=== PATIENT | female | born 1930 | race Caucasian/White ===

== ENCOUNTER 2017-01-16 13:05 | Inpatient (IN) | payer MEDICARE, BC ==
[2017-01-16] MEDS ORDERED: Ondansetron INJ* 2 MG/ML VIAL ONE (13:10)
[2017-01-16] MEDS ORDERED: Ondansetron INJ* 2 MG/ML VIAL IV ONE (13:17)
[2017-01-16] MEDS ORDERED: LORazepam INJ* 2 MG/ML 1 ML VIAL IV ONE (13:17)
[2017-01-16] MEDS ORDERED: NS 0.9% 1000 ML* 1,000 ML IV SCH ×2 (13:30→15:30)
[2017-01-16 13:33] LABS: Hematocrit 37 % (35-47); Hemoglobin 12.3 g/dl (12.0-16.0); Mean Corpuscular HGB Conc 34 g/dl (31-36); Mean Corpuscular Hemoglobin 37 pg (27-31); Mean Platelet Volume 9 um3 (7.4-10.4); Red Blood Count 3.36 10^6/ul (4.0-5.4); Red Cell Distribution Width 14 % (10.5-15); White Blood Count 5.4 10^3/ul (3.5-10.8)
[2017-01-16 13:34] LABS: Comments Flag Yes
[2017-01-16 13:37] LABS: Mean Corpuscular Volume 110 fL (80-97)
--- NOTE | 2017-01-16 13:39 | RAD ---
HISTORY: Right-sided weakness, history of seizure COMPARISONS: October 14, 2016 TECHNIQUE: Multiple contiguous axial CT scans were obtained of the head without intravenous contrast. FINDINGS: HEMORRHAGE/INFARCT: There is no hemorrhage or acute infarct. MASSES/SHIFT: There is no mass or shift. EXTRA-AXIAL SPACES: There are no extra-axial fluid collections. SULCI AND VENTRICLES: There is mild diffuse and proportional enlargement of the sulci and ventricles. CEREBRUM: There are no focal parenchymal abnormalities. BRAINSTEM: There are no focal parenchymal abnormalities. CEREBELLUM: There are no focal parenchymal abnormalities. VESSELS: The vessels are grossly normal. PARANASAL SINUSES: The paranasal sinuses are clear. ORBITS: The orbits are unremarkable. BONES AND SOFT TISSUE: No bone or soft tissue abnormalities are noted. OTHER: None IMPRESSION: NO ACUTE INTRACRANIAL PATHOLOGY. PRELIMINARY FINDINGS WERE DISCUSSED WITH DR. ARREDONDO IN THE EMERGENCY DEPARTMENT AT APPROXIMATELY 1:36 PM ON JANUARY 16, 2017.
--- NOTE | 2017-01-16 13:40 | RAD ---
INDICATION: Altered mental status COMPARISON: October 14, 2016 TECHNIQUE: An AP seated portable view obtained at 1325 hours is submitted. FINDINGS: Bones/Soft Tissues: There are no acute bony findings. There is a right-sided [id number] catheter Cardiomediastinal: The cardiomediastinal silhouette is normal. There are calcified mediastinal lymph nodes. Lungs: There is hyperinflation with chronic interstitial changes. These changes are less conspicuous than noted previously, however. There is evidence of old chronic lung disease with a left upper lobe granuloma. Pleura: There are no pleural effusions. Other: None IMPRESSION: HYPERINFLATION WITH MILD CHRONIC INTERSTITIAL CHANGES DEMONSTRATE MILD INTERVAL IMPROVEMENT
[2017-01-16 13:45] LABS: Albumin 3.7 g/dL (3.2-5.2); BUN/Creatinine Ratio 26.6 (8-20); Calcium 9.4 mg/dL (8.6-10.3); EGFR African American 52.5 (>60); EGFR Non-African American 40.8 (>60); Globulin 4.2 g/dL (2-4); HDL Cholesterol 49.2 mg/dL; Potassium 5.9 mmol/L (3.5-5.0); Total Bilirubin 0.6 mg/dL (0.2-1.0); Total Protein 7.9 g/dL (6.4-8.9)
[2017-01-16 13:59] LABS: PCO2 Arterial 51 mmHg (35-45)
[2017-01-16] MEDS ORDERED: Ondansetron INJ* 2 MG/ML VIAL IV PRN (15:02)
[2017-01-16] MEDS ORDERED: LORazepam INJ* 2 MG/ML 1 ML VIAL IV PUSH PRN (15:02)
[2017-01-16] MEDS ORDERED: Acetaminophen TAB* 325 MG PO PRN (15:02)
--- NOTE | 2017-01-16 15:09 | ED ---
Luis, DoctorMelissa, scribed for Raúl Arredondo MD on 01/16/17 at 1335 . Neurological HPI - HPI Summary HPI Summary: 86 year old female arrived to [facility] with AMS following multiple episodes of emesis and coughing. She was unresponsive upon arrival, but has recovered slightly since. She was reported to be "wobbly", but no different than baseline at 12:00 pm; however, she began coughing at 12:15 and was unable to communicate or respond to questions. Upon arrival, she was unable to move her right side but was marginally able to move her left side. She experienced a seizure in [facility]. Her daughter reports a similar episode 1 year ago and she has a PMHx of seizures. Her care is currently managed by Dr. Still (Oncologist) and Dr. Swan (Neurologist); she receives treatment for her cancer once every three weeks. HPI provided by daughter who was present at bedside; full HPI limited due to Level 5 Caveat. Patient is DNR. Tom Hillman called for patient at 13:14. - History of Current Complaint Stated Complaint: UNRESPONSIVE Hx Obtained From: Family/Cut Out Marker - Daughter Hx From Patient Unobtainable Due To: Altered Mental Status Hx Last Menstrual Period: n/a Onset/Duration: Started hours ago - onset 1 hour COMMERCIAL INSULATOR Timing: Constant Onset Severity: Moderate Current Severity: Moderate Number of Seizures: 1 - in [facility] Character: Responsiveness - unresponsive upon arrival, slightly recovered Associated Signs and Symptoms: Positive: Seizure, Nausea/Vomiting Related Hx: Seizure - Additional Pertinent History Primary Care Physician: [id number] - Allergy/Home Medications Allergies/Adverse Reactions: Allergies Allergy/AdvReac Type Severity Reaction Status Date / Time Azathioprine Allergy Unknown Verified 09/01/16 12:28 Reaction Details Codeine Allergy Unknown Verified 09/01/16 12:28 Reaction Details Corticosteroids Allergy Swelling Verified 09/01/16 12:28 Diltiazem Allergy Unknown Verified 09/01/16 12:28 Reaction Details Levetiracetam Allergy See Comment Verified 09/01/16 12:28 Macrolides and Ketolides Allergy Unknown Verified 09/01/16 12:28 Reaction Details Penicillins Allergy Hives Verified 09/01/16 12:28 Phenytoin [From Dilantin] Allergy Hives Verified 09/01/16 12:28 Sulfa Drugs Allergy Hives Verified 09/01/16 12:28 Tetracyclines & Related Allergy Difficulty Verified 09/01/16 12:28 Breathing/Wheezing Doxycycline AdvReac GI Upset Verified 06/09/16 06:51 Lidocaine AdvReac GI Upset Verified 06/09/16 06:51 Moxifloxacin [From Avelox] AdvReac Diarrhea Verified 06/09/16 06:51 Home Medications: Home Medications Cholecalciferol [Vitamin D3] 50,000 mg PO WEEKLY 01/16/17 [History Confirmed 04/29] Divalproex ER TAB(*) [Depakote ER TAB(*)] 1,000 mg PO BID 01/16/17 [History Confirmed 01/16/17] Lactulose* 10 mg PO BID PRN 01/16/17 [History Confirmed 01/16/17] Ondansetron TAB* [Zofran Tab*] 4 mg PO TID PRN 01/16/17 [History Confirmed 01/16] Pantoprazole TAB (NF) [Protonix TAB (NF)] 40 mg PO DAILY 01/16/17 [History Confirmed 01/16/17] Prochlorperazine TAB* [Compazine Tab*] 10 mg PO QID PRN 01/16/17 [History Confirmed 01/16/17] PMH/Surg Hx/FS Hx/Imm Hx Endocrine/Hematology History: Reports: Hx Anticoagulant Therapy, Hx Thyroid Disease - hypo, Hx Anemia, Other Endocrine/Hematological Disorders - hypothyroidism Denies: Hx Diabetes, Hx Unexplained Bleeding Cardiovascular History: Reports: Hx Angina, Hx Angioplasty, Hx Coronary Artery Disease, Hx Syncope, Other Cardiovascular Problems/Disorders - CAD Denies: Hx Aneurysm, Hx Auto Implanted Cardiovert Defib, Hx Cardiac Arrest, Hx Cardiomegaly, Hx Congenital Heart Disease, Hx Congestive Heart Failure, Hx Deep Vein Thrombosis, Hx Embolism, Hx Hypercholesterolemia, Hx Hypotension, Hx Hypertension, Hx Pacemaker/ICD, Hx Peripheral Vascular Disease, Hx Rheumatic Fever, Hx Valvular Heart Disease Respiratory History: Reports: Hx Sleep Apnea Denies: Hx Asthma, Hx Chronic Obstructive Pulmonary Disease (COPD), Hx Lung Cancer GI History: Reports: Hx Gastroesophageal Reflux Disease Denies: Hx Jaundice, Hx Ulcer History: Denies: Hx Dialysis, Hx Renal Disease Musculoskeletal History: Reports: Hx Arthritis, Other Musculoskeletal History - polymyalgia rheumatica Denies: Hx Fibromyalgia Sensory History: Reports: Hx Contacts or Glasses, Other Sensory Impairments - polymyalgia rheumatica Denies: Hx Hearing Aid Opthamlomology History: Reports: Hx Contacts or Glasses, Other Sensory Impairments - polymyalgia rheumatica Neurological History: Reports: Hx Seizures, Hx Transient Ischemic Attacks (TIA) Denies: Hx Dementia, Hx Developmental Delay, Hx Headaches, Hx Migraine, Hx Nerve Disease, Hx Spinal Cord Injury, Other Neuro Impairments/Disorders Psychiatric History: Denies: Hx Anxiety, Hx Depression, Hx Panic Disorder, Hx Schizophrenia, Hx Bipolar Disorder - Cancer History Cancer Type, Location and Year: 2015 Hx Chemotherapy: Yes - Surgical History Surgery Procedure, Year, and Place: 2005 CARDIAC STENT [place] FOR 3T PER BIBIANA ( CYPHER-SIROLIMUS),. HEEL SURGERY X2 ,. APPENDIX 1953,. BREAST BX X2 1958 ,. LEFT ARM SURGERY WRIST FX,. R ARM SURGERY ELBOW FX,. SKULL FRACTURE [facility] NO. SURGERY PER PT. CATARACT LENSE REPAIR;. HEART CATHS - ONLY ONE STENT;. appendectomy Hx Anesthesia Reactions: No - Immunization History Date of Tetanus Vaccine: MAGGIE Date of Influenza Vaccine: MAGGIE Infectious Disease History: Denies: Hx Hepatitis, Hx Human Immunodeficiency Virus (HIV) - Family History Known Family History: Positive: Unknown Family History: LEVEL 5 CAVEAT - UNRESPONSIVE - Social History Alcohol Use: None Hx Substance Use: No Substance Use Type: Reports: None Hx Tobacco Use: No Smoking Status (MU): Never Smoked Tobacco Review of Systems - ROS Summary Review of Systems Summary: Full ROS limited due to Level 5 Caveat Positive: Cough - constant cough, unable to communicate All Other Systems Reviewed And Are Negative: No Physical Exam - Summary Physical Exam Summary: Physical Exam limited due to Level 5 Caveat Triage Information Reviewed: Yes Vital Signs On Initial Exam: Initial Vitals Resp 28 01/16/17 13:08 Vital Signs Reviewed: Yes Completion Of Physical Exam Limited Due To: Level 5 Skin: Positive: Warm, Skin Color Reflects Adequate Perfusion, Dry Respiratory/Lung Sounds: Positive: Clear to Auscultation, Breath Sounds Present Cardiovascular: Positive: Tachycardia Abdomen Description: Positive: Nontender, Soft Bowel Sounds: Positive: Present Musculoskeletal: Positive: Strength/ROM Intact - able to move all four extremities while seizing Neurological: Positive: Sensory/Motor Intact - able to move all four extremities while seizing, Other - Patient unresponsive.. Negative: Alert, Oriented to Person Place, Time Psychiatric: Positive: Other - patient unresponsive Diagnostics - Vital Signs Vital Signs Temp Pulse Resp BP Pulse Ox 01/16/17 14:00 107 27 150/70 98 01/16/17 13:55 111 27 98 01/16/17 13:54 139/86 01/16/17 13:50 148/84 01/16/17 13:40 134/85 01/16/17 13:30 149/74 01/16/17 13:29 98.7 F 109 28 149/74 99 01/16/17 13:27 100 01/16/17 13:20 146/75 01/16/17 13:08 28 - Laboratory Lab Results: Lactic Acid - 2.8 Result Diagrams: 01/16/17 13:05 01/16/17 13:05 Lab Statement: Any lab studies that have been ordered have been reviewed, and results considered in the medical decision making process. - Radiology CXR Radiology Interpretation Completed By: Radiologist - IMPRESSION: HYPERINFLATION WITH MILD CHRONIC INTERSTITIAL CHANGES DEMONSTRATE MILD INTERVAL IMPROVEMENT - CT Brain CT CT Interpretation Completed By: Radiologist - IMPRESSION: NO ACUTE INTRACRANIAL PATHOLOGY. PRELIMINARY FINDINGS WERE DISCUSSED WITH DR. ARREDONDO IN THE EMERGENCY DEPARTMENT AT APPROXIMATELY 1:36 PM ON JANUARY 16, 2017. - EKG 13:46 Cardiac Rate: Tachycardia - 110 BPM EKG Rhythm: Sinus Tachycardia - 110 BPM Ectopy: None EKG Interpretation: Normal ST Re-Evaluation - Re-Evaluation First Eval Re-Evaluation Time: 13:33 Comment: MD updated daughter with consultation results. Daughter confirms that their PCPs involve Dr. Still (oncologist) and Dr. Swan (neurologist). MD disucssed plan of care involving CTA and Keppra treatment, daughter agreed. Daughter indicated that pt previously was on Keppra but recently changed to a different seizure medication; speculated that the change may be the reason for her seizures today. Course/Dx - Course Assessment/Plan: DISUSSED WITH DR LOUIS, NEUROLOGY, AND DR WOODS. ADMIT HOSPITALIST GUARDED. - Diagnoses Provider Diagnoses: Altered mental state During the Visit The Following Alert/Code Occurred: Code Hillman - 13:14 - Physician Notifications Discussed Care of Patient With: 13:32 - discussed care of patient with Dr. Dennis (neurologist middle school professional). 13:57 - discussed care of patient with Dr. Swan (neurologist). He agrees to come down and see patient. 13:59 - discussed care of patient with Dr. Bullock (hospitalist). Discharge - Discharge Plan Condition: Guarded Disposition: ADMITTED TO [facility] documentation as recorded by the Doctor land Tahera accurately reflects the service I personally performed and the decisions made by me, Raúl Arredondo MD.
[2017-01-16] MEDS ORDERED: Sodium Polystyrene RECTAL* 30 GM/120 ML RECTAL.SUS PR ONE (15:23)
--- NOTE | 2017-01-16 16:48 | CONSULT ---
Consult Consult: 01/16/17 neurology consult note 86 yo F, pt of dr Swan/faby neurological, known chronic seizure disorder ( likely left hemisphere localization related), ovarian cancer (ascites; thrombocytopenia), thyroid disease, PMR, presenting with likely recurrent seizure. She has a known history of post ictal aphasia and encephalopathy and has been seen by multiple neurologists on inpatient before, most recently dr Swan in 10/28 and 08/28. She has had multiple sets of negative PHARMACY CONSULTANT imaging and negative vascular imaging 08/28 as well. She is currently obtunded. She is per records on LEV 1000mg XR bid (normal levels -10/28), and apparently more recently had VPA added (? 500 qpm to titrate to 500 bid; had level of 77 in 11/29 ; repeat pending). She got a keppra load and benzos in the ED. Her outpatient chart is not available, but prior trials presumably included at least PHE ( hives listed as allergy), vimpat (had levels in chart). Allergies/Meds per jan PMH - as above FH - NC/ not available SH - NC/not available ROS unobtainable due to encephalopathy Vitals per emr general Examination: obtunded; no edema; abd soft Neurologic Examination Funduscopy deferred; PERRL; corneals sluggish; eyes open no gaze preference; doll intact; face symmetric; tone normal to dec; no convulsions; moves left side semi purposefully; withdrew both legs to noxious stim, no mvmt spont or to stim of RUE; 1+ arms; knees and ankles absent. Plantar responses are equivocal to rapid withdrawal Serologies: - Plts 79 (stable), Cr up to 1.24, K 5.9 - Priors; B12, CA 125, tsh, cortiso, aic all ok in past; bnp 300s Imaging: - Head CT reviewed and negative (08/28, 12/28 and 11/25 brain mris all neg as well) - 08/28 CTA and 11/25 head MRA both neg - 09/28 CT abd and pelvis essentially neg; 7?16 venous u/s LLE neg DVT Phys: mult EEGs from 04/25-08/28 have all demonstrated either bland diffuse encephalopathy or encephalopathy with superimposed left sided slowing; she has not had discharges or status/seizures Impression: 86 year old localization related likely left hemisphere (by exam and prior EEGs ; imaging negative) chronic seizure disorder, ovarian cancer, presenting with recurrent seizure. She is currently clinically post ictal; there is no clinical evidence of seizure activity, ie any decision re repeat EEG can wait until tomorrow, when Dr Swan comes on service. Her VPA level is pending and outpatient dosing needs clarification; she can be maintained on LEV 1000 bid IV pending further med adjustments.
--- NOTE | 2017-01-16 17:40 | HP ---
HISTORY AND PHYSICAL: DATE OF ADMISSION: 01/16/17 PRIMARY CARE PROVIDER: Dr. Berrios. ATTENDING PHYSICIAN WHILE IN THE HOSPITAL: Dr. Emile Bullock *(report dictated by Reagan Sow NP). CHIEF COMPLAINT: Altered mental status. HISTORY OF PRESENT ILLNESS: I would like to preface this report by saying that the patient at this point is nonverbal at this point, really unable to give much history. Most of the H and P is obtained from the patient's daughter who lives in [place] and comes up occasionally to see her mother and again, because of this, the history is limited. According to the daughter, she has been here the last couple of days visiting the patient and apparently today, they were going out to go shopping at the mall and on their way here, the daughter noted that the patient started coughing. She noted that she was not acting herself. She was acting confused. The daughter was driving, so she really was not focusing completely on the patient as she wanted to make sure that they were safe, but there was no report of shaking or incontinence. There was report of confusion and her not acting herself and acting off. The patient' s daughter was very concerned when she asked her mother if she wanted to go to the hospital, she did not say anything and it appeared that she was staring off , so she brought her in to the hospital immediately. She has been sick recently in the last couple of weeks. She has been dealing with a sore throat, cough, having some rhinorrhea as well and has not been feeling well. According to the daughter last week, she had some diarrhea, which is now resolved. The daughter drove her immediately into the hospital to be evaluated, particularly when she did not respond to the daughter's questioning. The patient's daughter says that to her knowledge, she may or may not be taking her medications appropriately. She does at times and is forgetful. She may be forgetting her night doses of her seizure medications and the daughter is unaware of what medications she is actually taking. She is in the process of getting the pill bottles. She was evaluated in the ER. Tom Antonio was called. There was concern for seizure. She was given 2 of Ativan and loaded with 1000 mg of Keppra. Neurology was called as was the hospitalist service. PAST MEDICAL HISTORY: 1. She has had ovarian cancer. 2. AFib. 3. Seizure. 4. CAD. 5. Hypothyroidism. 6. GERD. 7. PMR. 8. TRISTAN, not treated. 9. CKD. PAST SURGICAL HISTORY: 1. She has had an appendectomy. 2. Cardiac catheterization. HOME MEDICATIONS: According to the pharmacy list that we are able to obtain include: 1. Protonix 40 mg daily. 2. Zofran 4 mg p.o. t.i.d. as needed. 3. Lactulose 10 mg p.o. b.i.d. as needed. 4. Compazine 10 mg p.o. 4 times a day as needed. 5. Depakote 1000 mg p.o. b.i.d. 6. Keppra 1000 mg p.o. b.i.d. 7. Thyroid tab 60 mg p.o. b.i.d. 8. Omeprazole 20 mg daily. ALLERGIES TO MEDICATIONS: Include AZATHIOPRINE, CODEINE, CORTICOSTEROIDS, DILTIAZEM, KEPPRA, MACROLIDES, KETOLIDES, PENICILLIN, PHENYTOIN, SULFA, TETRACYCLINE, DOXYCYCLINE, LIDOCAINE, and AVELOX. FAMILY HISTORY: Parents' history was reviewed. The patient's daughter is unaware of any medical problems that the family may have had with the exception that the patient's sister did have cancer from smoking, lung cancer. SOCIAL HISTORY: She lives alone. Surrogate decision maker is her daughter. She is a nonsmoker, nondrinker. REVIEW OF SYSTEMS: Again, unable to be obtained because of the patient's mental status. PHYSICAL EXAMINATION GENERAL: At this time, Ms. Bonilla is an 86-year-old female patient. She is sitting in the ER bed and does not appear to be in any acute distress. She will withdraw to pain only. She is nonverbal. VITAL SIGNS: Blood pressure 134/69, pulse 106, respirations 26, O2 sat 97%, and temperature 98.7. HEENT: Pupils are equal and reactive to light. Sclerae anicteric. Throat: Oral mucosa appears to be dry. No oropharyngeal erythema. NECK: Supple. LUNGS: Clear to auscultation. HEART: Sounds S1, S2. She is tachycardic at 100. ABDOMEN: Soft, flat, nontender. Bowel sounds present. EXTREMITIES: She will withdraw her extremities to pain only. Pulses were 2+ throughout. No peripheral edema. NEUROLOGIC: Her eyes are open. She does not respond to visual threat at this point. She is nonverbal. She does grimace to pain and withdraw to pain to all 4 extremities. No facial drooping. No gross focal deficits. SKIN: Intact. LABORATORY DATA AND DIAGNOSTIC STUDIES: Today revealed WBC of 5.4, RBC of 3.36 , hemoglobin 12.3, hematocrit 37, platelet count 79. The INR was 0.88. PTT 28.2. ABG showed a pH of 7.27, PCO2 of 51, bicarb of 21. Her sodium was 134, potassium 5.9, chloride of 101, bicarb 29, BUN 33, creatinine 1.29, glucose 108 , lactic 2.8, calcium 9.4. Total bilirubin 0.6, AST 22, ALT 13, alk phos 84. Troponin 0.0. Albumin 3.7. Toxicology: Valproic acid level is pending. She had a brain CT obtained today, which revealed no acute intracranial pathology. She had a chest x-ray obtained today, which revealed hyperinflation with mild chronic interstitial changes and demonstrated mild interval improvement. EKG showed a sinus tachycardia with a rate of 110. No ST elevations or T-wave inversions were noted. Old medical records were reviewed. She did have an MRI in August this year, which was a negative exam with the exception of chronic vessel ischemic change. Old medical records were reviewed. ASSESSMENT AND PLAN: Ms. Bonilla is an 86-year-old female patient coming into the ER today with complaints of a possible seizure and altered mental status. Hospitalist service was asked to evaluate for admission. She will be admitted under inpatient status for: 1. Seizure: At this point, Dr. Tobin will be evaluating the patient. She did get a dose of Keppra. She does appear possibly postictal. At this point, she will be evaluated by Neurology. She again is only responsive to pain. The plan is to go ahead and continue her medications. Question if it possibly seems related to medication noncompliance. At this point, again we will possibly get an EEG. We are going to wait for Neurology input, place her on seizure precautions and we will continue to monitor. 2. Ovarian cancer: Follow up with Dr. Still. 3. Atrial fibrillation: Appears to be in sinus rhythm. We will monitor. 4. Coronary artery disease: Continue with secondary prevention. 5. Hypothyroidism: Continue her medications as prescribed. 6. Gastroesophageal reflux disease: Continue PPI therapy. 7. Polymyalgia rheumatica: She can follow with her primary. It does not appear to be an active issue. 8. Obstructive sleep apnea: She does not wear CPAP at night. 9. Chronic kidney disease with acute kidney injury, today we will hydrate her. Continue to follow. 10. Hyperkalemia: I am going to give her a Kayexalate suppository. 11. Code status: She is DNR. 12. Fluids, electrolytes, and nutrition: She is n.p.o. If she awakens, we will order a heart healthy diet. TIME SPENT: Time spent on the admission was approximately 60 minutes; greater than half the time was spent [id number] with the patient obtaining my history and physical, other half of the time spent going over the plan of care with the patient and implementing plan of care. I did discuss the plan of care with my attending, Dr. Bullock; he is in agreement. REAGAN SOW NP CC: Dr. Berrios; Dr. Gallardo * [id number]/CPS #: [id number] BARBI
[2017-01-16 18:07] LABS: BUN/Creatinine Ratio 30.1 (8-20); EGFR African American 96.8 (>60); EGFR Non-African American 75.2 (>60); Potassium 3.6 mmol/L (3.5-5.0)
[2017-01-16] MEDS ORDERED: hydrALAZINE IV* 20 MG/ML VIAL IV SLOW PU PRN (18:36)
[2017-01-16] MEDS: LORazepam INJ* 2 MG/ML 1 ML VIAL IV PUSH PRN (18:55)
[2017-01-16] MEDS ORDERED: Acetaminophen SUPP* 650 MG SUPP PR PRN (19:06)
--- NOTE | 2017-01-16 19:10 | PN ---
Hospitalist Progress Note called to bedside at 1900, noted to be shaking, and more confused per nursing, pt withdrawing to pain and to sternal rub, temp noted 101.4, plan for vanco ceftriaxone, checking urine if neg, may need to consider spinal tap will cover empircally for now with vanco and ceftriaxone for now, daughter did state patient had recent uri symptoms,
[2017-01-16] MEDS ORDERED: Vancomycin per Pharmacy* NOTE FOLLOW UP PRN (19:11)
--- NOTE | 2017-01-16 19:33 | PN ---
Hospitalist Progress Note Will add acyclovir renally dosed and meropenum, consider spinal tap in am if U/ A clean,
[2017-01-16 19:53] LABS: C Reactive Protein 2.41 mg/L (< 5.00)
[2017-01-16 19:59] LABS: Urine Bilirubin Negative (Negative); Urine Glucose Negative (Negative); Urine Nitrite Negative (Negative)
[2017-01-16] MEDS ORDERED: Vancomycin(*) 1,000 MG in NS 0.9% 250 ML* 250 ML IVPB ONE (21:00)
[2017-01-16] MEDS ORDERED: Valproic Acid IV(*) 100 MG/ML 5 ML VIAL (500 MG) IVPB SCH ×2 (21:00)
[2017-01-16] MEDS ORDERED: Divalproex ER TAB(*) 500 MG PO SCH (21:00)
[2017-01-16] MEDS: Heparin VIAL(*) 5000 UNITS/ML VIAL (FIVE THOUSAND) SUBCUT SCH (21:20)
[2017-01-16 22:28] LABS: BUN/Creatinine Ratio 25.2 (8-20); Calcium 9.2 mg/dL (8.6-10.3); EGFR African American 62.2 (>60); EGFR Non-African American 48.4 (>60)
[2017-01-16 22:31] LABS: Potassium 4.9 mmol/L (3.5-5.0)
[2017-01-17] MEDS ORDERED: NS 0.9% 1000 ML* 1,000 ML IV SCH (01:45)
[2017-01-17] MEDS: Heparin VIAL(*) 5000 UNITS/ML VIAL (FIVE THOUSAND) SUBCUT SCH ×3 (06:40→21:26)
[2017-01-17 06:43] LABS: Hematocrit 31 % (35-47); Hemoglobin 10.5 g/dl (12.0-16.0); Mean Corpuscular HGB Conc 34 g/dl (31-36); Mean Corpuscular Hemoglobin 38 pg (27-31); Mean Platelet Volume 9 um3 (7.4-10.4); Red Blood Count 2.82 10^6/ul (4.0-5.4); Red Cell Distribution Width 14 % (10.5-15); White Blood Count 6.7 10^3/ul (3.5-10.8)
[2017-01-17 06:44] LABS: Comments Flag Yes
[2017-01-17 06:45] LABS: Mean Corpuscular Volume 111 fL (80-97)
[2017-01-17 06:56] LABS: BUN/Creatinine Ratio 22.5 (8-20); Blood Urea Nitrogen 23 mg/dL (6-24); CO2 Carbon Dioxide 25 mmol/L (22-32); Calcium 8.5 mg/dL (8.6-10.3); Chloride 101 mmol/L (101-111); EGFR African American 65.8 (>60); EGFR Non-African American 51.1 (>60); Glucose 127 mg/dL (70-100); Sodium 131 mmol/L (133-145)
--- NOTE | 2017-01-17 08:34 | PN ---
Subjective - Subjective Reason for Note: Progress Note History: I have reviewed the presentation in the admitting history and physical provided by Ezio Sow NP. She has a longstanding seizure disorder and has had breakthrough seizures taking therapeutic levels of keppra and was recently changed to divalproex ( depakote). She has not tolerated phenytoin in the past (caused her major balance/walking problems). She is unconscious this morning and not responsive. Conversation with daughter May by phone. She had diarrhea 1 week before her daughter arrived. She had a "lump in her throat" - sore throat - she was over this 1 week prior to admission. May was fine on Monday - very tired. She took her mother to the movies - she would usually be more alert afterwards. She had a list of things to do - no energy. She was fine on the morning of presentation. They were planning to go to [employer]. On the drive there had a conversation - weather. When they passed [place] - weird "coughing thing". She asked for water. Didn't take a water bottle. She stopped verbally responding. Therefore took her to the [facility]. Not initially a major convulsion. She was unable to get out of the car with a wheel chair. She was vomiting all over herself and the car. A weight - took 4 people to get her out of the car. She thinks she became fully unconscious when she arrived at the Emergency Room and went to fetch a wheel-chair. 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 Sleep apnea (Chronic) G47.30 Thrombocytopenia (Chronic) D69.6 Current Medications: Current Medications Acetaminophen (Tylenol Tab*) 650 mg PO Q4H PRN PRN Reason: FEVER/PAIN Acetaminophen (Tylenol Supp*) 650 mg AK Q4H PRN PRN Reason: FEVER/PAIN Last Admin: 01/16/17 20:12 Dose: 650 mg Heparin Sodium (Porcine) (Heparin Vial(*)) 5,000 units SUBCUT Q8HR [facility] Last Admin: 01/17/17 06:40 Dose: 5,000 units Hydralazine HCl (Apresoline Iv*) 5 mg IV SLOW PU Q6H PRN PRN Reason: BLOOD PRESSURE Last Admin: 01/16/17 18:45 Dose: 5 mg Levetiracetam 500 mg/ Sodium (Chloride) 105 mls @ 400.848 mls/hr IVPB Q12H [facility] Last Admin: 01/16/17 20:19 Dose: 400.848 mls/hr Valproic Acid 1,000 mg/ Sodium (Chloride) 110 mls @ 220 mls/hr IVPB Q12H [facility] Last Admin: 01/16/17 22:13 Dose: 220 mls/hr Ceftriaxone Sodium 2 gm/ (Sodium Chloride) 120 mls @ 240 mls/hr IVPB Q12H [facility] Last Admin: 01/17/17 07:57 Dose: 240 mls/hr Acyclovir Sodium 500 mg/ (Sodium Chloride) 110 mls @ 110 mls/hr IVPB Q12H [facility] Last Admin: 01/16/17 23:26 Dose: 110 mls/hr Meropenem 2 gm/ Sodium (Chloride) 140 mls @ 280 mls/hr IVPB Q12H [facility] Last Admin: 01/17/17 07:58 Dose: 280 mls/hr Vancomycin HCl 750 mg/ Sodium (Chloride) 250 mls @ 166.667 mls/hr IVPB Q12H [facility] Last Admin: 01/17/17 08:19 Dose: 166.667 mls/hr Sodium Chloride (Ns 0.9% 1000 Ml*) 1,000 mls @ 100 mls/hr IV PER RATE [facility] Last Admin: 01/17/17 03:55 Dose: 100 mls/hr Lorazepam (Ativan Inj*) 1 mg IV PUSH Q6H PRN PRN Reason: SEIZURES Last Admin: 01/16/17 18:55 Dose: 1 mg Ondansetron HCl (Zofran Inj*) 4 mg IV Q6H PRN PRN Reason: NAUSEA Pharmacy Consult (Vancomycin Per Pharmacy*) 1 note FOLLOW UP . PRN PRN Reason: PER PROTOCOL Pharmacy Profile Note (Vancomycin Trough Check) 1 note FOLLOW UP 829 ONE Stop: 01/18/17 08:31 Home Medications: Home Medications Medication Instructions Recorded Confirmed Type Levetiracetam XR TAB(NF) [Keppra 1,000 mg PO BID 09/02/16 01/16/17 History XR TAB(NF)] Thyroid TAB* [Thyroid TAB 60 MG*] 60 mg PO BID 09/02/16 01/16/17 History Omeprazole CAP* [Prilosec CAP* 20 20 mg PO DAILY 10/15/16 01/16/17 History MG] Cholecalciferol [Vitamin D3] 50,000 mg PO WEEKLY 01/16/17 01/16/17 History Divalproex ER TAB(*) [Depakote ER 1,000 mg PO BID 01/16/17 01/16/17 History TAB(*)] Lactulose* 10 mg PO BID PRN 01/16/17 01/16/17 History Ondansetron TAB* [Zofran Tab*] 4 mg PO TID PRN 01/16/17 01/16/17 History Pantoprazole TAB (NF) [Protonix 40 mg PO DAILY 01/16/17 01/16/17 History TAB (NF)] Prochlorperazine TAB* [Compazine 10 mg PO QID PRN 01/16/17 01/16/17 History Tab*] Allergies: Allergies Allergy/AdvReac Type Severity Reaction Status Date / Time Azathioprine Allergy Unknown Verified 09/01/16 12:28 Reaction Details Codeine Allergy Unknown Verified 09/01/16 12:28 Reaction Details Corticosteroids Allergy Swelling Verified 09/01/16 12:28 Diltiazem Allergy Unknown Verified 09/01/16 12:28 Reaction Details Levetiracetam Allergy See Comment Verified 09/01/16 12:28 Macrolides and Ketolides Allergy Unknown Verified 09/01/16 12:28 Reaction Details Penicillins Allergy Hives Verified 09/01/16 12:28 Phenytoin [From Dilantin] Allergy Hives Verified 09/01/16 12:28 Sulfa Drugs Allergy Hives Verified 09/01/16 12:28 Tetracyclines & Related Allergy Difficulty Verified 09/01/16 12:28 Breathing/Wheezing Doxycycline AdvReac GI Upset Verified 06/09/16 06:51 Lidocaine AdvReac GI Upset Verified 06/09/16 06:51 Moxifloxacin [From Avelox] AdvReac Diarrhea Verified 06/09/16 06:51 Objective - Vital Signs Vital Signs: Vital Signs 01/16/17 01/16/17 01/16/17 14:30 15:00 15:30 Temperature Pulse Rate 106 105 104 Respiratory 27 31 28 Rate Blood Pressure 134/69 142/69 152/89 (mmHg) O2 Sat by Pulse 97 97 97 Oximetry 01/16/17 01/16/17 01/16/17 15:42 16:04 16:08 Temperature 98.7 F 97.5 F Pulse Rate 104 101 Respiratory 30 25 24 Rate Blood Pressure 152/89 176/79 (mmHg) O2 Sat by Pulse 99 Oximetry 01/16/17 01/16/17 01/16/17 16:15 16:30 16:45 Temperature Pulse Rate 100 100 103 Respiratory 23 30 22 Rate Blood Pressure 171/76 171/80 177/91 (mmHg) O2 Sat by Pulse 100 99 100 Oximetry 01/16/17 01/16/17 01/16/17 17:00 17:15 17:30 Temperature Pulse Rate 105 109 Respiratory 25 26 Rate Blood Pressure 103/84 172/89 180/94 (mmHg) O2 Sat by Pulse 100 100 Oximetry 01/16/17 01/16/17 01/16/17 17:45 17:46 17:52 Temperature Pulse Rate 103 105 104 Respiratory 20 19 17 Rate Blood Pressure 166/113 156/126 (mmHg) O2 Sat by Pulse 99 96 97 Oximetry 01/16/17 01/16/17 01/16/17 18:00 18:15 18:30 Temperature Pulse Rate 104 103 107 Respiratory 19 19 21 Rate Blood Pressure 145/93 148/94 185/69 (mmHg) O2 Sat by Pulse 96 100 100 Oximetry 01/16/17 01/16/17 01/16/17 18:45 18:55 19:00 Temperature Pulse Rate 114 115 Respiratory 23 26 23 Rate Blood Pressure 240/173 (mmHg) O2 Sat by Pulse 100 100 Oximetry 01/16/17 01/16/17 01/16/17 19:03 19:12 19:26 Temperature 101.3 F Pulse Rate 116 119 Respiratory 26 23 Rate Blood Pressure 243/194 260/220 160/90 (mmHg) O2 Sat by Pulse 98 99 Oximetry 01/16/17 01/16/17 01/16/17 19:53 20:00 20:15 Temperature 101.2 F 102.6 F 103.3 F Pulse Rate 118 115 Respiratory 24 32 24 Rate Blood Pressure 152/83 175/74 125/72 (mmHg) O2 Sat by Pulse 98 100 Oximetry 01/16/17 01/16/17 01/16/17 20:30 20:45 21:00 Temperature 102.9 F 103.2 F 102.9 F Pulse Rate 113 112 116 Respiratory 26 28 28 Rate Blood Pressure 146/81 179/67 177/70 (mmHg) O2 Sat by Pulse 99 100 100 Oximetry 01/16/17 01/16/17 01/16/17 21:15 21:19 21:30 Temperature 102.6 F 102.5 F 102.2 F Pulse Rate 116 117 112 Respiratory 32 31 28 Rate Blood Pressure 181/67 156/76 154/75 (mmHg) O2 Sat by Pulse 100 100 100 Oximetry 01/16/17 01/16/17 01/16/17 21:45 22:00 22:15 Temperature 102.0 F 101.6 F 101.3 F Pulse Rate 116 116 115 Respiratory 30 29 28 Rate Blood Pressure 166/80 163/81 163/82 (mmHg) O2 Sat by Pulse 100 100 99 Oximetry 01/16/17 01/16/17 01/16/17 22:30 22:45 23:00 Temperature 101.2 F 101.0 F 100.9 F Pulse Rate 111 113 110 Respiratory 27 28 27 Rate Blood Pressure 170/84 166/81 160/76 (mmHg) O2 Sat by Pulse 100 99 100 Oximetry 01/16/17 01/16/17 01/16/17 23:15 23:30 23:45 Temperature 100.8 F 100.6 F 100.7 F Pulse Rate 110 104 102 Respiratory 29 26 26 Rate Blood Pressure 163/80 148/64 142/71 (mmHg) O2 Sat by Pulse 100 99 99 Oximetry 01/17/17 01/17/17 01/17/17 00:00 00:01 00:15 Temperature 100.6 F 100.6 F 100.4 F Pulse Rate 106 106 109 Respiratory 23 26 26 Rate Blood Pressure 133/58 134/65 (mmHg) O2 Sat by Pulse 100 100 100 Oximetry 01/17/17 01/17/17 01/17/17 00:21 00:30 00:45 Temperature 100.3 F 100.3 F 100.1 F Pulse Rate 109 115 116 Respiratory 26 29 28 Rate Blood Pressure 143/59 143/63 (mmHg) O2 Sat by Pulse 100 99 99 Oximetry 01/17/17 01/17/17 01/17/17 01:00 01:15 01:30 Temperature 100.0 F 99.9 F 99.8 F Pulse Rate 112 105 102 Respiratory 25 26 21 Rate Blood Pressure 144/67 130/57 138/65 (mmHg) O2 Sat by Pulse 99 100 100 Oximetry 01/17/17 01/17/17 01/17/17 01:45 02:00 02:15 Temperature 99.8 F 99.7 F Pulse Rate 97 99 Respiratory 22 23 Rate Blood Pressure 134/62 141/65 133/64 (mmHg) O2 Sat by Pulse 100 100 Oximetry 01/17/17 01/17/17 01/17/17 02:30 02:45 03:00 Temperature 99.6 F 99.6 F 99.5 F Pulse Rate 95 93 93 Respiratory 19 22 28 Rate Blood Pressure 129/68 140/62 146/65 (mmHg) O2 Sat by Pulse 100 100 100 Oximetry 01/17/17 01/17/17 01/17/17 03:15 03:30 03:45 Temperature 99.5 F 99.4 F 99.4 F Pulse Rate 91 95 90 Respiratory 21 24 21 Rate Blood Pressure 137/66 144/70 128/60 (mmHg) O2 Sat by Pulse 100 100 100 Oximetry 01/17/17 01/17/17 01/17/17 04:00 05:00 06:00 Temperature 99.4 F 98.9 F 98.6 F Pulse Rate 90 87 87 Respiratory 22 22 20 Rate Blood Pressure 132/60 131/61 135/60 (mmHg) O2 Sat by Pulse 100 100 100 Oximetry - Intake and Output Intake and Output: Intake & Output 01/14/17 01/15/17 01/16/17 01/17/17 11:59 11:59 11:59 11:59 Intake Total 2311 Output Total 1600 Balance 711 Weight 130 lb 1.164 oz Intake: IV Fluids 1476 Normal Saline 1212 acyclovir 110 valproate 67 vancomycin 87 IVPB 835 calcium gluconate 120 ceftriaxone 120 keppra 100 meropenum 140 valproate 113 vancomycin 242 Output: Gax[place] 1600 Other: # Bowel Movements 2 Estimated Stool Amount Small ADLs: Meal Record Start: 01/16/17 16: 08 Freq: 09,13,18 Status: Active Created 01/16/17 16:08 [id number] (Rec: 01/16/17 16:08 [id number] [id number]) Document 01/16/17 18:00 [id number] (Rec: 01/16/17 18:06 [id number] ICU-C16) Intake and Output Start: 01/16/17 16: 08 Freq: 06,14,22 Status: Active Created 01/16/17 16:08 [id number] (Rec: 01/16/17 16:08 [id number] ICU-M02) Document 01/16/17 22:00 [id number] (Rec: 01/16/17 22:01 [id number] ICU-C20) Document 01/17/17 06:00 [id number] (Rec: 01/17/17 06:29 [id number] ICU-M02) - Physical Exam General Physical Exam Comment: She is unconscious in an ICU bed. She is breathing spontaneously. She moves spontaneously, but infrequently. No nuchal rigidity General: No Cyanosis, No Anemia, No Jaundice, No Lymphadenopathy, No Clubbing Skin: Normal: Rash Lungs and Chest: Yes: Chest Expansion Full, Chest Expansion Symetrica, Percussion Note Resonant, Vessicular Breath Sounds. No: Crackles Heart Rate and Rhythm: Regular JVP: Not Elevated Additional Cardiovascular: Yes: Normal Heart Sounds. No: Heart Murmur, Pedal Edema Abdominal Exam: Yes: Soft. No: Distention, Abdominal Mass, Hepatomegaly, Abdominal Tenderness, Guarding, Rebound Tenderness, Bowel Sounds Present Results - Results Lab Results: Laboratory Results - last 24 hr 01/16/17 01/16/17 01/16/17 16:07 17:35 17:35 WBC RBC Hgb Hct MCV MCH MCHC RDW Plt Count MPV Neut % (Auto) Lymph % (Auto) [place] % (Auto) Eos % (Auto) Baso % (Auto) Absolute Neuts (auto) Absolute Lymphs (auto) Absolute Monos (auto) Absolute Eos (auto) Absolute Basos (auto) Absolute Nucleated RBC Nucleated RBC % INR (Anticoag Therapy) Sodium 139 Potassium 3.6 D Chloride 116 H Carbon Dioxide 20 L Anion Gap 3 BUN 22 Creatinine 0.73 Est GFR ( Amer) 96.8 Est GFR (Non-Af Amer) 75.2 BUN/Creatinine Ratio 30.1 H Glucose 94 Lactic Acid 1.3 Calcium 6.0 L* Ionized Calcium C-Reactive Protein 2.41 Urine Color Urine Appearance Urine pH Ur Specific [place] Urine Protein Urine Ketones Urine Blood Urine Nitrate Urine Bilirubin Urine Urobilinogen Ur Leukocyte Esterase Urine Glucose Urine Ascorbic Acid Influenza A (Rapid) Negative Influenza B (Rapid) Negative 01/16/17 01/16/17 01/16/17 19:43 20:05 22:07 WBC RBC Hgb Hct MCV MCH MCHC RDW Plt Count MPV Neut % (Auto) Lymph % (Auto) [place] % (Auto) Eos % (Auto) Baso % (Auto) Absolute Neuts (auto) Absolute Lymphs (auto) Absolute Monos (auto) Absolute Eos (auto) Absolute Basos (auto) Absolute Nucleated RBC Nucleated RBC % INR (Anticoag Therapy) Sodium 134 Potassium 4.9 Chloride 101 Carbon Dioxide 24 Anion Gap 9 BUN 27 H Creatinine 1.07 H Est GFR ( Amer) 62.2 Est GFR (Non-Af Amer) 48.4 BUN/Creatinine Ratio 25.2 H Glucose 130 H Lactic Acid Calcium 9.2 Ionized Calcium 4.34 L C-Reactive Protein Urine Color Yellow Urine Appearance Clear Urine pH 6.0 Ur Specific [place] 1.014 Urine Protein Negative Urine Ketones Trace H Urine Blood Negative Urine Nitrate Negative Urine Bilirubin Negative Urine Urobilinogen Negative Ur Leukocyte Esterase Negative Urine Glucose Negative Urine Ascorbic Acid * H Influenza A (Rapid) Influenza B (Rapid) 01/17/17 01/17/17 01/17/17 06:30 06:30 06:30 WBC 6.7 RBC 2.82 L Hgb 10.5 L Hct 31 L MCV 111 H MCH 38 H MCHC 34 RDW 14 Plt Count 54 L MPV 9 Neut % (Auto) 85.0 H Lymph % (Auto) 10.2 L [place] % (Auto) 3.7 Eos % (Auto) 0 Baso % (Auto) 1.1 Absolute Neuts (auto) 5.7 Absolute Lymphs (auto) 0.7 L Absolute Monos (auto) 0.2 Absolute Eos (auto) 0 Absolute Basos (auto) 0.1 Absolute Nucleated RBC 0 Nucleated RBC % 0 INR (Anticoag Therapy) 0.97 Sodium 131 L Potassium TNP Chloride 101 Carbon Dioxide 25 Anion Gap TNP BUN 23 Creatinine 1.02 H Est GFR ( Amer) 65.8 Est GFR (Non-Af Amer) 51.1 BUN/Creatinine Ratio 22.5 H Glucose 127 H Lactic Acid Calcium 8.5 L Ionized Calcium C-Reactive Protein Urine Color Urine Appearance Urine pH Ur Specific [place] Urine Protein Urine Ketones Urine Blood Urine Nitrate Urine Bilirubin Urine Urobilinogen Ur Leukocyte Esterase Urine Glucose Urine Ascorbic Acid Influenza A (Rapid) Influenza B (Rapid) Radiology Results: Patient Name: ELYSSA TIERNEY Medical Record#: [id number] Ordering Physician: Raúl Arredondo MD Acct.#: [id number] : 1930 Age: 86 Sex: F Location: EMERGENCY DEPARTMENT Exam Date: 01/16/17 1316 ADM Status: REG ER Order Information: CT BRAIN WO Accession Number: [id number] CPT: 82656 HISTORY: Right-sided weakness, history of seizure COMPARISONS: October 14, 2016 TECHNIQUE: Multiple contiguous axial CT scans were obtained of the head without intravenous contrast. FINDINGS: HEMORRHAGE/INFARCT: There is no hemorrhage or acute infarct. MASSES/SHIFT: There is no mass or shift. EXTRA-AXIAL SPACES: There are no extra-axial fluid collections. SULCI AND VENTRICLES: There is mild diffuse and proportional enlargement of the sulci and ventricles. CEREBRUM: There are no focal parenchymal abnormalities. BRAINSTEM: There are no focal parenchymal abnormalities. CEREBELLUM: There are no focal parenchymal abnormalities. VESSELS: The vessels are grossly normal. PARANASAL SINUSES: The paranasal sinuses are clear. ORBITS: The orbits are unremarkable. BONES AND SOFT TISSUE: No bone or soft tissue abnormalities are noted. OTHER: None IMPRESSION: NO ACUTE INTRACRANIAL PATHOLOGY. PRELIMINARY FINDINGS WERE DISCUSSED WITH DR. ARREDONDO IN THE EMERGENCY DEPARTMENT AT APPROXIMATELY 1:36 PM ON JANUARY 16, 2017. <Electronically signed by Brandan Mcnamara MD in [place]> 01/16/17 1336 Dictated By: Brandan Mcnamara MD Dictated Date/Time: 01/16/17 1336 Transcribed Date/Time: 01/16/17 1334 Copy to: CC:Freddy Berrios MD; Raúl Arredondo MD [facility] [address] [address] ph [phone]) ph ([phone]) ph ([phone]) 1 of 1 Patient Name: ELYSSA TIERNEY Medical Record#: [id number] Ordering Physician: Raúl Arredondo MD Acct.#: [id number] : 1930 Age: 86 Sex: F Location: EMERGENCY DEPARTMENT Exam Date: 01/16/17 1316 ADM Status: REG ER Order Information: CHEST AP PORTABLE Accession Number: [id number] CPT: 30244 INDICATION: Altered mental status COMPARISON: October 14, 2016 TECHNIQUE: An AP seated portable view obtained at 1325 hours is submitted. FINDINGS: Bones/Soft Tissues: There are no acute bony findings. There is a right-sided [id number]-Ifvn catheter Cardiomediastinal: The cardiomediastinal silhouette is normal. There are calcified mediastinal lymph nodes. Lungs: There is hyperinflation with chronic interstitial changes. These changes are less conspicuous than noted previously, however. There is evidence of old chronic lung disease with a left upper lobe granuloma. Pleura: There are no pleural effusions. Other: None IMPRESSION: HYPERINFLATION WITH MILD CHRONIC INTERSTITIAL CHANGES DEMONSTRATE MILD INTERVAL IMPROVEMENT <Electronically signed by Raúl Person MD in [place]> 01/16/17 133 Dictated By: Raúl Person MD Dictated Date/Time: 01/16/17 1336 Transcribed Date/Time: 01/16/17 133 Copy to: CC:Freddy Berrios MD; Raúl Arredondo MD [facility] [address] [address] [place], [place] [id number] [place] [address] ph [phone]) ph ([phone]) ph ([phone]) 1 of EKG Report: EKG sinus rhythm: rate 110, AK 160 QRSD 76 QTc 432 QRS 13. Early transition R wave. Assessment - Problem List Assessment: Patient Problems Altered mental state (Acute) Fever (Acute) Seizure (Acute) Seizure disorder (Acute) CAD (coronary artery disease) (Chronic) GERD (gastroesophageal reflux disease) (Chronic) Hypothyroidism (Chronic) Polymyalgia rheumatica (Chronic) Serous adenocarcinoma (Chronic) Sleep apnea (Chronic) Thrombocytopenia (Chronic) Anemia (Acute) Ascites (Acute) History of atrial fibrillation (Chronic) Pleural effusion (Chronic) Plan: Altered mental state (Acute)/Seizure (Acute)/Seizure disorder (Acute) She has had another seizure that started as a complex partial seizure and then generalized. She is post-ictal and unconscious. Her divalproex level is in mid therapeutic range. She had a previous seizure in the mid-therapeutic level of levatiracetam. I spoke with Dr. Swan - suggests we increase the dose. We will obtain a trough level on depakote 1000 mg qhs. He wants to increase the dose. He is concerned about the thrombocytopenia. CAD (coronary artery disease) (Chronic) stable. We will c heck an EEG to determine if she is having complex partial status epilepticus Fever: Dr. Swan thinks this may be due to infection as seizures rarely cause fever. However, he doesn't think this is meningitis. Most likely a UTI. I am more skeptical about this as she has a low CRP. I will stop meningitis precautions. I will simplify her antibacterials and stop antivirals. Not for LP (daughter states her mother wouldn't want this anyway - Health Care Proxy) GERD (gastroesophageal reflux disease) (Chronic) secondary diagnosis Hypothyroidism (Chronic) secondary diagnosis Polymyalgia rheumatica (Chronic) secondary diagnosis Serous adenocarcinoma (Chronic) secondary diagnosis - due to see Dr. Still as an outpatient today Sleep apnea (Chronic) secondary diagnosis Anemia (Acute) This is about baseline Thrombocytopenia: She has had low platelets for almost 1 year - some of it may be due to her prior chemotherapy. It has worsened since October starting divalproex. Ascites (Acute) No signs to day History of atrial fibrillation (Chronic) secondary diagnosis - sinus rhythm Pleural effusion (Chronic) resolved I had a 10 min phone conversation with Lola [place] (daughter) who is coming in. I also discussed the case with Dr. Swan./
[2017-01-17] MEDS ORDERED: Vancomycin(*) 750 MG in NS 0.9% 250 ML* 250 ML IVPB SCH (09:00)
[2017-01-17] MEDS ORDERED: D5W 1/2 NS 1000 ML BAG* 1,000 ML IV SCH (10:00)
[2017-01-17] MEDS: D5W 1/2 NS KCl 20 Meq 1000 ML* 1,000 ML IV SCH (15:32)
[2017-01-17 17:24] LABS: Levetiracetam 28.1 mcg/mL
--- NOTE | 2017-01-17 20:36 | CONS ---
NEUROLOGY FOLLOWUP NOTE: DATE OF FOLLOWUP: 01/17/17 REFERRING PROVIDER: Reagan Sow NP PRIMARY CARE PROVIDER: Dr. Berrios. CHIEF COMPLAINT: Seizures. INTERVAL HISTORY: Since yesterday, Brittney has remained responsive only to pain. I reviewed the records and also examined her. I spoke with Dr. Berrios early this morning. According to the records, she was driving with her daughter who is visiting from [place] and became unresponsive. It started out conversation in that not speaking and acting confused. In the emergency room, she was not responsive and there is no description of actual convulsion. She had 2 mg of Ativan and was given 1000 mg of levetiracetam in the emergency room. She is supposed to be on Depakote 500 mg in the morning and 1000 at night based on my last office note from 11/09/16. She had been intolerant of numerous anticonvulsants because of fatigue and cognitive changes and so, we switched her to Depakote at that point in time. I do not think she has had a seizure since last October when she came in and was on Keppra. She had tolerated the Keppra poorly and we had decreased her dose at her request a number of times. She was febrile last night with a T-max of 103.2. She was started on triple antibiotic therapy as well as acyclovir. MEDICATIONS: Reviewed and she is currently on: 1. Levetiracetam 500 mg IV q.12 hours. 2. Depakote 1000 mg IV q.12 hours. 3. Ceftriaxone 2 g IV q.12 hours. PHYSICAL EXAM: Eyes are closed and she does not respond to voice. Most recent temperature is 98.3 by G[place], blood pressure 108/40, heart rate in the 80s and regular. Neck is generally supple with some rigidity near the extremes of flexion. There is no Kernig or Brudzinski sign. Eye position is generally straight ahead. She has bilateral blepharospasm with attempted eye opening. She has some mild bifacial grimacing and spontaneous movements, which look symmetrical. She has increased tone in both arms and legs which is also symmetric. Plantars are withdrawal bilaterally. She responds with withdrawal to plantar stimulation and some restlessness. LABORATORY DATA: Reviewed. She had a valproic acid level of 75 when she came in at 1305 yesterday, a trough level this morning was 27.0. She had a normal white blood cell count and mild anemia this morning at 10.5 hemoglobin, platelets are low 54,000. Chemistries upon presentation notable for BUN of 27, creatinine of 1.07. Otherwise unremarkable. IMPRESSION: Breakthrough seizure probably with a low Depakote level. When she came in, it was somewhat high, but after getting 1000 mg last night which was her usual dose, her trough level this morning was only 27. She probably took her Depakote right before she started having seizures and presented to the emergency room. In the past, she has had prolonged postictal episodes. I reviewed her CT scan and it shows atrophy, but no evidence of an acute infarction or hemorrhages. She had an EEG which revealed diffuse slowing, but no epileptiform discharges. Recommend boosting her Depakote with a bolus of 750 mg and increasing her maintenance dose to 1500 mg twice per day. I discontinued the levetiracetam and plan to repeat her trough Depakote level tomorrow morning and also an EEG. If she is not improving or if she does show epileptiform discharges on her followup EEG, I may need to augment her anticonvulsant regimen. [id number]/[facility] #: [id number] BARBI
[2017-01-18] MEDS: Heparin VIAL(*) 5000 UNITS/ML VIAL (FIVE THOUSAND) SUBCUT SCH ×3 (05:04→21:59)
[2017-01-18] MEDS: D5W 1/2 NS KCl 20 Meq 1000 ML* 1,000 ML IV SCH ×2 (05:04→20:52)
[2017-01-18 05:36] LABS: Hematocrit 30 % (35-47); Hemoglobin 10.1 g/dl (12.0-16.0); Mean Corpuscular HGB Conc 34 g/dl (31-36); Mean Corpuscular Hemoglobin 36 pg (27-31); Mean Platelet Volume 8 um3 (7.4-10.4); Red Blood Count 2.77 10^6/ul (4.0-5.4); Red Cell Distribution Width 13 % (10.5-15); White Blood Count 4.3 10^3/ul (3.5-10.8)
[2017-01-18 05:37] LABS: Comments Flag Yes
[2017-01-18 05:38] LABS: Mean Corpuscular Volume 109 fL (80-97)
[2017-01-18 05:51] LABS: BUN/Creatinine Ratio 19.5 (8-20); C Reactive Protein 60.18 mg/L (< 5.00); Calcium 8.3 mg/dL (8.6-10.3); EGFR Non-African American 70.7 (>60); Potassium 4.2 mmol/L (3.5-5.0)
--- NOTE | 2017-01-18 06:29 | EEG ---
ELECTROENCEPHALOGRAPHY: DATE OF STUDY: 01/17/17 LOCATION: She is an inpatient in ICU bed 2. REFERRING PROVIDER: Reagan Sow NP CLINICAL PROBLEM: History of epilepsy, prolonged postictal confusion. MEDICATIONS: Include: 1. Valproic acid. 2. Lorazepam. 3. Acyclovir. 3. Vancomycin. 4. Keppra. 5. Rocephin. REPORT: This 16-channel EEG is remarkable for background activity consisting of diffuse slow rhythms in the theta and delta frequencies fairly symmetrically. There are intermingled alpha rhythms, but without a clear occipital predominance. The patient is apparently not verbally responsive. Photic stimulation is carried out with an occipital driving response which is poorly formed, but no new abnormalities are elicited. Sleep stages are not clearly recognized. There are no focal or epileptiform abnormalities. CLINICAL IMPRESSION: Abnormal EEG due to generalized slowing of background rhythms consistent with diffuse cerebral dysfunction such as a postictal state. There are no epileptiform features to this recording. [id number]/[facility] #: [id number] [facility]Day
--- NOTE | 2017-01-18 08:00 | PN ---
Subjective - Subjective Reason for Note: Progress Note History: She was asleep/unconscious when I entered. I was able to make her more alert. I told her she was in the [facility] and she said "Jake" and that was the only word she stated. She moved all limbs without any apparent purpose. She opened her eyes, but looked straight ahead. She didn't show any other recognizable signs of comprehension and didn't follow one step commands. 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 Sleep apnea (Chronic) G47.30 Thrombocytopenia (Chronic) D69.6 Current Medications: Current Medications Acetaminophen (Tylenol Tab*) 650 mg PO Q4H PRN PRN Reason: FEVER/PAIN Acetaminophen (Tylenol Supp*) 650 mg SD Q4H PRN PRN Reason: FEVER/PAIN Last Admin: 01/16/17 20:12 Dose: 650 mg Heparin Sodium (Porcine) (Heparin Vial(*)) 5,000 units SUBCUT Q8HR [facility] Last Admin: 01/18/17 05:04 Dose: 5,000 units Heparin Sodium (Porcine) (Heparin Flush Port (Ivad)) 5 ml FLUSH DAILY TONYA PRN Reason: Protocol Hydralazine HCl (Apresoline Iv*) 5 mg IV SLOW PU Q6H PRN PRN Reason: BLOOD PRESSURE Last Admin: 01/16/17 18:45 Dose: 5 mg Ceftriaxone Sodium 2 gm/ (Sodium Chloride) 100 mls @ 200 mls/hr IVPB Q12HR TONYA Last Admin: 01/17/17 21:26 Dose: 200 mls/hr Potassium Chloride/Dextrose (D5w 1/2 Ns Kcl 20 Meq 1000 Ml*) 1,000 mls @ 75 mls /hr IV PER RATE TONYA Last Admin: 01/18/17 05:04 Dose: 75 mls/hr Valproic Acid 1,500 mg/ Sodium (Chloride) 115 mls @ 76.667 mls/hr IVPB Q12H TONYA Last Admin: 01/17/17 21:26 Dose: 76.667 mls/hr Lorazepam (Ativan Inj*) 1 mg IV PUSH Q6H PRN PRN Reason: SEIZURES Last Admin: 01/16/17 18:55 Dose: 1 mg Ondansetron HCl (Zofran Inj*) 4 mg IV Q6H PRN PRN Reason: NAUSEA Home Medications: Home Medications Medication Instructions Recorded Confirmed Type Levetiracetam XR TAB(NF) [Keppra 1,000 mg PO BID 09/02/16 01/16/17 History XR TAB(NF)] Thyroid TAB* [Thyroid TAB 60 MG*] 60 mg PO BID 09/02/16 01/16/17 History Omeprazole CAP* [Prilosec CAP* 20 20 mg PO DAILY 10/15/16 01/16/17 History MG] Cholecalciferol [Vitamin D3] 50,000 mg PO WEEKLY 01/16/17 01/16/17 History Divalproex ER TAB(*) [Depakote ER 1,000 mg PO BID 01/16/17 01/16/17 History TAB(*)] Lactulose* 10 mg PO BID PRN 01/16/17 01/16/17 History Ondansetron TAB* [Zofran 4 MG Tab*] 4 mg PO TID PRN 01/16/17 01/16/17 History Pantoprazole TAB (NF) [Protonix 40 mg PO DAILY 01/16/17 01/16/17 History TAB (NF)] Prochlorperazine TAB* [Compazine 10 mg PO QID PRN 01/16/17 01/16/17 History Tab*] Allergies: Allergies Allergy/AdvReac Type Severity Reaction Status Date / Time Azathioprine Allergy Unknown Verified 09/01/16 12:28 Reaction Details Codeine Allergy Unknown Verified 09/01/16 12:28 Reaction Details Corticosteroids Allergy Swelling Verified 09/01/16 12:28 Diltiazem Allergy Unknown Verified 09/01/16 12:28 Reaction Details Levetiracetam Allergy See Comment Verified 09/01/16 12:28 Macrolides and Ketolides Allergy Unknown Verified 09/01/16 12:28 Reaction Details Penicillins Allergy Hives Verified 09/01/16 12:28 Phenytoin [From Dilantin] Allergy Hives Verified 09/01/16 12:28 Sulfa Drugs Allergy Hives Verified 09/01/16 12:28 Tetracyclines & Related Allergy Difficulty Verified 09/01/16 12:28 Breathing/Wheezing Doxycycline AdvReac GI Upset Verified 06/09/16 06:51 Lidocaine AdvReac GI Upset Verified 06/09/16 06:51 Moxifloxacin [From Avelox] AdvReac Diarrhea Verified 06/09/16 06:51 Objective - Vital Signs Vital Signs: Vital Signs 01/17/17 01/17/17 01/17/17 08:00 09:00 10:00 Temperature 98.4 F 98.5 F 98.5 F Pulse Rate 77 76 76 Respiratory 19 21 20 Rate Blood Pressure 110/58 125/62 97/39 (mmHg) O2 Sat by Pulse 100 100 100 Oximetry 01/17/17 01/17/17 01/17/17 11:00 12:00 13:00 Temperature 98.0 F 98.1 F 98.3 F Pulse Rate 78 80 79 Respiratory 16 23 22 Rate Blood Pressure 106/40 108/41 91/40 (mmHg) O2 Sat by Pulse 100 100 100 Oximetry 01/17/17 01/17/17 01/17/17 14:00 15:00 15:29 Temperature 98.0 F 98.1 F 98.3 F Pulse Rate 80 75 Respiratory 22 21 Rate Blood Pressure 115/47 95/39 (mmHg) O2 Sat by Pulse 100 100 Oximetry 01/17/17 01/17/17 01/17/17 16:00 17:00 18:00 Temperature 98.0 F 98.0 F 98.1 F Pulse Rate 74 72 80 Respiratory 22 20 22 Rate Blood Pressure 96/44 108/49 115/50 (mmHg) O2 Sat by Pulse 100 100 100 Oximetry 01/17/17 01/17/17 01/17/17 18:42 19:00 20:00 Temperature 98.4 F 98.6 F Pulse Rate 75 77 Respiratory 21 23 Rate Blood Pressure 119/66 123/60 (mmHg) O2 Sat by Pulse 99 100 100 Oximetry 01/17/17 01/17/17 01/17/17 21:00 22:00 23:00 Temperature 98.5 F 98.3 F 97.3 F Pulse Rate 87 94 96 Respiratory 24 23 15 Rate Blood Pressure 139/59 129/77 144/67 (mmHg) O2 Sat by Pulse 100 100 99 Oximetry 01/17/17 01/18/17 01/18/17 23:06 00:00 00:01 Temperature 96.8 F 96.8 F Pulse Rate 83 79 Respiratory 19 37 Rate Blood Pressure 154/89 (mmHg) O2 Sat by Pulse 98 99 98 Oximetry 01/18/17 01/18/17 01/18/17 01:00 02:00 03:00 Temperature 96.7 F 96.6 F 96.6 F Pulse Rate 77 73 80 Respiratory 24 18 25 Rate Blood Pressure 151/72 152/60 158/118 (mmHg) O2 Sat by Pulse 100 100 100 Oximetry 01/18/17 01/18/17 01/18/17 03:16 03:19 03:23 Temperature 96.5 F 96.5 F Pulse Rate 86 89 89 Respiratory 19 20 25 Rate Blood Pressure 190/145 175/55 167/64 (mmHg) O2 Sat by Pulse 100 100 98 Oximetry 01/18/17 01/18/17 01/18/17 03:51 04:00 04:04 Temperature 97.5 F 97.2 F 97.2 F Pulse Rate 77 82 Respiratory 21 24 Rate Blood Pressure 173/100 154/67 (mmHg) O2 Sat by Pulse 100 100 Oximetry 01/18/17 01/18/17 01/18/17 05:00 05:04 06:00 Temperature 97.6 F 97.6 F 98.1 F Pulse Rate 81 79 86 Respiratory 18 20 31 Rate Blood Pressure 126/102 145/73 163/70 (mmHg) O2 Sat by Pulse 100 100 100 Oximetry - Intake and Output Intake and Output: Intake & Output 01/15/17 01/16/17 01/17/17 01/18/17 11:59 11:59 11:59 11:59 Intake Total 2611 3191 Output Total 1924 1974 Balance 686 1216 Weight 130 lb 1.164 oz 144 lb 8 oz Intake: IV Fluids 1776 3090 D5 1/2 20kcl 1878 Normal Saline 1212 902 acyclovir 110 ceftriaxone 100 valproate 67 210 vancomycin 87 IVPB 835 101 calcium gluconate 120 ceftriaxone 120 101 keppra 100 meropenum 140 valproate 113 vancomycin 242 Oral 0 Output: [place] 1924 1974 Other: # Bowel Movements 2 Estimated Stool Amount Small ADLs: Meal Record Start: 01/16/17 16: 08 Freq: 09,13,18 Status: Active Created 01/16/17 16:08 [id number] (Rec: 01/16/17 16:08 [id number] ICU-M02) Document 01/16/17 18:00 [id number] (Rec: 01/16/17 18:06 [id number] ICU-C16) Document 01/17/17 09:00 [id number] (Rec: 01/17/17 09:49 [id number] ICU-C10) Document 01/17/17 13:00 [id number] (Rec: 01/17/17 13:02 [id number] ICU-C16) Document 01/17/17 18:00 [id number] (Rec: 01/17/17 18:55 [id number] ICU-C16) Document 01/18/17 07:27 [id number] (Rec: 01/18/17 07:27 [id number] ICU-C20) Intake and Output Start: 01/16/17 16: 08 Freq: 06,14,22 Status: Active Created 01/16/17 16:08 [id number] (Rec: 01/16/17 16:08 [id number] ICU-M02) Document 01/16/17 22:00 [id number] (Rec: 01/16/17 22:01 [id number] ICU-C20) Document 01/17/17 06:00 [id number] (Rec: 01/17/17 06:29 [id number] ICU-M02) Document 01/17/17 11:50 [id number] (Rec: 01/17/17 11:51 [id number] ICU-C10) Document 01/17/17 14:00 [id number] (Rec: 01/17/17 15:55 [id number] ICU-C16) Document 01/17/17 21:30 [id number] (Rec: 01/17/17 21:30 [id number] ICU-M17) Document 01/18/17 05:31 [id number] (Rec: 01/18/17 05:31 [id number] ICU-C14) - Physical Exam General Physical Exam Comment: She is lying on her back in bed looking straight up at the ceiling. She moves all limbs spontaneously. She doesn't follow commands. General: No Cyanosis, No Anemia, No Jaundice, No Clubbing Skin: Normal: Rash, Lesions Lungs and Chest: Yes: Chest Expansion Full, Chest Expansion Symetrica, Percussion Note Resonant, Vessicular Breath Sounds, Other - anterior chest only. No: Crackles, Wheezes Heart Rate and Rhythm: Regular Additional Cardiovascular: Yes: Normal Heart Sounds. No: Heart Murmur, Pedal Edema Abdominal Exam: Yes: Soft, Bowel Sounds Present. No: Distention, Abdominal Mass , Abdominal Tenderness, Guarding, Rebound Tenderness Results - Results Lab Results: Laboratory Results - last 24 hr 01/16/17 01/17/17 01/17/17 15:45 07:54 09:25 WBC RBC Hgb Hct MCV MCH MCHC RDW Plt Count MPV Neut % (Auto) Lymph % (Auto) [place] % (Auto) Eos % (Auto) Baso % (Auto) Absolute Neuts (auto) Absolute Lymphs (auto) Absolute Monos (auto) Absolute Eos (auto) Absolute Basos (auto) Absolute Nucleated RBC Nucleated RBC % Sodium Potassium TNP 4.6 Chloride Carbon Dioxide Anion Gap BUN Creatinine Est GFR ( Amer) Est GFR (Non-Af Amer) BUN/Creatinine Ratio Glucose Calcium C-Reactive Protein Valproic Acid Levetiracetam 28.1 01/17/17 01/18/17 01/18/17 09:25 05:11 05:11 WBC 4.3 RBC 2.77 L Hgb 10.1 L Hct 30 L MCV 109 H MCH 36 H MCHC 34 RDW 13 Plt Count 41 L MPV 8 Neut % (Auto) 86.0 H Lymph % (Auto) 6.2 L [place] % (Auto) 3.5 Eos % (Auto) 4.0 Baso % (Auto) 0.3 Absolute Neuts (auto) 3.7 Absolute Lymphs (auto) 0.3 L Absolute Monos (auto) 0.1 Absolute Eos (auto) 0.2 Absolute Basos (auto) 0 Absolute Nucleated RBC 0 Nucleated RBC % 0.1 Sodium 133 Potassium 4.2 Chloride 103 Carbon Dioxide 28 Anion Gap 2 BUN 15 Creatinine 0.77 Est GFR ( Amer) 91.0 Est GFR (Non-Af Amer) 70.7 BUN/Creatinine Ratio 19.5 Glucose 106 H Calcium 8.3 L C-Reactive Protein 60.18 H Valproic Acid 27.0 L Levetiracetam 01/18/17 05:11 WBC RBC Hgb Hct MCV MCH MCHC RDW Plt Count MPV Neut % (Auto) Lymph % (Auto) [place] % (Auto) Eos % (Auto) Baso % (Auto) Absolute Neuts (auto) Absolute Lymphs (auto) Absolute Monos (auto) Absolute Eos (auto) Absolute Basos (auto) Absolute Nucleated RBC Nucleated RBC % Sodium Potassium Chloride Carbon Dioxide Anion Gap BUN Creatinine Est GFR ( Amer) Est GFR (Non-Af Amer) BUN/Creatinine Ratio Glucose Calcium C-Reactive Protein Valproic Acid 51.0 Levetiracetam Radiology Results: Electroencephalogram Report Patient: ELYSSA TIERNEY /Age: 05 1930 86 Medical Record#: [id number] Admission Date: 01/16/17 Provider: Oskar Swan MD ELECTROENCEPHALOGRAPHY: DATE OF STUDY: 01/17/17 LOCATION: She is an inpatient in ICU bed 2. REFERRING PROVIDER: Reagan Sow NP CLINICAL PROBLEM: History of epilepsy, prolonged postictal confusion. MEDICATIONS: Include: 1. Valproic acid. 2. Lorazepam. 3. Acyclovir. 3. Vancomycin. 4. Keppra. 5. Rocephin. REPORT: This 16-channel EEG is remarkable for background activity consisting of diffuse slow rhythms in the theta and delta frequencies fairly symmetrically. There are intermingled alpha rhythms , but without a clear occipital predominance. The patient is apparently not verbally responsive. Photic stimulation is carried out with an occipital driving response which is poorly formed, but no new abnormalities are elicited. Sleep stages are not clearly recognized. There are no focal or epileptiform abnormalities. CLINICAL IMPRESSION: Abnormal EEG due to generalized slowing of background rhythms consistent with diffuse cerebral dysfunction such as a postictal state. There are no epileptiform features to this recording. [id number]/[facility] #: [id number] Oskar Swan MD Dictated Date/Time: 01/17/17 1312 Transcribed Date/Time 01/17/17 1849 Copy to: 1 of 2 Assessment - Problem List Assessment: Patient Problems Altered mental state (Acute) Fever (Acute) Seizure (Acute) Seizure disorder (Acute) CAD (coronary artery disease) (Chronic) GERD (gastroesophageal reflux disease) (Chronic) Hypothyroidism (Chronic) Polymyalgia rheumatica (Chronic) Serous adenocarcinoma (Chronic) Sleep apnea (Chronic) Thrombocytopenia (Chronic) Anemia (Acute) Ascites (Acute) History of atrial fibrillation (Chronic) Pleural effusion (Chronic) Plan: Altered mental state (Acute) Seizure (Acute)Seizure disorder (Acute) She remains post-ictal, but is beginning to respond. She has shown prolonged post- ictal periods on several occasions. She has no signs of status epilepticus on her EEG. I reviewed Dr. Swan's consultation note. He is going to increase her depakote dose as he notes the trough is too low on 1,000 mg twice daily. Fever (Acute) No signs of fever, CRP slightly higher - but likely accounted for by the seizure itself, not infection. There are no signs of acute infection , I will discontinue her ceftriaxone CAD (coronary artery disease) (Chronic) secondary diagnosis GERD (gastroesophageal reflux disease) (Chronic) secondary diagnosis Hypothyroidism (Chronic) secondary diagnosis Polymyalgia rheumatica (Chronic) secondary diagnosis Serous adenocarcinoma (Chronic) secondary diagnosis Sleep apnea (Chronic) secondary diagnosis Thrombocytopenia (Chronic) I am concerned at the ongoing decline of her platelets - this may be due to the depakote. We should consider other anti- seizure agents if this continues. I will discuss this with Dr. Still who is her oncologist Anemia (Acute) This also is exacerbated. Ascites (Acute) not palpable History of atrial fibrillation (Chronic) secondary diagnosis I think she is medically stable at present and I think she can be managed on a general medical bed.
[2017-01-18] MEDS ORDERED: Vancomycin Trough Check NOTE FOLLOW UP ONE (08:30)
[2017-01-18 11:29] LABS: Lacosamide <0.5 mcg/mL (1.0 - 10.0)
--- NOTE | 2017-01-18 22:15 | CONS ---
NEUROLOGY FOLLOWUP NOTE: DATE OF CONSULT: 01/18/17 PRIMARY CARE PHYSICIAN: Dr. Freddy Berrios. LOCATION: She is an inpatient in ICU bed 2. CHIEF COMPLAINT: Seizures. INTERVAL HISTORY: Since yesterday, Brittney has been described as unresponsive. She has had prolonged EEG monitoring today which I reviewed and which reveals triphasic appearing waves bihemispherically. I do not see any clear-cut epileptiform discharges. She has diffuse slowing of background rhythm as well. This led me to order an ammonia level which was done earlier today and which was unremarkable at 49. MEDICATIONS: Reviewed and she is now on: 1. Depakote 1500 mg IV q.12 hours. 2. Heparin subcutaneous 5000 units q.8 hours. 3. Potassium supplementation. PHYSICAL EXAM: She has been afebrile today with most recent temperature 99.2 by [place], blood pressure is generally stable running from 140 systolic up to 163 systolic and diastolics running between 50 to 80. Heart rates running in the 80s and respiratory rate in the low 20s. Oxygen saturation 97% on room air. Neurologically, she stupors. She does not respond to conversational speech nor gentle shaking other than mild random restless movements. To loud voice, she attempts to mouth some words, but does not initially respond. When eyes are open, pupils react from about 3 down to about 2 mm. She does not visually make contact. She exhibits a bilateral and symmetrical blepharospastic response to forced eyelid opening. Nasal tickle response is brisk and symmetrical. Facial movements to grimace and avoidance are symmetric. Muscle tone is normal in the limbs. She makes random restless movements of the limbs, which are semi purposeful. When testing plantar responses, she becomes more aroused and more physically active. She exhibits withdrawal responses of both feet with what appear to be bilateral Babinski signs. At that point, she is able to attempt responses to simple questions spoken at loud voice with generally yes answers, brief attempts at sentences. She denies being hungry or having any headache or abdominal pain. Other than that, she does not answer more complex questions. DIAGNOSTIC STUDIES/LAB DATA: Includes ammonia as described above, normal chemistry profile and CBC normal other than hemoglobin down to 10.1 and platelet count to 41,000. Depakote level today was 51.0 at 5 in the morning. IMPRESSION: Probable prolonged postictal state as she has exhibited in the past. I do not see any evidence of a metabolic encephalopathy and I doubt she has a central nervous system infection with her long history of epilepsy. For now, we will continue Depakote at the current dose and see if she looks more alert tomorrow. If not, we will do another EEG. [id number]/[facility] #: [id number] [facility]
[2017-01-19 05:37] LABS: Hematocrit 31 % (35-47); Hemoglobin 10.3 g/dl (12.0-16.0); Mean Corpuscular HGB Conc 34 g/dl (31-36); Mean Corpuscular Hemoglobin 36 pg (27-31); Mean Platelet Volume 8 um3 (7.4-10.4); Red Blood Count 2.85 10^6/ul (4.0-5.4); Red Cell Distribution Width 14 % (10.5-15); White Blood Count 3.7 10^3/ul (3.5-10.8)
[2017-01-19 05:42] LABS: Comments Flag Yes
[2017-01-19 05:43] LABS: Mean Corpuscular Volume 107 fL (80-97)
[2017-01-19 05:47] LABS: Calcium 8.2 mg/dL (8.6-10.3); EGFR African American 87.1 (>60); EGFR Non-African American 67.7 (>60); Potassium 4.2 mmol/L (3.5-5.0)
[2017-01-19] MEDS: Heparin VIAL(*) 5000 UNITS/ML VIAL (FIVE THOUSAND) SUBCUT SCH ×3 (05:53→23:18)
--- NOTE | 2017-01-19 08:23 | PN ---
Subjective - Subjective Reason for Note: Progress Note History: She is waking up. She is sleepy, but communicative. She remained on IVF overnight as she didn't take much by mouth yesterday. She remains on the ICU per Dr. Swan. 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 Sleep apnea (Chronic) G47.30 Thrombocytopenia (Chronic) D69.6 Current Medications: Current Medications Acetaminophen (Tylenol Tab*) 650 mg PO Q4H PRN PRN Reason: FEVER/PAIN Acetaminophen (Tylenol Supp*) 650 mg WA Q4H PRN PRN Reason: FEVER/PAIN Last Admin: 01/16/17 20:12 Dose: 650 mg Heparin Sodium (Porcine) (Heparin Vial(*)) 5,000 units SUBCUT Q8HR [facility] Last Admin: 01/19/17 05:53 Dose: 5,000 units Heparin Sodium (Porcine) (Heparin Flush Port (Ivad)) 5 ml FLUSH DAILY [facility] PRN Reason: Protocol Last Admin: 01/18/17 07:53 Dose: Not Given Potassium Chloride/Dextrose (D5w 1/2 Ns Kcl 20 Meq 1000 Ml*) 1,000 mls @ 75 mls /hr IV PER RATE [facility] Last Admin: 01/18/17 20:52 Dose: 75 mls/hr Valproic Acid 1,500 mg/ Sodium (Chloride) 115 mls @ 76.667 mls/hr IVPB Q12H [facility] Last Admin: 01/18/17 20:55 Dose: 76.667 mls/hr Lorazepam (Ativan Inj*) 1 mg IV PUSH Q6H PRN PRN Reason: SEIZURES Last Admin: 01/16/17 18:55 Dose: 1 mg Ondansetron HCl (Zofran Inj*) 4 mg IV Q6H PRN PRN Reason: NAUSEA Home Medications: Home Medications Medication Instructions Recorded Confirmed Type Levetiracetam XR TAB(NF) [Keppra 1,000 mg PO BID 09/02/16 01/16/17 History XR TAB(NF)] Thyroid TAB* [Thyroid TAB 60 MG*] 60 mg PO BID 09/02/16 01/16/17 History Omeprazole CAP* [Prilosec CAP* 20 20 mg PO DAILY 10/15/16 01/16/17 History MG] Cholecalciferol [Vitamin D3] 50,000 mg PO WEEKLY 01/16/17 01/16/17 History Divalproex ER TAB(*) [Depakote ER 1,000 mg PO BID 01/16/17 01/16/17 History TAB(*)] Lactulose* 10 mg PO BID PRN 01/16/17 01/16/17 History Ondansetron TAB* [Zofran 4 MG Tab*] 4 mg PO TID PRN 01/16/17 01/16/17 History Pantoprazole TAB (NF) [Protonix 40 mg PO DAILY 01/16/17 01/16/17 History TAB (NF)] Prochlorperazine TAB* [Compazine 10 mg PO QID PRN 01/16/17 01/16/17 History Tab*] Allergies: Allergies Allergy/AdvReac Type Severity Reaction Status Date / Time Azathioprine Allergy Unknown Verified 09/01/16 12:28 Reaction Details Codeine Allergy Unknown Verified 09/01/16 12:28 Reaction Details Corticosteroids Allergy Swelling Verified 09/01/16 12:28 Diltiazem Allergy Unknown Verified 09/01/16 12:28 Reaction Details Levetiracetam Allergy See Comment Verified 09/01/16 12:28 Macrolides and Ketolides Allergy Unknown Verified 09/01/16 12:28 Reaction Details Penicillins Allergy Hives Verified 09/01/16 12:28 Phenytoin [From Dilantin] Allergy Hives Verified 09/01/16 12:28 Sulfa Drugs Allergy Hives Verified 09/01/16 12:28 Tetracyclines & Related Allergy Difficulty Verified 09/01/16 12:28 Breathing/Wheezing Doxycycline AdvReac GI Upset Verified 06/09/16 06:51 Lidocaine AdvReac GI Upset Verified 06/09/16 06:51 Moxifloxacin [From Avelox] AdvReac Diarrhea Verified 06/09/16 06:51 Objective - Vital Signs Vital Signs: Vital Signs 03/06/2901/18/17 01/18/17 09:00 10:00 11:00 Temperature 98.9 F 99.1 F 99.1 F Pulse Rate 93 86 83 Respiratory 20 26 22 Rate Blood Pressure 151/67 145/64 152/61 (mmHg) O2 Sat by Pulse 98 97 97 Oximetry 01/18/17 01/18/17 01/18/17 11:19 11:46 12:00 Temperature 99.1 F 99.0 F Pulse Rate 82 Respiratory 24 26 Rate Blood Pressure 143/54 (mmHg) O2 Sat by Pulse 96 Oximetry 01/18/17 01/18/17 01/18/17 13:00 14:00 15:00 Temperature 99.0 F 99.1 F 99.2 F Pulse Rate 89 84 84 Respiratory 22 22 21 Rate Blood Pressure 163/68 140/83 150/66 (mmHg) O2 Sat by Pulse 97 97 97 Oximetry 01/18/17 01/18/17 01/18/17 16:00 17:00 18:00 Temperature 99.0 F 99.0 F 99.5 F Pulse Rate 78 78 85 Respiratory 33 40 19 Rate Blood Pressure 136/55 155/63 153/67 (mmHg) O2 Sat by Pulse 98 99 99 Oximetry 01/18/17 01/18/17 01/18/17 19:00 20:00 21:00 Temperature 99.6 F 99.7 F 99.5 F Pulse Rate 85 87 86 Respiratory 48 29 24 Rate Blood Pressure 146/61 135/66 138/74 (mmHg) O2 Sat by Pulse 97 97 98 Oximetry 01/18/17 01/18/17 01/19/17 22:00 23:00 00:00 Temperature 99.4 F 99.2 F 98.6 F Pulse Rate 84 82 77 Respiratory 23 23 24 Rate Blood Pressure 116/72 107/47 (mmHg) O2 Sat by Pulse 96 96 96 Oximetry 01/19/17 01/19/17 01/19/17 00:01 00:03 01:00 Temperature 98.6 F 98.6 F 98.5 F Pulse Rate 75 74 80 Respiratory 34 40 24 Rate Blood Pressure 126/59 105/63 (mmHg) O2 Sat by Pulse 96 96 96 Oximetry 01/19/17 01/19/17 01/19/17 02:00 03:00 04:00 Temperature 98.2 F 98.4 F 98.2 F Pulse Rate 83 75 74 Respiratory 18 22 21 Rate Blood Pressure 137/58 145/67 161/70 (mmHg) O2 Sat by Pulse 97 96 97 Oximetry 01/19/17 01/19/17 01/19/17 04:15 05:00 06:00 Temperature 98.2 F 98.2 F Pulse Rate 70 73 Respiratory 20 29 19 Rate Blood Pressure 138/73 (mmHg) O2 Sat by Pulse 98 98 Oximetry - Intake and Output Intake and Output: Intake & Output 01/16/17 01/17/17 01/18/17 01/19/17 11:59 11:59 11:59 11:59 Intake Total 2611 3191 1926 Output Total 1924 1974 2624 Balance 686 1216 -699 Weight 130 lb 1.164 oz 144 lb 8 oz 139 lb 1.787 oz Intake: IV Fluids 1776 3090 1598 D5 1/2 20kcl 1878 1598 Normal Saline 1212 902 acyclovir 110 ceftriaxone 100 valproate 67 210 vancomycin 87 IVPB 835 101 238 calcium gluconate 120 ceftriaxone 120 101 keppra 100 meropenum 140 valproate 113 238 vancomycin 242 Oral 0 90 Output: [place] 1924 1974 2625 Other: # Bowel Movements 2 0 Estimated Stool Amount Small ADLs: Meal Record Start: 01/16/17 16: 08 Freq: 09,13,18 Status: Complete Created 01/16/17 16:08 [id number] (Rec: 01/16/17 16:08 [id number] ICU-M02) Document 01/16/17 18:00 [id number] (Rec: 01/16/17 18:06 [id number] ICU-C16) Document 01/17/17 09:00 [id number] (Rec: 01/17/17 09:49 [id number] ICU-C10) Document 01/17/17 13:00 [id number] (Rec: 01/17/17 13:02 [id number] ICU-C16) Document 01/17/17 18:00 [id number] (Rec: 01/17/17 18:55 [id number] ICU-C16) Document 01/18/17 07:27 [id number] (Rec: 01/18/17 07:27 [id number] ICU-C20) ADLs: Meal Record Start: 01/18/17 08: 22 Freq: DAILY@0900,1400,1800 Status: Active Created 01/18/17 08:22 [id number] (Rec: 01/18/17 08:22 [id number] ICU-C10) Document 01/18/17 08:23 [id number] (Rec: 01/18/17 08:23 [id number] ICU-C10) Document 01/18/17 14:00 [id number] (Rec: 01/18/17 14:00 [id number] ICU-C16) Document 01/18/17 19:00 [id number] (Rec: 01/18/17 20:34 [id number] ICU-C16) Intake and Output Start: 01/16/17 16: 08 Freq: 06,14,22 Status: Complete Created 01/16/17 16:08 [id number] (Rec: 01/16/17 16:08 [id number] ICU-M02) Document 01/16/17 22:00 [id number] (Rec: 01/16/17 22:01 [id number] ICU-C20) Document 01/17/17 06:00 [id number] (Rec: 01/17/17 06:29 [id number] ICU-M02) Document 01/17/17 11:50 [id number] (Rec: 01/17/17 11:51 [id number] ICU-C10) Document 01/17/17 14:00 [id number] (Rec: 01/17/17 15:55 [id number] ICU-C16) Document 01/17/17 21:30 [id number] (Rec: 01/17/17 21:30 [id number] ICU-M17) Document 01/18/17 05:31 [id number] (Rec: 01/18/17 05:31 [id number] ICU-C14) Intake and Output Start: 01/18/17 08: 22 Freq: DAILY@0600,1400,2200 Status: Active Created 01/18/17 08:22 [id number] (Rec: 01/18/17 08:22 [id number] ICU-C10) Document 01/18/17 13:57 [id number] (Rec: 01/18/17 13:57 [id number] ICU-C16) Document 01/18/17 21:56 [id number] (Rec: 01/18/17 21:57 [id number] ICU-C14) Document 01/18/17 22:00 [id number] (Rec: 01/18/17 22:15 [id number] ICU-C16) Document 01/19/17 06:00 [id number] (Rec: 01/19/17 06:04 [id number] ICU-C16) - Physical Exam General Physical Exam Comment: She is drowsy, but alert and conversational General: No Cyanosis, No Jaundice, No Clubbing Lungs and Chest: Yes: Chest Expansion Full, Chest Expansion Symetrica, Percussion Note Resonant, Vessicular Breath Sounds, Other - anterior chest. No : Crackles, Wheezes Heart Rate and Rhythm: Regular Additional Cardiovascular: Yes: Normal Heart Sounds. No: Heart Murmur, Pedal Edema Abdominal Exam: Yes: Soft, Bowel Sounds Present. No: Distention, Abdominal Mass , Hepatomegaly, Abdominal Tenderness - Extremities Cranial Nerves II-XII Intact: Yes Limbs: Normal Power - Neuro Speech: Normal Results - Results Lab Results: Laboratory Results - last 24 hr 01/16/17 01/18/17 01/19/17 15:45 08:55 05:25 WBC RBC Hgb Hct MCV MCH MCHC RDW Plt Count MPV Neut % (Auto) Lymph % (Auto) [place] % (Auto) Eos % (Auto) Baso % (Auto) Absolute Neuts (auto) Absolute Lymphs (auto) Absolute Monos (auto) Absolute Eos (auto) Absolute Basos (auto) Absolute Nucleated RBC Nucleated RBC % Sodium 135 Potassium 4.2 Chloride 105 Carbon Dioxide 28 Anion Gap 2 BUN 12 Creatinine 0.80 Est GFR ( Amer) 87.1 Est GFR (Non-Af Amer) 67.7 BUN/Creatinine Ratio 15.0 Glucose 93 Calcium 8.2 L Ammonia 49 Lacosamide Level <0.5 L 01/19/17 05:25 WBC 3.7 RBC 2.85 L Hgb 10.3 L Hct 31 L MCV 107 H MCH 36 H MCHC 34 RDW 14 Plt Count 45 L MPV 8 Neut % (Auto) 50.2 Lymph % (Auto) 31.0 [place] % (Auto) 5.5 Eos % (Auto) 12.4 H Baso % (Auto) 0.9 Absolute Neuts (auto) 1.8 Absolute Lymphs (auto) 1.1 Absolute Monos (auto) 0.2 Absolute Eos (auto) 0.5 Absolute Basos (auto) 0 Absolute Nucleated RBC 0 Nucleated RBC % 0 Sodium Potassium Chloride Carbon Dioxide Anion Gap BUN Creatinine Est GFR ( Amer) Est GFR (Non-Af Amer) BUN/Creatinine Ratio Glucose Calcium Ammonia Lacosamide Level Assessment - Problem List Assessment: Patient Problems Altered mental state (Acute) Fever (Acute) Seizure (Acute) Seizure disorder (Acute) CAD (coronary artery disease) (Chronic) GERD (gastroesophageal reflux disease) (Chronic) Hypothyroidism (Chronic) Polymyalgia rheumatica (Chronic) Serous adenocarcinoma (Chronic) Sleep apnea (Chronic) Thrombocytopenia (Chronic) Anemia (Acute) Ascites (Acute) History of atrial fibrillation (Chronic) Pleural effusion (Chronic) Plan: Altered mental state (Acute) Seizure (Acute) Seizure disorder (Acute) She remains post-ictal, but has regained consciousness. She is not fully alert and her memory likely remains impaired. This was the pattern with her prior admissions. She is going to to need further hospitalization to regain baseline cognitive and motor functions. In addition, we are titrating her divalproex to a new dose based upon trough levels. Fever (Acute) gone - no evidence of infection - this was secondary to her seizure CAD (coronary artery disease) (Chronic) secondary diagnosis GERD (gastroesophageal reflux disease) (Chronic) secondary diagnosis Hypothyroidism (Chronic) Restart thyroid hormone Polymyalgia rheumatica (Chronic) secondary diagnosis Serous adenocarcinoma (Chronic) I have put in a call to Dr. Still to discuss her platelet levels Sleep apnea (Chronic) secondary diagnosis Thrombocytopenia (Chronic) see above Anemia (Acute) secondary diagnosis Ascites (Acute) no clinical evidence History of atrial fibrillation (Chronic) secondary diagnosis I explained to the patient her current situation, she is not fully awake and likely doesn't yet fully grasp her circumstances. I called her daughter May and left a message on her machine.
[2017-01-19] MEDS: Thyroid TAB* 60 MG PO SCH ×2 (08:57→20:05)
[2017-01-19] MEDS: Divalproex ER TAB(*) 500 MG PO SCH ×2 (08:57→20:04)
[2017-01-19] MEDS: Omeprazole CAP* 20 MG PO SCH (20:05)
--- NOTE | 2017-01-19 21:32 | CONS ---
NEUROLOGY FOLLOWUP: DATE OF FOLLOWUP: 01/19/17 LOCATION: She is in room 415. CHIEF COMPLAINT: Seizures. INTERVAL HISTORY: Since yesterday, Brittney is woke up. She was barely arousable yesterday, but by yesterday evening, she was talking with a nurse. She is now on the regular medical floor. She recognized me as soon as I entered the room. She is a little sleepy still, but she is able to give a history. She is also not aphasic although loses her train of thought at times. She says that she has been taking her Depakote regularly. It took a while to remember when she takes it, but she says she takes it in the morning. She then says it makes her itchy. She has not had a rash. It is not clear when the itching started. MEDICATIONS: Reviewed and she is on: 1. Depakote 1500 mg b.i.d. 2. Heparin subcu 5000 units q.8 hours. 3. Omeprazole 20 mg p.o. q.h.s. 4. Thyroid hormone 60 mg p.o. b.i.d. PHYSICAL EXAMINATION: On exam, she is afebrile. Temperature 97.7, blood pressure 136/65, heart rate 81. She is sleepy, but carries on a conversation. Her speech is minimally dysarthric. Language is generally fluent. She loses her train of thought easily. ASSESSMENT AND PLAN: Brittney is pulled out of her postictal stupor as she has in the past. With a low Depakote level the following morning after presentation , she was probably missing doses. Dr. Berrios has ordered another level for tomorrow on the current dose of 1500 mg twice per day, which I think is a good idea. Ultimately, it has been a challenge to get her to take her medications reliably. CC: Dr. Berrios* [id number]/[facility] #: [id number] [facility]
[2017-01-20] MEDS: Heparin VIAL(*) 5000 UNITS/ML VIAL (FIVE THOUSAND) SUBCUT SCH ×3 (04:06→21:21)
[2017-01-20 07:12] LABS: Hematocrit 29 % (35-47); Hemoglobin 10.1 g/dl (12.0-16.0); Mean Corpuscular HGB Conc 35 g/dl (31-36); Mean Corpuscular Hemoglobin 37 pg (27-31); Mean Platelet Volume 9 um3 (7.4-10.4); Red Blood Count 2.72 10^6/ul (4.0-5.4); Red Cell Distribution Width 14 % (10.5-15); White Blood Count 3.5 10^3/ul (3.5-10.8)
[2017-01-20 07:24] LABS: Comments Flag Yes
[2017-01-20 07:25] LABS: Mean Corpuscular Volume 108 fL (80-97)
--- NOTE | 2017-01-20 07:57 | PN ---
Subjective - Subjective Reason for Note: Progress Note History: She is more alert and conversational today. However, she is not at baseline and has some difficulties expressing herself. She complains of some itching, I asked if this was the case before this seizure - she says she has been itching forever. Otherwise, she is in no pain. I reviewed PT note - she was perseverating and refusing to use the RW. She was recommended to be a 2 assist. 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 Thrombocytopenia (Chronic) D69.6 Current Medications: Current Medications Acetaminophen (Tylenol Tab*) 650 mg PO Q4H PRN PRN Reason: FEVER/PAIN Acetaminophen (Tylenol Supp*) 650 mg IN Q4H PRN PRN Reason: FEVER/PAIN Last Admin: 01/16/17 20:12 Dose: 650 mg Divalproex Sodium (Depakote Er Tab(*)) 1,500 mg PO BID [facility] Last Admin: 01/19/17 20:04 Dose: 1,500 mg Heparin Sodium (Porcine) (Heparin Vial(*)) 5,000 units SUBCUT Q8HR [facility] Last Admin: 01/20/17 04:06 Dose: Not Given Heparin Sodium (Porcine) (Heparin Flush Port (Ivad)) 5 ml FLUSH DAILY [facility] PRN Reason: Protocol Last Admin: 01/19/17 08:57 Dose: 5 ml Lorazepam (Ativan Inj*) 1 mg IV PUSH Q6H PRN PRN Reason: SEIZURES Last Admin: 01/16/17 18:55 Dose: 1 mg Omeprazole (Prilosec Cap*) 20 mg PO BEDTIME [facility] Last Admin: 01/19/17 20:05 Dose: 20 mg Thyroid (Thyroid Tab*) 60 mg PO BID [facility] Last Admin: 01/19/17 20:05 Dose: 60 mg Home Medications: Home Medications Medication Instructions Recorded Confirmed Type Levetiracetam XR TAB(NF) [Keppra 1,000 mg PO BID 09/02/16 01/16/17 History XR TAB(NF)] Thyroid TAB* [Thyroid TAB 60 MG*] 60 mg PO BID 09/02/16 01/16/17 History Omeprazole CAP* [Prilosec CAP* 20 20 mg PO DAILY 10/15/16 01/16/17 History MG] Cholecalciferol [Vitamin D3] 50,000 mg PO WEEKLY 01/16/17 01/16/17 History Divalproex ER TAB(*) [Depakote ER 1,000 mg PO BID 01/16/17 01/16/17 History TAB(*)] Lactulose* 10 mg PO BID PRN 01/16/17 01/16/17 History Ondansetron TAB* [Zofran 4 MG Tab*] 4 mg PO TID PRN 01/16/17 01/16/17 History Pantoprazole TAB (NF) [Protonix 40 mg PO DAILY 01/16/17 01/16/17 History TAB (NF)] Prochlorperazine TAB* [Compazine 10 mg PO QID PRN 01/16/17 01/16/17 History Tab*] Allergies: Allergies Allergy/AdvReac Type Severity Reaction Status Date / Time Azathioprine Allergy Unknown Verified 09/01/16 12:28 Reaction Details Codeine Allergy Unknown Verified 09/01/16 12:28 Reaction Details Corticosteroids Allergy Swelling Verified 09/01/16 12:28 Diltiazem Allergy Unknown Verified 09/01/16 12:28 Reaction Details Levetiracetam Allergy See Comment Verified 09/01/16 12:28 Macrolides and Ketolides Allergy Unknown Verified 09/01/16 12:28 Reaction Details Penicillins Allergy Hives Verified 09/01/16 12:28 Phenytoin [From Dilantin] Allergy Hives Verified 09/01/16 12:28 Sulfa Drugs Allergy Hives Verified 09/01/16 12:28 Tetracyclines & Related Allergy Difficulty Verified 09/01/16 12:28 Breathing/Wheezing Doxycycline AdvReac GI Upset Verified 06/09/16 06:51 Lidocaine AdvReac GI Upset Verified 06/09/16 06:51 Moxifloxacin [From Avelox] AdvReac Diarrhea Verified 06/09/16 06:51 Objective - Vital Signs Vital Signs: Vital Signs 01/19/17 01/19/17 01/19/17 08:00 09:00 10:12 Temperature 98.3 F 98.5 F 97.7 F Pulse Rate 67 78 81 Respiratory 23 29 14 Rate Blood Pressure 161/73 167/99 136/65 (mmHg) O2 Sat by Pulse 99 97 97 Oximetry 01/19/17 01/19/17 01/19/17 10:55 15:00 15:13 Temperature 97.7 F 98.0 F Pulse Rate 81 82 Respiratory 14 28 Rate Blood Pressure 136/65 140/63 (mmHg) O2 Sat by Pulse 97 100 97 Oximetry 01/19/17 01/19/17 01/19/17 15:26 19:33 20:00 Temperature 98.0 F 97.6 F Pulse Rate 82 88 Respiratory 20 16 18 Rate Blood Pressure 140/63 136/54 (mmHg) O2 Sat by Pulse 100 100 100 Oximetry 01/19/17 01/20/17 23:15 07:36 Temperature 98.1 F Pulse Rate 81 75 Respiratory 19 16 Rate Blood Pressure 147/71 132/58 (mmHg) O2 Sat by Pulse 94 95 Oximetry - Intake and Output Intake and Output: Intake & Output 01/17/17 01/18/17 01/19/17 01/20/17 11:59 11:59 11:59 11:59 Intake Total 2611 3191 2245 570 Output Total 1924 1974 3000 Balance 686 1216 -755 570 Weight 130 lb 1.164 oz 144 lb 8 oz 139 lb 1.787 oz Intake: IV Fluids 1776 3090 1767 D5 1/2 20kcl 1878 1767 Normal Saline 1212 902 acyclovir 110 ceftriaxone 100 valproate 67 210 vancomycin 87 IVPB 835 101 238 calcium gluconate 120 ceftriaxone 120 101 keppra 100 meropenum 140 valproate 113 238 vancomycin 242 Oral 0 240 570 Output: [place] 1924 1974 3000 Other: Estimated Void Medium # Bowel Movements 2 0 0 Estimated Stool Amount Small Medium # Voids 1 ADLs: Meal Record Start: 01/16/17 16: 08 Freq: ,13,18 Status: Complete Created 01/16/17 16:08 [id number] (Rec: 01/16/17 16:08 [id number] ICU-M02) Document 01/16/17 18:00 [id number] (Rec: 01/16/17 18:06 [id number] ICU-C16) Document 01/17/17 09:00 [id number] (Rec: 01/17/17 09:49 [id number] ICU-C10) Document 01/17/17 13:00 [id number] (Rec: 01/17/17 13:02 [id number] ICU-C16) Document 01/17/17 18:00 [id number] (Rec: 01/17/17 18:55 [id number] ICU-C16) Document 01/18/17 07:27 [id number] (Rec: 01/18/17 07:27 [id number] ICU-C20) ADLs: Meal Record Start: 01/18/17 08: 22 Freq: DAILY@0900,1400,1800 Status: Active Created 01/18/17 08:22 [id number] (Rec: 01/18/17 08:22 [id number] ICU-C10) Document 01/18/17 08:23 [id number] (Rec: 01/18/17 08:23 [id number] ICU-C10) Document 01/18/17 14:00 [id number] (Rec: 01/18/17 14:00 [id number] ICU-C16) Document 01/18/17 19:00 [id number] (Rec: 01/18/17 20:34 [id number] ICU-C16) Document 01/19/17 09:00 [id number] (Rec: 01/19/17 09:15 IIG1163 ICU-C16) Document 01/19/17 13:27 [id number] (Rec: 01/19/17 13:27 [id number] MED-C09) Document 01/19/17 18:00 [id number] (Rec: 01/19/17 19:02 [id number] MED-C11) Intake and Output Start: 01/16/17 16: 08 Freq: 06,14,22 Status: Complete Created 01/16/17 16:08 [id number] (Rec: 01/16/17 16:08 [id number] ICU-M02) Document 01/16/17 22:00 [id number] (Rec: 01/16/17 22:01 [id number] ICU-C20) Document 01/17/17 06:00 [id number] (Rec: 01/17/17 06:29 [id number] ICU-M02) Document 01/17/17 11:50 [id number] (Rec: 01/17/17 11:51 [id number] ICU-C10) Document 01/17/17 14:00 [id number] (Rec: 01/17/17 15:55 [id number] ICU-C16) Document 01/17/17 21:30 [id number] (Rec: 01/17/17 21:30 [id number] ICU-M17) Document 01/18/17 05:31 [id number] (Rec: 01/18/17 05:31 [id number] ICU-C14) Intake and Output Start: 01/18/17 08: 22 Freq: DAILY@0600,1400,2200 Status: Active Created 01/18/17 08:22 [id number] (Rec: 01/18/17 08:22 [id number] ICU-C10) Document 01/18/17 13:57 [id number] (Rec: 01/18/17 13:57 [id number] ICU-C16) Document 01/18/17 21:56 [id number] (Rec: 01/18/17 21:57 [id number] ICU-C14) Document 01/18/17 22:00 [id number] (Rec: 01/18/17 22:15 [id number] ICU-C16) Document 01/19/17 06:00 [id number] (Rec: 01/19/17 06:04 [id number] ICU-C16) Document 01/19/17 08:00 [id number] (Rec: 01/19/17 09:28 [id number] ICU-C16) Document 01/19/17 22:00 [id number] (Rec: 01/19/17 22:24 [id number] MED-C09) Document 01/20/17 05:19 [id number] (Rec: 01/20/17 05:19 [id number] MED-C42) - Physical Exam General: No Cyanosis, No Anemia, No Jaundice, No Clubbing Lungs and Chest: Yes: Chest Expansion Full, Chest Expansion Symetrica, Percussion Note Resonant, Vessicular Breath Sounds. No: Crackles, Wheezes Heart Rate and Rhythm: Regular Additional Cardiovascular: Yes: Normal Heart Sounds. No: Heart Murmur, Pedal Edema Abdominal Exam: Yes: Soft, Bowel Sounds Present. No: Distention, Abdominal Mass , Abdominal Tenderness - Extremities Cranial Nerves II-XII Intact: Yes Limbs: Normal Power, Abnormal Coordination Results - Results Lab Results: Laboratory Results - last 24 hr 01/20/17 01/20/17 06:45 06:45 WBC 3.5 RBC 2.72 L Hgb 10.1 L Hct 29 L MCV 108 H MCH 37 H MCHC 35 RDW 14 Plt Count 51 L MPV 9 Neut % (Auto) 37.9 L Lymph % (Auto) 40.9 [place] % (Auto) 7.1 Eos % (Auto) 13.0 H Baso % (Auto) 1.1 Absolute Neuts (auto) 1.3 L Absolute Lymphs (auto) 1.4 Absolute Monos (auto) 0.2 Absolute Eos (auto) 0.5 Absolute Basos (auto) 0 Absolute Nucleated RBC 0 Nucleated RBC % 0 Valproic Acid 56.0 Assessment - Problem List Assessment: Patient Problems Altered mental state (Acute) Anemia (Acute) Seizure (Acute) Seizure disorder (Acute) CAD (coronary artery disease) (Chronic) GERD (gastroesophageal reflux disease) (Chronic) Hypothyroidism (Chronic) Polymyalgia rheumatica (Chronic) Serous adenocarcinoma (Chronic) Thrombocytopenia (Chronic) History of atrial fibrillation (Chronic) Plan: Altered mental state (Acute) Seizure (Acute) Seizure disorder (Acute) She improves each day in her mental state, but she is not yet back to baseline. I think this is because she is post-ictal and she has a pattern of having a slow recovery. In addition, we are titrating her depakote levels. I want to ensure she is a t a therapeutic drug level at the trough. PT states she is not safe and requires 2 assists. Today she states she will accept a rolling walker - but that remains to be seen. Thrombocytopenia (Chronic) Serous adenocarcinoma (Chronic)Anemia (Acute) Dr. Still will consult today. He will need to decide if the platelets are acceptable at this level, and if not whether changing to a different anti- epileptic agent is warranted CAD (coronary artery disease) (Chronic) secondary diagnosis GERD (gastroesophageal reflux disease) (Chronic) secondary diagnosis Hypothyroidism (Chronic) secondary diagnosis Polymyalgia rheumatica (Chronic) secondary diagnosis Sleep apnea (Chronic) secondary diagnosis History of atrial fibrillation (Chronic) secondary diagnosis I explained the above to the patient and called her daughter
[2017-01-20] MEDS: Thyroid TAB* 60 MG PO SCH ×2 (08:13→21:18)
[2017-01-20] MEDS: Divalproex ER TAB(*) 500 MG PO SCH ×2 (08:13→21:18)
--- NOTE | 2017-01-20 10:58 | PN ---
Progress Note - Progress Note SOAP: Subjective: []She is oriented to hospital, has has seizure and to cancer and myelf as a provider. Sleepy this am relative to baseline. Acetaminophen (Tylenol Tab*) 650 mg PO Q4H PRN PRN Reason: FEVER/PAIN Acetaminophen (Tylenol Supp*) 650 mg [place] Q4H PRN PRN Reason: FEVER/PAIN Last Admin: 01/16/17 20:12 Dose: 650 mg Divalproex Sodium (Depakote Er Tab(*)) 1,500 mg PO BID TONYA Last Admin: 01/20/17 08:13 Dose: 1,500 mg Heparin Sodium (Porcine) (Heparin Vial(*)) 5,000 units SUBCUT Q8HR TONYA Last Admin: 01/20/17 04:06 Dose: Not Given Heparin Sodium (Porcine) (Heparin Flush Port (Ivad)) 5 ml FLUSH DAILY TONYA PRN Reason: Protocol Last Admin: 01/20/17 08:13 Dose: 5 ml Lorazepam (Ativan Inj*) 1 mg IV PUSH Q6H PRN PRN Reason: SEIZURES Last Admin: 01/16/17 18:55 Dose: 1 mg Omeprazole (Prilosec Cap*) 20 mg PO BEDTIME TONYA Last Admin: 01/19/17 20:05 Dose: 20 mg Thyroid (Thyroid Tab*) 60 mg PO BID TONYA Last Admin: 01/20/17 08:13 Dose: 60 mg Objective: [] Vital Signs Temp Pulse Resp BP Pulse Ox 98.1 F 75 18 132/58 95 01/20/17 07:36 01/20/17 07:36 01/20/17 08:35 01/20/17 07:36 01/20/17 07:36 HEENT - Mucosa moist, no lesions She has bruising on left arm from IV site, no abdominal bruising or LE. CTA RRR S1S2 Abd - no masses, no fluid, good BS Full neuro not done, strength 4/5 LE, 5/5 UE, cognition as above Blood film - mild hyopchromia, small platelets, normal WBC, no evidence of hydrolysis. Assessment: []86 year old with ovarian cancer who has been managed on Avastin alone with symptomatic and serologic response. Stopped following CT scans as will stop therapy and go to hospice for either serologic failure or clinical progression. She is not a candidate for chemotherapy. QOL has been fair, limited by recurrent seizures. She has thrombocytopenia from 08/2016 with modest drop on this admission, a progressive macrocytic anemia. Cancer therapy should not cause thormbocytopenia , may contribute to anemia but I suspect decreased blood counts second to drug reaction from her seizure medication, this admission with consumption after seizure. She has normal B12, there is no signs of marrow infiltration on her peripheral smear and CT scan without bone disease. There is a risk of bleeding from Avastin from inhibition of wound healing and blood vessel growth, not from anti-platelet effects. I am comfortable with a platelet cout of 40- 50k in this setting. Given difficulty in controlling her seizures I am hesitant to limit options for medical management. Plan: []1. Continue Depakote for time being, hold for plts < 30,000 2. No ASA or anti platelet agents 3. Heparin SQ if Plts > 40,000 4. Will hold Avastin until she feels better, permanently for any decline in functional status 5. Anemia, check retic count
[2017-01-20 14:18] LABS: Immature Retic Fraction 0.47
[2017-01-20 14:27] LABS: Corrected Retic Count 0.8 % (0.5-1.5)
--- NOTE | 2017-01-20 16:41 | PN ---
Progress Note - Progress Note SOAP: Neurology progress note Date of service : 01/20/17 Subjective: No acute events. She is awake and responsive. Objective: Vital Signs Temp Pulse Resp BP Pulse Ox 99.3 F 77 20 143/65 100 01/20/17 15:25 01/20/17 15:25 01/20/17 15:25 01/20/17 15:25 01/20/17 15:25 Current Medications Acetaminophen (Tylenol Tab*) 650 mg PO Q4H PRN PRN Reason: FEVER/PAIN Acetaminophen (Tylenol Supp*) 650 mg MO Q4H PRN PRN Reason: FEVER/PAIN Last Admin: 01/16/17 20:12 Dose: 650 mg Divalproex Sodium (Depakote Er Tab(*)) 1,500 mg PO BID [facility] Last Admin: 01/20/17 08:13 Dose: 1,500 mg Heparin Sodium (Porcine) (Heparin Vial(*)) 5,000 units SUBCUT Q8HR TONYA Last Admin: 01/20/17 14:19 Dose: Not Given Heparin Sodium (Porcine) (Heparin Flush Port (Ivad)) 5 ml FLUSH DAILY TONYA PRN Reason: Protocol Last Admin: 01/20/17 08:13 Dose: 5 ml Lorazepam (Ativan Inj*) 1 mg IV PUSH Q6H PRN PRN Reason: SEIZURES Last Admin: 01/16/17 18:55 Dose: 1 mg Omeprazole (Prilosec Cap*) 20 mg PO BEDTIME TONYA Last Admin: 01/19/17 20:05 Dose: 20 mg Thyroid (Thyroid Tab*) 60 mg PO BID [facility] Last Admin: 01/20/17 08:13 Dose: 60 mg Laboratory Last Values WBC 3.5 10^3/ul (3.5-10.8) 01/20/17 06:45 RBC 2.72 10^6/ul (4.0-5.4) L 01/20/17 06:45 RBC (Retic) 2.72 10^6/ul (4.6-6.2) L 01/20/17 06:45 Hgb 10.1 g/dl (12.0-16.0) L 01/20/17 06:45 Hct 29 % (35-47) L 01/20/17 06:45 HCT (Retic) 29 % (35-47) L 01/20/17 06:45 MCV 108 fL (80-97) H 01/20/17 06:45 MCH 37 pg (27-31) H 01/20/17 06:45 MCHC 35 g/dl (31-36) 01/20/17 06:45 RDW 14 % (10.5-15) 01/20/17 06:45 Plt Count 51 10^3/ul (150-450) L 01/20/17 06:45 MPV 9 um3 (7.4-10.4) 01/20/17 06:45 Neut % (Auto) 37.9 % (38-83) L 01/20/17 06:45 Lymph % (Auto) 40.9 % (25-47) 01/20/17 06:45 Richardson % (Auto) 7.1 % (1-9) 01/20/17 06:45 Eos % (Auto) 13.0 % (0-6) H 01/20/17 06:45 Baso % (Auto) 1.1 % (0-2) 01/20/17 06:45 Absolute Neuts (auto) 1.3 10^3/ul (1.5-7.7) L 01/20/17 06:45 Absolute Lymphs (auto) 1.4 10^3/ul (1.0-4.8) 01/20/17 06:45 Absolute Monos (auto) 0.2 10^3/ul (0-0.8) 01/20/17 06:45 Absolute Eos (auto) 0.5 10^3/ul (0-0.6) 01/20/17 06:45 Absolute Basos (auto) 0 10^3/ul (0-0.2) 01/20/17 06:45 Absolute Nucleated RBC 0 10^3/ul 01/20/17 06:45 Nucleated RBC % 0 01/20/17 06:45 Retic Count, Calc 1.3 % (0.5-1.5) 01/20/17 06:45 Corrected Retic Count 0.8 % (0.5-1.5) 01/20/17 06:45 Retic Shift Factor 2.0 01/20/17 06:45 Retic Production Index 0.40 01/20/17 06:45 Immature Retic Fraction 0.47 01/20/17 06:45 Mean Retic Volume 128.3 01/20/17 06:45 INR (Anticoag Therapy) 0.97 (0.89-1.11) 01/17/17 06:30 APTT 28.2 seconds (26.0-36.3) 01/16/17 13:05 ABG pH 7.27 (7.35-7.45) L 01/16/17 13:45 ABG pCO2 51 mmHg (35-45) H 01/16/17 13:45 ABG pO2 129 mmHg (80-100) H 01/16/17 13:45 ABG HCO3 21.9 mmol/L (19-31) 01/16/17 13:45 ABG O2 Saturation 99.3 % (95-98) H 01/16/17 13:45 ABG Base Excess -3.8 (-2.0-2.0) L 01/16/17 13:45 Sodium 135 mmol/L (133-145) 01/19/17 05:25 Potassium 4.2 mmol/L (3.5-5.0) 01/19/17 05:25 Chloride 105 mmol/L (101-111) 01/19/17 05:25 Carbon Dioxide 28 mmol/L (22-32) 01/19/17 05:25 Anion Gap 2 mmol/L (2-11) 01/19/17 05:25 BUN 12 mg/dL (6-24) 01/19/17 05:25 Creatinine 0.80 mg/dL (0.51-0.95) 01/19/17 05:25 Est GFR ( Amer) 87.1 (>60) 01/19/17 05:25 Est GFR (Non-Af Amer) 67.7 (>60) 01/19/17 05:25 BUN/Creatinine Ratio 15.0 (8-20) 01/19/17 05:25 Glucose 93 mg/dL (70-100) 01/19/17 05:25 Lactic Acid 1.3 mmol/L (0.5-2.0) 01/16/17 17:35 Calcium 8.2 mg/dL (8.6-10.3) L 01/19/17 05:25 Ionized Calcium 4.34 mg/dL (4.65-5.28) L 01/16/17 20:05 Total Bilirubin 0.60 mg/dL (0.2-1.0) 01/16/17 13:05 AST 22 U/L (13-39) 01/16/17 13:05 ALT 13 U/L (7-52) 01/16/17 13:05 Alkaline Phosphatase 84 U/L (34-104) 01/16/17 13:05 Ammonia 49 mol/L (16-53) 01/18/17 08:55 Troponin I 0.00 ng/mL (<0.04) 01/16/17 13:05 C-Reactive Protein 60.18 mg/L (< 5.00) H 01/18/17 05:11 Total Protein 7.9 g/dL (6.4-8.9) 01/16/17 13:05 Albumin 3.7 g/dL (3.2-5.2) 01/16/17 13:05 Globulin 4.2 g/dL (2-4) H 01/16/17 13:05 Albumin/Globulin Ratio 0.9 (1-3) L 01/16/17 13:05 Triglycerides 85 mg/dL 01/16/17 13:05 Cholesterol 149 mg/dL 01/16/17 13:05 LDL Cholesterol 83 mg/dL 01/16/17 13:05 HDL Cholesterol 49.2 mg/dL 01/16/17 13:05 Urine Color Yellow 01/16/17 19:43 Urine Appearance Clear 01/16/17 19:43 Urine pH 6.0 (5-9) 01/16/17 19:43 Ur Specific [place] 1.014 (1.010-1.030) 01/16/17 19:43 Urine Protein Negative (Negative) 01/16/17 19:43 Urine Ketones Trace (Negative) H 01/16/17 19:43 Urine Blood Negative (Negative) 01/16/17 19:43 Urine Nitrate Negative (Negative) 01/16/17 19:43 Urine Bilirubin Negative (Negative) 01/16/17 19:43 Urine Urobilinogen Negative (Negative) 01/16/17 19:43 Ur Leukocyte Esterase Negative (Negative) 01/16/17 19:43 Urine Glucose Negative (Negative) 01/16/17 19:43 Urine Ascorbic Acid * (Negative) H 01/16/17 19:43 Valproic Acid 56.0 mcg/mL (50-100) 01/20/17 06:45 Lacosamide Level <0.5 mcg/mL (1.0 - 10.0) L 01/16/17 15:45 Levetiracetam 28.1 mcg/mL 01/16/17 15:45 Influenza A (Rapid) Negative (Negative) 01/16/17 16:07 Influenza B (Rapid) Negative (Negative) 01/16/17 16:07 Blood Type O Positive 01/16/17 13:05 Antibody Screen Negative 01/16/17 13:05 On exam: Awake, oriented to place (hosiptal, cannot tell the name), knows where she lives , and says is 10th of the month, but can't tell the month or year. Pupils symmetric and reactive, face symmetric, moves all extremities antigravity. Assessment and Plan: 86 year old female with history of seizures, presented probably with a breakthrough seizure with low Depakote level (she says she is compliant). The dose was increased to 1500 mg bid. Level of Depakote today is 56. Probably needs to continue on this higher dose to maintain an acceptable serum level. []
[2017-01-20] MEDS: Omeprazole CAP* 20 MG PO SCH (21:18)
[2017-01-21] MEDS: Heparin VIAL(*) 5000 UNITS/ML VIAL (FIVE THOUSAND) SUBCUT SCH ×3 (06:02→21:40)
[2017-01-21 06:31] LABS: Hematocrit 30 % (35-47); Hemoglobin 10.3 g/dl (12.0-16.0); Mean Corpuscular HGB Conc 35 g/dl (31-36); Mean Corpuscular Hemoglobin 37 pg (27-31); Mean Platelet Volume 8 um3 (7.4-10.4); Red Blood Count 2.77 10^6/ul (4.0-5.4); Red Cell Distribution Width 14 % (10.5-15); White Blood Count 3.9 10^3/ul (3.5-10.8)
[2017-01-21 06:33] LABS: Comments Flag Yes
[2017-01-21 06:34] LABS: Mean Corpuscular Volume 108 fL (80-97)
--- NOTE | 2017-01-21 09:46 | PN ---
Subjective - Subjective Reason for Note: Progress Note History: She thinks she is back to baseline, but she is unable to name the year or month. She states she is in [facility]. She has some itching. 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 Thrombocytopenia (Chronic) D69.6 Current Medications: Current Medications Acetaminophen (Tylenol Tab*) 650 mg PO Q4H PRN PRN Reason: FEVER/PAIN Acetaminophen (Tylenol Supp*) 650 mg IN Q4H PRN PRN Reason: FEVER/PAIN Last Admin: 01/16/17 20:12 Dose: 650 mg Divalproex Sodium (Depakote Er Tab(*)) 1,500 mg PO BID [facility] Last Admin: 01/20/17 21:18 Dose: 1,500 mg Heparin Sodium (Porcine) (Heparin Vial(*)) 5,000 units SUBCUT Q8HR [facility] Last Admin: 01/21/17 06:02 Dose: Not Given Heparin Sodium (Porcine) (Heparin Flush Port (Ivad)) 5 ml FLUSH DAILY TONYA PRN Reason: Protocol Last Admin: 01/20/17 08:13 Dose: 5 ml Lorazepam (Ativan Inj*) 1 mg IV PUSH Q6H PRN PRN Reason: SEIZURES Last Admin: 01/16/17 18:55 Dose: 1 mg Omeprazole (Prilosec Cap*) 20 mg PO BEDTIME TONYA Last Admin: 01/20/17 21:18 Dose: 20 mg Thyroid (Thyroid Tab*) 60 mg PO BID [facility] Last Admin: 01/20/17 21:18 Dose: 60 mg Home Medications: Home Medications Medication Instructions Recorded Confirmed Type Levetiracetam XR TAB(NF) [Keppra 1,000 mg PO BID 09/02/16 01/16/17 History XR TAB(NF)] Thyroid TAB* [Thyroid TAB 60 MG*] 60 mg PO BID 09/02/16 01/16/17 History Omeprazole CAP* [Prilosec CAP* 20 20 mg PO DAILY 10/15/16 01/16/17 History MG] Cholecalciferol [Vitamin D3] 50,000 mg PO WEEKLY 01/16/17 01/16/17 History Divalproex ER TAB(*) [Depakote ER 1,000 mg PO BID 01/16/17 01/16/17 History TAB(*)] Lactulose* 10 mg PO BID PRN 01/16/17 01/16/17 History Ondansetron TAB* [Zofran 4 MG Tab*] 4 mg PO TID PRN 01/16/17 01/16/17 History Pantoprazole TAB (NF) [Protonix 40 mg PO DAILY 01/16/17 01/16/17 History TAB (NF)] Prochlorperazine TAB* [Compazine 10 mg PO QID PRN 01/16/17 01/16/17 History Tab*] Allergies: Allergies Allergy/AdvReac Type Severity Reaction Status Date / Time Azathioprine Allergy Unknown Verified 09/01/16 12:28 Reaction Details Codeine Allergy Unknown Verified 09/01/16 12:28 Reaction Details Corticosteroids Allergy Swelling Verified 09/01/16 12:28 Diltiazem Allergy Unknown Verified 09/01/16 12:28 Reaction Details Levetiracetam Allergy See Comment Verified 09/01/16 12:28 Macrolides and Ketolides Allergy Unknown Verified 09/01/16 12:28 Reaction Details Penicillins Allergy Hives Verified 09/01/16 12:28 Phenytoin [From Dilantin] Allergy Hives Verified 09/01/16 12:28 Sulfa Drugs Allergy Hives Verified 09/01/16 12:28 Tetracyclines & Related Allergy Difficulty Verified 09/01/16 12:28 Breathing/Wheezing Doxycycline AdvReac GI Upset Verified 06/09/16 06:51 Lidocaine AdvReac GI Upset Verified 06/09/16 06:51 Moxifloxacin [From Avelox] AdvReac Diarrhea Verified 06/09/16 06:51 Objective - Vital Signs Vital Signs: Vital Signs 01/20/17 01/20/17 01/20/17 15:25 19:16 20:00 Temperature 99.3 F 97.6 F Pulse Rate 77 83 Respiratory 20 16 16 Rate Blood Pressure 143/65 121/55 (mmHg) O2 Sat by Pulse 100 98 98 Oximetry 03/10/17 03/11/17 03/11/17 23:31 05:49 08:57 Temperature 97.7 F 98.2 F 97.4 F Pulse Rate 79 73 91 Respiratory 20 15 22 Rate Blood Pressure 126/58 161/72 153/86 (mmHg) O2 Sat by Pulse 98 98 96 Oximetry - Intake and Output Intake and Output: Intake & Output 01/18/17 01/19/17 01/20/17 01/21/17 11:59 11:59 11:59 11:59 Intake Total 3191 2245 570 660 Output Total 1974 3000 Balance 1216 -130 570 660 Weight 144 lb 8 oz 139 lb 1.787 oz Intake: IV Fluids 3090 1767 D5 1/2 20kcl 1878 1767 Normal Saline 902 ceftriaxone 100 valproate 210 IVPB 101 238 ceftriaxone 101 valproate 238 Oral 0 240 570 660 Output: [place] 1974 3000 Other: Estimated Void Small # Bowel Movements 0 0 0 Estimated Stool Amount Medium Small # Voids 1 2 ADLs: Meal Record Start: 01/16/17 16: 08 Freq: 09,13,18 Status: Complete Created 01/16/17 16:08 [id number] (Rec: 01/16/17 16:08 [id number] ICU-M02) Document 01/16/17 18:00 [id number] (Rec: 01/16/17 18:06 [id number] ICU-C16) Document 01/17/17 09:00 [id number] (Rec: 01/17/17 09:49 [id number] ICU-C10) Document 01/17/17 13:00 [id number] (Rec: 01/17/17 13:02 [id number] ICU-C16) Document 01/17/17 18:00 [id number] (Rec: 01/17/17 18:55 [id number] ICU-C16) Document 01/18/17 07:27 [id number] (Rec: 01/18/17 07:27 [id number] ICU-C20) ADLs: Meal Record Start: 01/18/17 08: 22 Freq: DAILY@0900,1400,1800 Status: Active Created 01/18/17 08:22 [id number] (Rec: 01/18/17 08:22 [id number] ICU-C10) Document 01/18/17 08:23 [id number] (Rec: 01/18/17 08:23 [id number] ICU-C10) Document 01/18/17 14:00 [id number] (Rec: 01/18/17 14:00 [id number] ICU-C16) Document 01/18/17 19:00 [id number] (Rec: 01/18/17 20:34 [id number] ICU-C16) Document 01/19/17 09:00 [id number] (Rec: 01/19/17 09:15 [id number] ICU-C16) Document 01/19/17 13:27 [id number] (Rec: 01/19/17 13:27 [id number] MED-C09) Document 01/19/17 18:00 [id number] (Rec: 01/19/17 19:02 [id number] MED-C11) Document 01/20/17 14:00 [id number] (Rec: 01/20/17 14:06 [id number] MED-C16) Document 01/20/17 18:00 [id number] (Rec: 01/20/17 19:00 [id number] MED-C09) Intake and Output Start: 01/16/17 16: 08 Freq: 06,14,22 Status: Complete Created 01/16/17 16:08 [id number] (Rec: 01/16/17 16:08 [id number] ICU-M02) Document 01/16/17 22:00 [id number] (Rec: 01/16/17 22:01 [id number] ICU-C20) Document 01/17/17 06:00 [id number] (Rec: 01/17/17 06:29 [id number] ICU-M02) Document 01/17/17 11:50 [id number] (Rec: 01/17/17 11:51 [id number] ICU-C10) Document 01/17/17 14:00 [id number] (Rec: 01/17/17 15:55 [id number] ICU-C16) Document 01/17/17 21:30 [id number] (Rec: 01/17/17 21:30 [id number] ICU-M17) Document 01/18/17 05:31 [id number] (Rec: 01/18/17 05:31 [id number] ICU-C14) Intake and Output Start: 01/18/17 08: 22 Freq: DAILY@0600,1400,2200 Status: Active Created 01/18/17 08:22 [id number] (Rec: 01/18/17 08:22 [id number] ICU-C10) Document 01/18/17 13:57 [id number] (Rec: 01/18/17 13:57 [id number] ICU-C16) Document 01/18/17 21:56 [id number] (Rec: 01/18/17 21:57 [id number] ICU-C14) Document 01/18/17 22:00 [id number] (Rec: 01/18/17 22:15 [id number] ICU-C16) Document 01/19/17 06:00 [id number] (Rec: 01/19/17 06:04 [id number] ICU-C16) Document 01/19/17 08:00 [id number] (Rec: 01/19/17 09:28 [id number] ICU-C16) Document 01/19/17 22:00 [id number] (Rec: 01/19/17 22:24 [id number] MED-C09) Document 01/20/17 05:19 [id number] (Rec: 01/20/17 05:19 [id number] MED-C42) Document 01/20/17 14:00 [id number] (Rec: 01/20/17 16:07 [id number] MED-L07) Document 01/20/17 21:42 [id number] (Rec: 01/20/17 21:43 [id number] MEDL-C02) Document 01/21/17 03:32 [id number] (Rec: 01/21/17 03:32 [id number] MED-C42) - Physical Exam General: No Cyanosis, No Anemia, No Jaundice, No Clubbing Skin: Normal: Rash - Extremities Cranial Nerves II-XII Intact: Yes Limbs: Normal Power, Normal Coordination, Abnormal Gait - Walker dependent, some unsteadiness - Neuro Orientation: Place Psychiatric: Normal Speech: Normal Results - Results Lab Results: Laboratory Results - last 24 hr 01/20/17 01/21/17 01/21/17 06:45 06:07 06:07 WBC 3.9 RBC 2.77 L RBC (Retic) 2.72 L Hgb 10.3 L Hct 30 L HCT (Retic) 29 L MCV 108 H MCH 37 H MCHC 35 RDW 14 Plt Count 52 L MPV 8 Retic Count, Calc 1.3 Corrected Retic Count 0.8 Retic Shift Factor 2.0 Retic Production Index 0.40 Immature Retic Fraction 0.47 Mean Retic Volume 128.3 Valproic Acid 83.0 Assessment - Problem List Assessment: Patient Problems Altered mental state (Acute) Anemia (Acute) Seizure (Acute) Seizure disorder (Acute) CAD (coronary artery disease) (Chronic) GERD (gastroesophageal reflux disease) (Chronic) Hypothyroidism (Chronic) Polymyalgia rheumatica (Chronic) Serous adenocarcinoma (Chronic) Thrombocytopenia (Chronic) History of atrial fibrillation (Chronic) Plan: Altered mental state (Acute) Seizure (Acute) Seizure disorder (Acute) She continues to be mildly post ictal - not quite at baseline. Her depakote trough is therapeutic. I want to ensure she doesn't develop cumulative toxic levels tomorrow. Plan discharge tomorrow. Anemia (Acute) Serous adenocarcinoma (Chronic) Thrombocytopenia (Chronic) I reviewed Dr. Still's note. I interpret this to mean he is planning on discontinuing the [facility]. CAD (coronary artery disease) (Chronic) secondary diagnosis GERD (gastroesophageal reflux disease) (Chronic) secondary diagnosis Hypothyroidism (Chronic) secondary diagnosis Polymyalgia rheumatica (Chronic)secondary diagnosis History of atrial fibrillation (Chronic) I spoke to her daughter May who is driving to [place]. She is prepared to take her home tomorrow. I want 1 more day to check her depakote trough levels and for more mobilization. Both Elida and May agree with this plan
[2017-01-21] MEDS: Thyroid TAB* 60 MG PO SCH ×2 (09:57→20:47)
[2017-01-21] MEDS: Divalproex ER TAB(*) 500 MG PO SCH ×2 (09:57→20:46)
[2017-01-21] MEDS: Omeprazole CAP* 20 MG PO SCH (20:47)
[2017-01-22] MEDS: Heparin VIAL(*) 5000 UNITS/ML VIAL (FIVE THOUSAND) SUBCUT SCH ×3 (05:41→21:38)
[2017-01-22 05:58] LABS: Hematocrit 30 % (35-47); Hemoglobin 10.3 g/dl (12.0-16.0); Mean Corpuscular HGB Conc 34 g/dl (31-36); Mean Corpuscular Hemoglobin 37 pg (27-31); Mean Platelet Volume 8 um3 (7.4-10.4); Red Cell Distribution Width 14 % (10.5-15)
[2017-01-22 06:00] LABS: Comments Flag Yes
[2017-01-22 06:01] LABS: Mean Corpuscular Volume 108 fL (80-97); White Blood Count 3.1 10^3/ul (3.5-10.8)
[2017-01-22] MEDS: LORazepam INJ* 2 MG/ML 1 ML VIAL IV PUSH PRN (07:53)
--- NOTE | 2017-01-22 09:20 | PN ---
Subjective - Subjective Reason for Note: Progress Note History: She was found to be unconscious and incontinent. I called her daughter Mya for additional history. When May called her at 9 pm on the phone - she made no sense whatsoever - couldn 't find any word. A nurse had transferred the call into her mother. She was in the hospital earlier in the day and had a conversation with her - not at baseline. At 7:30 her uncle spoke to her - weak, but coherent. She called over and "got passed around" the nurses station rang and rang. May couldn't get hold of nurse and gave up thinking they were taking care of this. She was worried about something happening. She felt maybe she needed a nights sleep. There is a nursing note at 4 am - nothing noted. 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 Thrombocytopenia (Chronic) D69.6 Current Medications: Current Medications Acetaminophen (Tylenol Tab*) 650 mg PO Q4H PRN PRN Reason: FEVER/PAIN Acetaminophen (Tylenol Supp*) 650 mg MO Q4H PRN PRN Reason: FEVER/PAIN Last Admin: 01/16/17 20:12 Dose: 650 mg Divalproex Sodium (Depakote Er Tab(*)) 1,500 mg PO BID [facility] Last Admin: 01/21/17 20:46 Dose: 1,500 mg Heparin Sodium (Porcine) (Heparin Vial(*)) 5,000 units SUBCUT Q8HR [facility] Last Admin: 01/22/17 05:41 Dose: 5,000 units Heparin Sodium (Porcine) (Heparin Flush Port (Ivad)) 5 ml FLUSH DAILY [facility] PRN Reason: Protocol Last Admin: 01/21/17 09:56 Dose: 5 ml Lorazepam (Ativan Inj*) 1 mg IV PUSH Q6H PRN PRN Reason: SEIZURES Last Admin: 01/22/17 07:53 Dose: 1 mg Omeprazole (Prilosec Cap*) 20 mg PO BEDTIME [facility] Last Admin: 01/21/17 20:47 Dose: 20 mg Thyroid (Thyroid Tab*) 60 mg PO BID [facility] Last Admin: 01/21/17 20:47 Dose: 60 mg Home Medications: Home Medications Medication Instructions Recorded Confirmed Type Levetiracetam XR TAB(NF) [Keppra 1,000 mg PO BID 09/02/16 01/16/17 History XR TAB(NF)] Thyroid TAB* [Thyroid TAB 60 MG*] 60 mg PO BID 09/02/16 01/16/17 History Omeprazole CAP* [Prilosec CAP* 20 20 mg PO DAILY 10/15/16 01/16/17 History MG] Cholecalciferol [Vitamin D3] 50,000 mg PO WEEKLY 01/16/17 01/16/17 History Divalproex ER TAB(*) [Depakote ER 1,000 mg PO BID 01/16/17 01/16/17 History TAB(*)] Lactulose* 10 mg PO BID PRN 01/16/17 01/16/17 History Ondansetron TAB* [Zofran 4 MG Tab*] 4 mg PO TID PRN 01/16/17 01/16/17 History Pantoprazole TAB (NF) [Protonix 40 mg PO DAILY 01/16/17 01/16/17 History TAB (NF)] Prochlorperazine TAB* [Compazine 10 mg PO QID PRN 01/16/17 01/16/17 History Tab*] Allergies: Allergies Allergy/AdvReac Type Severity Reaction Status Date / Time Azathioprine Allergy Unknown Verified 09/01/16 12:28 Reaction Details Codeine Allergy Unknown Verified 09/01/16 12:28 Reaction Details Corticosteroids Allergy Swelling Verified 09/01/16 12:28 Diltiazem Allergy Unknown Verified 09/01/16 12:28 Reaction Details Levetiracetam Allergy See Comment Verified 09/01/16 12:28 Macrolides and Ketolides Allergy Unknown Verified 09/01/16 12:28 Reaction Details Penicillins Allergy Hives Verified 09/01/16 12:28 Phenytoin [From Dilantin] Allergy Hives Verified 09/01/16 12:28 Sulfa Drugs Allergy Hives Verified 09/01/16 12:28 Tetracyclines & Related Allergy Difficulty Verified 09/01/16 12:28 Breathing/Wheezing Doxycycline AdvReac GI Upset Verified 06/09/16 06:51 Lidocaine AdvReac GI Upset Verified 06/09/16 06:51 Moxifloxacin [From Avelox] AdvReac Diarrhea Verified 06/09/16 06:51 Objective - Vital Signs Vital Signs: Vital Signs 01/21/17 01/21/17 01/21/17 08:57 15:39 20:00 Temperature 97.4 F 98.0 F Pulse Rate 91 77 Respiratory 22 20 20 Rate Blood Pressure 153/86 122/61 (mmHg) O2 Sat by Pulse 96 100 100 Oximetry 01/21/17 01/22/17 01/22/17 23:53 07:46 07:53 Temperature 97.2 F 98.4 F Pulse Rate 81 88 Respiratory 16 16 16 Rate Blood Pressure 134/51 156/69 (mmHg) O2 Sat by Pulse 96 98 Oximetry - Intake and Output Intake and Output: Intake & Output 01/19/17 01/20/17 01/21/17 01/22/17 11:59 11:59 11:59 12:59 Intake Total 2245 570 900 330 Output Total 3000 200 Balance -755 570 900 130 Weight 139 lb 1.787 oz Intake: IV Fluids 1767 D5 1/2 20kcl 1767 IVPB 238 valproate 238 Oral 240 570 900 330 Output: Urine 200 [place] 3000 Other: Estimated Void Small # Bowel Movements 0 0 0 1 Estimated Stool Amount Medium Small Medium # Voids 1 2 0 ADLs: Meal Record Start: 01/16/17 16: 08 Freq: 09,13,18 Status: Complete Created 01/16/17 16:08 [id number] (Rec: 01/16/17 16:08 [id number] ICU-M02) Document 01/16/17 18:00 [id number] (Rec: 01/16/17 18:06 [id number] ICU-C16) Document 01/17/17 09:00 [id number] (Rec: 01/17/17 09:49 [id number] ICU-C10) Document 01/17/17 13:00 [id number] (Rec: 01/17/17 13:02 [id number] ICU-C16) Document 01/17/17 18:00 [id number] (Rec: 01/17/17 18:55 [id number] ICU-C16) Document 01/18/17 07:27 [id number] (Rec: 01/18/17 07:27 [id number] ICU-C20) ADLs: Meal Record Start: 01/18/17 08: 22 Freq: DAILY@0900,1400,1800 Status: Active Created 01/18/17 08:22 [id number] (Rec: 01/18/17 08:22 [id number] ICU-C10) Document 01/18/17 08:23 [id number] (Rec: 01/18/17 08:23 [id number] ICU-C10) Document 01/18/17 14:00 [id number] (Rec: 01/18/17 14:00 [id number] ICU-C16) Document 01/18/17 19:00 [id number] (Rec: 01/18/17 20:34 [id number] ICU-C16) Document 01/19/17 09:00 [id number] (Rec: 01/19/17 09:15 [id number] ICU-C16) Document 01/19/17 13:27 [id number] (Rec: 01/19/17 13:27 [id number] MED-C09) Document 01/19/17 18:00 [id number] (Rec: 01/19/17 19:02 EMK6196 MED-C11) Document 01/20/17 14:00 [id number] (Rec: 01/20/17 14:06 ZGR3900 MED-C16) Document 01/20/17 18:00 [id number] (Rec: 01/20/17 19:00 MNJ6524 MED-C09) Document 01/21/17 09:00 OZI8282 (Rec: 01/21/17 10:47 CIO5928 MED-C09) Document 01/21/17 14:00 DCS6125 (Rec: 01/21/17 14:10 [id number] MED-C11) Document 01/22/17 03:48 [id number] (Rec: 01/22/17 03:48 SVA8584 MED-C14) Intake and Output Start: 01/16/17 16: 08 Freq: 06,14,22 Status: Complete Created 01/16/17 16:08 [id number] (Rec: 01/16/17 16:08 [id number] ICU-M02) Document 01/16/17 22:00 YUS1901 (Rec: 01/16/17 22:01 [id number] ICU-C20) Document 01/17/17 06:00 [id number] (Rec: 01/17/17 06:29 BMS1455 ICU-M02) Document 01/17/17 11:50 QNT6266 (Rec: 01/17/17 11:51 BFQ1197 ICU-C10) Document 01/17/17 14:00 [id number] (Rec: 01/17/17 15:55 VCA0730 ICU-C16) Document 01/17/17 21:30 RGI0851 (Rec: 01/17/17 21:30 [id number] ICU-M17) Document 01/18/17 05:31 UBU4079 (Rec: 01/18/17 05:31 [id number] ICU-C14) Intake and Output Start: 01/18/17 08: 22 Freq: DAILY@0600,1400,2200 Status: Active Created 01/18/17 08:22 [id number] (Rec: 01/18/17 08:22 KBV1190 ICU-C10) Document 01/18/17 13:57 [id number] (Rec: 01/18/17 13:57 [id number] ICU-C16) Document 01/18/17 21:56 MUI2015 (Rec: 01/18/17 21:57 [id number] ICU-C14) Document 01/18/17 22:00 [id number] (Rec: 01/18/17 22:15 [id number] ICU-C16) Document 01/19/17 06:00 [id number] (Rec: 01/19/17 06:04 HYU1363 ICU-C16) Document 01/19/17 08:00 OBU3080 (Rec: 01/19/17 09:28 [id number] ICU-C16) Document 01/19/17 22:00 [id number] (Rec: 01/19/17 22:24 [id number] MED-C09) Document 01/20/17 05:19 [id number] (Rec: 01/20/17 05:19 [id number] MED-C42) Document 01/20/17 14:00 MRL6532 (Rec: 01/20/17 16:07 QIW1908 MED-L07) Document 01/20/17 21:42 [id number] (Rec: 01/20/17 21:43 LPB1630 MEDL-C02) Document 01/21/17 03:32 [id number] (Rec: 01/21/17 03:32 [id number] MED-C42) Document 01/21/17 14:00 YRD1763 (Rec: 01/21/17 14:10 [id number] MED-C11) Document 01/21/17 22:00 WRO2025 (Rec: 01/21/17 23:18 [id number] MED-C09) Document 01/22/17 06:00 [id number] (Rec: 01/22/17 06:34 [id number] MED-C02) - Physical Exam General Physical Exam Comment: She is unconscious on her back. She does not respond to commands or stimuli. She moved her facial muscles of expression slightly, but only once while I watched her. No spontaneous movements of her arms. She drops them when elevated. Her eye are not conjugate - her left eye is deviated upwards, whilst her right eye is midline. She has sharp optic disks bilaterally. She is breathing slowly and shows no abnormal pattern. Her plantar responses are upgoing. General: No Cyanosis, No Anemia, No Jaundice, No Clubbing Lungs and Chest: Yes: Chest Expansion Full, Chest Expansion Symetrica, Percussion Note Resonant, Vessicular Breath Sounds. No: Crackles, Wheezes Heart Rate and Rhythm: Regular Additional Cardiovascular: Yes: Normal Heart Sounds. No: Heart Murmur, Pedal Edema Abdominal Exam: Yes: Soft, Bowel Sounds Present. No: Distention, Abdominal Mass , Abdominal Tenderness Results - Results Lab Results: Laboratory Results - last 24 hr 01/22/17 05:45 WBC 3.1 L RBC 2.80 L Hgb 10.3 L Hct 30 L MCV 108 H MCH 37 H MCHC 34 RDW 14 Plt Count 52 L MPV 8 Neut % (Auto) 45.4 Lymph % (Auto) 36.8 [place] % (Auto) 6.2 Eos % (Auto) 10.3 H Baso % (Auto) 1.3 Absolute Neuts (auto) 1.4 L Absolute Lymphs (auto) 1.1 Absolute Monos (auto) 0.2 Absolute Eos (auto) 0.3 Absolute Basos (auto) 0 Absolute Nucleated RBC 0 Nucleated RBC % 0 Assessment - Problem List Assessment: Patient Problems Altered mental state (Acute) Anemia (Acute) Seizure (Acute) Seizure disorder (Acute) CAD (coronary artery disease) (Chronic) GERD (gastroesophageal reflux disease) (Chronic) Hypothyroidism (Chronic) Polymyalgia rheumatica (Chronic) Serous adenocarcinoma (Chronic) Thrombocytopenia (Chronic) History of atrial fibrillation (Chronic) Plan: Altered mental state (Acute) Seizure (Acute)Seizure disorder (Acute) She has had another acute episode characterized by loss of consciousness and incontinence. No tongue biting. She has disconjugate eye movements - left rolled upwards. She is unresponsive. Most likely she has had another seizure. This may have started last night as a complex partial seizure - her daughter found her phone conversation at 9 pm to be disoriented and completely different from her earlier conversation. She was sufficiently worried to try to get in touch with RN, but had difficulty and gave up. She may have been sundowning as an alternative explanation - though May thinks this is unlikely. Other possibility is that she is unresponsive because of a stroke or perhaps toxicity from the depakote. I state the latter 2 possibilities for completeness. I spoke to Dr. Lisandro Mejia who is the hydro generation supervisor neurologist and who saw her 2 days ago. He is organizing an EEG. I have given her 1 mg lorazepam IV. I discussed if an acute medical bed is appropriate - she is hemodynamically stable , her airway is not compromized. We will decide upon further management dependent on the findings on the EEG Anemia (Acute) ongoing CAD (coronary artery disease) (Chronic) secondary diagnosis GERD (gastroesophageal reflux disease) (Chronic) secondary diagnosis Hypothyroidism (Chronic) secondary diagnosis Polymyalgia rheumatica (Chronic) secondary diagnosis Serous adenocarcinoma (Chronic) secondary diagnosis Thrombocytopenia (Chronic) stable History of atrial fibrillation (Chronic) secondary diagnosis I spoke extensively with her daughter/health care proxy May. She understands the situation and is supportive of the management plan.
[2017-01-22] MEDS ORDERED: LaCOSAMide VIAL * 200 MG/20 ML VIAL IV SCH (10:24)
[2017-01-22] MEDS ORDERED: NS 0.9% IVPB SCH (10:30)
[2017-01-22] MEDS ORDERED: PHENOBARBITAL IVPB SCH (10:30)
[2017-01-22] MEDS: Thyroid TAB* 60 MG PO SCH (10:34)
[2017-01-22] MEDS: Divalproex ER TAB(*) 500 MG PO SCH (10:34)
[2017-01-22] MEDS ORDERED: LaCOSAMide VIAL * 100 MG in NS 0.9% 50 ML* 50 ML IVPB ONE (11:00)
[2017-01-22] MEDS: Pantoprazole IV* 40 MG IV SCH (11:13)
--- NOTE | 2017-01-22 12:33 | PN ---
Progress Note - Progress Note SOAP: Neurology progress note Date of service: 01/22/17 Subjective: The patient was found to be more lethargic and at time unresponsive earlier this morning when the morning nursing shift was changed and also was found to have urinary incontinence. Dr. Berrios had been called and after he evaluated the patient he called me around 9am this morning. We talked about the possibility of a breakthrough seizure and an urgent EEG was performed. When I came to the bedside around 10 am the patient was starting to get her EEG. Her trough Depakote level was 138 this morning. Objective: Vital Signs Temp Pulse Resp BP Pulse Ox 98.4 F 88 22 156/69 98 01/22/17 07:46 01/22/17 07:46 01/22/17 11:13 01/22/17 07:46 01/22/17 08:00 Current Medications Heparin Sodium (Porcine) (Heparin Vial(*)) 5,000 units SUBCUT Q8HR [facility] Last Admin: 01/22/17 05:41 Dose: 5,000 units Heparin Sodium (Porcine) (Heparin Flush Port (Ivad)) 5 ml FLUSH DAILY [facility] PRN Reason: Protocol Last Admin: 01/22/17 07:30 Dose: 5 ml Potassium Chloride/Dextrose (D5w 1/2 Ns Kcl 20 Meq 1000 Ml*) 1,000 mls @ 75 mls /hr IV PER RATE [facility] Lacosamide 50 mg/ Sodium (Chloride) 55 mls @ 110 mls/hr IVPB Q12HR [facility] Lorazepam (Ativan Inj*) 1 mg IV PUSH Q6H PRN PRN Reason: SEIZURES Last Admin: 01/22/17 07:53 Dose: 1 mg Pantoprazole Sodium (Protonix Iv*) 40 mg IV Q24H [facility] Last Admin: 01/22/17 11:13 Dose: 40 mg Laboratory Results - last 24 hr 01/22/17 01/22/17 05:45 08:00 WBC 3.1 L RBC 2.80 L Hgb 10.3 L Hct 30 L MCV 108 H MCH 37 H MCHC 34 RDW 14 Plt Count 52 L MPV 8 Neut % (Auto) 45.4 Lymph % (Auto) 36.8 [place] % (Auto) 6.2 Eos % (Auto) 10.3 H Baso % (Auto) 1.3 Absolute Neuts (auto) 1.4 L Absolute Lymphs (auto) 1.1 Absolute Monos (auto) 0.2 Absolute Eos (auto) 0.3 Absolute Basos (auto) 0 Absolute Nucleated RBC 0 Nucleated RBC % 0 Valproic Acid 138.0 H When I examined the patient while she was getting her EEG recording, she was more awake, she opened her eyes to verbal stimulation and smiled. However, she did not answer any questions for followed any commands. She was moving all 4 extremities anti-gravity. Pupils were symmetric and reactive to light with no deviation. Face seemed symmetric. Later, I reviewed the EEG and it shows sharp waves in the left fronto-temporal region, continuous generalized slowing and generalized triphasic waves. No seizures were seen. Assessment and Plan: 86-year-old female with history of seizures who was admitted with breakthrough seizures while on Depakote. Her Depakote level was found to be low and the dose was increased a few days ago to 1500 mg bid. She seem to had another breakthrough seizure this morning; EEG does not show any evidence of subclinical seizure. At this point, the patient probably needs a new antiepileptic medication. As Dr Berrios and I discussed her case, I suggested she be started on Vimpat; given her age, probably this medication will be better tolerated with a better side effect profile and less need for continued monitoring of the level. She will be loaded with 100 mg IV followed by 50 mg q12 and potentially increasing the maintenance dose to 100 mg bid after 1-2 days. Given the finding of triphasic waves in her EEG I would like to check an ammonia level (her trough Depakote level was elevated today). Will hold the Depakote for now. The patient still in the post-ictal phase, but seems very gradually improving and she does have a history of slow recovery and prolonged post ictal periods, which is not uncommon in this age group. Will continue to monitor her. []
[2017-01-22] MEDS: D5W 1/2 NS KCl 20 Meq 1000 ML* 1,000 ML IV SCH (12:38)
--- NOTE | 2017-01-22 13:46 | EEG ---
CC: Dr. Berrios ELECTROENCEPHALOGRAPHY REPORT: DATE OF PROCEDURE: 01/22/17 REQUESTING PHYSICIAN: Dr. Berrios. BRIEF HISTORY: The patient is an 86-year-old female with history of seizures, who was admitted with a breakthrough seizure and prolonged postictal confusion who was progressing well until this morning when she was found to be less responsive. An EEG was ordered to rule out subclinical seizures. TECHNICAL DESCRIPTION: This digital EEG was recorded using 21 scalp and ear, and 2 EKG electrodes. It was reviewed in referential and bipolar montages following reformatting in the 10-20 international electrode placement system. In the most stimulated state, the background consists of a continuous generalized slowing, manifesting as 30-40 microvolts, 2-5 Hz slow discharges with minimal reactivity to stimulation. Faster frequencies including 10-20 microvolts, 12-16 Hz activity was seen scattered throughout the recording. There is no clear posterior dominant rhythm or anterior posterior gradient evident. There are occasional generalized triphasic waves with typical anterior -posterior lag evident. There are occasional sharp waves in the left frontotemporal region with maximum negativity in F7/T3 area. No clear seizures were seen. IMPRESSION: This routine EEG in the lethargic state is abnormal due to: 1. Sharp waves, regional, left frontotemporal. 2. Continuous generalized slowing. 3. Generalized triphasic waves. The above finding is suggestive of an epileptogenic focus in the left frontotemporal region. In addition, there is evidence of a moderate to severe diffuse encephalopathy, probably of metabolic etiology. [id number]/[facility] #: [id number] [facility]
[2017-01-22] MEDS: LACOSAMIDE IVPB SCH (21:39)
[2017-01-22] MEDS: NS 0.9% IVPB SCH (21:39)
[2017-01-23] MEDS: D5W 1/2 NS KCl 20 Meq 1000 ML* 1,000 ML IV SCH ×2 (02:20→17:42)
[2017-01-23] MEDS: Heparin VIAL(*) 5000 UNITS/ML VIAL (FIVE THOUSAND) SUBCUT SCH ×3 (04:52→22:43)
[2017-01-23 05:24] LABS: Hematocrit 30 % (35-47); Hemoglobin 10.1 g/dl (12.0-16.0); Mean Corpuscular HGB Conc 34 g/dl (31-36); Mean Corpuscular Hemoglobin 36 pg (27-31); Mean Platelet Volume 9 um3 (7.4-10.4); Red Blood Count 2.77 10^6/ul (4.0-5.4); Red Cell Distribution Width 13 % (10.5-15)
[2017-01-23 05:26] LABS: Comments Flag Yes
[2017-01-23 05:27] LABS: Mean Corpuscular Volume 108 fL (80-97); White Blood Count 3.2 10^3/ul (3.5-10.8)
[2017-01-23 05:43] LABS: BUN/Creatinine Ratio 24.7 (8-20); C Reactive Protein 7.09 mg/L (< 5.00); Calcium 8.2 mg/dL (8.6-10.3); EGFR Non-African American 70.7 (>60); Potassium 4.1 mmol/L (3.5-5.0)
--- NOTE | 2017-01-23 08:19 | PN ---
Subjective - Subjective Reason for Note: Progress Note History: She is 1 day post-seizure and is sitting in a chair. She is not oriented and is weak. She is awake, but not particularly alert. Her conversation is difficult to follow, but she is perseverating. She denies pain or distress on direct questioning. 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 Thrombocytopenia (Chronic) D69.6 Current Medications: Current Medications Heparin Sodium (Porcine) (Heparin Vial(*)) 5,000 units SUBCUT Q8HR [facility] Last Admin: 01/23/17 04:52 Dose: 5,000 units Heparin Sodium (Porcine) (Heparin Flush Port (Ivad)) 5 ml FLUSH DAILY TONYA PRN Reason: Protocol Last Admin: 01/22/17 07:30 Dose: 5 ml Potassium Chloride/Dextrose (D5w 1/2 Ns Kcl 20 Meq 1000 Ml*) 1,000 mls @ 75 mls /hr IV PER RATE TONYA Last Admin: 01/23/17 02:20 Dose: 75 mls/hr Lacosamide 50 mg/ Sodium (Chloride) 55 mls @ 110 mls/hr IVPB Q12HR TONYA Last Admin: 01/22/17 21:39 Dose: 110 mls/hr Lorazepam (Ativan Inj*) 1 mg IV PUSH Q6H PRN PRN Reason: SEIZURES Last Admin: 01/22/17 07:53 Dose: 1 mg Pantoprazole Sodium (Protonix Iv*) 40 mg IV Q24H TONYA Last Admin: 01/22/17 11:13 Dose: 40 mg Home Medications: Home Medications Medication Instructions Recorded Confirmed Type Levetiracetam XR TAB(NF) [Keppra 1,000 mg PO BID 09/02/16 01/16/17 History XR TAB(NF)] Thyroid TAB* [Thyroid TAB 60 MG*] 60 mg PO BID 09/02/16 01/16/17 History Omeprazole CAP* [Prilosec CAP* 20 20 mg PO DAILY 10/15/16 01/16/17 History MG] Cholecalciferol [Vitamin D3] 50,000 mg PO WEEKLY 01/16/17 01/16/17 History Divalproex ER TAB(*) [Depakote ER 1,000 mg PO BID 01/16/17 01/16/17 History TAB(*)] Lactulose* 10 mg PO BID PRN 01/16/17 01/16/17 History Ondansetron TAB* [Zofran 4 MG Tab*] 4 mg PO TID PRN 01/16/17 01/16/17 History Pantoprazole TAB (NF) [Protonix 40 mg PO DAILY 01/16/17 01/16/17 History TAB (NF)] Prochlorperazine TAB* [Compazine 10 mg PO QID PRN 01/16/17 01/16/17 History Tab*] Allergies: Allergies Allergy/AdvReac Type Severity Reaction Status Date / Time Azathioprine Allergy Unknown Verified 09/01/16 12:28 Reaction Details Codeine Allergy Unknown Verified 09/01/16 12:28 Reaction Details Corticosteroids Allergy Swelling Verified 09/01/16 12:28 Diltiazem Allergy Unknown Verified 09/01/16 12:28 Reaction Details Levetiracetam Allergy See Comment Verified 09/01/16 12:28 Macrolides and Ketolides Allergy Unknown Verified 09/01/16 12:28 Reaction Details Penicillins Allergy Hives Verified 09/01/16 12:28 Phenytoin [From Dilantin] Allergy Hives Verified 09/01/16 12:28 Sulfa Drugs Allergy Hives Verified 09/01/16 12:28 Tetracyclines & Related Allergy Difficulty Verified 09/01/16 12:28 Breathing/Wheezing Doxycycline AdvReac GI Upset Verified 06/09/16 06:51 Lidocaine AdvReac GI Upset Verified 06/09/16 06:51 Moxifloxacin [From Avelox] AdvReac Diarrhea Verified 06/09/16 06:51 Objective - Vital Signs Vital Signs: Vital Signs 01/22/17 01/22/17 01/22/17 08:53 11:13 12:13 Temperature Pulse Rate Respiratory 20 22 18 Rate Blood Pressure (mmHg) O2 Sat by Pulse Oximetry 01/22/17 01/22/17 01/22/17 15:17 20:00 21:39 Temperature 98.1 F Pulse Rate 76 Respiratory 15 20 16 Rate Blood Pressure 169/44 (mmHg) O2 Sat by Pulse 98 Oximetry 01/22/17 01/22/17 22:39 23:09 Temperature 97.6 F Pulse Rate 73 Respiratory 20 16 Rate Blood Pressure 156/63 (mmHg) O2 Sat by Pulse 99 Oximetry - Intake and Output Intake and Output: Intake & Output 01/20/17 01/21/17 01/22/17 01/23/17 10:59 10:59 11:59 11:59 Intake Total 0 Output Total 300 Balance -300 Intake: Oral 0 Output: Urine 300 Other: Estimated Void Large # Bowel Movements Estimated Stool Amount # Voids ADLs: Meal Record Start: 01/16/17 16: 08 Freq: 09,13,18 Status: Complete Created 01/16/17 16:08 [id number] (Rec: 01/16/17 16:08 [id number] ICU-M02) Document 01/16/17 18:00 [id number] (Rec: 01/16/17 18:06 [id number] ICU-C16) Document 01/17/17 09:00 [id number] (Rec: 01/17/17 09:49 [id number] ICU-C10) Document 01/17/17 13:00 [id number] (Rec: 01/17/17 13:02 [id number] ICU-C16) Document 01/17/17 18:00 [id number] (Rec: 01/17/17 18:55 [id number] ICU-C16) Document 01/18/17 07:27 [id number] (Rec: 01/18/17 07:27 [id number] ICU-C20) ADLs: Meal Record Start: 01/18/17 08: 22 Freq: DAILY@0900,1400,1800 Status: Active Created 01/18/17 08:22 [id number] (Rec: 01/18/17 08:22 [id number] ICU-C10) Document 01/18/17 08:23 [id number] (Rec: 01/18/17 08:23 [id number] ICU-C10) Document 01/18/17 14:00 [id number] (Rec: 01/18/17 14:00 [id number] ICU-C16) Document 01/18/17 19:00 [id number] (Rec: 01/18/17 20:34 [id number] ICU-C16) Document 01/19/17 09:00 [id number] (Rec: 01/19/17 09:15 [id number] ICU-C16) Document 01/19/17 13:27 [id number] (Rec: 01/19/17 13:27 [id number] MED-C09) Document 01/19/17 18:00 OCO0900 (Rec: 01/19/17 19:02 [id number] MED-C11) Document 01/20/17 14:00 [id number] (Rec: 01/20/17 14:06 [id number] MED-C16) Document 01/20/17 18:00 OVT2218 (Rec: 01/20/17 19:00 [id number] MED-C09) Document 01/21/17 09:00 [id number] (Rec: 01/21/17 10:47 [id number] MED-C09) Document 01/21/17 14:00 [id number] (Rec: 01/21/17 14:10 [id number] MED-C11) Document 01/22/17 03:48 [id number] (Rec: 01/22/17 03:48 [id number] MED-C14) Document 01/22/17 09:00 [id number] (Rec: 01/22/17 09:45 [id number] MED-C11) Document 01/22/17 14:00 [id number] (Rec: 01/22/17 14:26 [id number] MED-C09) Document 01/22/17 18:00 [id number] (Rec: 01/22/17 18:42 [id number] MED-C09) Intake and Output Start: 01/16/17 16: 08 Freq: 06,14,22 Status: Complete Created 01/16/17 16:08 [id number] (Rec: 01/16/17 16:08 [id number] ICU-M02) Document 01/16/17 22:00 [id number] (Rec: 01/16/17 22:01 [id number] ICU-C20) Document 01/17/17 06:00 [id number] (Rec: 01/17/17 06:29 [id number] ICU-M02) Document 01/17/17 11:50 [id number] (Rec: 01/17/17 11:51 [id number] ICU-C10) Document 01/17/17 14:00 [id number] (Rec: 01/17/17 15:55 [id number] ICU-C16) Document 01/17/17 21:30 [id number] (Rec: 01/17/17 21:30 [id number] ICU-M17) Document 01/18/17 05:31 [id number] (Rec: 01/18/17 05:31 [id number] ICU-C14) Intake and Output Start: 01/18/17 08: 22 Freq: DAILY@0600,1400,2200 Status: Active Created 01/18/17 08:22 [id number] (Rec: 01/18/17 08:22 [id number] ICU-C10) Document 01/18/17 13:57 [id number] (Rec: 01/18/17 13:57 [id number] ICU-C16) Document 01/18/17 21:56 [id number] (Rec: 01/18/17 21:57 [id number] ICU-C14) Document 01/18/17 22:00 [id number] (Rec: 01/18/17 22:15 [id number] ICU-C16) Document 01/19/17 06:00 [id number] (Rec: 01/19/17 06:04 EBV4039 ICU-C16) Document 01/19/17 08:00 [id number] (Rec: 01/19/17 09:28 [id number] ICU-C16) Document 01/19/17 22:00 [id number] (Rec: 01/19/17 22:24 [id number] MED-C09) Document 01/20/17 05:19 [id number] (Rec: 01/20/17 05:19 [id number] MED-C42) Document 01/20/17 14:00 [id number] (Rec: 01/20/17 16:07 [id number] MED-L07) Document 01/20/17 21:42 [id number] (Rec: 01/20/17 21:43 [id number] MEDL-C02) Document 01/21/17 03:32 [id number] (Rec: 01/21/17 03:32 AZJ3957 MED-C42) Document 01/21/17 14:00 [id number] (Rec: 01/21/17 14:10 [id number] MED-C11) Document 01/21/17 22:00 [id number] (Rec: 01/21/17 23:18 IHI3300 MED-C09) Document 01/22/17 06:00 [id number] (Rec: 01/22/17 06:34 [id number] MEDL-C02) Document 01/22/17 14:00 [id number] (Rec: 01/22/17 14:26 [id number] MED-C09) Document 01/23/17 04:19 [id number] (Rec: 01/23/17 04:19 [id number] MEDL-C01) Document 01/23/17 05:24 [id number] (Rec: 01/23/17 05:24 [id number] MED-C26) - Physical Exam General Physical Exam Comment: Neurological exam: According to student nurse: She was able to walk to her bed 20 mins prior to my entering. She was conversing more. When I first saw her she was awake, but not able to speak clearly, though she tried to reply. She also perseverated. She followed some one step commands ("Move your right hand, move your legs, close your eyes"), but not others. I was called back into the room 5 mins after I examined her and she was no longer alert or responsive. We had to transfer her back to the bed. She had no tonic/clonic movements. She has no facial assymetry. She moved all limbs to command - left side required more instruction that right. General: No Cyanosis, Yes Anemia, No Jaundice, No Clubbing Skin: Normal: Rash Lungs and Chest: Yes: Chest Expansion Full, Chest Expansion Symetrica, Percussion Note Resonant, Vessicular Breath Sounds. No: Crackles, Wheezes Heart Rate and Rhythm: Regular Additional Cardiovascular: Yes: Normal Heart Sounds. No: Heart Murmur, Pedal Edema Abdominal Exam: Yes: Soft, Bowel Sounds Present. No: Distention, Abdominal Tenderness Results - Results Lab Results: Laboratory Results - last 24 hr 01/22/17 01/23/17 01/23/17 08:00 05:00 05:00 WBC 3.2 L RBC 2.77 L Hgb 10.1 L Hct 30 L MCV 108 H MCH 36 H MCHC 34 RDW 13 Plt Count 50 L MPV 9 Neut % (Auto) 35.6 L Lymph % (Auto) 47.7 H Cass % (Auto) 6.2 Eos % (Auto) 9.8 H Baso % (Auto) 0.7 Absolute Neuts (auto) 1.1 L Absolute Lymphs (auto) 1.5 Absolute Monos (auto) 0.2 Absolute Eos (auto) 0.3 Absolute Basos (auto) 0 Absolute Nucleated RBC 0 Nucleated RBC % 0 Sodium 133 Potassium 4.1 Chloride 104 Carbon Dioxide 28 Anion Gap 1 L BUN 19 Creatinine 0.77 Est GFR ( Amer) 91.0 Est GFR (Non-Af Amer) 70.7 BUN/Creatinine Ratio 24.7 H Glucose 94 Calcium 8.2 L Ammonia C-Reactive Protein 7.09 H Valproic Acid 138.0 H 01/23/17 05:00 WBC RBC Hgb Hct MCV MCH MCHC RDW Plt Count MPV Neut % (Auto) Lymph % (Auto) Cass % (Auto) Eos % (Auto) Baso % (Auto) Absolute Neuts (auto) Absolute Lymphs (auto) Absolute Monos (auto) Absolute Eos (auto) Absolute Basos (auto) Absolute Nucleated RBC Nucleated RBC % Sodium Potassium Chloride Carbon Dioxide Anion Gap BUN Creatinine Est GFR ( Amer) Est GFR (Non-Af Amer) BUN/Creatinine Ratio Glucose Calcium Ammonia 56 H C-Reactive Protein Valproic Acid Assessment - Problem List Assessment: Patient Problems Altered mental state (Acute) Anemia (Acute) Seizure (Acute) Seizure disorder (Acute) CAD (coronary artery disease) (Chronic) GERD (gastroesophageal reflux disease) (Chronic) Hypothyroidism (Chronic) Polymyalgia rheumatica (Chronic) Serous adenocarcinoma (Chronic) Thrombocytopenia (Chronic) History of atrial fibrillation (Chronic) Plan: Altered mental state (Acute) Seizure (Acute) Seizure disorder (Acute) I witnessed another "absence" attack - she was speaking to me and when I returned to the room was unresponsive. She started to regain awareness by the end of the visit. I presume the Lacosamide has not yet become fully therapeutic. Anemia (Acute) Ongoing CAD (coronary artery disease) (Chronic) no signs of hemodynamic problems GERD (gastroesophageal reflux disease) (Chronic) I have prescribed protonix Hypothyroidism (Chronic) I will consider parenteral thyroid hormone Polymyalgia rheumatica (Chronic) secondary diagnosis Serous adenocarcinoma (Chronic) secondary diagnosis Thrombocytopenia (Chronic) stable platelets History of atrial fibrillation (Chronic) regular pulse. I spoke with Dr. Fox for neurology. He thinks we should taper the depakote as we transfer her onto Lacosamide. I spoke with Dr. 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
[2017-01-23] MEDS: Pantoprazole IV* 40 MG IV SCH (11:10)
[2017-01-23] MEDS: LACOSAMIDE IVPB SCH ×2 (11:38→23:12)
[2017-01-23] MEDS: NS 0.9% IVPB SCH ×2 (11:38→23:12)
[2017-01-23] MEDS: Divalproex ER TAB(*) 500 MG PO SCH (22:43)
--- NOTE | 2017-01-24 04:54 | PN ---
PROGRESS NOTE: DATE OF SERVICE: DATE OF DICTATION: 01/23/17 PATIENT OF: Dr. Swan and Dr. Berrios. HISTORY OF PRESENT ILLNESS: This is a followup on Brittney Bonilla, who has been in hospital following her seizures and she was switched from Depakote to Vimpat yesterday, when she had an apparent seizure despite a Depakote level of well over 100; the Depakote had been increased dramatically a few days prior to that. The Depakote was stopped and she was begun on Vimpat after a load today. Dr. Berrios witnessed a staring spell, unresponsive episode. Of note, her seizures had not been frequent prior to this hospitalization while on Depakote and her level on admission was 27. CURRENT MEDICATIONS: Include: 1. Vimpat 50 mg twice a day. 2. She had been on Keppra 1000 twice a day. It is hard from the chart to know her exact Depakote dose. PHYSICAL EXAM: Temperature 96.1, pulse 66, respiratory rate 16, blood pressure 117/52. She is pleasantly confused and cannot say her name. She can shake her head yes/no. She knows that she in the hospital, but has limited speech. According to the nurse, this is what she has been like. She moves all extremities with power. Chest: Clear. Cardiovascular: Regular rate and rhythm. Abdomen is soft with positive bowel sounds. LABORATORY DATA: Her Depakote level as mentioned yesterday was 138, and this was stopped. Her Keppra level on admission was 28 and she is just on Vimpat 50 b.i.d. White count 3.2 today, hematocrit 30, platelet count 50,000. Her ammonia level today was 56. IMPRESSION: I do not think that the Vimpat is completely built to therapeutic and she has been stopped off both her Keppra and Depakote in relatively short order. Given that she has thrombocytopenia, I am going to double check her home dose of Keppra and probably add that back, they said it is 1000 b.i.d. but given the changes, I wanted to be sure of that and then I would add it back so that she would be covered while we are adjusting the Vimpat at least. Thank you for sharing her case. [id number] #: [id number] Addendum: In review of outside chart the keppra had been stopped in October and so restarted depakote till vimpat became more therapeutic. MTDD
[2017-01-24] MEDS: Heparin VIAL(*) 5000 UNITS/ML VIAL (FIVE THOUSAND) SUBCUT SCH ×3 (05:25→22:06)
[2017-01-24] MEDS: D5W 1/2 NS KCl 20 Meq 1000 ML* 1,000 ML IV SCH (07:12)
[2017-01-24] MEDS: Divalproex ER TAB(*) 500 MG PO SCH ×2 (09:07→20:25)
--- NOTE | 2017-01-24 10:53 | PN ---
Subjective - Subjective Reason for Note: Progress Note History: She is awake and alert. Her speech is a problem - she is unable to express herself fully, but her language is becoming more fluent. She is not fully oriented. This has been her pattern 2 days after a seizure. She states she is hungry and wants to eat and drink. She also states she is having difficulty finding words. There is some perseveration in her speech also. She denies pain or distress. 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 Thrombocytopenia (Chronic) D69.6 Current Medications: Current Medications Divalproex Sodium (Depakote Er Tab(*)) 500 mg PO QAM [facility] [place] Last Admin: 01/24/17 09:07 Dose: 500 mg Divalproex Sodium (Depakote Er Tab(*)) 1,000 mg PO BEDTIME [facility] [place] Last Admin: 01/23/17 22:43 Dose: 1,000 mg Heparin Sodium (Porcine) (Heparin Vial(*)) 5,000 units SUBCUT Q8HR [facility] [place] Last Admin: 01/24/17 05:25 Dose: 5,000 units Heparin Sodium (Porcine) (Heparin Flush Port (Ivad)) 5 ml FLUSH DAILY [facility] PRN Reason: Protocol Last Admin: 01/24/17 07:14 Dose: Not Given Potassium Chloride/Dextrose (D5w 1/2 Ns Kcl 20 Meq 1000 Ml*) 1,000 mls @ 75 mls /hr IV PER RATE [facility] [place] Last Admin: 01/24/17 07:12 Dose: 75 mls/hr Lacosamide 50 mg/ Sodium (Chloride) 55 mls @ 110 mls/hr IVPB Q12H [facility] [place] Pantoprazole Sodium (Protonix Iv*) 40 mg IV Q24H [facility] [place] Last Admin: 01/23/17 11:10 Dose: 40 mg Home Medications: Home Medications Medication Instructions Recorded Confirmed Type Levetiracetam XR TAB(NF) [Keppra 1,000 mg PO BID 09/02/16 01/16/17 History XR TAB(NF)] Thyroid TAB* [Thyroid TAB 60 MG*] 60 mg PO BID 09/02/16 01/16/17 History Omeprazole CAP* [Prilosec CAP* 20 20 mg PO DAILY 10/15/16 01/16/17 History MG] Cholecalciferol [Vitamin D3] 50,000 mg PO WEEKLY 01/16/17 01/16/17 History Divalproex ER TAB(*) [Depakote ER 1,000 mg PO BID 01/16/17 01/16/17 History TAB(*)] Lactulose* 10 mg PO BID PRN 01/16/17 01/16/17 History Ondansetron TAB* [Zofran 4 MG Tab*] 4 mg PO TID PRN 01/16/17 01/16/17 History Pantoprazole TAB (NF) [Protonix 40 mg PO DAILY 01/16/17 01/16/17 History TAB (NF)] Prochlorperazine TAB* [Compazine 10 mg PO QID PRN 01/16/17 01/16/17 History Tab*] Allergies: Allergies Allergy/AdvReac Type Severity Reaction Status Date / Time Azathioprine Allergy Unknown Verified 09/01/16 12:28 Reaction Details Codeine Allergy Unknown Verified 09/01/16 12:28 Reaction Details Corticosteroids Allergy Swelling Verified 09/01/16 12:28 Diltiazem Allergy Unknown Verified 09/01/16 12:28 Reaction Details Levetiracetam Allergy See Comment Verified 09/01/16 12:28 Macrolides and Ketolides Allergy Unknown Verified 09/01/16 12:28 Reaction Details Penicillins Allergy Hives Verified 09/01/16 12:28 Phenytoin [From Dilantin] Allergy Hives Verified 09/01/16 12:28 Sulfa Drugs Allergy Hives Verified 09/01/16 12:28 Tetracyclines & Related Allergy Difficulty Verified 09/01/16 12:28 Breathing/Wheezing Doxycycline AdvReac GI Upset Verified 06/09/16 06:51 Lidocaine AdvReac GI Upset Verified 06/09/16 06:51 Moxifloxacin [From Avelox] AdvReac Diarrhea Verified 06/09/16 06:51 Objective - Vital Signs Vital Signs: Vital Signs 01/23/17 01/23/1717 11:38 12:38 15:19 Temperature 97.3 F Pulse Rate 73 Respiratory 16 16 20 Rate Blood Pressure 143/68 (mmHg) O2 Sat by Pulse 100 Oximetry 01/23/17 01/23/17 01/23/17 19:58 20:00 23:12 Temperature Pulse Rate Respiratory 18 18 18 Rate Blood Pressure (mmHg) O2 Sat by Pulse 100 Oximetry 01/23/17 01/24/17 01/24/17 23:38 00:12 07:18 Temperature 97.7 F Pulse Rate 73 Respiratory 19 18 16 Rate Blood Pressure 153/73 (mmHg) O2 Sat by Pulse 98 98 Oximetry 01/24/17 01/24/17 07:22 09:27 Temperature 97.5 F Pulse Rate 72 85 Respiratory 16 16 Rate Blood Pressure 183/81 126/70 (mmHg) O2 Sat by Pulse 99 Oximetry - Intake and Output Intake and Output: Intake & Output 01/21/17 01/22/17 01/23/17 01/24/17 10:59 11:59 11:59 11:59 Intake Total 671 1443 Output Total 300 1400 Balance 371 43 Intake: IV Fluids 671 1213 D5 1/2 20kcl 671 1213 Oral 0 230 Output: Urine 300 1400 Other: Estimated Void Medium Medium # Bowel Movements 0 1 Estimated Stool Amount Large # Voids 1 1 ADLs: Meal Record Start: 01/16/17 16: 08 Freq: 09,13,18 Status: Complete Created 01/16/17 16:08 [id number] (Rec: 01/16/17 16:08 [id number] ICU-M02) Document 01/16/17 18:00 [id number] (Rec: 01/16/17 18:06 [id number] ICU-C16) Document 01/17/17 09:00 FOP8700 (Rec: 01/17/17 09:49 [id number] ICU-C10) Document 01/17/17 13:00 [id number] (Rec: 01/17/17 13:02 [id number] ICU-C16) Document 01/17/17 18:00 [id number] (Rec: 01/17/17 18:55 [id number] ICU-C16) Document 01/18/17 07:27 TWW2042 (Rec: 01/18/17 07:27 [id number] ICU-C20) ADLs: Meal Record Start: 01/18/17 08: 22 Freq: DAILY@0900,1400,1800 Status: Active Created 01/18/17 08:22 [id number] (Rec: 01/18/17 08:22 [id number] ICU-C10) Document 01/18/17 08:23 DRE1776 (Rec: 01/18/17 08:23 LGM1265 ICU-C10) Document 01/18/17 14:00 [id number] (Rec: 01/18/17 14:00 [id number] ICU-C16) Document 01/18/17 19:00 TTS9618 (Rec: 01/18/17 20:34 [id number] ICU-C16) Document 01/19/17 09:00 QVG2660 (Rec: 01/19/17 09:15 IAL3249 ICU-C16) Document 01/19/17 13:27 RKT4743 (Rec: 01/19/17 13:27 QGT8565 MED-C09) Document 01/19/17 18:00 RCJ1998 (Rec: 01/19/17 19:02 EPG9230 MED-C11) Document 01/20/17 14:00 NSH5400 (Rec: 01/20/17 14:06 RSP1738 MED-C16) Document 01/20/17 18:00 TQA3816 (Rec: 01/20/17 19:00 PMH2853 MED-C09) Document 01/21/17 09:00 SYE6694 (Rec: 01/21/17 10:47 ROG9610 MED-C09) Document 01/21/17 14:00 WDA1858 (Rec: 01/21/17 14:10 KXI8680 MED-C11) Document 01/22/17 03:48 NOJ3259 (Rec: 01/22/17 03:48 LAW7875 MED-C14) Document 01/22/17 09:00 OMF7549 (Rec: 01/22/17 09:45 CVO8632 MED-C11) Document 01/22/17 14:00 YNB6519 (Rec: 01/22/17 14:26 GCQ6543 MED-C09) Document 01/22/17 18:00 HHF0448 (Rec: 01/22/17 18:42 UWI3018 MED-C09) Document 01/23/17 09:00 HVN0349 (Rec: 01/23/17 10:07 NMS0763 MED-C11) Document 01/23/17 12:57 XFA8097 (Rec: 01/23/17 12:57 PWP7749 MED-C11) Document 01/23/17 18:00 OOT6521 (Rec: 01/23/17 19:01 WFJ6387 MED-L07) Intake and Output Start: 01/16/17 16: 08 Freq: 06,14,22 Status: Complete Created 01/16/17 16:08 [id number] (Rec: 01/16/17 16:08 VGY8569 ICU-M02) Document 01/16/17 22:00 ELI3892 (Rec: 01/16/17 22:01 IKN8503 ICU-C20) Document 01/17/17 06:00 WHZ6566 (Rec: 01/17/17 06:29 ZNV8862 ICU-M02) Document 01/17/17 11:50 NVK7870 (Rec: 01/17/17 11:51 MXA0570 ICU-C10) Document 01/17/17 14:00 BHP4345 (Rec: 01/17/17 15:55 VXB3993 ICU-C16) Document 01/17/17 21:30 TGX9879 (Rec: 01/17/17 21:30 EYG5746 ICU-M17) Document 01/18/17 05:31 XTX8222 (Rec: 01/18/17 05:31 EFF5595 ICU-C14) Intake and Output Start: 01/18/17 08: 22 Freq: DAILY@0600,1400,2200 Status: Active Created 01/18/17 08:22 [id number] (Rec: 01/18/17 08:22 PLJ6709 ICU-C10) Document 01/18/17 13:57 UEZ5721 (Rec: 01/18/17 13:57 RFA8754 ICU-C16) Document 01/18/17 21:56 XZN2628 (Rec: 01/18/17 21:57 EAW6085 ICU-C14) Document 01/18/17 22:00 ZSC1380 (Rec: 01/18/17 22:15 FZO9508 ICU-C16) Document 01/19/17 06:00 IMO0325 (Rec: 01/19/17 06:04 SIQ7392 ICU-C16) Document 01/19/17 08:00 DAM1424 (Rec: 01/19/17 09:28 RSC5767 ICU-C16) Document 01/19/17 22:00 TTE4519 (Rec: 01/19/17 22:24 [id number] MED-C09) Document 01/20/17 05:19 NKT6545 (Rec: 01/20/17 05:19 HVV0229 MED-C42) Document 01/20/17 14:00 GUH9196 (Rec: 01/20/17 16:07 IBK6657 MED-L07) Document 01/20/17 21:42 VAP2776 (Rec: 01/20/17 21:43 GGU2286 MEDL-C02) Document 01/21/17 03:32 NLZ8839 (Rec: 01/21/17 03:32 AHL8669 MED-C42) Document 01/21/17 14:00 OVZ5818 (Rec: 01/21/17 14:10 GMR2287 MED-C11) Document 01/21/17 22:00 KXN3604 (Rec: 01/21/17 23:18 IGT4314 MED-C09) Document 01/22/17 06:00 RVL2348 (Rec: 01/22/17 06:34 XLX0962 MEDL-C02) Document 01/22/17 14:00 IBJ1888 (Rec: 01/22/17 14:26 BLN6231 MED-C09) Document 01/23/17 04:19 FFZ1163 (Rec: 01/23/17 04:19 JCU1753 MEDL-C01) Document 01/23/17 05:24 YGW4881 (Rec: 01/23/17 05:24 PYM4154 MED-C26) Document 01/23/17 10:08 JGT5136 (Rec: 01/23/17 10:09 FPP8597 MED-C11) Document 01/23/17 12:57 ZXV1189 (Rec: 01/23/17 12:57 BZE6837 MED-C11) Document 01/23/17 22:00 QGR8421 (Rec: 01/23/17 22:25 ZEC6935 MED-C11) Document 01/24/17 04:50 CCQ1192 (Rec: 01/24/17 04:50 UMS1097 MED-C42) Document 01/24/17 08:58 MMG3013 (Rec: 01/24/17 08:59 PCK3970 MED-C11) - Physical Exam General: No Cyanosis, Yes Anemia, No Jaundice, No Lymphadenopathy, No Clubbing Lungs and Chest: Yes: Chest Expansion Full, Chest Expansion Symetrica, Vessicular Breath Sounds. No: Crackles, Wheezes Heart Rate and Rhythm: Regular JVP: Not Elevated Additional Cardiovascular: Yes: Normal Heart Sounds. No: Heart Murmur, Pedal Edema Abdominal Exam: Yes: Soft, Bowel Sounds Present. No: Distention, Abdominal Mass , Abdominal Tenderness - Extremities Cranial Nerves II-XII Intact: Yes Limbs: Normal Power - no focal loss of strength - generally weak - Neuro Orientation: Person Speech: Expressive Assessment - Problem List Assessment: Patient Problems Altered mental state (Acute) Anemia (Acute) Seizure (Acute) Seizure disorder (Acute) CAD (coronary artery disease) (Chronic) GERD (gastroesophageal reflux disease) (Chronic) Hypothyroidism (Chronic) Polymyalgia rheumatica (Chronic) Serous adenocarcinoma (Chronic) Thrombocytopenia (Chronic) History of atrial fibrillation (Chronic) Plan: Altered mental state (Acute) Seizure (Acute) Seizure disorder (Acute) She is post-ictal and has yet to regain her normal mental state. She has problems expressing herself, but clearly is improving. She is hungry and wants to eat and drink and hence I will restart her diet. I will also resume PT/OT. Neurology will supervise her anti-seizure medication. Anemia (Acute) recheck 01/25 CAD (coronary artery disease) (Chronic) secondary diagnosis GERD (gastroesophageal reflux disease) (Chronic) secondary diagnosis Hypothyroidism (Chronic) resume oral thyroid hormone Polymyalgia rheumatica (Chronic) secondary diagnosis Serous adenocarcinoma (Chronic) I spoke with Dr. Still yesterday - he thinks that we should discontinue avastin Thrombocytopenia (Chronic) I will recheck 01/25/2017 History of atrial fibrillation (Chronic) I spoke to the patient and explained her situation/management plan. I left message for her daughter Larisa.
[2017-01-24] MEDS ORDERED: LACOSAMIDE IVPB SCH (11:00)
[2017-01-24] MEDS ORDERED: NS 0.9% IVPB SCH (11:00)
[2017-01-24] MEDS: Thyroid TAB* 60 MG PO SCH (20:25)
[2017-01-24] MEDS: Lacosamide TAB* 100 MG TAB PO SCH (20:26)
[2017-01-25] MEDS ORDERED: Haloperidol INJ IV/IM* 5 MG/ML AMP IV ONE (00:16)
[2017-01-25] MEDS ORDERED: Haloperidol INJ IV/IM* 5 MG/ML AMP ONE (00:20)
--- NOTE | 2017-01-25 00:26 | EEG ---
ELECTROENCEPHALOGRAPHY: DATE OF STUDY: ORDERING PHYSICIAN: Dr. Swan. LOCATION: The patient was an inpatient in ICU bed 2. HISTORY: This is an 86-year-old woman who was with her daughter in the car on her way to go shopping when she became unresponsive. She has a history of epilepsy. EEG is requested to evaluate for epileptiform abnormalities and prolonged EEG was requested in order to evaluate for subclinical seizures. MEDICATIONS: 1. Zofran. 2. Ativan. 3. Apresoline. 4. Tylenol. 5. Depacon. 6. Heparin. 7. Rocephin. DESCRIPTION OF PROCEDURE: The EEG was recorded on 01/18/17 from 0825 until 1438. The alert background lacked the organization expected of the typical waking background. Instead, the background consisted of diffuse, polymorphic, 3 to 5 Hz slowing. In addition, there were frequent high amplitude triphasic waves, which were sometimes diffuse and at other times showed a shifting predominance between hemispheres. These were often observed to exhibit anterior to posterior or posterior to anterior lag. There was no evident of posterior dominant rhythm. There were evident state changes, but no typical organization of the usual sleep background. During the patient's more quite state, the background consisted of diffuse, lower amplitude faster frequency activity in the alpha and beta ranges. Beta activity was often observed to be frontocentrally predominant. Throughout the recording, there were no definitive epileptiform discharges, focal features, or subclinical seizures. There were no patient events noted. IMPRESSION: This prolonged EEG is abnormal due to the lack of expected organization in the background and the presence of diffuse mixed frequency slowing as well as triphasic sharp wave forms during the more alert state. These findings are suggestive of a moderate, nonspecific, diffuse encephalopathy. The presence of triphasic waves can be associated with encephalopathy of a metabolic or toxic nature. There are no definitive epileptiform abnormalities. [id number]/[facility] #: [id number] [facility]
[2017-01-25] MEDS: Heparin VIAL(*) 5000 UNITS/ML VIAL (FIVE THOUSAND) SUBCUT SCH ×3 (05:52→22:04)
[2017-01-25] MEDS: Omeprazole CAP* 20 MG PO SCH (05:52)
[2017-01-25 07:46] LABS: Hematocrit 30 % (35-47); Hemoglobin 10.1 g/dl (12.0-16.0); Mean Corpuscular HGB Conc 34 g/dl (31-36); Mean Corpuscular Hemoglobin 38 pg (27-31); Mean Platelet Volume 8 um3 (7.4-10.4); Red Cell Distribution Width 14 % (10.5-15); White Blood Count 3.9 10^3/ul (3.5-10.8)
[2017-01-25 07:57] LABS: BUN/Creatinine Ratio 12.6 (8-20); Calcium 8.8 mg/dL (8.6-10.3); EGFR Non-African American 61.4 (>60); Potassium 4.4 mmol/L (3.5-5.0)
[2017-01-25] MEDS: NS 0.9% 1000 ML* 1,000 ML IV SCH (08:00)
[2017-01-25 08:03] LABS: Comments Flag Yes
[2017-01-25 08:04] LABS: Mean Corpuscular Volume 110 fL (80-97)
[2017-01-25] MEDS: Divalproex ER TAB(*) 500 MG PO SCH ×2 (09:17→22:03)
[2017-01-25] MEDS: Lacosamide TAB* 100 MG TAB PO SCH ×2 (09:18→22:03)
[2017-01-25] MEDS: Thyroid TAB* 60 MG PO SCH ×2 (09:18→22:03)
--- NOTE | 2017-01-25 09:30 | PN ---
FOLLOWUP PROGRESS NOTE: DATE OF VISIT: 01/24/17 DATE OF DICTATION: 01/24/2017. PATIENT OF: . She has had no further known seizures but remains confused. Apparently, this has been her typical pattern following seizures. PHYSICAL EXAMINATION: Temperature 97.5, pulse is 85, respiratory rate 18, blood pressure 126/70. She was alert. She knew her name but was confused in terms of place, age, and date. She spoken in fluent sentences. Cranial nerves II through XII were intact. Motor exam revealed normal tone and strength. Chest clear. Cardiovascular: Regular rate and rhythm. Abdomen, soft. I reviewed her outpatient chart. She had been on Keppra until October and then had been switched to Depakote. The summary notes in the hospital chart said that she had still been on Depakote, but she was not. I therefore restarted a lower dose of Depakote to cover while the Vimpat was being increased and I am increasing the dose today to 100 twice a day. The confusion apparently is typical for her following her seizures, but if she does not improve tomorrow, depending on exactly what she looks like, I might decide to image her brain. Thank you for sharing her case. [id number]/[facility] #: [id number] [place]
--- NOTE | 2017-01-25 11:11 | PN ---
Subjective - Subjective Reason for Note: Progress Note History: She is sitting in her chair. She is less verbally responsive than yesterday - she is disoriented. She says yes a lot. She is unable to answer simple questions or produce a spontaneous sentence. I hear she fell yesterday and this was unwitnessed. Otherwise, she doesn't seem distressed. 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 Thrombocytopenia (Chronic) D69.6 Current Medications: Current Medications Divalproex Sodium (Depakote Er Tab(*)) 500 mg PO QAM [facility] Last Admin: 01/25/17 09:17 Dose: 500 mg Divalproex Sodium (Depakote Er Tab(*)) 1,000 mg PO BEDTIME [facility] Last Admin: 01/24/17 20:25 Dose: 1,000 mg Heparin Sodium (Porcine) (Heparin Vial(*)) 5,000 units SUBCUT Q8HR [facility] Last Admin: 01/25/17 05:52 Dose: 5,000 units Sodium Chloride (Ns 0.9% 1000 Ml*) 1,000 mls @ 50 mls/hr IV .PER RATE [facility] Lacosamide (Vimpat Tab*) 100 mg PO BID [facility] Last Admin: 01/25/17 09:18 Dose: 100 mg Omeprazole (Prilosec Cap*) 20 mg PO 0600 [facility] Last Admin: 01/25/17 05:52 Dose: 20 mg Thyroid (Thyroid Tab*) 60 mg PO BID [facility] Last Admin: 01/25/17 09:18 Dose: 60 mg Home Medications: Home Medications Medication Instructions Recorded Confirmed Type Levetiracetam XR TAB(NF) [Keppra 1,000 mg PO BID 09/02/16 01/16/17 History XR TAB(NF)] Thyroid TAB* [Thyroid TAB 60 MG*] 60 mg PO BID 09/02/16 01/16/17 History Omeprazole CAP* [Prilosec CAP* 20 20 mg PO DAILY 10/15/16 01/16/17 History MG] Cholecalciferol [Vitamin D3] 50,000 mg PO WEEKLY 01/16/17 01/16/17 History Divalproex ER TAB(*) [Depakote ER 1,000 mg PO BID 01/16/17 01/16/17 History TAB(*)] Lactulose* 10 mg PO BID PRN 01/16/17 01/16/17 History Ondansetron TAB* [Zofran 4 MG Tab*] 4 mg PO TID PRN 01/16/17 01/16/17 History Pantoprazole TAB (NF) [Protonix 40 mg PO DAILY 01/16/17 01/16/17 History TAB (NF)] Prochlorperazine TAB* [Compazine 10 mg PO QID PRN 01/16/17 01/16/17 History Tab*] Allergies: Allergies Allergy/AdvReac Type Severity Reaction Status Date / Time Azathioprine Allergy Unknown Verified 09/01/16 12:28 Reaction Details Codeine Allergy Unknown Verified 09/01/16 12:28 Reaction Details Corticosteroids Allergy Swelling Verified 09/01/16 12:28 Diltiazem Allergy Unknown Verified 09/01/16 12:28 Reaction Details Levetiracetam Allergy See Comment Verified 09/01/16 12:28 Macrolides and Ketolides Allergy Unknown Verified 09/01/16 12:28 Reaction Details Penicillins Allergy Hives Verified 09/01/16 12:28 Phenytoin [From Dilantin] Allergy Hives Verified 09/01/16 12:28 Sulfa Drugs Allergy Hives Verified 09/01/16 12:28 Tetracyclines & Related Allergy Difficulty Verified 09/01/16 12:28 Breathing/Wheezing Doxycycline AdvReac GI Upset Verified 06/09/16 06:51 Lidocaine AdvReac GI Upset Verified 06/09/16 06:51 Moxifloxacin [From Avelox] AdvReac Diarrhea Verified 06/09/16 06:51 Objective - Vital Signs Vital Signs: Vital Signs 01/24/17 01/24/17 01/24/17 11:36 12:36 16:38 Temperature Pulse Rate 89 Respiratory 18 16 18 Rate Blood Pressure 148/76 (mmHg) O2 Sat by Pulse 98 Oximetry 01/24/17 01/24/17 01/24/17 17:14 17:26 17:39 Temperature 97.3 F 97.5 F Pulse Rate 77 77 78 Respiratory 16 Rate Blood Pressure 151/59 103/76 150/64 (mmHg) O2 Sat by Pulse 100 100 100 Oximetry 01/24/17 01/24/17 01/24/17 18:30 19:07 20:00 Temperature 97.2 F 97.6 F Pulse Rate 84 85 Respiratory 18 20 20 Rate Blood Pressure 152/77 144/66 (mmHg) O2 Sat by Pulse 100 100 100 Oximetry 01/25/17 01/25/17 01/25/17 03:13 07:37 08:00 Temperature 96.8 F Pulse Rate 63 68 Respiratory 16 19 16 Rate Blood Pressure 128/75 141/65 (mmHg) O2 Sat by Pulse 99 99 98 Oximetry - Intake and Output Intake and Output: Intake & Output 01/22/17 01/23/17 01/24/17 01/25/17 11:59 11:59 11:59 11:59 Intake Total 671 1443 1303 Output Total 300 1400 650 Balance 371 43 653 Intake: IV Fluids 671 1213 943 D5 1/2 20kcl 671 1213 943 Oral 0 230 360 Output: Urine 300 1400 650 Other: Estimated Void Medium Medium Medium # Bowel Movements 0 1 0 Estimated Stool Amount Large # Voids 1 1 3 ADLs: Meal Record Start: 01/16/17 16: 08 Freq: 09,13,18 Status: Complete Created 01/16/17 16:08 [id number] (Rec: 01/16/17 16:08 [id number] ICU-M02) Document 01/16/17 18:00 [id number] (Rec: 01/16/17 18:06 [id number] ICU-C16) Document 01/17/17 09:00 FJK0359 (Rec: 01/17/17 09:49 IVQ0817 ICU-C10) Document 01/17/17 13:00 [id number] (Rec: 01/17/17 13:02 SNF6975 ICU-C16) Document 01/17/17 18:00 HML0175 (Rec: 01/17/17 18:55 LRB3145 ICU-C16) Document 01/18/17 07:27 MIS0421 (Rec: 01/18/17 07:27 [id number] ICU-C20) ADLs: Meal Record Start: 01/18/17 08: 22 Freq: DAILY@0900,1400,1800 Status: Active Created 01/18/17 08:22 ROT0592 (Rec: 01/18/17 08:22 GXP0308 ICU-C10) Document 01/18/17 08:23 YZM1549 (Rec: 01/18/17 08:23 EXS8919 ICU-C10) Document 01/18/17 14:00 CKG0531 (Rec: 01/18/17 14:00 KQU8729 ICU-C16) Document 01/18/17 19:00 QMK7590 (Rec: 01/18/17 20:34 QBX6425 ICU-C16) Document 01/19/17 09:00 DWL3909 (Rec: 01/19/17 09:15 ACS7901 ICU-C16) Document 01/19/17 13:27 XQG6607 (Rec: 01/19/17 13:27 SGJ0802 MED-C09) Document 01/19/17 18:00 CCT2953 (Rec: 01/19/17 19:02 FOG0771 MED-C11) Document 01/20/17 14:00 TDB1208 (Rec: 01/20/17 14:06 GQD5514 MED-C16) Document 01/20/17 18:00 SPW1265 (Rec: 01/20/17 19:00 CHF2805 MED-C09) Document 01/21/17 09:00 VKM4220 (Rec: 01/21/17 10:47 GXB0872 MED-C09) Document 01/21/17 14:00 WAO3670 (Rec: 01/21/17 14:10 NDV4731 MED-C11) Document 01/22/17 03:48 RAL7429 (Rec: 01/22/17 03:48 GEE7584 MED-C14) Document 01/22/17 09:00 LLF6864 (Rec: 01/22/17 09:45 ODG1321 MED-C11) Document 01/22/17 14:00 PEK1932 (Rec: 01/22/17 14:26 YNM5723 MED-C09) Document 01/22/17 18:00 MBW6843 (Rec: 01/22/17 18:42 LHC8278 MED-C09) Document 01/23/17 09:00 POR3037 (Rec: 01/23/17 10:07 GCF6276 MED-C11) Document 01/23/17 12:57 ZQI4396 (Rec: 01/23/17 12:57 TNK5466 MED-C11) Document 01/23/17 18:00 PCG1451 (Rec: 01/23/17 19:01 TZP2025 MED-L07) Document 01/24/17 09:00 RLS4318 (Rec: 01/24/17 11:03 UZT3137 MED-C11) Document 01/24/17 14:00 BBE8341 (Rec: 01/24/17 14:02 VXW6174 MED-C11) Document 01/24/17 18:00 VKS0296 (Rec: 01/24/17 21:48 AKP4155 MED-C11) Document 01/25/17 09:00 NJX5273 (Rec: 01/25/17 09:36 BRT9928 MED-C16) Intake and Output Start: 01/16/17 16: 08 Freq: 06,14,22 Status: Complete Created 01/16/17 16:08 VJD6154 (Rec: 01/16/17 16:08 FEY2031 ICU-M02) Document 01/16/17 22:00 LPF3480 (Rec: 01/16/17 22:01 TIS5030 ICU-C20) Document 01/17/17 06:00 VTE9828 (Rec: 01/17/17 06:29 JWN4353 ICU-M02) Document 01/17/17 11:50 TQW6826 (Rec: 01/17/17 11:51 CSI0598 ICU-C10) Document 01/17/17 14:00 XJM4103 (Rec: 01/17/17 15:55 PSE9064 ICU-C16) Document 01/17/17 21:30 EMC4490 (Rec: 01/17/17 21:30 VUH2318 ICU-M17) Document 01/18/17 05:31 REZ3428 (Rec: 01/18/17 05:31 ETK3959 ICU-C14) Intake and Output Start: 01/18/17 08: 22 Freq: DAILY@0600,1400,2200 Status: Active Created 01/18/17 08:22 [id number] (Rec: 01/18/17 08:22 ZUM9508 ICU-C10) Document 01/18/17 13:57 RSL0090 (Rec: 01/18/17 13:57 CHL6518 ICU-C16) Document 01/18/17 21:56 KLY4631 (Rec: 01/18/17 21:57 AMP4554 ICU-C14) Document 01/18/17 22:00 EFK8084 (Rec: 01/18/17 22:15 IVC4696 ICU-C16) Document 01/19/17 06:00 BQL7270 (Rec: 01/19/17 06:04 [id number] ICU-C16) Document 01/19/17 08:00 SLY2862 (Rec: 01/19/17 09:28 EZC5147 ICU-C16) Document 01/19/17 22:00 LGT1306 (Rec: 01/19/17 22:24 KWM6444 MED-C09) Document 01/20/17 05:19 MFZ1192 (Rec: 01/20/17 05:19 DJL6544 MED-C42) Document 01/20/17 14:00 XOS0661 (Rec: 01/20/17 16:07 FGN5035 MED-L07) Document 01/20/17 21:42 BXY9334 (Rec: 01/20/17 21:43 UMN4122 MEDL-C02) Document 01/21/17 03:32 IUD9877 (Rec: 01/21/17 03:32 MAT3465 MED-C42) Document 01/21/17 14:00 CDM0520 (Rec: 01/21/17 14:10 UIG1859 MED-C11) Document 01/21/17 22:00 JFO3136 (Rec: 01/21/17 23:18 PKZ1755 MED-C09) Document 01/22/17 06:00 QRY0769 (Rec: 01/22/17 06:34 QCF6584 MEDL-C02) Document 01/22/17 14:00 VLA6229 (Rec: 01/22/17 14:26 PMP2837 MED-C09) Document 01/23/17 04:19 XWL4962 (Rec: 01/23/17 04:19 UYL0894 MEDL-C01) Document 01/23/17 05:24 YWQ4404 (Rec: 01/23/17 05:24 QVY1464 MED-C26) Document 01/23/17 10:08 LAG5331 (Rec: 01/23/17 10:09 NMC1924 MED-C11) Document 01/23/17 12:57 MXF8708 (Rec: 01/23/17 12:57 UFC1878 MED-C11) Document 01/23/17 22:00 MMD8293 (Rec: 01/23/17 22:25 MEB3901 MED-C11) Document 01/24/17 04:50 SCQ9455 (Rec: 01/24/17 04:50 UTU0725 MED-C42) Document 01/24/17 08:58 KSS3567 (Rec: 01/24/17 08:59 QKG4795 MED-C11) Document 01/24/17 18:30 WMT0015 (Rec: 01/24/17 18:30 LWR6363 MED-C04) Document 01/25/17 06:00 PIE4060 (Rec: 01/25/17 06:16 BDQ3067 MED-C14) - Physical Exam General Physical Exam Comment: She was asleep when I entered, but I could rouse her. She was more disoriented and less verbal than yesterday. She followed some one step commands (close your eyes, wiggle your fingers), but not others ( Move your toes, follow my finger with your eyes). She has no distress. She is perseverating on yes - no full sentences or spontaneous speech General: No Cyanosis, Yes Anemia, No Jaundice, No Clubbing Lungs and Chest: Yes: Chest Expansion Full, Chest Expansion Symetrica, Percussion Note Resonant, Vessicular Breath Sounds, Other - anterior chest. No : Crackles, Wheezes, Respiratory Distress, Use of Accessory Muscles Heart Rate and Rhythm: Regular Additional Cardiovascular: Yes: Normal Heart Sounds. No: Heart Murmur, Pedal Edema Abdominal Exam: Yes: Soft, Bowel Sounds Present. No: Distention, Abdominal Tenderness Results - Results Lab Results: Laboratory Results - last 24 hr 01/25/17 01/25/17 07:12 07:12 WBC 3.9 RBC 2.70 L Hgb 10.1 L Hct 30 L MCV 110 H MCH 38 H MCHC 34 RDW 14 Plt Count 51 L MPV 8 Neut % (Auto) 32.5 L Lymph % (Auto) 49.8 H Thurston % (Auto) 4.7 Eos % (Auto) 11.8 H Baso % (Auto) 1.2 Absolute Neuts (auto) 1.3 L Absolute Lymphs (auto) 1.9 Absolute Monos (auto) 0.2 Absolute Eos (auto) 0.5 Absolute Basos (auto) 0 Absolute Nucleated RBC 0.01 Nucleated RBC % 0.2 Sodium 136 Potassium 4.4 Chloride 105 Carbon Dioxide 25 Anion Gap 6 BUN 11 Creatinine 0.87 Est GFR ( Amer) 79.0 Est GFR (Non-Af Amer) 61.4 BUN/Creatinine Ratio 12.6 Glucose 75 Calcium 8.8 Assessment - Problem List Assessment: Patient Problems Altered mental state (Acute) Anemia (Acute) Seizure (Acute) Seizure disorder (Acute) CAD (coronary artery disease) (Chronic) GERD (gastroesophageal reflux disease) (Chronic) Hypothyroidism (Chronic) Polymyalgia rheumatica (Chronic) Serous adenocarcinoma (Chronic) Thrombocytopenia (Chronic) History of atrial fibrillation (Chronic) Plan: Altered mental state (Acute) Seizure (Acute)Seizure disorder (Acute)Anemia ( Acute) My examination shows she is more obtunded today. Dr. Fox called me and during a discussion he agreed that she is not improved today. Possibilities: * Summation effect of both lacosamide and divalproex - we will be stopping the latter * Head injury during unwitnessed fall (she is a set up for a subdural with low platelets) * breakthrough seizures * cancer (mets to the brain) * cerebrovascular accident I spoke with her daughter Larisa. She agrees with Dr. Fox's suggestion of an MRI brain CAD (coronary artery disease) (Chronic) secondary diagnosis GERD (gastroesophageal reflux disease) (Chronic) secondary diagnosis Hypothyroidism (Chronic) secondary diagnosis Polymyalgia rheumatica (Chronic) secondary diagnosis Serous adenocarcinoma (Chronic) secondary diagnosis Thrombocytopenia (Chronic)see above History of atrial fibrillation (Chronic) I called the patient's daughter Larisa and had a discussion with her.
--- NOTE | 2017-01-25 17:06 | RAD ---
INDICATION: Altered mental status. COMPARISON: Comparison is made with a prior CT of the brain from January 16, 2017 and a prior MRI of the brain from September 03, 2016. TECHNIQUE: Sagittal T1, axial T1, T2, susceptibility, FLAIR and diffusion weighted images were obtained. Exam is slightly limited due to motion artifact on several of the pulse sequences. FINDINGS: The ventricles, cisterns and sulci are prominent consistent with diffuse atrophy. There are small focal areas of increased signal intensity on T2-weighted images present within the subcortical and periventricular white matter most consistent with mild chronic small vessel ischemic changes. No areas of restricted diffusion are present. There is no evidence for infarct or hemorrhage. The visualized portion of the paranasal sinuses and mastoid air cells appear clear. IMPRESSION: ATROPHY AND FINDINGS SUGGESTIVE OF MILD CHRONIC SMALL VESSEL ISCHEMIC CHANGES. NO EVIDENCE FOR ACUTE FINDING.
[2017-01-26] MEDS: Heparin VIAL(*) 5000 UNITS/ML VIAL (FIVE THOUSAND) SUBCUT SCH ×3 (05:54→22:40)
[2017-01-26] MEDS: Omeprazole CAP* 20 MG PO SCH (05:54)
--- NOTE | 2017-01-26 07:07 | PN ---
PROGRESS NOTE: DATE OF VISIT: DATE OF DICTATION: 01/25/17 - ROOM #416 PATIENT OF: Dr. Berrios.* HISTORY: She, to my eye, was unchanged from when I had seen yesterday. She said she was cold but then had some perseveration and did not know where she was. She did not say her name. She apparently had an unwitnessed fall yesterday but no active seizures. Her medications include Depakote 500 in the morning and 1000 at night, Vimpat 100 twice a day, omeprazole 20 mg a day, and her thyroid tabs 60 mg b.i.d. Allergies are unchanged. PHYSICAL EXAMINATION: Temperature 96.8, pulse 68, respirations 16, blood pressure 141/65. She was alert, but did not say her name. She does not know where she was. She told me she was cold and tended to perseverate. She would answer some questions with a yes, but she tended to perseverate. She moved all extremities with power but is frail. Chest: Clear. Cardiovascular: Regular rate and rhythm. Abdomen is soft with positive bowel sounds. LABORATORY DATA: Her most recent labs showed a white count of 3.9, hematocrit of 30, platelet count of 51,000. Her BMP was normal. ASSESSMENT AND PLAN: I discussed her case with Dr. Berrios at length. It is possible that she has had a stroke, making these seizures worse and getting an MRI scan would help document it, although she does not have any focality and I think that the MRI scan showed no acute findings. It is conceivable that, given her lack of improvement, it would make sense to check this if the family wanted a full medical evaluation. A repeat EEG would also spot check to see if she is having frequent seizures slowing her recovery. Most likely, it is that the Vimpat may be causing confusion in somebody who is 86, and we got her on this relatively quickly because she was having frequent seizures. Likewise, her Vimpat level is most likely increasing on a day-to-day basis and I put her back on a moderate dose of Depakote to cover her and to prevent many seizures until the Vimpat got a little bit more into her system. If she is no better tomorrow, I will send off Vimpat levels, but will begin backing down the Depakote. Thank you for sharing her case. [id number]/CPS #: [id number] MTDD
[2017-01-26] MEDS: Lacosamide TAB* 100 MG TAB PO SCH ×2 (09:42→20:19)
[2017-01-26] MEDS: Divalproex ER TAB(*) 500 MG PO SCH (09:43)
[2017-01-26] MEDS: Thyroid TAB* 60 MG PO SCH ×2 (09:44→20:19)
[2017-01-26] MEDS: NS 0.9% 1000 ML* 1,000 ML IV SCH (09:45)
--- NOTE | 2017-01-26 11:37 | PN ---
Subjective - Subjective Reason for Note: Progress Note History: I woke her up. She was alert. She was able to say no in response to "are you in any pain or discussion". After I told her my name, she perseverated for all of my questions with my name. I could not determine if she was oriented. 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 Thrombocytopenia (Chronic) D69.6 Current Medications: Current Medications Divalproex Sodium (Depakote Er Tab(*)) 500 mg PO QAM [facility] Last Admin: 01/26/17 09:43 Dose: 500 mg Divalproex Sodium (Depakote Er Tab(*)) 1,000 mg PO BEDTIME [facility] Last Admin: 01/25/17 22:03 Dose: 1,000 mg Heparin Sodium (Porcine) (Heparin Vial(*)) 5,000 units SUBCUT Q8HR [facility] Last Admin: 01/26/17 05:54 Dose: 5,000 units Sodium Chloride (Ns 0.9% 1000 Ml*) 1,000 mls @ 50 mls/hr IV .PER RATE [facility] Last Admin: 01/26/17 09:45 Dose: 50 mls/hr Lacosamide (Vimpat Tab*) 100 mg PO BID [facility] Last Admin: 01/26/17 09:42 Dose: 100 mg Omeprazole (Prilosec Cap*) 20 mg PO 0600 [facility] Last Admin: 01/26/17 05:54 Dose: 20 mg Thyroid (Thyroid Tab*) 60 mg PO BID [facility] Last Admin: 01/26/17 09:44 Dose: 60 mg Home Medications: Home Medications Medication Instructions Recorded Confirmed Type Levetiracetam XR TAB(NF) [Keppra 1,000 mg PO BID 09/02/16 01/16/17 History XR TAB(NF)] Thyroid TAB* [Thyroid TAB 60 MG*] 60 mg PO BID 09/02/16 01/16/17 History Omeprazole CAP* [Prilosec CAP* 20 20 mg PO DAILY 10/15/16 01/16/17 History MG] Cholecalciferol [Vitamin D3] 50,000 mg PO WEEKLY 01/16/17 01/16/17 History Divalproex ER TAB(*) [Depakote ER 1,000 mg PO BID 01/16/17 01/16/17 History TAB(*)] Lactulose* 10 mg PO BID PRN 01/16/17 01/16/17 History Ondansetron TAB* [Zofran 4 MG Tab*] 4 mg PO TID PRN 01/16/17 01/16/17 History Pantoprazole TAB (NF) [Protonix 40 mg PO DAILY 01/16/17 01/16/17 History TAB (NF)] Prochlorperazine TAB* [Compazine 10 mg PO QID PRN 01/16/17 01/16/17 History Tab*] Allergies: Allergies Allergy/AdvReac Type Severity Reaction Status Date / Time Azathioprine Allergy Unknown Verified 09/01/16 12:28 Reaction Details Codeine Allergy Unknown Verified 09/01/16 12:28 Reaction Details Corticosteroids Allergy Swelling Verified 09/01/16 12:28 Diltiazem Allergy Unknown Verified 09/01/16 12:28 Reaction Details Levetiracetam Allergy See Comment Verified 09/01/16 12:28 Macrolides and Ketolides Allergy Unknown Verified 09/01/16 12:28 Reaction Details Penicillins Allergy Hives Verified 09/01/16 12:28 Phenytoin [From Dilantin] Allergy Hives Verified 09/01/16 12:28 Sulfa Drugs Allergy Hives Verified 09/01/16 12:28 Tetracyclines & Related Allergy Difficulty Verified 09/01/16 12:28 Breathing/Wheezing Doxycycline AdvReac GI Upset Verified 06/09/16 06:51 Lidocaine AdvReac GI Upset Verified 06/09/16 06:51 Moxifloxacin [From Avelox] AdvReac Diarrhea Verified 06/09/16 06:51 Objective - Vital Signs Vital Signs: Vital Signs 01/25/17 01/25/17 01/25/17 17:26 20:00 23:34 Temperature 97.6 F 98.2 F Pulse Rate 78 81 Respiratory 14 14 16 Rate Blood Pressure 140/53 124/55 (mmHg) O2 Sat by Pulse 97 97 98 Oximetry 03/16/17 03/16/17 07:54 08:00 Temperature 97.4 F Pulse Rate 75 Respiratory 14 16 Rate Blood Pressure 150/71 (mmHg) O2 Sat by Pulse 100 100 Oximetry - Intake and Output Intake and Output: Intake & Output 01/23/17 01/24/17 01/25/17 01/26/17 11:59 11:59 11:59 11:59 Intake Total 671 1443 1303 904 Output Total 300 1400 650 Balance 371 43 653 904 Weight 139 lb 1.787 oz Intake: IV Fluids 671 1213 943 904 D5 1/2 20kcl 671 1213 943 Normal Saline 904 Oral 0 230 360 0 Output: Urine 300 1400 650 Other: Estimated Void Medium Medium Medium Large # Bowel Movements 0 1 0 Estimated Stool Amount Large # Voids 1 1 3 1 ADLs: Meal Record Start: 01/16/17 16: 08 Freq: 09,13,18 Status: Complete Created 01/16/17 16:08 [id number] (Rec: 01/16/17 16:08 PDL6009 ICU-M02) Document 01/16/17 18:00 BLP4615 (Rec: 01/16/17 18:06 SER6134 ICU-C16) Document 01/17/17 09:00 HGM4048 (Rec: 01/17/17 09:49 BDF1841 ICU-C10) Document 01/17/17 13:00 YEI2673 (Rec: 01/17/17 13:02 KUI4469 ICU-C16) Document 01/17/17 18:00 TVI0215 (Rec: 01/17/17 18:55 GFI9224 ICU-C16) Document 01/18/17 07:27 AXP4047 (Rec: 01/18/17 07:27 HTQ5432 ICU-C20) ADLs: Meal Record Start: 01/18/17 08: 22 Freq: DAILY@0900,1400,1800 Status: Active Created 01/18/17 08:22 WEZ8774 (Rec: 01/18/17 08:22 XDI2035 ICU-C10) Document 01/18/17 08:23 YYY9657 (Rec: 01/18/17 08:23 SZB2039 ICU-C10) Document 01/18/17 14:00 IUK3719 (Rec: 01/18/17 14:00 YLJ8495 ICU-C16) Document 01/18/17 19:00 FCM9055 (Rec: 01/18/17 20:34 YYC4326 ICU-C16) Document 01/19/17 09:00 MSL8605 (Rec: 01/19/17 09:15 WUT4011 ICU-C16) Document 01/19/17 13:27 PBE4437 (Rec: 01/19/17 13:27 GJS6412 MED-C09) Document 01/19/17 18:00 CGT9802 (Rec: 01/19/17 19:02 FVD3220 MED-C11) Document 01/20/17 14:00 HQS7729 (Rec: 01/20/17 14:06 DSW2166 MED-C16) Document 01/20/17 18:00 CEG9656 (Rec: 01/20/17 19:00 AEZ1315 MED-C09) Document 01/21/17 09:00 MRU4981 (Rec: 01/21/17 10:47 CVI5730 MED-C09) Document 01/21/17 14:00 NUN2799 (Rec: 01/21/17 14:10 RFS7595 MED-C11) Document 01/22/17 03:48 VTD8968 (Rec: 01/22/17 03:48 XIR5000 MED-C14) Document 01/22/17 09:00 BSY7277 (Rec: 01/22/17 09:45 GRB8875 MED-C11) Document 01/22/17 14:00 AZH0205 (Rec: 01/22/17 14:26 OQI7455 MED-C09) Document 01/22/17 18:00 MID3058 (Rec: 01/22/17 18:42 ORN7848 MED-C09) Document 01/23/17 09:00 ABP3980 (Rec: 01/23/17 10:07 RCN0451 MED-C11) Document 01/23/17 12:57 PDC7332 (Rec: 01/23/17 12:57 FOB3103 MED-C11) Document 01/23/17 18:00 TQU6963 (Rec: 01/23/17 19:01 UQB1022 MED-L07) Document 01/24/17 09:00 TEI4712 (Rec: 01/24/17 11:03 RZE1323 MED-C11) Document 01/24/17 14:00 NIM2430 (Rec: 01/24/17 14:02 ZDR4487 MED-C11) Document 01/24/17 18:00 YLR3276 (Rec: 01/24/17 21:48 ZQI9322 MED-C11) Document 01/25/17 09:00 TUG9220 (Rec: 01/25/17 09:36 FMX8028 MED-C16) Document 01/25/17 18:00 OPP9673 (Rec: 01/25/17 22:44 VCP7010 MED-C09) Intake and Output Start: 01/16/17 16: 08 Freq: 06,14,22 Status: Complete Created 01/16/17 16:08 BXA3399 (Rec: 01/16/17 16:08 DZM2486 ICU-M02) Document 01/16/17 22:00 XHO7027 (Rec: 01/16/17 22:01 BFN3423 ICU-C20) Document 01/17/17 06:00 XFH9726 (Rec: 01/17/17 06:29 JRZ8302 ICU-M02) Document 01/17/17 11:50 LKD9074 (Rec: 01/17/17 11:51 GTD5977 ICU-C10) Document 01/17/17 14:00 JYA5975 (Rec: 01/17/17 15:55 OXP9386 ICU-C16) Document 01/17/17 21:30 LZG2996 (Rec: 01/17/17 21:30 TOC4232 ICU-M17) Document 01/18/17 05:31 MXT4315 (Rec: 01/18/17 05:31 YPZ8742 ICU-C14) Intake and Output Start: 01/18/17 08: 22 Freq: DAILY@0600,1400,2200 Status: Active Created 01/18/17 08:22 VVI1669 (Rec: 01/18/17 08:22 DTO2357 ICU-C10) Document 01/18/17 13:57 BIP4351 (Rec: 01/18/17 13:57 XKI0516 ICU-C16) Document 01/18/17 21:56 KZN6794 (Rec: 01/18/17 21:57 OEV8178 ICU-C14) Document 01/18/17 22:00 UMO8871 (Rec: 01/18/17 22:15 UKR2856 ICU-C16) Document 01/19/17 06:00 TPU3244 (Rec: 01/19/17 06:04 VMT6378 ICU-C16) Document 01/19/17 08:00 WKI8621 (Rec: 01/19/17 09:28 IBH7649 ICU-C16) Document 01/19/17 22:00 ZXY1262 (Rec: 01/19/17 22:24 WPN0350 MED-C09) Document 01/20/17 05:19 PIB0767 (Rec: 01/20/17 05:19 LHL8687 MED-C42) Document 01/20/17 14:00 EYG3116 (Rec: 01/20/17 16:07 PWQ2888 MED-L07) Document 01/20/17 21:42 PBU7725 (Rec: 01/20/17 21:43 HUU9403 MEDL-C02) Document 01/21/17 03:32 TLH4614 (Rec: 01/21/17 03:32 IHP6024 MED-C42) Document 01/21/17 14:00 NSN6291 (Rec: 01/21/17 14:10 LWK1681 MED-C11) Document 01/21/17 22:00 KOH7000 (Rec: 01/21/17 23:18 JSQ9997 MED-C09) Document 01/22/17 06:00 XWO6512 (Rec: 01/22/17 06:34 CCC8148 MEDL-C02) Document 01/22/17 14:00 TST4738 (Rec: 01/22/17 14:26 QXZ1200 MED-C09) Document 01/23/17 04:19 GSP7455 (Rec: 01/23/17 04:19 LHS3926 MEDL-C01) Document 01/23/17 05:24 QAP8149 (Rec: 01/23/17 05:24 ZOP6377 MED-C26) Document 01/23/17 10:08 HOC7017 (Rec: 01/23/17 10:09 NWI8545 MED-C11) Document 01/23/17 12:57 AUV8674 (Rec: 01/23/17 12:57 OOG8657 MED-C11) Document 01/23/17 22:00 LTN9554 (Rec: 01/23/17 22:25 AIT4999 MED-C11) Document 01/24/17 04:50 ILU3689 (Rec: 01/24/17 04:50 LWR0521 MED-C42) Document 01/24/17 08:58 RPG0348 (Rec: 01/24/17 08:59 IPB2641 MED-C11) Document 01/24/17 18:30 QHQ4266 (Rec: 01/24/17 18:30 IJF4346 MED-C04) Document 01/25/17 06:00 HVW8549 (Rec: 01/25/17 06:16 IUO1187 MED-C14) Document 01/26/17 06:00 FNV4262 (Rec: 01/26/17 06:10 CFI7900 MEDL-C02) - Physical Exam General Physical Exam Comment: She perseverated on my name. She did not follow one step commands. General: No Cyanosis, No Anemia, No Jaundice, No Lymphadenopathy, No Clubbing Skin: Normal: Rash Lungs and Chest: Yes: Chest Expansion Full, Chest Expansion Symetrica, Vessicular Breath Sounds. No: Crackles, Wheezes Heart Rate and Rhythm: Regular JVP: Not Elevated Additional Cardiovascular: Yes: Normal Heart Sounds. No: Heart Murmur, Pedal Edema Abdominal Exam: Yes: Soft, Bowel Sounds Present. No: Distention, Abdominal Tenderness Results - Results Radiology Results: Patient Name: ELYSSA TIERNEY Medical Record#: [id number] Ordering Physician: Freddy Berrios MD Acct.#: [id number] : 1930 Age: 86 Sex: F Location: [address] [place] [address] - MEDICAL Exam Date: 01/25/17 1119 ADM Status: ADM IN Order Information: MRI BRAIN W/O Accession Number: [id number] CPT: 52383 INDICATION: Altered mental status. COMPARISON: Comparison is made with a prior CT of the brain from January 16, 2017 and a prior MRI of the brain from September 03, 2016. TECHNIQUE: Sagittal T1, axial T1, T2, susceptibility, FLAIR and diffusion weighted images were obtained. Exam is slightly limited due to motion artifact on several of the pulse sequences. FINDINGS: The ventricles, cisterns and sulci are prominent consistent with diffuse atrophy. There are small focal areas of increased signal intensity on T2- weighted images present within the subcortical and periventricular white matter most consistent with mild chronic small vessel ischemic changes. No areas of restricted diffusion are present. There is no evidence for infarct or hemorrhage. The visualized portion of the paranasal sinuses and mastoid air cells appear clear. IMPRESSION: ATROPHY AND FINDINGS SUGGESTIVE OF MILD CHRONIC SMALL VESSEL ISCHEMIC CHANGES. NO EVIDENCE FOR ACUTE FINDING. <Electronically signed by Jakob Onofre MD in [place]> 01/25/171702 Dictated By: Jakob Onofre MD Dictated Date/Time: 01/25/171702 Transcribed Date/Time: 01/25/171655 Copy to: CC:Ferddy Berrios MD; Alec Bullock MD; Cy Dennis MD; Kristian Still MD Imaging - [facility] Imaging - [place] [facility] [address] [address] ph [phone]) ph ([phone]) ph ([phone]) 1 of 1 Assessment - Problem List Assessment: Patient Problems Altered mental state (Acute) Anemia (Acute) Seizure (Acute) Seizure disorder (Acute) CAD (coronary artery disease) (Chronic) GERD (gastroesophageal reflux disease) (Chronic) Hypothyroidism (Chronic) Polymyalgia rheumatica (Chronic) Serous adenocarcinoma (Chronic) Thrombocytopenia (Chronic) History of atrial fibrillation (Chronic) Plan: Altered mental state (Acute) Seizure (Acute) Seizure disorder (Acute) Her mental state is slightly worse than yesterday as she was unable to produce any spontaneous speech and she didn't answer direct questions. Her MRI brain was normal. Possibilities: * Summation effect of 2 anti-epileptics or intolerance of lacosamide. I think we should taper her divalproex fairly expeditiously * Post-ictal - unlikely as she should be improving each day * complex partial seizures - she may require another EEG if this doesn't improve Anemia (Acute) not checked today CAD (coronary artery disease) (Chronic) secondary diagnosis GERD (gastroesophageal reflux disease) (Chronic) secondary diagnosis Hypothyroidism (Chronic) secondary diagnosis Polymyalgia rheumatica (Chronic) secondary diagnosis Serous adenocarcinoma (Chronic) secondary diagnosis Thrombocytopenia (Chronic) not checked today History of atrial fibrillation (Chronic) Phone call to daughter. I explained this to Larisa.
[2017-01-26] MEDS ORDERED: Divalproex ER TAB(*) 500 MG PO SCH (21:00)
[2017-01-27] MEDS: NS 0.9% 1000 ML* 1,000 ML IV SCH ×2 (02:46→23:00)
[2017-01-27] MEDS: Heparin VIAL(*) 5000 UNITS/ML VIAL (FIVE THOUSAND) SUBCUT SCH ×3 (05:23→23:11)
[2017-01-27] MEDS: Omeprazole CAP* 20 MG PO SCH (05:23)
[2017-01-27 06:10] LABS: BUN/Creatinine Ratio 14.8 (8-20); C Reactive Protein 7.21 mg/L (< 5.00); Calcium 8.3 mg/dL (8.6-10.3); EGFR African American 85.8 (>60); EGFR Non-African American 66.7 (>60); Potassium 4.1 mmol/L (3.5-5.0)
--- NOTE | 2017-01-27 08:42 | PN ---
Subjective - Subjective Reason for Note: Progress Note History: She was alert when I entered. She didn't show recognition and mostly was unable to answer simple questions. However, she occasionally came up with a spontaneous simple sentence. She is disoriented x 3. She followed simple commands about half of the time. 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 Thrombocytopenia (Chronic) D69.6 Current Medications: Current Medications Divalproex Sodium (Depakote Er Tab(*)) 500 mg PO BID [facility] Last Admin: 01/26/17 20:19 Dose: 500 mg Heparin Sodium (Porcine) (Heparin Vial(*)) 5,000 units SUBCUT Q8HR [facility] Last Admin: 01/27/17 05:23 Dose: 5,000 units Sodium Chloride (Ns 0.9% 1000 Ml*) 1,000 mls @ 50 mls/hr IV .PER RATE [facility] Last Admin: 01/27/17 02:46 Dose: 50 mls/hr Lacosamide (Vimpat Tab*) 100 mg PO BID [facility] Last Admin: 01/26/17 20:19 Dose: 100 mg Omeprazole (Prilosec Cap*) 20 mg PO 0600 [facility] Last Admin: 01/27/17 05:23 Dose: 20 mg Thyroid (Thyroid Tab*) 60 mg PO BID [facility] Last Admin: 01/26/17 20:19 Dose: 60 mg Home Medications: Home Medications Medication Instructions Recorded Confirmed Type Levetiracetam XR TAB(NF) [Keppra 1,000 mg PO BID 09/02/16 01/16/17 History XR TAB(NF)] Thyroid TAB* [Thyroid TAB 60 MG*] 60 mg PO BID 09/02/16 01/16/17 History Omeprazole CAP* [Prilosec CAP* 20 20 mg PO DAILY 10/15/16 01/16/17 History MG] Cholecalciferol [Vitamin D3] 50,000 mg PO WEEKLY 01/16/17 01/16/17 History Divalproex ER TAB(*) [Depakote ER 1,000 mg PO BID 01/16/17 01/16/17 History TAB(*)] Lactulose* 10 mg PO BID PRN 01/16/17 01/16/17 History Ondansetron TAB* [Zofran 4 MG Tab*] 4 mg PO TID PRN 01/16/17 01/16/17 History Pantoprazole TAB (NF) [Protonix 40 mg PO DAILY 01/16/17 01/16/17 History TAB (NF)] Prochlorperazine TAB* [Compazine 10 mg PO QID PRN 01/16/17 01/16/17 History Tab*] Allergies: Allergies Allergy/AdvReac Type Severity Reaction Status Date / Time Azathioprine Allergy Unknown Verified 09/01/16 12:28 Reaction Details Codeine Allergy Unknown Verified 09/01/16 12:28 Reaction Details Corticosteroids Allergy Swelling Verified 09/01/16 12:28 Diltiazem Allergy Unknown Verified 09/01/16 12:28 Reaction Details Levetiracetam Allergy See Comment Verified 09/01/16 12:28 Macrolides and Ketolides Allergy Unknown Verified 09/01/16 12:28 Reaction Details Penicillins Allergy Hives Verified 09/01/16 12:28 Phenytoin [From Dilantin] Allergy Hives Verified 09/01/16 12:28 Sulfa Drugs Allergy Hives Verified 09/01/16 12:28 Tetracyclines & Related Allergy Difficulty Verified 09/01/16 12:28 Breathing/Wheezing Doxycycline AdvReac GI Upset Verified 06/09/16 06:51 Lidocaine AdvReac GI Upset Verified 06/09/16 06:51 Moxifloxacin [From Avelox] AdvReac Diarrhea Verified 06/09/16 06:51 Objective - Vital Signs Vital Signs: Vital Signs 01/26/17 01/26/17 01/26/17 16:02 20:00 23:35 Temperature 98.2 F 98.1 F Pulse Rate 76 89 Respiratory 16 16 Rate Blood Pressure 145/64 140/113 (mmHg) O2 Sat by Pulse 100 100 100 Oximetry - Intake and Output Intake and Output: Intake & Output 01/24/17 01/25/17 01/26/17 01/27/17 11:59 11:59 11:59 11:59 Intake Total 1443 1303 1144 2663 Output Total 1400 650 400 Balance 43 653 1144 2263 Weight 139 lb 1.787 oz Intake: IV Fluids 1213 366 725 5063 D5 1/2 20kcl 1213 943 Normal Saline 904 2433 Oral 230 360 240 230 Output: Urine 1400 650 400 Other: Estimated Void Medium Medium Medium # Bowel Movements 1 0 0 Estimated Stool Amount Large # Voids 1 3 1 3 ADLs: Meal Record Start: 01/16/17 16: 08 Freq: 09,13,18 Status: Complete Created 01/16/17 16:08 [id number] (Rec: 01/16/17 16:08 APJ4452 ICU-M02) Document 01/16/17 18:00 ILE0999 (Rec: 01/16/17 18:06 DHO7507 ICU-C16) Document 01/17/17 09:00 YYR8331 (Rec: 01/17/17 09:49 QJJ5466 ICU-C10) Document 01/17/17 13:00 PCH4371 (Rec: 01/17/17 13:02 YPK4380 ICU-C16) Document 01/17/17 18:00 WHZ7469 (Rec: 01/17/17 18:55 RFQ4904 ICU-C16) Document 01/18/17 07:27 JID7921 (Rec: 01/18/17 07:27 WPE9166 ICU-C20) ADLs: Meal Record Start: 01/18/17 08: 22 Freq: DAILY@0900,1400,1800 Status: Active Created 01/18/17 08:22 NGL4249 (Rec: 01/18/17 08:22 SIJ6264 ICU-C10) Document 01/18/17 08:23 JAT8676 (Rec: 01/18/17 08:23 YKV2179 ICU-C10) Document 01/18/17 14:00 XZM4557 (Rec: 01/18/17 14:00 MAR9589 ICU-C16) Document 01/18/17 19:00 ZAT9971 (Rec: 01/18/17 20:34 WSE1731 ICU-C16) Document 01/19/17 09:00 QRL1591 (Rec: 01/19/17 09:15 ALC3775 ICU-C16) Document 01/19/17 13:27 AFI1599 (Rec: 01/19/17 13:27 TKH8056 MED-C09) Document 01/19/17 18:00 BXJ1581 (Rec: 01/19/17 19:02 PAD1165 MED-C11) Document 01/20/17 14:00 SLV8204 (Rec: 01/20/17 14:06 EHW3411 MED-C16) Document 01/20/17 18:00 LBF6670 (Rec: 01/20/17 19:00 JDP1828 MED-C09) Document 01/21/17 09:00 MSB3728 (Rec: 01/21/17 10:47 HRS7476 MED-C09) Document 01/21/17 14:00 BIY9786 (Rec: 01/21/17 14:10 FMB8748 MED-C11) Document 01/22/17 03:48 KTC6987 (Rec: 01/22/17 03:48 TYL8254 MED-C14) Document 01/22/17 09:00 DWK5373 (Rec: 01/22/17 09:45 MXQ3433 MED-C11) Document 01/22/17 14:00 RIQ4942 (Rec: 01/22/17 14:26 ARP8003 MED-C09) Document 01/22/17 18:00 AES1087 (Rec: 01/22/17 18:42 IEN0023 MED-C09) Document 01/23/17 09:00 MLR4973 (Rec: 01/23/17 10:07 FIC5226 MED-C11) Document 01/23/17 12:57 IDU8136 (Rec: 01/23/17 12:57 OGC8627 MED-C11) Document 01/23/17 18:00 PIM6459 (Rec: 01/23/17 19:01 DKV4854 MED-L07) Document 01/24/17 09:00 ANC9088 (Rec: 01/24/17 11:03 WBA6674 MED-C11) Document 01/24/17 14:00 ORU5013 (Rec: 01/24/17 14:02 HTP0174 MED-C11) Document 01/24/17 18:00 FKZ0816 (Rec: 01/24/17 21:48 AIZ5574 MED-C11) Document 01/25/17 09:00 YDQ4708 (Rec: 01/25/17 09:36 XWH0766 MED-C16) Document 01/25/17 18:00 YKV9039 (Rec: 01/25/17 22:44 MIU3439 MED-C09) Document 01/26/17 09:00 ULK3707 (Rec: 01/26/17 15:24 OWF5941 MED-C11) Document 01/26/17 14:00 NIA4400 (Rec: 01/26/17 15:26 OWC0127 MED-C11) Document 01/26/17 18:00 JBM6823 (Rec: 01/26/17 19:50 TVN0904 MED-C09) Intake and Output Start: 01/16/17 16: 08 Freq: 06,14,22 Status: Complete Created 01/16/17 16:08 NJB0682 (Rec: 01/16/17 16:08 PBB9675 ICU-M02) Document 01/16/17 22:00 RZU7400 (Rec: 01/16/17 22:01 SJT7593 ICU-C20) Document 01/17/17 06:00 NNA9165 (Rec: 01/17/17 06:29 QOE5300 ICU-M02) Document 01/17/17 11:50 USC6599 (Rec: 01/17/17 11:51 HHF0015 ICU-C10) Document 01/17/17 14:00 JKY2418 (Rec: 01/17/17 15:55 XWE7249 ICU-C16) Document 01/17/17 21:30 XMC1201 (Rec: 01/17/17 21:30 YCN7287 ICU-M17) Document 01/18/17 05:31 HEO6714 (Rec: 01/18/17 05:31 ULT2558 ICU-C14) Intake and Output Start: 01/18/17 08: 22 Freq: DAILY@0600,1400,2200 Status: Active Created 01/18/17 08:22 TIX4934 (Rec: 01/18/17 08:22 NSP6770 ICU-C10) Document 01/18/17 13:57 DWP5938 (Rec: 01/18/17 13:57 TVD3232 ICU-C16) Document 01/18/17 21:56 IOT2473 (Rec: 01/18/17 21:57 TEH3166 ICU-C14) Document 01/18/17 22:00 XWY9173 (Rec: 01/18/17 22:15 SPI2815 ICU-C16) Document 01/19/17 06:00 WWA0961 (Rec: 01/19/17 06:04 VHA1217 ICU-C16) Document 01/19/17 08:00 FXF4784 (Rec: 01/19/17 09:28 WJZ0968 ICU-C16) Document 01/19/17 22:00 OTV8799 (Rec: 01/19/17 22:24 XSU4222 MED-C09) Document 01/20/17 05:19 GMJ2819 (Rec: 01/20/17 05:19 DFS8078 MED-C42) Document 01/20/17 14:00 HAH7450 (Rec: 01/20/17 16:07 SZY4632 MED-L07) Document 01/20/17 21:42 RMY4293 (Rec: 01/20/17 21:43 XQZ7775 MEDL-C02) Document 01/21/17 03:32 QRV5037 (Rec: 01/21/17 03:32 BYW8439 MED-C42) Document 01/21/17 14:00 RZZ5195 (Rec: 01/21/17 14:10 AWW9539 MED-C11) Document 01/21/17 22:00 VYB8296 (Rec: 01/21/17 23:18 FTL5409 MED-C09) Document 01/22/17 06:00 DMG4880 (Rec: 01/22/17 06:34 PPN7400 MEDL-C02) Document 01/22/17 14:00 IGC7651 (Rec: 01/22/17 14:26 DUS0464 MED-C09) Document 01/23/17 04:19 BJY6168 (Rec: 01/23/17 04:19 OME0246 MEDL-C01) Document 01/23/17 05:24 HRB5001 (Rec: 01/23/17 05:24 OSR9390 MED-C26) Document 01/23/17 10:08 GQK8468 (Rec: 01/23/17 10:09 FDB4726 MED-C11) Document 01/23/17 12:57 SHC4783 (Rec: 01/23/17 12:57 SFD8162 MED-C11) Document 01/23/17 22:00 JBK7802 (Rec: 01/23/17 22:25 NWY9870 MED-C11) Document 01/24/17 04:50 GCF9898 (Rec: 01/24/17 04:50 JCV1416 MED-C42) Document 01/24/17 08:58 EKU7965 (Rec: 01/24/17 08:59 IMX5867 MED-C11) Document 01/24/17 18:30 DEJ1189 (Rec: 01/24/17 18:30 [id number] MED-C04) Document 01/25/17 06:00 [id number] (Rec: 01/25/17 06:16 [id number] MED-C14) Document 01/26/17 06:00 [id number] (Rec: 01/26/17 06:10 [id number] MEDL-C02) Document 01/26/17 14:00 [id number] (Rec: 01/26/17 15:26 [id number] MED-C11) Document 01/26/17 22:00 [id number] (Rec: 01/26/17 22:29 [id number] MED-C11) Document 01/27/17 06:00 [id number] (Rec: 01/27/17 06:30 [id number] MED-C09) - Physical Exam General Physical Exam Comment: She has conjugate eye movements. Her face is symmetrical and she is able to close her eyes tightly to command. She has a soft speech. She has a tremor. She moves hands and feet spontaneously. She is disoriented x 3. She can whisper some short sentences. 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 No: Crackles, Wheezes, Respiratory Distress, Use of Accessory Muscles Heart Rate and Rhythm: Regular Additional Cardiovascular: Yes: Normal Heart Sounds. No: Heart Murmur, Pedal Edema Abdominal Exam: Yes: Soft, Bowel Sounds Present. No: Distention, Abdominal Mass , Abdominal Tenderness Results - Results Lab Results: Laboratory Results - last 24 hr 01/27/17 01/27/17 05:40 05:40 Sodium 135 Potassium 4.1 Chloride 103 Carbon Dioxide 27 Anion Gap 5 BUN 12 Creatinine 0.81 Est GFR ( Amer) 85.8 Est GFR (Non-Af Amer) 66.7 BUN/Creatinine Ratio 14.8 Glucose 93 Calcium 8.3 L Ammonia 56 H C-Reactive Protein 7.21 H Assessment - Problem List Assessment: Patient Problems Altered mental state (Acute) Anemia (Acute) Seizure (Acute) Seizure disorder (Acute) CAD (coronary artery disease) (Chronic) GERD (gastroesophageal reflux disease) (Chronic) Hypothyroidism (Chronic) Polymyalgia rheumatica (Chronic) Serous adenocarcinoma (Chronic) Thrombocytopenia (Chronic) History of atrial fibrillation (Chronic) Plan: Altered mental state (Acute) Seizure (Acute) Seizure disorder (Acute) She is about the same in her mental state as yesterday. I will continue to taper her divalproex, assuming this may be responsible for her altered mental state in combination with the lacosamide. Anemia (Acute) ongoing. There is no sign of infection Seizure (Acute) I think her current mental state is encephalopathic and not epileptiform CAD (coronary artery disease) (Chronic) secondary diagnosis GERD (gastroesophageal reflux disease) (Chronic) secondary diagnosis Hypothyroidism (Chronic) secondary diagnosis Polymyalgia rheumatica (Chronic) secondary diagnosis Serous adenocarcinoma (Chronic) secondary diagnosis Thrombocytopenia (Chronic) ongoing/stable History of atrial fibrillation (Chronic) Phone call to Larisa (daughter) - [facility] [place].
[2017-01-27] MEDS: Thyroid TAB* 60 MG PO SCH ×2 (10:29→23:11)
[2017-01-27] MEDS: Divalproex ER TAB(*) 250 MG PO SCH ×2 (10:29→23:11)
[2017-01-27] MEDS: Lacosamide TAB* 100 MG TAB PO SCH ×2 (10:30→23:11)
--- NOTE | 2017-01-27 11:20 | RAD ---
HISTORY: AND swelling left wrist, pain COMPARISONS: None VIEWS: 3, Frontal, lateral, and oblique views of the left wrist FINDINGS: BONE DENSITY: There is diffuse osteopenia. BONES: There is no displaced fracture. JOINTS: There is osteoarthritis of the radiocarpal articulation and first CMC articulation. The patient is status post internal fixation of the distal ulna ALIGNMENT: There is no dislocation. SOFT TISSUES: Unremarkable. OTHER FINDINGS: None. IMPRESSION: OSTEOPENIA. OSTEOARTHRITIS. NO ACUTE OSSEOUS INJURY. THE DEGREE OF OSTEOPENIA MAY MAKE A NONDISPLACED FRACTURE RADIOGRAPHICALLY OCCULT. IF SYMPTOMS PERSIST, RECOMMEND REPEAT IMAGING.
[2017-01-27] MEDS: Acetaminophen TAB* 325 MG PO PRN (13:45)
--- NOTE | 2017-01-28 05:16 | PN ---
PROGRESS NOTE: DATE OF SERVICE: DATE OF DICTATION: 01/27/17 PATIENT OF: Dr. Berrios.* HISTORY: There has been no further seizures. However, she remains confused, unable to give any history. Medications have been further adjusted. Her Depakote is decreased today to 250 b.i.d. from 500 b.i.d. Her lacosamide remains at 100 twice a day. Other medicines are unchanged. Her lacosamide dose has been at this for the past 3 days and lacosamide level has been sent. PHYSICAL EXAMINATION: Temperature 97.4, pulse 74, respirations 16, blood pressure 136/56. She is alert. When asked her name, she said Brittney Auburn, but then she continued to repeat that and was not oriented on any other spheres. Cranial nerves II through XII are nonfocal. Motor exam revealed she was frail, but had intact strength. Chest clear. Cardiovascular: Regular rate and rhythm. I reviewed her MRI scan, which showed no acute stroke and showed small vessel ischemic changes with some atrophy. Her EEG just showed some slowing, but no epileptiform potentials. I discussed with Dr. Berrios earlier today that her Vimpat dose will be after a few days' time and she is coming off the Depakote. I would recommend stopping the Depakote tomorrow if she still remains tired. If she still remains confused tomorrow, the next day, would back down the Vimpat to perhaps _ ____ but I will sign her off to the neurologist termite control technician who will be making the details on these decisions. Thank you for sharing her case. [id number]/[facility] #: [id number] BARBI
[2017-01-28] MEDS: Heparin VIAL(*) 5000 UNITS/ML VIAL (FIVE THOUSAND) SUBCUT SCH ×3 (05:50→20:55)
[2017-01-28] MEDS: Omeprazole CAP* 20 MG PO SCH (05:51)
[2017-01-28] MEDS: Lacosamide TAB* 100 MG TAB PO SCH ×2 (09:32→20:55)
[2017-01-28] MEDS: Divalproex ER TAB(*) 250 MG PO SCH (09:33)
[2017-01-28] MEDS: Thyroid TAB* 60 MG PO SCH ×2 (09:33→20:55)
--- NOTE | 2017-01-28 10:51 | PN ---
Subjective - Subjective Reason for Note: Progress Note History: She remains encephalopathic. She is about the same as the last couple of days. She was able to tell me her name, and then perseverated on it. She didn't follow any one step commands, but she was alert and looked towards myself or the nurse. 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 Thrombocytopenia (Chronic) D69.6 Current Medications: Current Medications Acetaminophen (Tylenol Tab*) 650 mg PO Q4HR PRN PRN Reason: PAIN Last Admin: 01/27/17 13:45 Dose: 650 mg Divalproex Sodium (Depakote Er Tab(*)) 250 mg PO BID [facility] Last Admin: 01/28/17 09:33 Dose: 250 mg Heparin Sodium (Porcine) (Heparin Vial(*)) 5,000 units SUBCUT Q8HR [facility] Last Admin: 01/28/17 05:50 Dose: 5,000 units Sodium Chloride (Ns 0.9% 1000 Ml*) 1,000 mls @ 50 mls/hr IV .PER RATE [facility] Last Admin: 01/27/17 23:00 Dose: 50 mls/hr Lacosamide (Vimpat Tab*) 100 mg PO BID [facility] Last Admin: 01/28/17 09:32 Dose: 100 mg Omeprazole (Prilosec Cap*) 20 mg PO 0600 [facility] Last Admin: 01/28/17 05:51 Dose: 20 mg Thyroid (Thyroid Tab*) 60 mg PO BID [facility] Last Admin: 01/28/17 09:33 Dose: 60 mg Home Medications: Home Medications Medication Instructions Recorded Confirmed Type Levetiracetam XR TAB(NF) [Keppra 1,000 mg PO BID 09/02/16 01/16/17 History XR TAB(NF)] Thyroid TAB* [Thyroid TAB 60 MG*] 60 mg PO BID 09/02/16 01/16/17 History Omeprazole CAP* [Prilosec CAP* 20 20 mg PO DAILY 10/15/16 01/16/17 History MG] Cholecalciferol [Vitamin D3] 50,000 mg PO WEEKLY 01/16/17 01/16/17 History Divalproex ER TAB(*) [Depakote ER 1,000 mg PO BID 01/16/17 01/16/17 History TAB(*)] Lactulose* 10 mg PO BID PRN 01/16/17 01/16/17 History Ondansetron TAB* [Zofran 4 MG Tab*] 4 mg PO TID PRN 01/16/17 01/16/17 History Pantoprazole TAB (NF) [Protonix 40 mg PO DAILY 01/16/17 01/16/17 History TAB (NF)] Prochlorperazine TAB* [Compazine 10 mg PO QID PRN 01/16/17 01/16/17 History Tab*] Allergies: Allergies Allergy/AdvReac Type Severity Reaction Status Date / Time Azathioprine Allergy Unknown Verified 09/01/16 12:28 Reaction Details Codeine Allergy Unknown Verified 09/01/16 12:28 Reaction Details Corticosteroids Allergy Swelling Verified 09/01/16 12:28 Diltiazem Allergy Unknown Verified 09/01/16 12:28 Reaction Details Levetiracetam Allergy See Comment Verified 09/01/16 12:28 Macrolides and Ketolides Allergy Unknown Verified 09/01/16 12:28 Reaction Details Penicillins Allergy Hives Verified 09/01/16 12:28 Phenytoin [From Dilantin] Allergy Hives Verified 09/01/16 12:28 Sulfa Drugs Allergy Hives Verified 09/01/16 12:28 Tetracyclines & Related Allergy Difficulty Verified 09/01/16 12:28 Breathing/Wheezing Doxycycline AdvReac GI Upset Verified 06/09/16 06:51 Lidocaine AdvReac GI Upset Verified 06/09/16 06:51 Moxifloxacin [From Avelox] AdvReac Diarrhea Verified 06/09/16 06:51 Objective - Vital Signs Vital Signs: Vital Signs 01/27/17 01/27/17 01/27/17 15:09 20:00 23:24 Temperature 97.4 F 97.7 F Pulse Rate 74 80 Respiratory 16 16 Rate Blood Pressure 136/56 134/63 (mmHg) O2 Sat by Pulse 99 99 98 Oximetry - Intake and Output Intake and Output: Intake & Output 01/25/17 01/26/17 01/27/17 01/28/17 11:59 11:59 11:59 11:59 Intake Total 1303 1144 2783 990 Output Total 650 400 0 Balance 653 1144 2383 990 Weight 139 lb 1.787 oz Intake: IV Fluids 809 818 1385 620 D5 1/2 20kcl 943 Normal Saline 904 2433 620 Oral 360 240 350 370 Output: Urine 650 400 0 Other: Estimated Void Medium Medium Large # Bowel Movements 0 0 0 Estimated Stool Amount Medium # Voids 3 1 3 3 ADLs: Meal Record Start: 01/16/17 16: 08 Freq: 09,13,18 Status: Complete Created 01/16/17 16:08 [id number] (Rec: 01/16/17 16:08 [id number] ICU-M02) Document 01/16/17 18:00 DYS6503 (Rec: 01/16/17 18:06 [id number] ICU-C16) Document 01/17/17 09:00 ITM4186 (Rec: 01/17/17 09:49 [id number] ICU-C10) Document 01/17/17 13:00 VIZ5802 (Rec: 01/17/17 13:02 MNC2134 ICU-C16) Document 01/17/17 18:00 QIY8259 (Rec: 01/17/17 18:55 RAF5664 ICU-C16) Document 01/18/17 07:27 FPB8610 (Rec: 01/18/17 07:27 NAS7830 ICU-C20) ADLs: Meal Record Start: 01/18/17 08: 22 Freq: DAILY@0900,1400,1800 Status: Active Created 01/18/17 08:22 IYK2705 (Rec: 01/18/17 08:22 KZA8742 ICU-C10) Document 01/18/17 08:23 CUF1246 (Rec: 01/18/17 08:23 LCT1279 ICU-C10) Document 01/18/17 14:00 RNT8715 (Rec: 01/18/17 14:00 CLT1859 ICU-C16) Document 01/18/17 19:00 BDF2297 (Rec: 01/18/17 20:34 ICR0431 ICU-C16) Document 01/19/17 09:00 YCO0556 (Rec: 01/19/17 09:15 CHF7828 ICU-C16) Document 01/19/17 13:27 KOT9673 (Rec: 01/19/17 13:27 HSI5838 MED-C09) Document 01/19/17 18:00 FGO8666 (Rec: 01/19/17 19:02 QFN0071 MED-C11) Document 01/20/17 14:00 UGH6635 (Rec: 01/20/17 14:06 IYH6268 MED-C16) Document 01/20/17 18:00 GFX4813 (Rec: 01/20/17 19:00 UJQ2148 MED-C09) Document 01/21/17 09:00 LTK1915 (Rec: 01/21/17 10:47 SJB1775 MED-C09) Document 01/21/17 14:00 DYS9142 (Rec: 01/21/17 14:10 IFQ8982 MED-C11) Document 01/22/17 03:48 UPB5449 (Rec: 01/22/17 03:48 SYH6737 MED-C14) Document 01/22/17 09:00 AEW2670 (Rec: 01/22/17 09:45 KSM1154 MED-C11) Document 01/22/17 14:00 XHO9168 (Rec: 01/22/17 14:26 AHG8578 MED-C09) Document 01/22/17 18:00 ZJX4292 (Rec: 01/22/17 18:42 FLY1683 MED-C09) Document 01/23/17 09:00 EZQ1365 (Rec: 01/23/17 10:07 OSR8174 MED-C11) Document 01/23/17 12:57 DCX8333 (Rec: 01/23/17 12:57 MKU5425 MED-C11) Document 01/23/17 18:00 RXB8232 (Rec: 01/23/17 19:01 OYX9570 MED-L07) Document 01/24/17 09:00 PLA1852 (Rec: 01/24/17 11:03 NOW5483 MED-C11) Document 01/24/17 14:00 AWA4106 (Rec: 01/24/17 14:02 NAT9273 MED-C11) Document 01/24/17 18:00 YMT8333 (Rec: 01/24/17 21:48 YAM5368 MED-C11) Document 01/25/17 09:00 QKV3745 (Rec: 01/25/17 09:36 WKG9718 MED-C16) Document 01/25/17 18:00 PNM5141 (Rec: 01/25/17 22:44 UYW1907 MED-C09) Document 01/26/17 09:00 TNM6310 (Rec: 01/26/17 15:24 XGX5596 MED-C11) Document 01/26/17 14:00 ICT6307 (Rec: 01/26/17 15:26 ALS1581 MED-C11) Document 01/26/17 18:00 QUA6894 (Rec: 01/26/17 19:50 KRA4288 MED-C09) Document 01/27/17 09:00 NCK6583 (Rec: 01/27/17 09:33 AFH7335 MED-C11) Document 01/27/17 13:25 XQY8997 (Rec: 01/27/17 13:25 JZU0809 MED-C11) Document 01/27/17 18:00 JZH7274 (Rec: 01/27/17 21:54 FQH0855 MED-C11) Intake and Output Start: 01/16/17 16: 08 Freq: 06,14,22 Status: Complete Created 01/16/17 16:08 HBK3140 (Rec: 01/16/17 16:08 GNM5037 ICU-M02) Document 01/16/17 22:00 TNT5024 (Rec: 01/16/17 22:01 EJT2162 ICU-C20) Document 01/17/17 06:00 AZK5968 (Rec: 01/17/17 06:29 JGE4847 ICU-M02) Document 01/17/17 11:50 HDD0781 (Rec: 01/17/17 11:51 MLN0031 ICU-C10) Document 01/17/17 14:00 ZGS3555 (Rec: 01/17/17 15:55 WOF7592 ICU-C16) Document 01/17/17 21:30 NJG5824 (Rec: 01/17/17 21:30 VXJ6491 ICU-M17) Document 01/18/17 05:31 VED1318 (Rec: 01/18/17 05:31 TQR8933 ICU-C14) Intake and Output Start: 01/18/17 08: 22 Freq: DAILY@0600,1400,2200 Status: Active Created 01/18/17 08:22 RMR7186 (Rec: 01/18/17 08:22 TWU1450 ICU-C10) Document 01/18/17 13:57 QHK0209 (Rec: 01/18/17 13:57 ADP5306 ICU-C16) Document 01/18/17 21:56 JKJ3440 (Rec: 01/18/17 21:57 DHG5891 ICU-C14) Document 01/18/17 22:00 JDB5743 (Rec: 01/18/17 22:15 IFU3640 ICU-C16) Document 01/19/17 06:00 LNV7858 (Rec: 01/19/17 06:04 TXE7644 ICU-C16) Document 01/19/17 08:00 ZVS7837 (Rec: 01/19/17 09:28 FYJ9678 ICU-C16) Document 01/19/17 22:00 OKM9681 (Rec: 01/19/17 22:24 AHQ2719 MED-C09) Document 01/20/17 05:19 RWE2794 (Rec: 01/20/17 05:19 HGH0176 MED-C42) Document 01/20/17 14:00 PSI3238 (Rec: 01/20/17 16:07 NWZ4060 MED-L07) Document 01/20/17 21:42 RAS1403 (Rec: 01/20/17 21:43 EIN8519 MEDL-C02) Document 01/21/17 03:32 TPF7569 (Rec: 01/21/17 03:32 YND7935 MED-C42) Document 01/21/17 14:00 KFT2420 (Rec: 01/21/17 14:10 TLR5896 MED-C11) Document 01/21/17 22:00 CDP9742 (Rec: 01/21/17 23:18 KFS4900 MED-C09) Document 01/22/17 06:00 CCP7989 (Rec: 01/22/17 06:34 LBN7700 MEDL-C02) Document 01/22/17 14:00 MRK4408 (Rec: 01/22/17 14:26 RYR7043 MED-C09) Document 01/23/17 04:19 LGW2795 (Rec: 01/23/17 04:19 HFP5379 MEDL-C01) Document 01/23/17 05:24 IVC5650 (Rec: 01/23/17 05:24 FJC7885 MED-C26) Document 01/23/17 10:08 VMB4477 (Rec: 01/23/17 10:09 HTD3363 MED-C11) Document 01/23/17 12:57 MDB0820 (Rec: 01/23/17 12:57 KAJ7058 MED-C11) Document 01/23/17 22:00 GPP1313 (Rec: 01/23/17 22:25 EVU8799 MED-C11) Document 01/24/17 04:50 AKV4083 (Rec: 01/24/17 04:50 ZPN1573 MED-C42) Document 01/24/17 08:58 JIN9981 (Rec: 01/24/17 08:59 ZRD2545 MED-C11) Document 01/24/17 18:30 NBQ0248 (Rec: 01/24/17 18:30 WWX9651 MED-C04) Document 01/25/17 06:00 FZD6741 (Rec: 01/25/17 06:16 BUB7720 MED-C14) Document 01/26/17 06:00 ZGO2002 (Rec: 01/26/17 06:10 UGC8005 MEDL-C02) Document 01/26/17 14:00 QUX6166 (Rec: 01/26/17 15:26 DMV3887 MED-C11) Document 01/26/17 22:00 WIM2800 (Rec: 01/26/17 22:29 ASJ5290 MED-C11) Document 01/27/17 06:00 TSS3379 (Rec: 01/27/17 06:30 QME5943 MED-C09) Document 01/27/17 12:24 PDI8923 (Rec: 01/27/17 12:24 TGL0879 MED-C11) Document 01/27/17 22:00 RJG5081 (Rec: 01/27/17 22:07 VYX1800 MED-C11) Document 01/28/17 06:00 XLF5688 (Rec: 01/28/17 06:26 LDN7174 MED-C42) - Physical Exam General Physical Exam Comment: Dorsum of left wrist - she has a raised area that is slightly warm and tender. It is erythematous. Neurological: Alert, but disoriented x 2. Speech - poverty of speech, perseverates. Unable to follow simple commands. No facial assymetry. Moves all limbs, but not to command General: No Cyanosis, Yes Anemia, No Jaundice, No Clubbing Lungs and Chest: Yes: Chest Expansion Full, Chest Expansion Symetrica, Percussion Note Resonant, Other - anterior chest examined. No: Vessicular Breath Sounds, Crackles, Wheezes, Respiratory Distress, Use of Accessory Muscles Heart Rate and Rhythm: Regular Additional Cardiovascular: Yes: Normal Heart Sounds. No: Heart Murmur, Pedal Edema Abdominal Exam: Yes: Soft, Bowel Sounds Present. No: Distention, Hepatomegaly, Abdominal Tenderness Assessment - Problem List Assessment: Patient Problems Altered mental state (Acute) Anemia (Acute) Seizure (Acute) Seizure disorder (Acute) CAD (coronary artery disease) (Chronic) GERD (gastroesophageal reflux disease) (Chronic) Hypothyroidism (Chronic) Polymyalgia rheumatica (Chronic) Serous adenocarcinoma (Chronic) Thrombocytopenia (Chronic) History of atrial fibrillation (Chronic) Plan: Altered mental state (Acute) Seizure (Acute) Seizure disorder (Acute) I reviewed Dr. Fox's note from yesterday. 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 I have stopped the divalproex. We are awaiting her lacosamide levels. Anemia (Acute) not checked today left wrist lesion: We checked her X-ray of her wrist -no fracture. This looks to me like an area of inflammation over a previous IV site, or break in her skin. It is not too hot or spreading. If it is an infection, it is contained. I want to hold antibacterials for the moment and treat with cold compresses CAD (coronary artery disease) (Chronic) secondary diagnosis GERD (gastroesophageal reflux disease) (Chronic) secondary diagnosis Hypothyroidism (Chronic) I will check her TSH tomorrow in case she has not absorbed any thyroid hormone. I doubt this. Polymyalgia rheumatica (Chronic) inactive Serous adenocarcinoma (Chronic) secondary diagnosis Thrombocytopenia (Chronic) stable History of atrial fibrillation (Chronic) Nutritional status: She is receiving IVF, and not taking much nutrition by mouth. Phone call to daughter - I explained the current status. She agrees to stopping divalproex. We discussed her physical state over the past few months - much weaker/more fatigued. Mentally she was normal. She accepts this plan and understands the prognosis (less than 6 months with the cancer).
[2017-01-28] MEDS: NS 0.9% 1000 ML* 1,000 ML IV SCH (19:15)
[2017-01-28 21:37] LABS: Lacosamide 9.6 mcg/mL (1.0 - 10.0)
[2017-01-29] MEDS: Omeprazole CAP* 20 MG PO SCH (04:44)
[2017-01-29] MEDS: Heparin VIAL(*) 5000 UNITS/ML VIAL (FIVE THOUSAND) SUBCUT SCH ×3 (05:49→22:23)
--- NOTE | 2017-01-29 10:02 | PN ---
Subjective - Subjective Reason for Note: Progress Note History: She had her eyes closed when I entered. I had to sit her forwards and then on her side for her to become more alert. At that stage she looked at me, but was not able to follow any one step commands or to respond, though she did smile. 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 Thrombocytopenia (Chronic) D69.6 Current Medications: Current Medications Acetaminophen (Tylenol Tab*) 650 mg PO Q4HR PRN PRN Reason: PAIN Last Admin: 01/27/17 13:45 Dose: 650 mg Heparin Sodium (Porcine) (Heparin Vial(*)) 5,000 units SUBCUT Q8HR [facility] Last Admin: 01/29/17 05:49 Dose: 5,000 units Sodium Chloride (Ns 0.9% 1000 Ml*) 1,000 mls @ 50 mls/hr IV .PER RATE [facility] Last Admin: 01/28/17 19:15 Dose: 50 mls/hr Lacosamide (Vimpat Tab*) 100 mg PO BID [facility] Last Admin: 01/28/17 20:55 Dose: 100 mg Omeprazole (Prilosec Cap*) 20 mg PO 0600 [facility] Last Admin: 01/29/17 04:44 Dose: 20 mg Thyroid (Thyroid Tab*) 60 mg PO BID [facility] Last Admin: 01/28/17 20:55 Dose: 60 mg Home Medications: Home Medications Medication Instructions Recorded Confirmed Type Levetiracetam XR TAB(NF) [Keppra 1,000 mg PO BID 09/02/16 01/16/17 History XR TAB(NF)] Thyroid TAB* [Thyroid TAB 60 MG*] 60 mg PO BID 09/02/16 01/16/17 History Omeprazole CAP* [Prilosec CAP* 20 20 mg PO DAILY 10/15/16 01/16/17 History MG] Cholecalciferol [Vitamin D3] 50,000 mg PO WEEKLY 01/16/17 01/16/17 History Divalproex ER TAB(*) [Depakote ER 1,000 mg PO BID 01/16/17 01/16/17 History TAB(*)] Lactulose* 10 mg PO BID PRN 01/16/17 01/16/17 History Ondansetron TAB* [Zofran 4 MG Tab*] 4 mg PO TID PRN 01/16/17 01/16/17 History Pantoprazole TAB (NF) [Protonix 40 mg PO DAILY 01/16/17 01/16/17 History TAB (NF)] Prochlorperazine TAB* [Compazine 10 mg PO QID PRN 01/16/17 01/16/17 History Tab*] Allergies: Allergies Allergy/AdvReac Type Severity Reaction Status Date / Time Azathioprine Allergy Unknown Verified 09/01/16 12:28 Reaction Details Codeine Allergy Unknown Verified 09/01/16 12:28 Reaction Details Corticosteroids Allergy Swelling Verified 09/01/16 12:28 Diltiazem Allergy Unknown Verified 09/01/16 12:28 Reaction Details Levetiracetam Allergy See Comment Verified 09/01/16 12:28 Macrolides and Ketolides Allergy Unknown Verified 09/01/16 12:28 Reaction Details Penicillins Allergy Hives Verified 09/01/16 12:28 Phenytoin [From Dilantin] Allergy Hives Verified 09/01/16 12:28 Sulfa Drugs Allergy Hives Verified 09/01/16 12:28 Tetracyclines & Related Allergy Difficulty Verified 09/01/16 12:28 Breathing/Wheezing Doxycycline AdvReac GI Upset Verified 06/09/16 06:51 Lidocaine AdvReac GI Upset Verified 06/09/16 06:51 Moxifloxacin [From Avelox] AdvReac Diarrhea Verified 06/09/16 06:51 Objective - Vital Signs Vital Signs: Vital Signs 01/28/17 01/28/17 01/28/17 15:28 20:00 23:19 Temperature 97.9 F 97.7 F Pulse Rate 90 88 Respiratory 16 16 16 Rate Blood Pressure 156/79 152/76 (mmHg) O2 Sat by Pulse 98 98 97 Oximetry - Intake and Output Intake and Output: Intake & Output 01/26/17 01/27/17 01/28/17 01/29/17 11:59 11:59 11:59 11:59 Intake Total 1144 2783 1350 2535 Output Total 400 0 Balance 1144 2383 1350 2535 Weight 139 lb 1.787 oz Intake: IV Fluids 904 2433 620 1955 Normal Saline 904 2433 620 195 Oral 240 350 730 580 Output: Urine 400 0 Other: Estimated Void Medium Large Small # Bowel Movements 0 0 0 Estimated Stool Amount Medium # Voids 1 3 3 1 ADLs: Meal Record Start: 01/16/17 16: 08 Freq: 09,13,18 Status: Complete Created 01/16/17 16:08 [id number] (Rec: 01/16/17 16:08 [id number] ICU-M02) Document 01/16/17 18:00 [id number] (Rec: 01/16/17 18:06 FOR0036 ICU-C16) Document 01/17/17 09:00 OOV2429 (Rec: 01/17/17 09:49 IYG2147 ICU-C10) Document 01/17/17 13:00 WSU4662 (Rec: 01/17/17 13:02 ZKK9209 ICU-C16) Document 01/17/17 18:00 FSL4596 (Rec: 01/17/17 18:55 RQJ1738 ICU-C16) Document 01/18/17 07:27 PAZ9104 (Rec: 01/18/17 07:27 XTB2781 ICU-C20) ADLs: Meal Record Start: 01/18/17 08: 22 Freq: DAILY@0900,1400,1800 Status: Active Created 01/18/17 08:22 [id number] (Rec: 01/18/17 08:22 RIQ4227 ICU-C10) Document 01/18/17 08:23 JDQ7556 (Rec: 01/18/17 08:23 DBH4635 ICU-C10) Document 01/18/17 14:00 LCB6802 (Rec: 01/18/17 14:00 YMF9427 ICU-C16) Document 01/18/17 19:00 TIL6579 (Rec: 01/18/17 20:34 IXT4910 ICU-C16) Document 01/19/17 09:00 GHY2610 (Rec: 01/19/17 09:15 PBY2765 ICU-C16) Document 01/19/17 13:27 DJS1426 (Rec: 01/19/17 13:27 YLK1593 MED-C09) Document 01/19/17 18:00 EKK2306 (Rec: 01/19/17 19:02 IBO3947 MED-C11) Document 01/20/17 14:00 VWD7996 (Rec: 01/20/17 14:06 WND9387 MED-C16) Document 01/20/17 18:00 NJG4377 (Rec: 01/20/17 19:00 AIL5262 MED-C09) Document 01/21/17 09:00 JHN5192 (Rec: 01/21/17 10:47 RPK2122 MED-C09) Document 01/21/17 14:00 GUZ1389 (Rec: 01/21/17 14:10 YAL7902 MED-C11) Document 01/22/17 03:48 COP2759 (Rec: 01/22/17 03:48 RZV8108 MED-C14) Document 01/22/17 09:00 LDS8053 (Rec: 01/22/17 09:45 UIH8953 MED-C11) Document 01/22/17 14:00 MLM0237 (Rec: 01/22/17 14:26 QSY5681 MED-C09) Document 01/22/17 18:00 PBV9161 (Rec: 01/22/17 18:42 IAX8240 MED-C09) Document 01/23/17 09:00 QVJ3171 (Rec: 01/23/17 10:07 ATT8233 MED-C11) Document 01/23/17 12:57 UCA8272 (Rec: 01/23/17 12:57 JNR2119 MED-C11) Document 01/23/17 18:00 TFT1628 (Rec: 01/23/17 19:01 KBR4236 MED-L07) Document 01/24/17 09:00 ZXF2034 (Rec: 01/24/17 11:03 ANQ2845 MED-C11) Document 01/24/17 14:00 SHU7231 (Rec: 01/24/17 14:02 FWK8775 MED-C11) Document 01/24/17 18:00 YYJ1739 (Rec: 01/24/17 21:48 HFD7567 MED-C11) Document 01/25/17 09:00 OYX1182 (Rec: 01/25/17 09:36 XYG3982 MED-C16) Document 01/25/17 18:00 CZX8768 (Rec: 01/25/17 22:44 TJL6496 MED-C09) Document 01/26/17 09:00 JMG7369 (Rec: 01/26/17 15:24 NAC7736 MED-C11) Document 01/26/17 14:00 FNE3457 (Rec: 01/26/17 15:26 TJF0691 MED-C11) Document 01/26/17 18:00 ZZE5620 (Rec: 01/26/17 19:50 STJ8585 MED-C09) Document 01/27/17 09:00 UPQ7265 (Rec: 01/27/17 09:33 GAK5623 MED-C11) Document 01/27/17 13:25 OLL8032 (Rec: 01/27/17 13:25 VVP7672 MED-C11) Document 01/27/17 18:00 KUR7402 (Rec: 01/27/17 21:54 CBT3693 MED-C11) Document 01/28/17 09:00 EGM9316 (Rec: 01/28/17 15:28 LDT6452 MED-C09) Document 01/28/17 14:00 QXN6411 (Rec: 01/28/17 15:29 KLD8944 MED-C09) Document 01/28/17 18:00 ZWY0168 (Rec: 01/28/17 22:17 ECS0059 MED-C09) Intake and Output Start: 01/16/17 16: 08 Freq: 06,14,22 Status: Complete Created 01/16/17 16:08 ZMS5089 (Rec: 01/16/17 16:08 KDG8587 ICU-M02) Document 01/16/17 22:00 XVP8825 (Rec: 01/16/17 22:01 PGE2434 ICU-C20) Document 01/17/17 06:00 HFJ3706 (Rec: 01/17/17 06:29 NKJ1470 ICU-M02) Document 01/17/17 11:50 KNZ1580 (Rec: 01/17/17 11:51 ECA0758 ICU-C10) Document 01/17/17 14:00 UND0993 (Rec: 01/17/17 15:55 HZI4997 ICU-C16) Document 01/17/17 21:30 SGN4240 (Rec: 01/17/17 21:30 IER6317 ICU-M17) Document 01/18/17 05:31 MSH6420 (Rec: 01/18/17 05:31 WQE6595 ICU-C14) Intake and Output Start: 01/18/17 08: 22 Freq: DAILY@0600,1400,2200 Status: Active Created 01/18/17 08:22 HFH8269 (Rec: 01/18/17 08:22 IWN1740 ICU-C10) Document 01/18/17 13:57 RUU1467 (Rec: 01/18/17 13:57 URL9544 ICU-C16) Document 01/18/17 21:56 FDY5309 (Rec: 01/18/17 21:57 EGJ7457 ICU-C14) Document 01/18/17 22:00 QEQ9006 (Rec: 01/18/17 22:15 QEA7936 ICU-C16) Document 01/19/17 06:00 BTI7536 (Rec: 01/19/17 06:04 UKT6999 ICU-C16) Document 01/19/17 08:00 NRB4673 (Rec: 01/19/17 09:28 WYC0116 ICU-C16) Document 01/19/17 22:00 ZKR7367 (Rec: 01/19/17 22:24 MGC4727 MED-C09) Document 01/20/17 05:19 IYG1230 (Rec: 01/20/17 05:19 WAG1893 MED-C42) Document 01/20/17 14:00 AXL2729 (Rec: 01/20/17 16:07 QXP9859 MED-L07) Document 01/20/17 21:42 WGW3084 (Rec: 01/20/17 21:43 DJK7198 MEDL-C02) Document 01/21/17 03:32 CLI9496 (Rec: 01/21/17 03:32 CNM4785 MED-C42) Document 01/21/17 14:00 SLA5956 (Rec: 01/21/17 14:10 TKA3491 MED-C11) Document 01/21/17 22:00 NAO2517 (Rec: 01/21/17 23:18 BHL7781 MED-C09) Document 01/22/17 06:00 GRO8486 (Rec: 01/22/17 06:34 UXH5761 MEDL-C02) Document 01/22/17 14:00 SVI2816 (Rec: 01/22/17 14:26 WSL2893 MED-C09) Document 01/23/17 04:19 UEX5653 (Rec: 01/23/17 04:19 BGF7357 MEDL-C01) Document 01/23/17 05:24 CJN4324 (Rec: 01/23/17 05:24 CJH2215 MED-C26) Document 01/23/17 10:08 CMC3523 (Rec: 01/23/17 10:09 EMQ2110 MED-C11) Document 01/23/17 12:57 OXQ9316 (Rec: 01/23/17 12:57 TMW2730 MED-C11) Document 01/23/17 22:00 ZZZ1355 (Rec: 01/23/17 22:25 EJE1575 MED-C11) Document 01/24/17 04:50 AFN4912 (Rec: 01/24/17 04:50 FXL7526 MED-C42) Document 01/24/17 08:58 VTX3390 (Rec: 01/24/17 08:59 TBJ0115 MED-C11) Document 01/24/17 18:30 TBL4510 (Rec: 01/24/17 18:30 DTJ5796 MED-C04) Document 01/25/17 06:00 EIV6492 (Rec: 01/25/17 06:16 RSB5992 MED-C14) Document 01/26/17 06:00 RVE7780 (Rec: 01/26/17 06:10 JPN6661 MEDL-C02) Document 01/26/17 14:00 ZQK3173 (Rec: 01/26/17 15:26 OKD9059 MED-C11) Document 01/26/17 22:00 CVI5154 (Rec: 01/26/17 22:29 LSC1306 MED-C11) Document 01/27/17 06:00 EHH1407 (Rec: 01/27/17 06:30 FYC6770 MED-C09) Document 01/27/17 12:24 MHM1996 (Rec: 01/27/17 12:24 UKL1596 MED-C11) Document 01/27/17 22:00 IQH9574 (Rec: 01/27/17 22:07 NAC9958 MED-C11) Document 01/28/17 06:00 IMS7303 (Rec: 01/28/17 06:26 FCT1430 MED-C42) Document 01/28/17 14:00 BWB7246 (Rec: 01/28/17 15:31 KUO1192 MED-C09) Document 01/28/17 22:00 TDR8302 (Rec: 01/28/17 22:18 MDP5714 MED-C09) Document 01/29/17 04:55 NWS1613 (Rec: 01/29/17 04:56 DGW7598 MED-C42) - Physical Exam General Physical Exam Comment: She was unconscious when I entered, but I was able to arouse her. She is less alert than in the past 2 days and not responding at all verbally. However, she smiled spontaneously and moves all limbs. I didn't observer her moving the fingers of the left hand, though she was able to lift her arm. Skin- she has an inflammed area over the dorsum of her left wrist - this is tender, but has not changed since yesterday. I inspected her buttocks/per-anal areas, heels and other pressure areas - this all looks preserved. General: No Cyanosis, Yes Anemia, No Jaundice, No Clubbing Eye Exam: bilateral: EOMI Lungs and Chest: Yes: Chest Expansion Full, Chest Expansion Symetrica, Percussion Note Resonant, Vessicular Breath Sounds. No: Crackles, Wheezes, Respiratory Distress, Use of Accessory Muscles Heart Rate and Rhythm: Regular Additional Cardiovascular: Yes: Normal Heart Sounds. No: Heart Murmur, Pedal Edema Abdominal Exam: Yes: Soft, Bowel Sounds Present. No: Distention, Abdominal Mass , Hepatomegaly, Abdominal Tenderness Results - Results Lab Results: Laboratory Results - last 24 hr 01/27/17 01/29/17 11:59 04:42 Valproic Acid 39.0 L Lacosamide Level 9.6 Assessment - Problem List Assessment: Patient Problems Altered mental state (Acute) Anemia (Acute) Seizure (Acute) Seizure disorder (Acute) CAD (coronary artery disease) (Chronic) GERD (gastroesophageal reflux disease) (Chronic) Hypothyroidism (Chronic) Polymyalgia rheumatica (Chronic) Serous adenocarcinoma (Chronic) Thrombocytopenia (Chronic) History of atrial fibrillation (Chronic) Plan: Altered mental state (Acute)Seizure (Acute) Seizure disorder (Acute) She has no improvement in her level of consciousness. I can arouse her, but she is not verbal today. She is not following one step commands. She smiles and looks at me. Her valproic acid level is detectable and expect this to be much lower tomorrow. Her lacosamide level is at the upper therapeutic level. Lacosamide was administered at 09:32 and levels were drawn at 11:59. It has a half-life of 13 hours and so it should have reached a steady state (x5 half lives) and there will be some peak and trough - but not major. The question is whether the antiseizure effect of lacosamide correlates with it's sedation effects, or if the therapeutic effect is at a lower concentration than it's sedative effect. I am going to discuss this with Dr. Benson who is the automation tester neurologist. CAD (coronary artery disease) (Chronic) secondary diagnosis GERD (gastroesophageal reflux disease) (Chronic) secondary diagnosis Hypothyroidism (Chronic) I will check her TSH Polymyalgia rheumatica (Chronic) secondary diagnosis Serous adenocarcinoma (Chronic) No ascites Thrombocytopenia (Chronic) I will check tomorrow History of atrial fibrillation (Chronic) I will obtain a swallowing evaluation. She is swallowing her pills - clearly the levels of lacosamide demonstrates this. I remain optimistic that she will return to clear consciousness when we have the drug levels on target. Conversation with Dr. Leeann Benson: In her experience the encephalopathy is likely secondary to divalproex. She thinks the lacosamide levels are likely optimal given the previous problems with breakthrough seizures. She has not seen encephalopathy with lacosamide, more likely to have visual disturbance and gait disorder. We agreed that we should continue current Rx and wait 2 - 3 days longer. I will recheck her lacosamide level trough to ensure she is truly at steady state. I renewed her MOLST form Phone conversation with her daughter. She understands the outcome of our conversation and agrees with the management plan.
[2017-01-29] MEDS: Lacosamide TAB* 100 MG TAB PO SCH ×2 (10:30→20:14)
[2017-01-29] MEDS: Thyroid TAB* 60 MG PO SCH ×2 (10:30→20:14)
[2017-01-29] MEDS: NS 0.9% 1000 ML* 1,000 ML IV SCH (18:32)
--- NOTE | 2017-01-30 03:40 | PN ---
PROGRESS NOTE: DATE OF FOLLOWUP: 01/28/17 - ROOM #416 HISTORY: In speaking with the nurse, there are no acute overnight events. I reviewed Dr. Berrios's progress note as well as Dr. Fox's note from yesterday and received sign-out on the patient. She remains encephalopathic and on my interaction this afternoon is minimally interactive. There has bee no obvious witnessed seizure activity. CURRENT MEDICATIONS: 1. Tylenol 650 mg as needed. 2. Heparin 5000 units subcu q.8 hours. 3. Lacosamide 100 mg b.i.d. 4. Omeprazole 20 mg daily. 5. Normal saline at 50 mL per hour. 6. Thyroid tab 60 mg b.i.d. PHYSICAL EXAMINATION: Vital Signs: Temperature 97.6, blood pressure 156/73, heart rate of 82, and oxygen saturation 97% on room air. On general examination, she is sitting up in her hospital bed with the blankets pulled up over her and wearing a hat which is labelled with her name. Her eyes are half open. Her heart is in a regular rate and rhythm with a systolic ejection murmur. The lungs are clear anteriorly to auscultation. On neurologic examination, she does not follow any commands for me and was unable to state her name or answer any other questions. Her eyes were midline and there was blink to threat. There was no obvious facial asymmetry. The pupils were equal, round, and reactive from 3 to 2 mm. She had normal tone in the upper and lower extremities and grimaced and withdrew to noxious stimulation in all 4 extremities. LABORATORY DATA: No new laboratory data today. The last valproic acid level checked was on January 22 when it was elevated at 138. Depakote was stopped this morning after the a.m. dose. A C-reactive protein was checked yesterday and was 7.21. Her BMP was otherwise normal. IMPRESSION: Brittney Bonilla is an 86-year-old woman with a history of localization related epilepsy who presented with seizures and has had several medication changes since admission including increase in her Depakote dose then subsequently placed on lacosamide and Depakote was discontinued; however, once she experienced another seizure she was placed back on Depakote and lacosamide dose was increased. Since then, she has had no more witnessed seizure activity , but has remained encephalopathic and Depakote has been going through a weaning process this week and has been discontinued by Dr. Berrios as per Dr. Fox's recommendations this morning. A lacosamide level was drawn and is pending. I am not sure that she had an EKG prior to starting the lacosamide, but this should be considered since it can have side effects of cardiac conduction abnormalities and arrhythmias, especially in the elderly. She has had several EEGs since she has been here, which have demonstrated encephalopathy , but not any active seizure activity. At this point, I would recommend continuing with 100 mg twice daily of lacosamide. In addition, I would consider following up on another valproic acid level to see how she is clearing the medication and if a persistent level could account for any apparent encephalopathy. I also note that her ammonia was checked yesterday and was 56. The lacosamide level should return in a couple of days and may help in further guiding dosing, but she should also obviously be watched for any breakthrough clinical seizure activity. Thank you for this consultation. [id number]/[facility] #: [id number] BARBI
[2017-01-30] MEDS: Heparin VIAL(*) 5000 UNITS/ML VIAL (FIVE THOUSAND) SUBCUT SCH ×3 (05:14→21:53)
[2017-01-30] MEDS: Omeprazole CAP* 20 MG PO SCH (05:15)
[2017-01-30 05:38] LABS: Comments Flag Yes; Hematocrit 25 % (35-47); Hemoglobin 8.4 g/dl (12.0-16.0); Mean Corpuscular HGB Conc 33 g/dl (31-36); Mean Corpuscular Hemoglobin 36 pg (27-31); Mean Platelet Volume 7 um3 (7.4-10.4); Red Blood Count 2.31 10^6/ul (4.0-5.4); Red Cell Distribution Width 14 % (10.5-15); White Blood Count 3.1 10^3/ul (3.5-10.8)
[2017-01-30 05:39] LABS: Add Diff/Slide Review? Slide Review Added; Mean Corpuscular Volume 109 fL (80-97)
[2017-01-30 05:54] LABS: BUN/Creatinine Ratio 22.6 (8-20); Calcium 8.2 mg/dL (8.6-10.3); EGFR African American 82.3 (>60); Potassium 4.3 mmol/L (3.5-5.0)
--- NOTE | 2017-01-30 06:15 | PN ---
PROGRESS NOTE: DATE OF FOLLOWUP: 01/29/17 HISTORY: No acute overnight events. I spoke with Dr. Berrios earlier today who got me caught up to date on the events over this course of this hospitalization and that he feels she is a little more alert today. According to Dr. Berrios, the last known seizure was last weekend. In addition, nursing reports that she appears more alert today, but she did not eat much of her lunch and she has not spoken much. CURRENT MEDICATIONS: 1. Tylenol 650 q.4 hours p.r.n. 2. Heparin 5000 units q.8 scheduled. 3. Vimpat 100 mg b.i.d. 4. Omeprazole 20 mg daily. 5. Normal saline 50 mL per hour. 6. Thyroid tab 60 mg b.i.d. PHYSICAL EXAMINATION: Vital Signs: Temperature 98.2, blood pressure 156/58, heart rate 83, oxygen saturation 98% on room air. When I entered the room, Ms. Bonilla was sitting upright with her eyes wide open appearing much more alert than yesterday. She smiled at me when I entered the room and shook her head yes when asked what her name was, but was not able to produce her name and was not able to repeat it when I said it. She was not able to follow any commands including to close her eyes, protrude her tongue, or show me her thumb. Her gaze was midline and there were no abnormal eye movements noted. Her face is symmetric. She is able to sustain her arms briefly antigravity, but initially winced in pain when I lifted the left hand off the bed. She grimaces to noxious stimulation in both feet. The rest of the neurologic exam cannot be performed due to her level of cooperation. LABORATORY DATA: Valproic acid level this morning was 39. Lacosamide level drawn around noon on January 27 returned at 9.6. IMPRESSION AND PLAN: An 86-year-old woman with presumed complex partial seizures, who typically has a prolonged postictal period and came in with seizures and has had multiple medication changes made during this admission. Most recently, her Depakote has been discontinued due to encephalopathy and she was started on Vimpat which is now being dosed at 100 mg twice daily. There have been no reported or observed seizures in several days. Her lacosamide level is within the therapeutic range though this was not a trough level. I doubt that her encephalopathy that is persisting is significantly related to her current lacosamide level and I prefer to not make any further changes right now and just see how she does over the next day or two hopefully coming more around to her typical mental status. The usual toxic effects that I see with lacosamide include blurred/double vision and gait imbalance. She does still have some Depakote on board, but the level is at 39 and trending down. The plan was discussed with Dr. Berrios earlier today. I will follow the patient along with you. Thank you for this consultation. [id number]/[facility] #: [id number] BARBI
[2017-01-30 08:04] LABS: TSH (Thyroid Stimulating Horm) 0.51 mcIU/mL (0.34-5.60)
--- NOTE | 2017-01-30 08:52 | PN ---
Subjective - Subjective Reason for Note: Progress Note History: She is waking up. This morning she smiled, followed one step commands. She has poverty of speech, but is able to say her name. 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 Thrombocytopenia (Chronic) D69.6 Current Medications: Current Medications Acetaminophen (Tylenol Tab*) 650 mg PO Q4HR PRN PRN Reason: PAIN Last Admin: 01/27/17 13:45 Dose: 650 mg Heparin Sodium (Porcine) (Heparin Vial(*)) 5,000 units SUBCUT Q8HR [facility] Last Admin: 01/30/17 05:14 Dose: 5,000 units Sodium Chloride (Ns 0.9% 1000 Ml*) 1,000 mls @ 50 mls/hr IV .PER RATE [facility] Last Admin: 01/29/17 18:32 Dose: 50 mls/hr Lacosamide (Vimpat Tab*) 100 mg PO BID [facility] Last Admin: 01/29/17 20:14 Dose: 100 mg Omeprazole (Prilosec Cap*) 20 mg PO 0600 [facility] Last Admin: 01/30/17 05:15 Dose: 20 mg Thyroid (Thyroid Tab*) 60 mg PO BID [facility] Last Admin: 01/29/17 20:14 Dose: 60 mg Home Medications: Home Medications Medication Instructions Recorded Confirmed Type Levetiracetam XR TAB(NF) [Keppra 1,000 mg PO BID 09/02/16 01/16/17 History XR TAB(NF)] Thyroid TAB* [Thyroid TAB 60 MG*] 60 mg PO BID 09/02/16 01/16/17 History Omeprazole CAP* [Prilosec CAP* 20 20 mg PO DAILY 10/15/16 01/16/17 History MG] Cholecalciferol [Vitamin D3] 50,000 mg PO WEEKLY 01/16/17 01/16/17 History Divalproex ER TAB(*) [Depakote ER 1,000 mg PO BID 01/16/17 01/16/17 History TAB(*)] Lactulose* 10 mg PO BID PRN 01/16/17 01/16/17 History Ondansetron TAB* [Zofran 4 MG Tab*] 4 mg PO TID PRN 01/16/17 01/16/17 History Pantoprazole TAB (NF) [Protonix 40 mg PO DAILY 01/16/17 01/16/17 History TAB (NF)] Prochlorperazine TAB* [Compazine 10 mg PO QID PRN 01/16/17 01/16/17 History Tab*] Allergies: Allergies Allergy/AdvReac Type Severity Reaction Status Date / Time Azathioprine Allergy Unknown Verified 09/01/16 12:28 Reaction Details Codeine Allergy Unknown Verified 09/01/16 12:28 Reaction Details Corticosteroids Allergy Swelling Verified 09/01/16 12:28 Diltiazem Allergy Unknown Verified 09/01/16 12:28 Reaction Details Levetiracetam Allergy See Comment Verified 09/01/16 12:28 Macrolides and Ketolides Allergy Unknown Verified 09/01/16 12:28 Reaction Details Penicillins Allergy Hives Verified 09/01/16 12:28 Phenytoin [From Dilantin] Allergy Hives Verified 09/01/16 12:28 Sulfa Drugs Allergy Hives Verified 09/01/16 12:28 Tetracyclines & Related Allergy Difficulty Verified 09/01/16 12:28 Breathing/Wheezing Doxycycline AdvReac GI Upset Verified 06/09/16 06:51 Lidocaine AdvReac GI Upset Verified 06/09/16 06:51 Moxifloxacin [From Avelox] AdvReac Diarrhea Verified 06/09/16 06:51 Objective - Vital Signs Vital Signs: Vital Signs 01/29/17 01/29/17 01/29/17 15:29 20:00 23:23 Temperature 97.3 F 98.2 F Pulse Rate 78 79 Respiratory 16 26 Rate Blood Pressure 130/57 157/66 (mmHg) O2 Sat by Pulse 98 98 97 Oximetry 01/30/17 07:20 Temperature 98.2 F Pulse Rate 75 Respiratory Rate Blood Pressure 159/69 (mmHg) O2 Sat by Pulse 98 Oximetry - Intake and Output Intake and Output: Intake & Output 01/27/17 01/28/17 01/29/17 01/30/17 11:59 11:59 11:59 11:59 Intake Total 2783 1350 2635 1668 Output Total 400 0 0 Balance 2383 1350 2635 1668 Intake: IV Fluids 2433 620 1955 600 Normal Saline 2433 620 1955 600 IVPB 1038 Normal Saline 1038 Oral 350 730 680 30 Output: Urine 400 0 0 Other: Estimated Void Large Medium Large # Bowel Movements 0 0 0 Estimated Stool Amount Medium # Voids 3 3 1 3 ADLs: Meal Record Start: 01/16/17 16: 08 Freq: 09,13,18 Status: Complete Created 01/16/17 16:08 [id number] (Rec: 01/16/17 16:08 [id number] ICU-M02) Document 01/16/17 18:00 YNO2094 (Rec: 01/16/17 18:06 XRR9539 ICU-C16) Document 01/17/17 09:00 FPH8322 (Rec: 01/17/17 09:49 DHG3115 ICU-C10) Document 01/17/17 13:00 YPQ6189 (Rec: 01/17/17 13:02 ITD2324 ICU-C16) Document 01/17/17 18:00 OPH9144 (Rec: 01/17/17 18:55 VBM6686 ICU-C16) Document 01/18/17 07:27 VRZ2859 (Rec: 01/18/17 07:27 [id number] ICU-C20) ADLs: Meal Record Start: 01/18/17 08: 22 Freq: DAILY@0900,1400,1800 Status: Active Created 01/18/17 08:22 OBV5883 (Rec: 01/18/17 08:22 JIB9094 ICU-C10) Document 01/18/17 08:23 UNR1543 (Rec: 01/18/17 08:23 LJW6999 ICU-C10) Document 01/18/17 14:00 FTG6456 (Rec: 01/18/17 14:00 KMY5844 ICU-C16) Document 01/18/17 19:00 WDZ1002 (Rec: 01/18/17 20:34 LVH5804 ICU-C16) Document 01/19/17 09:00 OND0811 (Rec: 01/19/17 09:15 OLL3863 ICU-C16) Document 01/19/17 13:27 JBS0743 (Rec: 01/19/17 13:27 EKU9997 MED-C09) Document 01/19/17 18:00 OCM7857 (Rec: 01/19/17 19:02 OOA4745 MED-C11) Document 01/20/17 14:00 IQA0895 (Rec: 01/20/17 14:06 LCZ5543 MED-C16) Document 01/20/17 18:00 DSX3055 (Rec: 01/20/17 19:00 JCQ1671 MED-C09) Document 01/21/17 09:00 PSU1040 (Rec: 01/21/17 10:47 UVM8796 MED-C09) Document 01/21/17 14:00 PFF6063 (Rec: 01/21/17 14:10 EPJ7048 MED-C11) Document 01/22/17 03:48 EDU4857 (Rec: 01/22/17 03:48 XPI1112 MED-C14) Document 01/22/17 09:00 HCI7278 (Rec: 01/22/17 09:45 JUG5054 MED-C11) Document 01/22/17 14:00 KNZ0158 (Rec: 01/22/17 14:26 NAQ9251 MED-C09) Document 01/22/17 18:00 LHP4625 (Rec: 01/22/17 18:42 BJD7140 MED-C09) Document 01/23/17 09:00 NSP8620 (Rec: 01/23/17 10:07 IHO6973 MED-C11) Document 01/23/17 12:57 BKI6616 (Rec: 01/23/17 12:57 OIQ0264 MED-C11) Document 01/23/17 18:00 MHL9522 (Rec: 01/23/17 19:01 MJP6329 MED-L07) Document 01/24/17 09:00 WLL4611 (Rec: 01/24/17 11:03 RRC5549 MED-C11) Document 01/24/17 14:00 BYF2675 (Rec: 01/24/17 14:02 ZGE9904 MED-C11) Document 01/24/17 18:00 ETR7946 (Rec: 01/24/17 21:48 RXW0109 MED-C11) Document 01/25/17 09:00 QLL9726 (Rec: 01/25/17 09:36 PKN4582 MED-C16) Document 01/25/17 18:00 TXI3512 (Rec: 01/25/17 22:44 IOC9912 MED-C09) Document 01/26/17 09:00 FCR4774 (Rec: 01/26/17 15:24 BWP9591 MED-C11) Document 01/26/17 14:00 YCL9762 (Rec: 01/26/17 15:26 GSM8715 MED-C11) Document 01/26/17 18:00 SDL2445 (Rec: 01/26/17 19:50 QWO2478 MED-C09) Document 01/27/17 09:00 YEN2285 (Rec: 01/27/17 09:33 OYM9623 MED-C11) Document 01/27/17 13:25 IPI6865 (Rec: 01/27/17 13:25 VKH8338 MED-C11) Document 01/27/17 18:00 PVO6346 (Rec: 01/27/17 21:54 WZQ8957 MED-C11) Document 01/28/17 09:00 LXP8227 (Rec: 01/28/17 15:28 OJZ8237 MED-C09) Document 01/28/17 14:00 JPG9360 (Rec: 01/28/17 15:29 RZS3901 MED-C09) Document 01/28/17 18:00 SRQ6091 (Rec: 01/28/17 22:17 MAV9651 MED-C09) Document 01/29/17 09:00 YNB6181 (Rec: 01/29/17 11:21 GIR3602 MED-C09) Document 01/29/17 14:00 IBM2118 (Rec: 01/29/17 14:45 HWI3557 MED-C11) Document 01/29/17 18:00 BUU5776 (Rec: 01/29/17 22:40 ETF8989 MED-C09) Intake and Output Start: 01/16/17 16: 08 Freq: 06,14,22 Status: Complete Created 01/16/17 16:08 PPL0587 (Rec: 01/16/17 16:08 MKC8389 ICU-M02) Document 01/16/17 22:00 HMF3344 (Rec: 01/16/17 22:01 CBS3795 ICU-C20) Document 01/17/17 06:00 VNY9961 (Rec: 01/17/17 06:29 MHW6574 ICU-M02) Document 01/17/17 11:50 GMB1086 (Rec: 01/17/17 11:51 LLP9941 ICU-C10) Document 01/17/17 14:00 MRH1468 (Rec: 01/17/17 15:55 XTU9086 ICU-C16) Document 01/17/17 21:30 DMH7930 (Rec: 01/17/17 21:30 AWB8077 ICU-M17) Document 01/18/17 05:31 FWF3121 (Rec: 01/18/17 05:31 YYO6632 ICU-C14) Intake and Output Start: 01/18/17 08: 22 Freq: DAILY@0600,1400,2200 Status: Active Created 01/18/17 08:22 DTI3030 (Rec: 01/18/17 08:22 EGO0939 ICU-C10) Document 01/18/17 13:57 HDX8118 (Rec: 01/18/17 13:57 XWJ0532 ICU-C16) Document 01/18/17 21:56 JFB6723 (Rec: 01/18/17 21:57 ZRF5287 ICU-C14) Document 01/18/17 22:00 JPD2140 (Rec: 01/18/17 22:15 AOG9515 ICU-C16) Document 01/19/17 06:00 FTL8026 (Rec: 01/19/17 06:04 ZVD4987 ICU-C16) Document 01/19/17 08:00 DJS5418 (Rec: 01/19/17 09:28 FBI4364 ICU-C16) Document 01/19/17 22:00 PXE4243 (Rec: 01/19/17 22:24 TSB1241 MED-C09) Document 01/20/17 05:19 QNL6251 (Rec: 01/20/17 05:19 AZK3241 MED-C42) Document 01/20/17 14:00 PIH0733 (Rec: 01/20/17 16:07 RIF5202 MED-L07) Document 01/20/17 21:42 OGM4229 (Rec: 01/20/17 21:43 EPJ4127 MEDL-C02) Document 01/21/17 03:32 TSX2408 (Rec: 01/21/17 03:32 EHG6710 MED-C42) Document 01/21/17 14:00 LEE4187 (Rec: 01/21/17 14:10 TPA0543 MED-C11) Document 01/21/17 22:00 SGJ2846 (Rec: 01/21/17 23:18 DYZ7918 MED-C09) Document 01/22/17 06:00 YBD7698 (Rec: 01/22/17 06:34 RJR6800 MEDL-C02) Document 01/22/17 14:00 OKB3891 (Rec: 01/22/17 14:26 HPX8863 MED-C09) Document 01/23/17 04:19 CQP7881 (Rec: 01/23/17 04:19 PIW8054 MEDL-C01) Document 01/23/17 05:24 PMJ3409 (Rec: 01/23/17 05:24 QHD5439 MED-C26) Document 01/23/17 10:08 LNM1649 (Rec: 01/23/17 10:09 JTE8326 MED-C11) Document 01/23/17 12:57 JSB4390 (Rec: 01/23/17 12:57 IJK4774 MED-C11) Document 01/23/17 22:00 OPG9159 (Rec: 01/23/17 22:25 KAV2615 MED-C11) Document 01/24/17 04:50 KDL9991 (Rec: 01/24/17 04:50 SYB1032 MED-C42) Document 01/24/17 08:58 HCP8952 (Rec: 01/24/17 08:59 KWZ6663 MED-C11) Document 01/24/17 18:30 YJL0625 (Rec: 01/24/17 18:30 TGP0788 MED-C04) Document 01/25/17 06:00 ROX0539 (Rec: 01/25/17 06:16 IPJ7894 MED-C14) Document 01/26/17 06:00 UMF1241 (Rec: 01/26/17 06:10 SGA3456 MEDL-C02) Document 01/26/17 14:00 SJK9379 (Rec: 01/26/17 15:26 QJW8824 MED-C11) Document 01/26/17 22:00 XTK1017 (Rec: 01/26/17 22:29 YYN7939 MED-C11) Document 01/27/17 06:00 LOT6147 (Rec: 01/27/17 06:30 EZO4392 MED-C09) Document 01/27/17 12:24 QEZ6610 (Rec: 01/27/17 12:24 JAX4851 MED-C11) Document 01/27/17 22:00 MIO0632 (Rec: 01/27/17 22:07 VNA7761 MED-C11) Document 01/28/17 06:00 UEF3516 (Rec: 01/28/17 06:26 GLY3832 MED-C42) Document 01/28/17 14:00 EBB5942 (Rec: 01/28/17 15:31 RBB3975 MED-C09) Document 01/28/17 22:00 XKE4194 (Rec: 01/28/17 22:18 XOT4202 MED-C09) Document 01/29/17 04:55 MYE4213 (Rec: 01/29/17 04:56 FFY2054 MED-C42) Document 01/29/17 14:00 XMC2522 (Rec: 01/29/17 14:45 UZJ9849 MED-C11) Document 01/29/17 22:00 XYE3392 (Rec: 01/29/17 22:41 KMI7853 MED-C09) Document 01/30/17 05:40 PUH0619 (Rec: 01/30/17 05:40 OUN8651 MED-C11) - Physical Exam General Physical Exam Comment: She is awake and alert. Her speech is hesitant and not more than single words. She is following one step commands. She has no facial assymmetry. She has normal motion of her right arm/hand/fingers to command. She is reluctant to lift her left arm, but is able to do this. However, she does not move her left fingers - it is unclear if this is due to pain or weakness. She moves both feet/toes. Dorsum left wrist - warm patch of red skin remains present - no worse than before. General: No Cyanosis, Yes Anemia, No Jaundice, No Clubbing Eye Exam: bilateral: EOMI Lungs and Chest: Yes: Chest Expansion Full, Chest Expansion Symetrica, Percussion Note Resonant, Vessicular Breath Sounds. No: Crackles, Wheezes Heart Rate and Rhythm: Regular [place] Beat: Non Displaced Additional Cardiovascular: Yes: Normal Heart Sounds. No: Heart Murmur, Pedal Edema Abdominal Exam: Yes: Soft, Bowel Sounds Present. No: Distention, Abdominal Mass , Hepatomegaly, Abdominal Tenderness Results - Results Lab Results: Laboratory Results - last 24 hr 01/30/17 01/30/17 05:03 05:03 WBC 3.1 L RBC 2.31 L Hgb 8.4 L Hct 25 L MCV 109 H MCH 36 H MCHC 33 RDW 14 Plt Count 52 L MPV 7 L Neut % (Auto) 49.3 Lymph % (Auto) 33.7 [place] % (Auto) 7.8 Eos % (Auto) 7.8 H Baso % (Auto) 1.4 Absolute Neuts (auto) 1.5 Absolute Lymphs (auto) 1.0 Absolute Monos (auto) 0.2 Absolute Eos (auto) 0.2 Absolute Basos (auto) 0 Absolute Nucleated RBC 0 Nucleated RBC % 0 Sodium 136 Potassium 4.3 Chloride 106 Carbon Dioxide 28 Anion Gap 2 BUN 19 Creatinine 0.84 Est GFR ( Amer) 82.3 Est GFR (Non-Af Amer) 64.0 BUN/Creatinine Ratio 22.6 H Glucose 97 Calcium 8.2 L TSH 0.51 Assessment - Problem List Assessment: Patient Problems Altered mental state (Acute) Anemia (Acute) Cellulitis of left arm (Acute) Seizure (Acute) Seizure disorder (Acute) Weakness of left hand (Acute) CAD (coronary artery disease) (Chronic) GERD (gastroesophageal reflux disease) (Chronic) Hypothyroidism (Chronic) Polymyalgia rheumatica (Chronic) Serous adenocarcinoma (Chronic) Thrombocytopenia (Chronic) History of atrial fibrillation (Chronic) Plan: Altered mental state (Acute) Seizure (Acute) Seizure disorder (Acute) Her mental state is improved today after being unchanged for many days. She is able to follow one step commands. She smiles. She has poverty of speech, but is able to voice single words (her name, for example). She is generally weak. Weakness of left hand (Acute) This is a focal weakness of her left arm, but particularly her wrist and hand. It is unclear if this is due to weakness or pain. Cellulitis of left arm (Acute) There has been no change in this patch of inflammation. I am presuming it is cellulitis. I have held back antibacterials as I wanted it to heal spontaneously. It hasn't. I wanted to avoid adverse effects of antibiotics. I think, in view of the weakness of the hand, I will start her on ancef as I have no reason to expect MRSA Anemia (Acute) I presume this is due to her poor nutrition and multiple blood draws CAD (coronary artery disease) (Chronic) secondary diagnosis GERD (gastroesophageal reflux disease) (Chronic) secondary diagnosis Hypothyroidism (Chronic) TSH on target Polymyalgia rheumatica (Chronic) on target Serous adenocarcinoma (Chronic) ongoing Thrombocytopenia (Chronic) No change History of atrial fibrillation (Chronic) For EKG as Lacosamide causes issues. Nutrition: She drank more water yesterday - I am going to stop IVF. I will progress her diet - need a swallowing evaluation. I called daughter and discussed the above.
[2017-01-30] MEDS: Lacosamide TAB* 100 MG TAB PO SCH ×2 (09:59→21:54)
[2017-01-30] MEDS: ceFAZolin 1 GM in Dextrose (*) 1 GM/50 ML BAG IVPB SCH ×2 (09:59→17:12)
[2017-01-30] MEDS: Thyroid TAB* 60 MG PO SCH ×2 (09:59→21:53)
[2017-01-31] MEDS: ceFAZolin 1 GM in Dextrose (*) 1 GM/50 ML BAG IVPB SCH ×3 (01:22→17:23)
--- NOTE | 2017-01-31 03:24 | PN ---
PROGRESS NOTE: DATE OF FOLLOWUP: 01/30/17 - ROOM #416 OVERNIGHT EVENTS: I am not aware of any acute overnight events. This afternoon when I entered, she made eye contact with me, smiled, and said good afternoon and was able to state her name and indicate she was in pain "all over. " However, she then mostly stopped responding as described below. CURRENT MEDICATIONS: 1. Tylenol 650 q.4 for p.r.n. pain. 2. Cefazolin 1 g q.8 hours. 3. Heparin q.8 hours. 4. Lacosamide 100 mg twice daily. 5. Omeprazole 20 mg daily. 6. Thyroid tab 60 mg twice daily. PHYSICAL EXAMINATION: Temperature 98.2, blood pressure 159/69, heart rate of 75 , and oxygen saturation 98% on room air. When I initially entered the room, she was sitting semi-reclined with her eyes wide open, smiled at me, and said good afternoon. She was able to state her name and indicated that she was pain and that the pain was diffuse. She was able to lift the right arm off the bed antigravity, but did not lift the left arm and when asked why, she stated that she did not wish to because of pain. 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 She then largely stopped responding to me and would glance around the room, but did not have any forced gaze deviation. She had no notable automatism though she occasionally licked her lips and brought her right hand up to her right ear on one occasion. I continued to try interacting with her asking her questions, but she was not responding to me and only would briefly glance in my direction. I then switched my position over to the left side of her bed and she again began responding with single word answers. When told that she was in the hospital because of a seizure, she then perseverated on the word seizure. LABORATORY DATA: CBC was reviewed and shows a white count of 3.1, hematocrit of 25, platelets of 52 all of which has been relatively stable except for the drop in hematocrit from 30 to 25 over the past 5 days. Her BMP is largely unremarkable aside from a calcium of 8.2 and BUN to creatinine ratio of 22.6 and her TSH is normal at 0.51. 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 She is now on lacosamide monotherapy 100 mg twice daily for her seizures and there has been no observed breakthrough seizure activity. I placed a call to Dr. Berrios to discuss with him whether he knows what the semiology of her seizures typically looks like. It is not clear if what I observed today could have been a focal temporal lobe seizure which can be motorically bland at times, or if this is related to her fluctuating encephalopathy, which has been steadily improving over the last couple of days. At this point, I would not recommend any change in her lacosamide dose, but would recommend that 100 mg twice daily be continued. If we have suspicion that she has had a breakthrough seizure on this dose, I would recommend increasing to 150 mg twice daily. [id number]/[facility] #: [id number] MTDD
[2017-01-31] MEDS: Omeprazole CAP* 20 MG PO SCH (06:25)
[2017-01-31] MEDS: Heparin VIAL(*) 5000 UNITS/ML VIAL (FIVE THOUSAND) SUBCUT SCH ×2 (06:25→14:55)
--- NOTE | 2017-01-31 08:21 | PN ---
Subjective - Subjective Reason for Note: Progress Note History: She is less responsive today. She was able to say a couple of words, but was not following commands as well as yesterday. I note she was seen by speech therapy for a swallowing evaluation and she is able to safely drink clear liquids with swallowing precautions. According to I & O she only drank 150 mls yesterday. This is less than previous days when in fact she was less responsive. 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 Thrombocytopenia (Chronic) D69.6 Current Medications: Current Medications Acetaminophen (Tylenol Tab*) 650 mg PO Q4HR PRN PRN Reason: PAIN Last Admin: 01/27/17 13:45 Dose: 650 mg Heparin Sodium (Porcine) (Heparin Vial(*)) 5,000 units SUBCUT Q8HR [facility] Last Admin: 01/31/17 06:25 Dose: 5,000 units Heparin Sodium (Porcine) (Heparin Flush Port (Ivad)) 5 ml FLUSH DAILY TONYA PRN Reason: Protocol Last Admin: 01/30/17 18:38 Dose: 5 ml Cefazolin Sodium/Dextrose (Kefzol 1 Gm In Dextrose Duplex (*)) 1 gm in 50 mls @ 200 mls/hr IVPB Q8H TONYA Last Admin: 01/31/17 01:22 Dose: 200 mls/hr Lacosamide (Vimpat Tab*) 100 mg PO BID TONYA Last Admin: 01/30/17 21:54 Dose: 100 mg Omeprazole (Prilosec Cap*) 20 mg PO 0600 TONYA Last Admin: 01/31/17 06:25 Dose: 20 mg Thyroid (Thyroid Tab*) 60 mg PO BID [facility] Last Admin: 01/30/17 21:53 Dose: 60 mg Home Medications: Home Medications Medication Instructions Recorded Confirmed Type Levetiracetam XR TAB(NF) [Keppra 1,000 mg PO BID 09/02/16 01/16/17 History XR TAB(NF)] Thyroid TAB* [Thyroid TAB 60 MG*] 60 mg PO BID 09/02/16 01/16/17 History Omeprazole CAP* [Prilosec CAP* 20 20 mg PO DAILY 10/15/16 01/16/17 History MG] Cholecalciferol [Vitamin D3] 50,000 mg PO WEEKLY 01/16/17 01/16/17 History Divalproex ER TAB(*) [Depakote ER 1,000 mg PO BID 01/16/17 01/16/17 History TAB(*)] Lactulose* 10 mg PO BID PRN 01/16/17 01/16/17 History Ondansetron TAB* [Zofran 4 MG Tab*] 4 mg PO TID PRN 01/16/17 01/16/17 History Pantoprazole TAB (NF) [Protonix 40 mg PO DAILY 01/16/17 01/16/17 History TAB (NF)] Prochlorperazine TAB* [Compazine 10 mg PO QID PRN 01/16/17 01/16/17 History Tab*] Allergies: Allergies Allergy/AdvReac Type Severity Reaction Status Date / Time Azathioprine Allergy Unknown Verified 09/01/16 12:28 Reaction Details Codeine Allergy Unknown Verified 09/01/16 12:28 Reaction Details Corticosteroids Allergy Swelling Verified 09/01/16 12:28 Diltiazem Allergy Unknown Verified 09/01/16 12:28 Reaction Details Levetiracetam Allergy See Comment Verified 09/01/16 12:28 Macrolides and Ketolides Allergy Unknown Verified 09/01/16 12:28 Reaction Details Penicillins Allergy Hives Verified 09/01/16 12:28 Phenytoin [From Dilantin] Allergy Hives Verified 09/01/16 12:28 Sulfa Drugs Allergy Hives Verified 09/01/16 12:28 Tetracyclines & Related Allergy Difficulty Verified 09/01/16 12:28 Breathing/Wheezing Doxycycline AdvReac GI Upset Verified 06/09/16 06:51 Lidocaine AdvReac GI Upset Verified 06/09/16 06:51 Moxifloxacin [From Avelox] AdvReac Diarrhea Verified 06/09/16 06:51 Objective - Vital Signs Vital Signs: Vital Signs 01/30/17 01/30/17 01/30/17 15:26 20:00 23:23 Temperature 97.6 F 97.9 F Pulse Rate 86 97 Respiratory 20 18 16 Rate Blood Pressure 142/66 153/75 (mmHg) O2 Sat by Pulse 99 97 96 Oximetry 01/31/17 07:33 Temperature 98.7 F Pulse Rate 89 Respiratory 16 Rate Blood Pressure 132/63 (mmHg) O2 Sat by Pulse 97 Oximetry - Intake and Output Intake and Output: Intake & Output 01/28/17 01/29/17 01/30/17 01/31/17 11:59 11:59 11:59 11:59 Intake Total 1350 2635 1788 1221 Output Total 0 0 Balance 1350 2635 1788 1221 Intake: IV Fluids 620 1955 600 362 Normal Saline 620 1955 600 362 IVPB 1038 129 Normal Saline 1038 ceftriaxone 129 Oral 730 680 150 730 Output: Urine 0 0 Other: Estimated Void Large Medium Large Large # Bowel Movements 0 0 0 Estimated Stool Amount Medium # Voids 3 1 3 2 ADLs: Meal Record Start: 01/16/17 16: 08 Freq: 09,13,18 Status: Complete Created 01/16/17 16:08 [id number] (Rec: 01/16/17 16:08 [id number] ICU-M02) Document 01/16/17 18:00 OJK5871 (Rec: 01/16/17 18:06 UJK6147 ICU-C16) Document 01/17/17 09:00 LGT5321 (Rec: 01/17/17 09:49 BEW5009 ICU-C10) Document 01/17/17 13:00 UDO7694 (Rec: 01/17/17 13:02 KND5591 ICU-C16) Document 01/17/17 18:00 FHJ3874 (Rec: 01/17/17 18:55 WPU9203 ICU-C16) Document 01/18/17 07:27 KMK1764 (Rec: 01/18/17 07:27 QQQ4797 ICU-C20) ADLs: Meal Record Start: 01/18/17 08: 22 Freq: DAILY@0900,1400,1800 Status: Active Created 01/18/17 08:22 [id number] (Rec: 01/18/17 08:22 OGA6543 ICU-C10) Document 01/18/17 08:23 FGT5414 (Rec: 01/18/17 08:23 UZJ5893 ICU-C10) Document 01/18/17 14:00 IHH4976 (Rec: 01/18/17 14:00 HSC6477 ICU-C16) Document 01/18/17 19:00 DUP2530 (Rec: 01/18/17 20:34 AIM5667 ICU-C16) Document 01/19/17 09:00 RVV9037 (Rec: 01/19/17 09:15 BYF7099 ICU-C16) Document 01/19/17 13:27 IZP0402 (Rec: 01/19/17 13:27 APC6615 MED-C09) Document 01/19/17 18:00 ELU9385 (Rec: 01/19/17 19:02 VEF0141 MED-C11) Document 01/20/17 14:00 YZI4030 (Rec: 01/20/17 14:06 XLC4789 MED-C16) Document 01/20/17 18:00 FCC9983 (Rec: 01/20/17 19:00 FNS5107 MED-C09) Document 01/21/17 09:00 UZU8291 (Rec: 01/21/17 10:47 UAX6462 MED-C09) Document 01/21/17 14:00 ITM3163 (Rec: 01/21/17 14:10 ZPC8314 MED-C11) Document 01/22/17 03:48 CZX6431 (Rec: 01/22/17 03:48 HCG7641 MED-C14) Document 01/22/17 09:00 FLK7500 (Rec: 01/22/17 09:45 TJG7364 MED-C11) Document 01/22/17 14:00 BHO2743 (Rec: 01/22/17 14:26 WFK6076 MED-C09) Document 01/22/17 18:00 EXE1097 (Rec: 01/22/17 18:42 EKA4960 MED-C09) Document 01/23/17 09:00 RJZ5481 (Rec: 01/23/17 10:07 EPU4038 MED-C11) Document 01/23/17 12:57 BVO8561 (Rec: 01/23/17 12:57 ABN0302 MED-C11) Document 01/23/17 18:00 JOU8941 (Rec: 01/23/17 19:01 NVD7262 MED-L07) Document 01/24/17 09:00 XUQ2858 (Rec: 01/24/17 11:03 DCA1627 MED-C11) Document 01/24/17 14:00 FRN1641 (Rec: 01/24/17 14:02 STV6097 MED-C11) Document 01/24/17 18:00 JKG4193 (Rec: 01/24/17 21:48 DTH0848 MED-C11) Document 01/25/17 09:00 WDW0011 (Rec: 01/25/17 09:36 KEI3516 MED-C16) Document 01/25/17 18:00 KAX5328 (Rec: 01/25/17 22:44 RQS9671 MED-C09) Document 01/26/17 09:00 DHV9862 (Rec: 01/26/17 15:24 GRL8020 MED-C11) Document 01/26/17 14:00 WXI2454 (Rec: 01/26/17 15:26 URC1998 MED-C11) Document 01/26/17 18:00 XIW5243 (Rec: 01/26/17 19:50 XEJ0827 MED-C09) Document 01/27/17 09:00 GCU8305 (Rec: 01/27/17 09:33 GGS4728 MED-C11) Document 01/27/17 13:25 JCM5329 (Rec: 01/27/17 13:25 URE3676 MED-C11) Document 01/27/17 18:00 TYN2371 (Rec: 01/27/17 21:54 SZF4225 MED-C11) Document 01/28/17 09:00 CMO5865 (Rec: 01/28/17 15:28 BOS8878 MED-C09) Document 01/28/17 14:00 VMN0756 (Rec: 01/28/17 15:29 IZC9344 MED-C09) Document 01/28/17 18:00 SLL0164 (Rec: 01/28/17 22:17 RGZ5449 MED-C09) Document 01/29/17 09:00 BZW1400 (Rec: 01/29/17 11:21 EIX7191 MED-C09) Document 01/29/17 14:00 HLY7029 (Rec: 01/29/17 14:45 WWP7237 MED-C11) Document 01/29/17 18:00 ZVH3934 (Rec: 01/29/17 22:40 LYZ7124 MED-C09) Document 01/30/17 09:00 OZT7292 (Rec: 01/30/17 09:27 WJA1231 MED-C11) Document 01/30/17 13:25 QMG4724 (Rec: 01/30/17 13:26 ICJ0622 MED-C11) Document 01/30/17 18:00 PCR4103 (Rec: 01/30/17 19:46 TYI6473 MED-C09) Intake and Output Start: 01/16/17 16: 08 Freq: 06,14,22 Status: Complete Created 01/16/17 16:08 YRO8966 (Rec: 01/16/17 16:08 PFA1233 ICU-M02) Document 01/16/17 22:00 LCS1887 (Rec: 01/16/17 22:01 FIO7049 ICU-C20) Document 01/17/17 06:00 FFH1855 (Rec: 01/17/17 06:29 ZCM7386 ICU-M02) Document 01/17/17 11:50 KOV0121 (Rec: 01/17/17 11:51 SVZ4357 ICU-C10) Document 01/17/17 14:00 AEC7608 (Rec: 01/17/17 15:55 PEA0182 ICU-C16) Document 01/17/17 21:30 HQQ5917 (Rec: 01/17/17 21:30 FOB8576 ICU-M17) Document 01/18/17 05:31 LCE1152 (Rec: 01/18/17 05:31 NPK0494 ICU-C14) Intake and Output Start: 01/18/17 08: 22 Freq: DAILY@0600,1400,2200 Status: Active Created 01/18/17 08:22 IBW0207 (Rec: 01/18/17 08:22 RSN2271 ICU-C10) Document 01/18/17 13:57 IQX8392 (Rec: 01/18/17 13:57 YQX0098 ICU-C16) Document 01/18/17 21:56 YGO2256 (Rec: 01/18/17 21:57 XVI8581 ICU-C14) Document 01/18/17 22:00 CYZ9513 (Rec: 01/18/17 22:15 SEQ9102 ICU-C16) Document 01/19/17 06:00 NMK3001 (Rec: 01/19/17 06:04 KSF3806 ICU-C16) Document 01/19/17 08:00 GYR9732 (Rec: 01/19/17 09:28 KQJ4417 ICU-C16) Document 01/19/17 22:00 VUC2763 (Rec: 01/19/17 22:24 PDM8792 MED-C09) Document 01/20/17 05:19 PER9086 (Rec: 01/20/17 05:19 LKV9157 MED-C42) Document 01/20/17 14:00 GUX0386 (Rec: 01/20/17 16:07 ZUE6910 MED-L07) Document 01/20/17 21:42 FNV3778 (Rec: 01/20/17 21:43 RSE4716 MEDL-C02) Document 01/21/17 03:32 QHW9325 (Rec: 01/21/17 03:32 WYB4636 MED-C42) Document 01/21/17 14:00 UXF4852 (Rec: 01/21/17 14:10 OJX3743 MED-C11) Document 01/21/17 22:00 EDB8122 (Rec: 01/21/17 23:18 QGX0183 MED-C09) Document 01/22/17 06:00 GUW2766 (Rec: 01/22/17 06:34 TLM5453 MEDL-C02) Document 01/22/17 14:00 JTX5682 (Rec: 01/22/17 14:26 BLU2005 MED-C09) Document 01/23/17 04:19 KOO2031 (Rec: 01/23/17 04:19 CLB1353 MEDL-C01) Document 01/23/17 05:24 GET5631 (Rec: 01/23/17 05:24 YEP7168 MED-C26) Document 01/23/17 10:08 QMJ1356 (Rec: 01/23/17 10:09 SGH0204 MED-C11) Document 01/23/17 12:57 UMK8483 (Rec: 01/23/17 12:57 XYF1179 MED-C11) Document 01/23/17 22:00 OIF9431 (Rec: 01/23/17 22:25 TPE7817 MED-C11) Document 01/24/17 04:50 URW8953 (Rec: 01/24/17 04:50 CSL6474 MED-C42) Document 01/24/17 08:58 QQG5076 (Rec: 01/24/17 08:59 KPT6381 MED-C11) Document 01/24/17 18:30 RHC6122 (Rec: 01/24/17 18:30 IRM3473 MED-C04) Document 01/25/17 06:00 NYF0597 (Rec: 01/25/17 06:16 KPN4232 MED-C14) Document 01/26/17 06:00 EMV8125 (Rec: 01/26/17 06:10 PJF2838 MEDL-C02) Document 01/26/17 14:00 MIJ8459 (Rec: 01/26/17 15:26 JLA2196 MED-C11) Document 01/26/17 22:00 OQV9922 (Rec: 01/26/17 22:29 ZMC1956 MED-C11) Document 01/27/17 06:00 BCC3082 (Rec: 01/27/17 06:30 TNI5749 MED-C09) Document 01/27/17 12:24 TOY5602 (Rec: 01/27/17 12:24 IEW8489 MED-C11) Document 01/27/17 22:00 BFA6242 (Rec: 01/27/17 22:07 IUG3799 MED-C11) Document 01/28/17 06:00 APQ4916 (Rec: 01/28/17 06:26 PGF1859 MED-C42) Document 01/28/17 14:00 KVZ8262 (Rec: 01/28/17 15:31 AOB0987 MED-C09) Document 01/28/17 22:00 PXB1402 (Rec: 01/28/17 22:18 OLO4914 MED-C09) Document 01/29/17 04:55 CUL9531 (Rec: 01/29/17 04:56 MTS7685 MED-C42) Document 01/29/17 14:00 UYD0544 (Rec: 01/29/17 14:45 PJA8744 MED-C11) Document 01/29/17 22:00 LMP9961 (Rec: 01/29/17 22:41 JNK6045 MED-C09) Document 01/30/17 05:40 XLH5224 (Rec: 01/30/17 05:40 LHF9865 MED-C11) Document 01/30/17 13:25 NPZ9765 (Rec: 01/30/17 13:26 URA3578 MED-C11) Document 01/30/17 21:51 PGP7400 (Rec: 01/30/17 21:52 LVL7861 MED-C09) Document 01/31/17 05:29 XZJ1038 (Rec: 01/31/17 05:32 AWG8204 MED-C42) - Physical Exam General Physical Exam Comment: She was asleep when I entered and had difficulty becoming fully alert. She said a couple of words, but other than that didn't produce any speech. She wasn't following commands. She winces when I move her arms through passive range of motion. The patch of cellulitis on the dorsum of her left wrist is healing nicely. General: No Cyanosis, Yes Anemia, No Jaundice, No Clubbing Lungs and Chest: Yes: Chest Expansion Full, Chest Expansion Symetrica, Percussion Note Resonant, Vessicular Breath Sounds, Other - anterior chest. No : Crackles, Wheezes, Respiratory Distress, Use of Accessory Muscles Heart Rate and Rhythm: Regular [place] Beat: Non Displaced Additional Cardiovascular: Yes: Normal Heart Sounds, Heart Murmur - 2/6 murmur systlic LSE. No: Carotid Bruits, Pedal Edema Abdominal Exam: Yes: Soft, Bowel Sounds Present. No: Distention, Abdominal Mass , Abdominal Tenderness Assessment - Problem List Assessment: Patient Problems Altered mental state (Acute) Anemia (Acute) Cellulitis of left arm (Acute) Seizure (Acute) Seizure disorder (Acute) Weakness of left hand (Acute) CAD (coronary artery disease) (Chronic) GERD (gastroesophageal reflux disease) (Chronic) Hypothyroidism (Chronic) Polymyalgia rheumatica (Chronic) Serous adenocarcinoma (Chronic) Thrombocytopenia (Chronic) History of atrial fibrillation (Chronic) Plan: Altered mental state (Acute) Seizure (Acute) Seizure disorder (Acute) She continues to have an encephalopathy with fluctuating levels of alertness and responsiveness each time I see her. I note that her swallowing evaluation suggests it is safe for her to eat and drink. The low IVF levels recorded may either be that she had a poor intake, or that this was not recorded. I would rather not give her additional IVF, but I will have the care team advise me. Anemia (Acute) ongoing Cellulitis of left arm (Acute) This is improved with the cefazolin Weakness of left hand (Acute) Again, I have not witnessed her using this hand spontaneously CAD (coronary artery disease) (Chronic) secondary diagnosis GERD (gastroesophageal reflux disease) (Chronic) secondary diagnosis Hypothyroidism (Chronic) secondary diagnosis Polymyalgia rheumatica (Chronic) Secondary diagnosis - she has some stiffness and pain of her joints on passive motion today Serous adenocarcinoma (Chronic) secondary diagnosis Thrombocytopenia (Chronic) Not checked today History of atrial fibrillation (Chronic) I will check an EKG as Lacosamide can prolong the PA interval Phone call to [facility] - I bought it her up to date. Discussed prognosis - the underlying ovarian cancer coupled with frailty.
[2017-01-31] MEDS: Lacosamide TAB* 100 MG TAB PO SCH (10:22)
[2017-01-31] MEDS: Thyroid TAB* 60 MG PO SCH (10:28)
[2017-01-31] MEDS: D5W 1/2 NS KCl 20 Meq 1000 ML* 1,000 ML IV SCH (15:02)
[2017-02-01] MEDS: Lacosamide TAB* 100 MG TAB PO SCH ×3 (00:23→23:47)
[2017-02-01] MEDS: Thyroid TAB* 60 MG PO SCH ×3 (00:24→23:47)
[2017-02-01] MEDS: Heparin VIAL(*) 5000 UNITS/ML VIAL (FIVE THOUSAND) SUBCUT SCH ×4 (00:27→23:47)
[2017-02-01] MEDS: ceFAZolin 1 GM in Dextrose (*) 1 GM/50 ML BAG IVPB SCH (01:40)
--- NOTE | 2017-02-01 03:50 | PN ---
PROGRESS REPORT: DATE OF FOLLOWUP: 01/31/17 The patient is an inpatient. OVERNIGHT EVENTS: No acute overnight events. Ms. Bonilla appears less interactive again today and has not taken anything for lunch. No witnessed seizure activity. She continues to wince when her limbs are moved. MEDICATIONS: 1. Tylenol 650 q.4 p.r.n. 2. Cefazolin 1 g IV q.8 hours. 3. Heparin 5000 units q.8 hours. 4. Vimpat 100 mg twice daily. 5. Omeprazole 20 mg daily. 6. D5W half normal saline at 75 mL per hour. 7. Thyroid tab 60 mg b.i.d. PHYSICAL EXAMINATION: Vital Signs: Temperature 98.7, blood pressure 132/63, heart rate of 89, oxygen saturation 97% on room air. On general examination, she was sitting upright in the bed with her eyes open, but was nonverbal. She then began to half close her eyes and appeared sleepy. She did not follow any commands. She was either unable or unwilling to state her name or her location or the reason why she is in the hospital. Her face is symmetric and her gaze is midline. IMPRESSION: An 86-year-old woman with a history of probable complex partial seizures admitted with prolonged encephalopathy after seizures. By best available information, the last seizure was more than a week ago. She remains encephalopathic, which could be a combination of her postictal state as well as medication toxicity with discontinuation of Depakote. Lacosamide was started last week and she continues on 100 mg b.i.d. It appears that there is another level pending of lacosamide at this time. I would recommend continuing with the current dose at this time. [id number]/[facility] #: [id number] [facility]
[2017-02-01] MEDS: D5W 1/2 NS KCl 20 Meq 1000 ML* 1,000 ML IV SCH (06:18)
[2017-02-01] MEDS: Omeprazole CAP* 20 MG PO SCH (06:18)
--- NOTE | 2017-02-01 08:25 | PN ---
Subjective - Subjective Reason for Note: Progress Note History: She was receiving a bed bath when I entered. According to the aides she has not said anything, despite being awake. It is apparent she has pain in many of her joints when moved passively as she grimaces. She is not verbalizing or following commands. 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 Thrombocytopenia (Chronic) D69.6 Current Medications: Current Medications Acetaminophen (Tylenol Tab*) 650 mg PO Q4HR PRN PRN Reason: PAIN Last Admin: 01/27/17 13:45 Dose: 650 mg Heparin Sodium (Porcine) (Heparin Vial(*)) 5,000 units SUBCUT Q8HR [facility] Last Admin: 02/01/17 06:18 Dose: 5,000 units Heparin Sodium (Porcine) (Heparin Flush Port (Ivad)) 5 ml FLUSH DAILY TONYA PRN Reason: Protocol Last Admin: 01/31/17 11:23 Dose: 5 ml Cefazolin Sodium/Dextrose (Kefzol 1 Gm In Dextrose Duplex (*)) 1 gm in 50 mls @ 200 mls/hr IVPB Q8H TONYA Last Admin: 02/01/17 01:40 Dose: 200 mls/hr Potassium Chloride/Dextrose (D5w 1/2 Ns Kcl 20 Meq 1000 Ml*) 1,000 mls @ 75 mls /hr IV PER RATE [facility] Last Admin: 02/01/17 06:18 Dose: 75 mls/hr Lacosamide (Vimpat Tab*) 100 mg PO BID [facility] Last Admin: 02/01/17 00:23 Dose: 100 mg Omeprazole (Prilosec Cap*) 20 mg PO 0600 TONYA Last Admin: 02/01/17 06:18 Dose: 20 mg Thyroid (Thyroid Tab*) 60 mg PO BID TONYA Last Admin: 02/01/17 00:24 Dose: 60 mg Home Medications: Home Medications Medication Instructions Recorded Confirmed Type Levetiracetam XR TAB(NF) [Keppra 1,000 mg PO BID 09/02/16 01/16/17 History XR TAB(NF)] Thyroid TAB* [Thyroid TAB 60 MG*] 60 mg PO BID 09/02/16 01/16/17 History Omeprazole CAP* [Prilosec CAP* 20 20 mg PO DAILY 10/15/16 01/16/17 History MG] Cholecalciferol [Vitamin D3] 50,000 mg PO WEEKLY 01/16/17 01/16/17 History Divalproex ER TAB(*) [Depakote ER 1,000 mg PO BID 01/16/17 01/16/17 History TAB(*)] Lactulose* 10 mg PO BID PRN 01/16/17 01/16/17 History Ondansetron TAB* [Zofran 4 MG Tab*] 4 mg PO TID PRN 01/16/17 01/16/17 History Pantoprazole TAB (NF) [Protonix 40 mg PO DAILY 01/16/17 01/16/17 History TAB (NF)] Prochlorperazine TAB* [Compazine 10 mg PO QID PRN 01/16/17 01/16/17 History Tab*] Allergies: Allergies Allergy/AdvReac Type Severity Reaction Status Date / Time Azathioprine Allergy Unknown Verified 09/01/16 12:28 Reaction Details Codeine Allergy Unknown Verified 09/01/16 12:28 Reaction Details Corticosteroids Allergy Swelling Verified 09/01/16 12:28 Diltiazem Allergy Unknown Verified 09/01/16 12:28 Reaction Details Levetiracetam Allergy See Comment Verified 09/01/16 12:28 Macrolides and Ketolides Allergy Unknown Verified 09/01/16 12:28 Reaction Details Penicillins Allergy Hives Verified 09/01/16 12:28 Phenytoin [From Dilantin] Allergy Hives Verified 09/01/16 12:28 Sulfa Drugs Allergy Hives Verified 09/01/16 12:28 Tetracyclines & Related Allergy Difficulty Verified 09/01/16 12:28 Breathing/Wheezing Doxycycline AdvReac GI Upset Verified 06/09/16 06:51 Lidocaine AdvReac GI Upset Verified 06/09/16 06:51 Moxifloxacin [From Avelox] AdvReac Diarrhea Verified 06/09/16 06:51 Objective - Vital Signs Vital Signs: Vital Signs 01/31/17 01/31/17 01/31/17 15:22 22:00 22:55 Temperature Pulse Rate 86 94 Respiratory 19 24 24 Rate Blood Pressure 160/74 154/71 (mmHg) O2 Sat by Pulse 99 95 95 Oximetry 02/01/17 07:23 Temperature 98.4 F Pulse Rate 96 Respiratory 18 Rate Blood Pressure 150/72 (mmHg) O2 Sat by Pulse 95 Oximetry - Intake and Output Intake and Output: Intake & Output 01/29/17 01/30/17 01/31/17 02/01/17 11:59 11:59 11:59 11:59 Intake Total 2635 1788 1221 1130 Output Total 0 Balance 2635 1788 1221 1130 Intake: IV Fluids 1954 917 358 7015 ABX - CEFAZOLIN 50 D5 1/2 20kcl 1000 Normal Saline 1954 600 362 25 IVPB 1038 129 55 ABX - CEFAZOLIN 55 Normal Saline 1038 ceftriaxone 129 Oral 680 150 730 0 Output: Urine 0 Other: Estimated Void Medium Large Large Small # Bowel Movements 0 0 0 # Voids 1 3 2 1 ADLs: Meal Record Start: 01/16/17 16: 08 Freq: 09,13,18 Status: Complete Created 01/16/17 16:08 [id number] (Rec: 01/16/17 16:08 [id number] ICU-M02) Document 01/16/17 18:00 ULV0601 (Rec: 01/16/17 18:06 DTH1596 ICU-C16) Document 01/17/17 09:00 ZQF7324 (Rec: 01/17/17 09:49 PLZ9851 ICU-C10) Document 01/17/17 13:00 EEW6560 (Rec: 01/17/17 13:02 SWP0102 ICU-C16) Document 01/17/17 18:00 XYA1884 (Rec: 01/17/17 18:55 QEK5492 ICU-C16) Document 01/18/17 07:27 NAU8242 (Rec: 01/18/17 07:27 UFJ6333 ICU-C20) ADLs: Meal Record Start: 01/18/17 08: 22 Freq: DAILY@0900,1400,1800 Status: Active Created 01/18/17 08:22 TKA9807 (Rec: 01/18/17 08:22 SJZ7774 ICU-C10) Document 01/18/17 08:23 TMQ3837 (Rec: 01/18/17 08:23 BWD5354 ICU-C10) Document 01/18/17 14:00 MFG5085 (Rec: 01/18/17 14:00 QVQ3300 ICU-C16) Document 01/18/17 19:00 PCI3068 (Rec: 01/18/17 20:34 ZJL0385 ICU-C16) Document 01/19/17 09:00 ZDC0403 (Rec: 01/19/17 09:15 DQY9221 ICU-C16) Document 01/19/17 13:27 MTP9022 (Rec: 01/19/17 13:27 NJH4115 MED-C09) Document 01/19/17 18:00 BZL3765 (Rec: 01/19/17 19:02 FDC6559 MED-C11) Document 01/20/17 14:00 VXB9629 (Rec: 01/20/17 14:06 URC8581 MED-C16) Document 01/20/17 18:00 QNJ6566 (Rec: 01/20/17 19:00 RLH3400 MED-C09) Document 01/21/17 09:00 ZRZ9242 (Rec: 01/21/17 10:47 AHV3907 MED-C09) Document 01/21/17 14:00 JOJ1640 (Rec: 01/21/17 14:10 MCJ7321 MED-C11) Document 01/22/17 03:48 VRE8082 (Rec: 01/22/17 03:48 ERT8639 MED-C14) Document 01/22/17 09:00 RZU9192 (Rec: 01/22/17 09:45 URY0301 MED-C11) Document 01/22/17 14:00 FEB6444 (Rec: 01/22/17 14:26 XNR6067 MED-C09) Document 01/22/17 18:00 VUH4769 (Rec: 01/22/17 18:42 KUZ0018 MED-C09) Document 01/23/17 09:00 YGN2377 (Rec: 01/23/17 10:07 EMQ0916 MED-C11) Document 01/23/17 12:57 KBR0135 (Rec: 01/23/17 12:57 DVF0740 MED-C11) Document 01/23/17 18:00 MOX5215 (Rec: 01/23/17 19:01 IIE2823 MED-L07) Document 01/24/17 09:00 JVH6673 (Rec: 01/24/17 11:03 VMK0796 MED-C11) Document 01/24/17 14:00 FGQ2036 (Rec: 01/24/17 14:02 RWF9055 MED-C11) Document 01/24/17 18:00 PJL9584 (Rec: 01/24/17 21:48 VJD5305 MED-C11) Document 01/25/17 09:00 ZEN6878 (Rec: 01/25/17 09:36 GNH5486 MED-C16) Document 01/25/17 18:00 PUI8026 (Rec: 01/25/17 22:44 MCM2434 MED-C09) Document 01/26/17 09:00 DOZ8840 (Rec: 01/26/17 15:24 IFO0981 MED-C11) Document 01/26/17 14:00 RUQ9574 (Rec: 01/26/17 15:26 XHW1856 MED-C11) Document 01/26/17 18:00 KDF7959 (Rec: 01/26/17 19:50 JPE7034 MED-C09) Document 01/27/17 09:00 OWU9649 (Rec: 01/27/17 09:33 NKI4482 MED-C11) Document 01/27/17 13:25 SYH4260 (Rec: 01/27/17 13:25 GMV0872 MED-C11) Document 01/27/17 18:00 ZBL0232 (Rec: 01/27/17 21:54 RWT1574 MED-C11) Document 01/28/17 09:00 BUA5485 (Rec: 01/28/17 15:28 IKN5416 MED-C09) Document 01/28/17 14:00 XEV5610 (Rec: 01/28/17 15:29 RQB2747 MED-C09) Document 01/28/17 18:00 JHU7160 (Rec: 01/28/17 22:17 XKX1777 MED-C09) Document 01/29/17 09:00 RUV3167 (Rec: 01/29/17 11:21 ZIS0931 MED-C09) Document 01/29/17 14:00 XHT1211 (Rec: 01/29/17 14:45 DOE4076 MED-C11) Document 01/29/17 18:00 VHP8857 (Rec: 01/29/17 22:40 SCE5617 MED-C09) Document 01/30/17 09:00 GZI2226 (Rec: 01/30/17 09:27 OFF4288 MED-C11) Document 01/30/17 13:25 YEZ7322 (Rec: 01/30/17 13:26 YCZ0362 MED-C11) Document 01/30/17 18:00 FEY5156 (Rec: 01/30/17 19:46 GWU9495 MED-C09) Document 01/31/17 09:00 YVO5033 (Rec: 01/31/17 09:45 RPY3074 MED-C11) Document 01/31/17 14:00 TLX8785 (Rec: 01/31/17 14:35 BDU2002 MED-C09) Document 01/31/17 18:00 TKH1524 (Rec: 01/31/17 18:28 OWT6448 MED-C09) Intake and Output Start: 01/16/17 16: 08 Freq: 06,14,22 Status: Complete Created 01/16/17 16:08 IKU8187 (Rec: 01/16/17 16:08 HMW7794 ICU-M02) Document 01/16/17 22:00 XWH8034 (Rec: 01/16/17 22:01 PFN3308 ICU-C20) Document 01/17/17 06:00 AKA2421 (Rec: 01/17/17 06:29 LIG9467 ICU-M02) Document 01/17/17 11:50 PLX3299 (Rec: 01/17/17 11:51 CKV2372 ICU-C10) Document 01/17/17 14:00 ZOU3719 (Rec: 01/17/17 15:55 CFC1704 ICU-C16) Document 01/17/17 21:30 JRH1626 (Rec: 01/17/17 21:30 MJH3966 ICU-M17) Document 01/18/17 05:31 ZDW2325 (Rec: 01/18/17 05:31 MXM3367 ICU-C14) Intake and Output Start: 01/18/17 08: 22 Freq: DAILY@0600,1400,2200 Status: Active Created 01/18/17 08:22 OBN3974 (Rec: 01/18/17 08:22 LWG4178 ICU-C10) Document 01/18/17 13:57 EJW3834 (Rec: 01/18/17 13:57 RWZ6539 ICU-C16) Document 01/18/17 21:56 IKS6384 (Rec: 01/18/17 21:57 DPO6393 ICU-C14) Document 01/18/17 22:00 WMU3930 (Rec: 01/18/17 22:15 ZQR6252 ICU-C16) Document 01/19/17 06:00 HPC3847 (Rec: 01/19/17 06:04 EGH0080 ICU-C16) Document 01/19/17 08:00 MMY0443 (Rec: 01/19/17 09:28 DYE8981 ICU-C16) Document 01/19/17 22:00 OJG3356 (Rec: 01/19/17 22:24 WRN4840 MED-C09) Document 01/20/17 05:19 XXC7801 (Rec: 01/20/17 05:19 YQB6184 MED-C42) Document 01/20/17 14:00 IYW5718 (Rec: 01/20/17 16:07 HYY5142 MED-L07) Document 01/20/17 21:42 QNT2961 (Rec: 01/20/17 21:43 ZRB5393 MEDL-C02) Document 01/21/17 03:32 NBB1189 (Rec: 01/21/17 03:32 OTT6746 MED-C42) Document 01/21/17 14:00 LJW1318 (Rec: 01/21/17 14:10 IXP6549 MED-C11) Document 01/21/17 22:00 WBH0924 (Rec: 01/21/17 23:18 EJM6350 MED-C09) Document 01/22/17 06:00 JOX6373 (Rec: 01/22/17 06:34 DKM2952 MEDL-C02) Document 01/22/17 14:00 DCG7344 (Rec: 01/22/17 14:26 MWK4989 MED-C09) Document 01/23/17 04:19 ZDK2654 (Rec: 01/23/17 04:19 DIM6504 MEDL-C01) Document 01/23/17 05:24 SCH2907 (Rec: 01/23/17 05:24 YHW0714 MED-C26) Document 01/23/17 10:08 CNV3015 (Rec: 01/23/17 10:09 IXS3485 MED-C11) Document 01/23/17 12:57 YYO7760 (Rec: 01/23/17 12:57 BIS7856 MED-C11) Document 01/23/17 22:00 QIR4228 (Rec: 01/23/17 22:25 KYT1861 MED-C11) Document 01/24/17 04:50 VOZ3066 (Rec: 01/24/17 04:50 REU6379 MED-C42) Document 01/24/17 08:58 THB6638 (Rec: 01/24/17 08:59 PQE9246 MED-C11) Document 01/24/17 18:30 QUF7108 (Rec: 01/24/17 18:30 FAD4318 MED-C04) Document 01/25/17 06:00 BRO6689 (Rec: 01/25/17 06:16 HTI9213 MED-C14) Document 01/26/17 06:00 QDU9564 (Rec: 01/26/17 06:10 IGX4958 MEDL-C02) Document 01/26/17 14:00 FTN7590 (Rec: 01/26/17 15:26 IEV3701 MED-C11) Document 01/26/17 22:00 PIV0787 (Rec: 01/26/17 22:29 KYW0877 MED-C11) Document 01/27/17 06:00 YCZ7021 (Rec: 01/27/17 06:30 TOQ2249 MED-C09) Document 01/27/17 12:24 VTX0693 (Rec: 01/27/17 12:24 UNY8553 MED-C11) Document 01/27/17 22:00 HCG0193 (Rec: 01/27/17 22:07 OEE1273 MED-C11) Document 01/28/17 06:00 HNR3825 (Rec: 01/28/17 06:26 RXL4521 MED-C42) Document 01/28/17 14:00 LRY8863 (Rec: 01/28/17 15:31 EBE7967 MED-C09) Document 01/28/17 22:00 NNW4542 (Rec: 01/28/17 22:18 EKQ6350 MED-C09) Document 01/29/17 04:55 PVI2615 (Rec: 01/29/17 04:56 KSE7391 MED-C42) Document 01/29/17 14:00 YSZ9883 (Rec: 01/29/17 14:45 XOI2703 MED-C11) Document 01/29/17 22:00 QSD9540 (Rec: 01/29/17 22:41 MKA3873 MED-C09) Document 01/30/17 05:40 GNS5159 (Rec: 01/30/17 05:40 JNW6161 MED-C11) Document 01/30/17 13:25 MCL1459 (Rec: 01/30/17 13:26 FON6870 MED-C11) Document 01/30/17 21:51 ZZW1855 (Rec: 01/30/17 21:52 JKZ4246 MED-C09) Document 01/31/17 05:29 EMQ4369 (Rec: 01/31/17 05:32 KUT5575 MED-C42) Document 01/31/17 14:00 RLS7191 (Rec: 01/31/17 14:35 EKD1465 MED-C09) Document 01/31/17 21:45 QNP9847 (Rec: 01/31/17 21:45 WBV1491 MED-C09) Document 02/01/17 05:04 PWN8198 (Rec: 02/01/17 05:04 GJT7652 MED-C09) - Physical Exam General Physical Exam Comment: Neurological: conjugate eye movements. She is awake, alert, but not answering questions or following one step commands. She is not moving her left hand/fingers - these are flaccid. She is moving her left elbow and shoulder. She is moving her toes. Rheumatological: She grimmaces with passive motion of wrists, elbows, knees and shoulders. Skin: She has small abrasions, but no skin ulcers. Hematomas on buttock from fall resolving. Dorsum left wrist - cellulitis appears to have resolved - no swelling or warmth. However, wrist remains tender. General: No Cyanosis, Yes Anemia, No Jaundice, No Clubbing Lungs and Chest: Yes: Chest Expansion Full, Chest Expansion Symetrica, Percussion Note Resonant, Vessicular Breath Sounds. No: Crackles, Wheezes, Respiratory Distress, Use of Accessory Muscles Heart Rate and Rhythm: Regular Additional Cardiovascular: Yes: Normal Heart Sounds. No: Heart Murmur, Pedal Edema Abdominal Exam: Yes: Soft, Bowel Sounds Present. No: Distention, Abdominal Mass , Abdominal Tenderness Assessment - Problem List Assessment: Patient Problems Altered mental state (Acute) Anemia (Acute) Cellulitis of left arm (Acute) Pain, joint, multiple sites (Acute) Seizure (Acute) Seizure disorder (Acute) Weakness of left hand (Acute) CAD (coronary artery disease) (Chronic) GERD (gastroesophageal reflux disease) (Chronic) Hypothyroidism (Chronic) Polymyalgia rheumatica (Chronic) Serous adenocarcinoma (Chronic) Thrombocytopenia (Chronic) History of atrial fibrillation (Chronic) Plan: Altered mental state (Acute) Seizure (Acute) Seizure disorder (Acute) She remains encephalopathic. 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 She has a fluctuating course. I reviewed Dr. Benson's note and she recommends conservative measures Anemia (Acute) I will recheck tomorrow Cellulitis of left arm (Acute) Resolved clinically - though remains tender over the area Pain, joint, multiple sites (Acute) I noted this for the first time yesterday - today it is more marked. This is most likely an allergic reaction to cefazolin. Less likely to lacosamide. I will stop the cefazolin. I will give her clindamycin as this is most likely a Staph aureus infection and she is not allergic to this. I am concerned about the possibility of C. difficile, but she has many drug intolerances. Weakness of left hand (Acute) It is unclear if this is neurological or due to pain from her wrist/tenosynovitis. It looks to me like a lower motor neuron weakness - perhaps due to a nerve entrapment. This would be due to a lesion of the radial nerve branch - posterior interosseus nerve. I am not sure why this has happened and if there is any specific treatment. I will ask neurology to consider this. CAD (coronary artery disease) (Chronic) secondary diagnosis GERD (gastroesophageal reflux disease) (Chronic) secondary diagnosis Hypothyroidism (Chronic) secondary diagnosis Polymyalgia rheumatica (Chronic) secondary diagnosis Serous adenocarcinoma (Chronic) ongoing Thrombocytopenia (Chronic) recheck History of atrial fibrillation (Chronic) I am concerned about the duration of this encephalopathy. This is particularly a concern as she has poor nutrition. I spoke to her daughter Larisa. I discussed NG tube feeding. I will therefore initiate this and get a dietitian consult. I will stop her IVF. 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
[2017-02-01] MEDS ORDERED: Acetaminophen ADULT LIQ* 650 MG/20.3 ML UDC PO PRN (08:41)
[2017-02-01] MEDS: Clindamycin 300 MG IVPREMIX(* 300 MG/50 ML SDV IV SCH ×3 (09:40→22:30)
[2017-02-01 11:46] LABS: Lacosamide 8.6 mcg/mL (1.0 - 10.0)
--- NOTE | 2017-02-01 14:22 | PN ---
Progress Note - Progress Note Note: Surgery Asked by Dr. Berrios to place feeding tube. 10 F radioopaque feeding tube placed without difficulty. CXR pnd. CLFoster
--- NOTE | 2017-02-01 14:56 | RAD ---
Indication: Evaluate feeding tube placement. Single frontal view of the chest performed at 1435 hours was reviewed. Comparison is made with previous exam dated January 16, 2017. No mediastinal shift is noted. Central line is noted with the tip in the right femur. Feeding tube tip is at the gastroesophageal junction. IMPRESSION: FEEDING TUBE TIP IS AT THE GASTROESOPHAGEAL JUNCTION.
--- NOTE | 2017-02-01 15:42 | PN ---
Progress Note - Progress Note Note: Surgery CXR showed tube near GE junction. I advanced ~10 cm. Repeat CXR pnd.
--- NOTE | 2017-02-01 16:37 | RAD ---
Indication: Repositioning of feeding tube. Single frontal view of the chest performed at 1616 hours was reviewed. Comparison is made with previous exam dated earlier the same day. The feeding tube is advanced with the tip now in the fundus of the stomach. Lung bal are clear. Central line is in place. IMPRESSION: FEEDING TUBE IS NOW ADVANCED WITH THE TIP IN THE FUNDUS OF THE STOMACH.
[2017-02-02] MEDS: Clindamycin 300 MG IVPREMIX(* 300 MG/50 ML SDV IV SCH ×4 (04:21→20:15)
--- NOTE | 2017-02-02 04:22 | PN ---
PROGRESS NOTE: DATE OF FOLLOWUP: 02/01/17 - ROOM #416 OVERNIGHT EVENTS: No acute overnight events noted. Unfortunately, Mrs. Bonilla has not had any improvement in her mental status. An NG tube has been placed in order to initiate tube feeds. Her recent lacosamide level returned at 8.6. MEDICATIONS: 1. Tylenol 650 q.4 hours p.r.n. pain. 2. Clindamycin 300 mg q.6 hours. 3. Heparin 5000 units q.8 hours. 4. Vimpat 100 mg twice daily. 5. Omeprazole 20 mg daily. 6. D5 half normal saline at 75 mL per hour. 7. Thyroid tab 60 mg twice daily. PHYSICAL EXAMINATION: Vital Signs: Temperature 98.4, blood pressure 150/72, heart rate 96, and oxygen saturation 95% on room air. On my evaluation today, Brittney was having her port changed by the nurses. Her eyes were half open, and she occasionally appeared to be mouthing some words , but was essentially nonverbal. She did not follow any commands. Her face is symmetric. Given that the nurses were in the middle of the procedure, I did not examine her more in depth. IMPRESSION: An 86-year-old woman with probable complex partial seizures, admitted with prolonged encephalopathy after seizures which has been thought to be multifactorial in nature and possibly related to a resolving medication toxicity related to Depakote as well as resolving postictal state. She has really made no gains in the last 2 days. She does not appear to be having seizures any time when I have evaluated her, and there have been no witnessed seizures but if she is no different tomorrow, then I would like to check an EEG in the morning. [id number]/CPS #: [id number] [facility]
[2017-02-02 06:23] LABS: Hematocrit 24 % (35-47); Hemoglobin 8.4 g/dl (12.0-16.0); Mean Corpuscular HGB Conc 34 g/dl (31-36); Mean Corpuscular Hemoglobin 37 pg (27-31); Mean Platelet Volume 8 um3 (7.4-10.4); Red Blood Count 2.27 10^6/ul (4.0-5.4); Red Cell Distribution Width 14 % (10.5-15)
[2017-02-02 06:25] LABS: Comments Flag Yes; Mean Corpuscular Volume 108 fL (80-97)
[2017-02-02] MEDS: Heparin VIAL(*) 5000 UNITS/ML VIAL (FIVE THOUSAND) SUBCUT SCH ×3 (06:32→21:23)
[2017-02-02] MEDS: Omeprazole CAP* 20 MG PO SCH (06:32)
[2017-02-02 06:42] LABS: BUN/Creatinine Ratio 18.1 (8-20); C Reactive Protein 84.79 mg/L (< 5.00); Calcium 8.4 mg/dL (8.6-10.3); EGFR African American 83.4 (>60); EGFR Non-African American 64.9 (>60); Potassium 4.5 mmol/L (3.5-5.0)
--- NOTE | 2017-02-02 07:44 | PN ---
Subjective - Subjective Reason for Note: Progress Note History: I could wake her this morning, but she was without recognition. She looks around , but doesn't respond to simple commands or produce any speech. 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 Thrombocytopenia (Chronic) D69.6 Current Medications: Current Medications Acetaminophen (Tylenol Tab*) 650 mg PO Q4HR PRN PRN Reason: PAIN Last Admin: 01/27/17 13:45 Dose: 650 mg Acetaminophen (Tylenol Adult Liq*) 650 mg PO Q4H PRN PRN Reason: PAIN - MODERATE Heparin Sodium (Porcine) (Heparin Vial(*)) 5,000 units SUBCUT Q8HR [facility] Last Admin: 02/02/17 06:32 Dose: 5,000 units Heparin Sodium (Porcine) (Heparin Flush Port (Ivad)) 5 ml FLUSH DAILY [facility] PRN Reason: Protocol Last Admin: 02/01/17 08:44 Dose: Not Given Clindamycin HCl/Dextrose (Cleocin 300 Mg Ivpemix(*)) 300 mg in 50 mls @ 200 mls /hr IV Q6H [facility] Last Admin: 02/02/17 04:21 Dose: 200 mls/hr Lacosamide (Vimpat Tab*) 100 mg PO BID [facility] Last Admin: 02/01/17 23:47 Dose: 100 mg Omeprazole (Prilosec Cap*) 20 mg PO 0600 [facility] Last Admin: 02/02/17 06:32 Dose: 20 mg Polyethylene Glycol/Electrolytes (Miralax*) 17 gm PO DAILY [facility] Thyroid (Thyroid Tab*) 60 mg PO BID [facility] Last Admin: 02/01/17 23:47 Dose: 60 mg Home Medications: Home Medications Medication Instructions Recorded Confirmed Type Levetiracetam XR TAB(NF) [Keppra 1,000 mg PO BID 09/02/16 01/16/17 History XR TAB(NF)] Thyroid TAB* [Thyroid TAB 60 MG*] 60 mg PO BID 09/02/16 01/16/17 History Omeprazole CAP* [Prilosec CAP* 20 20 mg PO DAILY 10/15/16 01/16/17 History MG] Cholecalciferol [Vitamin D3] 50,000 mg PO WEEKLY 01/16/17 01/16/17 History Divalproex ER TAB(*) [Depakote ER 1,000 mg PO BID 01/16/17 01/16/17 History TAB(*)] Lactulose* 10 mg PO BID PRN 01/16/17 01/16/17 History Ondansetron TAB* [Zofran 4 MG Tab*] 4 mg PO TID PRN 01/16/17 01/16/17 History Pantoprazole TAB (NF) [Protonix 40 mg PO DAILY 01/16/17 01/16/17 History TAB (NF)] Prochlorperazine TAB* [Compazine 10 mg PO QID PRN 01/16/17 01/16/17 History Tab*] Allergies: Allergies Allergy/AdvReac Type Severity Reaction Status Date / Time Azathioprine Allergy Unknown Verified 09/01/16 12:28 Reaction Details Codeine Allergy Unknown Verified 09/01/16 12:28 Reaction Details Corticosteroids Allergy Swelling Verified 09/01/16 12:28 Diltiazem Allergy Unknown Verified 09/01/16 12:28 Reaction Details Levetiracetam Allergy See Comment Verified 09/01/16 12:28 Macrolides and Ketolides Allergy Unknown Verified 09/01/16 12:28 Reaction Details Penicillins Allergy Hives Verified 09/01/16 12:28 Phenytoin [From Dilantin] Allergy Hives Verified 09/01/16 12:28 Sulfa Drugs Allergy Hives Verified 09/01/16 12:28 Tetracyclines & Related Allergy Difficulty Verified 09/01/16 12:28 Breathing/Wheezing Doxycycline AdvReac GI Upset Verified 06/09/16 06:51 Lidocaine AdvReac GI Upset Verified 06/09/16 06:51 Moxifloxacin [From Avelox] AdvReac Diarrhea Verified 06/09/16 06:51 Objective - Vital Signs Vital Signs: Vital Signs 02/01/17 02/01/17 02/01/17 08:00 16:24 19:40 Temperature 98.8 F Pulse Rate 91 Respiratory 16 24 20 Rate Blood Pressure 154/72 (mmHg) O2 Sat by Pulse 95 98 96 Oximetry 02/01/17 23:38 Temperature 97.3 F Pulse Rate 95 Respiratory 16 Rate Blood Pressure 144/71 (mmHg) O2 Sat by Pulse 96 Oximetry - Intake and Output Intake and Output: Intake & Output 01/30/17 01/31/17 02/01/17 02/02/17 11:59 11:59 11:59 11:59 Intake Total 1788 1221 2486 839 Output Total 0 0 Balance 1788 1221 2486 839 Intake: IV Fluids 088 281 8467 609 ABX - CEFAZOLIN 50 D5 1/2 20kcl 2246 609 Normal Saline 600 362 25 IVPB 1038 129 165 110 ABX - CEFAZOLIN 165 ABX - CLINDAMYCIN 110 Normal Saline 1038 ceftriaxone 129 Oral 150 730 0 120 Output: Urine 0 Tube Feeding Residual 0 Amount Wasted Other: Estimated Void Large Large Medium Medium # Bowel Movements 0 0 0 # Voids 3 2 3 5 ADLs: Meal Record Start: 01/16/17 16: 08 Freq: 09,13,18 Status: Complete Created 01/16/17 16:08 [id number] (Rec: 01/16/17 16:08 XYM3686 ICU-M02) Document 01/16/17 18:00 HYZ1095 (Rec: 01/16/17 18:06 ELQ8935 ICU-C16) Document 01/17/17 09:00 SCR9335 (Rec: 01/17/17 09:49 LXS0053 ICU-C10) Document 01/17/17 13:00 TQY8529 (Rec: 01/17/17 13:02 URF2510 ICU-C16) Document 01/17/17 18:00 RSX7610 (Rec: 01/17/17 18:55 JQK6545 ICU-C16) Document 01/18/17 07:27 IQY6247 (Rec: 01/18/17 07:27 WTQ8993 ICU-C20) ADLs: Meal Record Start: 01/18/17 08: 22 Freq: DAILY@0900,1400,1800 Status: Inactive Created 01/18/17 08:22 HEG4619 (Rec: 01/18/17 08:22 HAY3045 ICU-C10) Document 01/18/17 08:23 FXO8466 (Rec: 01/18/17 08:23 CYT2828 ICU-C10) Document 01/18/17 14:00 QZG7443 (Rec: 01/18/17 14:00 QSB4572 ICU-C16) Document 01/18/17 19:00 WSR5554 (Rec: 01/18/17 20:34 RPQ5440 ICU-C16) Document 01/19/17 09:00 FZZ1320 (Rec: 01/19/17 09:15 WBY7728 ICU-C16) Document 01/19/17 13:27 VMK3053 (Rec: 01/19/17 13:27 SYA9601 MED-C09) Document 01/19/17 18:00 USJ9293 (Rec: 01/19/17 19:02 DAM2222 MED-C11) Document 01/20/17 14:00 SQU8266 (Rec: 01/20/17 14:06 CCG8260 MED-C16) Document 01/20/17 18:00 BCH1466 (Rec: 01/20/17 19:00 ITE6330 MED-C09) Document 01/21/17 09:00 RKS0559 (Rec: 01/21/17 10:47 PRP7740 MED-C09) Document 01/21/17 14:00 YVI9591 (Rec: 01/21/17 14:10 AHG5138 MED-C11) Document 01/22/17 03:48 BBJ9972 (Rec: 01/22/17 03:48 WWR3415 MED-C14) Document 01/22/17 09:00 FQW8946 (Rec: 01/22/17 09:45 JPL4033 MED-C11) Document 01/22/17 14:00 FKQ8536 (Rec: 01/22/17 14:26 YLY4284 MED-C09) Document 01/22/17 18:00 GET7946 (Rec: 01/22/17 18:42 BEM5534 MED-C09) Document 01/23/17 09:00 RQW6628 (Rec: 01/23/17 10:07 ANA6919 MED-C11) Document 03/13/17 12:57 XBJ7187 (Rec: 01/23/17 12:57 IYY6332 MED-C11) Document 01/23/17 18:00 UMW2859 (Rec: 01/23/17 19:01 MQM6469 MED-L07) Document 01/24/17 09:00 WYL3422 (Rec: 01/24/17 11:03 YNK0270 MED-C11) Document 01/24/17 14:00 EVM7965 (Rec: 01/24/17 14:02 GBQ2024 MED-C11) Document 01/24/17 18:00 HRI6457 (Rec: 01/24/17 21:48 NBZ1195 MED-C11) Document 01/25/17 09:00 ZCD4971 (Rec: 01/25/17 09:36 AHX4780 MED-C16) Document 01/25/17 18:00 KSB2385 (Rec: 01/25/17 22:44 NCF1966 MED-C09) Document 01/26/17 09:00 BJK7183 (Rec: 01/26/17 15:24 JQC8560 MED-C11) Document 01/26/17 14:00 PZG6760 (Rec: 01/26/17 15:26 QJW8053 MED-C11) Document 01/26/17 18:00 JAD5906 (Rec: 01/26/17 19:50 KDC2028 MED-C09) Document 01/27/17 09:00 OMK5368 (Rec: 01/27/17 09:33 UGG7516 MED-C11) Document 01/27/17 13:25 VHJ2464 (Rec: 01/27/17 13:25 MBY6434 MED-C11) Document 01/27/17 18:00 YID3414 (Rec: 01/27/17 21:54 WFB7633 MED-C11) Document 01/28/17 09:00 TWT2917 (Rec: 01/28/17 15:28 DCQ3153 MED-C09) Document 01/28/17 14:00 YES9137 (Rec: 01/28/17 15:29 RBR0149 MED-C09) Document 01/28/17 18:00 HNK8816 (Rec: 01/28/17 22:17 ERG2144 MED-C09) Document 01/29/17 09:00 DRJ4169 (Rec: 01/29/17 11:21 IOW9058 MED-C09) Document 01/29/17 14:00 XQL2736 (Rec: 01/29/17 14:45 JKW3064 MED-C11) Document 01/29/17 18:00 EAO2848 (Rec: 01/29/17 22:40 VVB2333 MED-C09) Document 01/30/17 09:00 LHT2539 (Rec: 01/30/17 09:27 AMY8615 MED-C11) Document 01/30/17 13:25 YVI0443 (Rec: 01/30/17 13:26 MWG8166 MED-C11) Document 01/30/17 18:00 BSW8247 (Rec: 01/30/17 19:46 VOG1558 MED-C09) Document 01/31/17 09:00 RDQ8268 (Rec: 01/31/17 09:45 POA9193 MED-C11) Document 01/31/17 14:00 JMX6808 (Rec: 01/31/17 14:35 JCK4581 MED-C09) Document 01/31/17 18:00 CNX1558 (Rec: 01/31/17 18:28 SYK9305 MED-C09) Document 02/01/17 09:00 ILZ8655 (Rec: 02/01/17 09:05 ZLD4314 MED-C09) Document 02/01/17 14:00 BRS6741 (Rec: 02/01/17 14:19 JDA6704 MED-C11) ADLs: Meal Record Start: 02/01/17 22: 47 Freq: DAILY@0900,1400,1800 Status: Active Created 02/01/17 22:47 DQA4803 (Rec: 02/01/17 22:47 LJM7897 MED-C12) Intake and Output Start: 01/16/17 16: 08 Freq: 06,14,22 Status: Complete Created 01/16/17 16:08 RKL8126 (Rec: 01/16/17 16:08 ZAP8306 ICU-M02) Document 01/16/17 22:00 SOM0450 (Rec: 01/16/17 22:01 WQV4442 ICU-C20) Document 01/17/17 06:00 CHJ8005 (Rec: 01/17/17 06:29 KCS7837 ICU-M02) Document 01/17/17 11:50 LKU9434 (Rec: 01/17/17 11:51 TGG3926 ICU-C10) Document 01/17/17 14:00 HJU0096 (Rec: 01/17/17 15:55 BTZ9182 ICU-C16) Document 01/17/17 21:30 OCJ5131 (Rec: 01/17/17 21:30 YLE8948 ICU-M17) Document 01/18/17 05:31 VXX0912 (Rec: 01/18/17 05:31 KHT2171 ICU-C14) Intake and Output Start: 01/18/17 08: 22 Freq: DAILY@0600,1400,2200 Status: Inactive Created 01/18/17 08:22 DWZ2543 (Rec: 01/18/17 08:22 HOT4857 ICU-C10) Document 01/18/17 13:57 AOF1569 (Rec: 01/18/17 13:57 SGG4156 ICU-C16) Document 01/18/17 21:56 CDJ1931 (Rec: 01/18/17 21:57 QRH4404 ICU-C14) Document 01/18/17 22:00 VQC2789 (Rec: 01/18/17 22:15 DML1244 ICU-C16) Document 01/19/17 06:00 ECM0240 (Rec: 01/19/17 06:04 HOA1952 ICU-C16) Document 01/19/17 08:00 IKT7165 (Rec: 01/19/17 09:28 VDG2814 ICU-C16) Document 01/19/17 22:00 ORM6572 (Rec: 01/19/17 22:24 CDQ5353 MED-C09) Document 01/20/17 05:19 VRB6093 (Rec: 01/20/17 05:19 QUU3145 MED-C42) Document 01/20/17 14:00 VVX4388 (Rec: 01/20/17 16:07 NRA2898 MED-L07) Document 01/20/17 21:42 GHO6660 (Rec: 01/20/17 21:43 WTY8635 MEDL-C02) Document 01/21/17 03:32 GXU0276 (Rec: 01/21/17 03:32 SZU8566 MED-C42) Document 01/21/17 14:00 PLR0990 (Rec: 01/21/17 14:10 HVI7870 MED-C11) Document 01/21/17 22:00 KGA2440 (Rec: 01/21/17 23:18 YIX0972 MED-C09) Document 01/22/17 06:00 KGF7144 (Rec: 01/22/17 06:34 RHD4450 MEDL-C02) Document 01/22/17 14:00 URV1152 (Rec: 01/22/17 14:26 JNG8698 MED-C09) Document 01/23/17 04:19 XWJ8694 (Rec: 01/23/17 04:19 MRA8764 MEDL-C01) Document 01/23/17 05:24 PYZ1194 (Rec: 01/23/17 05:24 KZR1662 MED-C26) Document 01/23/17 10:08 YTN1282 (Rec: 01/23/17 10:09 ABE9005 MED-C11) Document 01/23/17 12:57 MZE7376 (Rec: 01/23/17 12:57 XRM4973 MED-C11) Document 01/23/17 22:00 IJV1203 (Rec: 01/23/17 22:25 DWW3398 MED-C11) Document 01/24/17 04:50 HDV7401 (Rec: 01/24/17 04:50 NEC5147 MED-C42) Document 01/24/17 08:58 XCC4856 (Rec: 01/24/17 08:59 WFU1761 MED-C11) Document 01/24/17 18:30 LYZ1853 (Rec: 01/24/17 18:30 RAK3503 MED-C04) Document 01/25/17 06:00 FGW0636 (Rec: 01/25/17 06:16 LWD7278 MED-C14) Document 01/26/17 06:00 IRX9962 (Rec: 01/26/17 06:10 BLH1139 MEDL-C02) Document 01/26/17 14:00 WCY2791 (Rec: 01/26/17 15:26 UXQ1710 MED-C11) Document 01/26/17 22:00 GNF6172 (Rec: 01/26/17 22:29 HKG6612 MED-C11) Document 01/27/17 06:00 QZY8267 (Rec: 01/27/17 06:30 YQC9005 MED-C09) Document 01/27/17 12:24 RSS4564 (Rec: 01/27/17 12:24 OVW5645 MED-C11) Document 01/27/17 22:00 CEQ0654 (Rec: 01/27/17 22:07 NXX6997 MED-C11) Document 01/28/17 06:00 CZP1265 (Rec: 01/28/17 06:26 GTE3368 MED-C42) Document 01/28/17 14:00 EOT6730 (Rec: 01/28/17 15:31 KWS2985 MED-C09) Document 01/28/17 22:00 JWY0387 (Rec: 01/28/17 22:18 URX2737 MED-C09) Document 01/29/17 04:55 FOE4645 (Rec: 01/29/17 04:56 ZCM8390 MED-C42) Document 01/29/17 14:00 GSQ8653 (Rec: 01/29/17 14:45 JAW5944 MED-C11) Document 01/29/17 22:00 TLB8132 (Rec: 01/29/17 22:41 ORC4979 MED-C09) Document 01/30/17 05:40 RDO7012 (Rec: 01/30/17 05:40 FEX7551 MED-C11) Document 01/30/17 13:25 ZWK8551 (Rec: 01/30/17 13:26 SHO6742 MED-C11) Document 01/30/17 21:51 UPB7805 (Rec: 01/30/17 21:52 LTI1201 MED-C09) Document 01/31/17 05:29 GYJ8251 (Rec: 01/31/17 05:32 GQD2388 MED-C42) Document 01/31/17 14:00 JUI9149 (Rec: 01/31/17 14:35 ROK4323 MED-C09) Document 01/31/17 21:45 RJS4874 (Rec: 01/31/17 21:45 LCU5897 MED-C09) Document 02/01/17 05:04 AJO0405 (Rec: 02/01/17 05:04 LNP9795 MED-C09) Document 02/01/17 10:25 TVF6745 (Rec: 02/01/17 10:25 POJ9796 MED-C09) Intake and Output Start: 02/01/17 22: 47 Freq: DAILY@0600,1400,2200 Status: Active Created 02/01/17 22:47 RPE7251 (Rec: 02/01/17 22:47 DIV8575 MED-C12) Document 02/02/17 01:02 JRS7478 (Rec: 02/02/17 01:02 ISS0667 MEDL-C01) Document 02/02/17 06:00 GET9737 (Rec: 02/02/17 06:32 FXF4096 MEDL-C01) - Physical Exam General Physical Exam Comment: She is alert, but not responsive to simple commands or questions. She has conjugate eye movements. She is not moving her arms spontaneously as she is not attending to them. Her left wrist cellulitis is mostly healed. She continues to wince on passive motion of wrist, finger, elbow, shoulder and knee joints General: No Cyanosis, Yes Anemia, No Jaundice, No Clubbing Eye Exam: bilateral: EOMI Lungs and Chest: Yes: Chest Expansion Full, Chest Expansion Symetrica, Percussion Note Resonant, Vessicular Breath Sounds, Other - anterior examined. No: Crackles, Wheezes Heart Rate and Rhythm: Regular Additional Cardiovascular: Yes: Normal Heart Sounds. No: Heart Murmur, Pedal Edema Abdominal Exam: Yes: Soft, Bowel Sounds Present. No: Distention, Abdominal Mass , Abdominal Tenderness Results - Results Lab Results: Laboratory Results - last 24 hr 01/30/17 02/02/17 02/02/17 09:45 05:57 05:57 WBC 4.0 RBC 2.27 L Hgb 8.4 L Hct 24 L MCV 108 H MCH 37 H MCHC 34 RDW 14 Plt Count 64 L MPV 8 Neut % (Auto) 52.1 Lymph % (Auto) 30.6 [place] % (Auto) 13.6 H Eos % (Auto) 3.0 Baso % (Auto) 0.7 Absolute Neuts (auto) 2.1 Absolute Lymphs (auto) 1.2 Absolute Monos (auto) 0.5 Absolute Eos (auto) 0.1 Absolute Basos (auto) 0 Absolute Nucleated RBC 0 Nucleated RBC % 0.1 Sodium 128 L Potassium 4.5 Chloride 97 L Carbon Dioxide 27 Anion Gap 4 BUN 15 Creatinine 0.83 Est GFR ( Amer) 83.4 Est GFR (Non-Af Amer) 64.9 BUN/Creatinine Ratio 18.1 Glucose 109 H Calcium 8.4 L C-Reactive Protein 84.79 H Lacosamide Level 8.6 Radiology Results: Patient Name: ELYSSA [place]ERNEY Medical Record#: [id number] Ordering Physician: Eliz Saunders MD Acct.#: [id number] : 1930 Age: 86 Sex: F Location: [address] [place] [address] MEDICAL Exam Date: 02/01/17 1541 ADM Status: ADM IN Order Information: CHEST AP PORTABLE Accession Number: [id number] CPT: 23235 Indication: Repositioning of feeding tube. Single frontal view of the chest performed at 1616 hours was reviewed. Comparison is made with previous exam dated earlier the same day. The feeding tube is advanced with the tip now in the fundus of the stomach. Lung bal are clear. Central line is in place. IMPRESSION: FEEDING TUBE IS NOW ADVANCED WITH THE TIP IN THE FUNDUS OF THE STOMACH. <Electronically signed by Margo Bess MD in OV> 02/01/17 1634 Dictated By: Margo Bess MD Dictated Date/Time: 02/01/17 1634 Transcribed Date/Time: 02/01/17 1633 Copy to: CC:Freddy Berrios MD; Eliz Saunders MD; Vane Benson MD; Alec Bullock MD; Cy Dennis MD; Kristian Still MD Imaging - [facility] - [place] [facility] [address] [address] ph [phone]) ph ([phone]) ph ([phone]) 1 of 1 Assessment - Problem List Assessment: Patient Problems Altered mental state (Acute) Anemia (Acute) Cellulitis of left arm (Acute) Pain, joint, multiple sites (Acute) Seizure (Acute) Seizure disorder (Acute) Weakness of left hand (Acute) CAD (coronary artery disease) (Chronic) GERD (gastroesophageal reflux disease) (Chronic) Hypothyroidism (Chronic) Polymyalgia rheumatica (Chronic) Serous adenocarcinoma (Chronic) Thrombocytopenia (Chronic) History of atrial fibrillation (Chronic) Plan: Altered mental state (Acute) Seizure (Acute) Seizure disorder (Acute) She remains encephalopathic Anemia (Acute) Likely ongfoingf Cellulitis of left arm (Acute) improving - taking clindamycin Pain, joint, multiple sites (Acute) this continues - I will add a rheumatoid factor - I note that her CRP has climbed. 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 I may give her some steroid treatment if she continues to have this problem Weakness of left hand (Acute) ongoing CAD (coronary artery disease) (Chronic) secondary diagnosis GERD (gastroesophageal reflux disease) (Chronic) secondary diagnosis Hypothyroidism (Chronic) continue current rx Polymyalgia rheumatica (Chronic) secondary diagnosis - not active (unless this is the cause of her joint pain) Serous adenocarcinoma (Chronic) ongoing Thrombocytopenia (Chronic) not checked History of atrial fibrillation (Chronic) She is receiving nutrition via NG tube. Here is the dietitian recommendations: 1. Continuous regimen of Jevity 1.2 starting at 10 mL/hr and advancing by 10 mL q4h until goal rate of 40 mL/hr is reached to provide pt with 1152 kcals 53 grams of protein and 775 mL free water (Meets greater than 95% estimated calorie and protein needs). 2. Once tolerating continuous cycle, consider 12 hour cycle of Jevity 1.2 (7p-7a ) @ 80 mL/hr (1152 kcal, 53 grams protein, 775 mL free water) I agree with this regimen. I have asked the RN to ensure it is documented in the correct place (today it was entered as IV, when there are no orders for IVF) . I called Larisa, her daughter and left a message on phone. I am out of town for the next [address] Demetria Becerra will be following her.
[2017-02-02] MEDS: Polyethylene Glycol 3350* 17 GM PACKET PO SCH (10:01)
[2017-02-02] MEDS: Thyroid TAB* 60 MG PO SCH ×2 (10:02→20:14)
[2017-02-02] MEDS: Lacosamide TAB* 100 MG TAB PO SCH (10:02)
[2017-02-02] MEDS ORDERED: Lacosamide TAB* 50 MG TAB PO ONE (11:45)
--- NOTE | 2017-02-02 15:46 | PN ---
PROGRESS NOTE: DATE OF FOLLOWUP: 02/02/17 OVERNIGHT EVENTS: No acute overnight events. Mrs. Bonilla remains encephalopathic and EEG was hooked up this morning, which shows intermittent epileptiform discharges from the left temporal region that also sharp waveforms , which emerge when she is aroused from her quiet state and shift in different brain regions, but are often seen in the frontal regions bilaterally. I spoke with Dr. Berrios about transferring her to the ICU for continuous monitoring and he was in agreement. In addition, he is concerned about her flaccid left hand. MEDICATIONS: 1. Tylenol 650 q.4 p.r.n. pain. 2. Clindamycin 300 mg q.6 hours. 3. Heparin 5000 units subcu q.8 hours. 4. Vimpat 100 mg twice daily. 5. Prilosec 20 mg daily. 6. MiraLax 17 g daily. 7. Thyroid tab 60 mg twice daily. PHYSICAL EXAMINATION: Vital Signs: Temperature 99.1, blood pressure 121/60, heart rate 90, oxygen saturation 95% on room air. On general examination, she is lying in the bed with the EEG running with her mouth half open and her eyes slightly open. She opens her eyes to light sternal rub and loud voice, but does not direct her gaze towards voice and does not follow any commands. She still appears to be in a great deal of pain when her extremities are moved, both the right and the left upper extremities. Given her current level of consciousness, it is not possible to fully evaluate the left upper extremity in terms of her strength and sensation, but her reflexes are 2+ in the biceps bilaterally as well as the triceps, brachioradialis difficult to elicit bilaterally. She grimaces to noxious stimulation equally in both upper extremities. 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 Otherwise, she often has a leftward gaze deviation, but this does not appear forced. Her face is symmetric. She briskly grimaces to noxious stimulation in the lower extremities as well. LABORATORY DATA: Reviewed, includes a CBC, which shows a hematocrit of 24 down from 25 on 01/30/17, platelet count of 64 and normal white blood cell count of 4. Her chemistry panel shows a sodium of 128, down from 136 on 01/30/17; chloride of 97; glucose of 109 and CRP of 84.79. Calcium is 8.4. IMPRESSION: Brittney Bonilla is an 86-year-old woman with a history of complex partial seizures, who has been admitted with prolonged encephalopathy after experiencing seizures and undergoing several medication changes. Given her prolonged encephalopathy, I obtained repeat EEG this morning which is concerning for some intermittent epileptiform abnormalities and given her persistent encephalopathy, I think it would be prudent to transfer her to the ICU for continuous EEG monitoring overnight to help determine whether there are intermittent seizures occurring which may account for her encephalopathy. At this time, I will suggest increasing lacosamide to 150 mg twice daily and will give her an additional 50 mg now to supplement the dose that she received this morning. With respect to her apparent flaccid left hand, the evaluation of this may need to be put off until her mental status improves, where she is more able to participate with an exam. [id number]/[facility] #: [id number] BARBI
[2017-02-02] MEDS: LACOSAMIDE 150 MG PO SCH (20:14)
[2017-02-03] MEDS: Clindamycin 300 MG IVPREMIX(* 300 MG/50 ML SDV IV SCH ×4 (02:32→21:09)
[2017-02-03] MEDS: Heparin VIAL(*) 5000 UNITS/ML VIAL (FIVE THOUSAND) SUBCUT SCH ×3 (06:33→21:09)
[2017-02-03] MEDS: Thyroid TAB* 60 MG PO SCH ×2 (09:04→21:10)
[2017-02-03] MEDS: Polyethylene Glycol 3350* 17 GM PACKET PO SCH (09:04)
[2017-02-03] MEDS: Omeprazole CAP* 20 MG PO SCH (09:04)
[2017-02-03] MEDS: LACOSAMIDE 150 MG PO SCH ×2 (09:04→21:09)
--- NOTE | 2017-02-03 10:20 | EEG ---
GROUP HOME VIDEO/EEG MONITORING - Monitoring Monitoring Start Date: 02/02/17 Current Monitoring Session: 02/02/17 at 10:34 to 02/03/17 at 10:54 EEG Clinical Indication: Brittney Bonilla is an 86 year old woman with a history of complex partial seizures associated with a prolonged post-ictal period who was admitted at the beginning of this month with a seizure. She experienced medication changes including increase in Depakote dose, then discontinuation of Depakote and initiation of Vimpat. She experienced a few more witnessed seizures during the hospitalization, but none recently. However, she has not returned to her baseline mental status and a routine EEG demonstrated left temporal epileptiform discharges. Long-term monitoring was requested in order to evaluate for subclinical or intermittent, unwitnessed seizures. Introduction: INTRODUCTION: The EEG was monitored from 19 scalp electrodes which consisted of the standard parasagittal, temporal and midline leads of the International 10-20 system. EEG data were recorded on an [employer] system with simultaneous MPEG-4 digital video recording of patient behavior. EEG recording was in a monopolar montage with all electrodes referenced to FCz. Significant behavioral events were signaled by an event button, or putative electrical seizure events were detected by a computer program. All EEG data were reviewed in their entirety on a monitor with reconstruction of montages and adjustments of sensitivity and filtering. Simultaneous patient behavior was viewed on an adjacent monitor and correlated with the EEG. - Medications Active Medications: Acetaminophen (Tylenol Tab*) 650 mg PO Q4HR PRN PRN Reason: PAIN Last Admin: 01/27/17 13:45 Dose: 650 mg Acetaminophen (Tylenol Adult Liq*) 650 mg PO Q4H PRN PRN Reason: PAIN - MODERATE Last Admin: 02/02/17 22:09 Dose: 650 mg Heparin Sodium (Porcine) (Heparin Vial(*)) 5,000 units SUBCUT Q8HR [facility] Last Admin: 02/03/17 06:33 Dose: 5,000 units Heparin Sodium (Porcine) (Heparin Flush Port (Ivad)) 5 ml FLUSH DAILY [facility] PRN Reason: Protocol Last Admin: 02/03/17 09:04 Dose: 5 ml Clindamycin HCl/Dextrose (Cleocin 300 Mg Ivpemix(*)) 300 mg in 50 mls @ 200 mls /hr IV Q6H [facility] Last Admin: 02/03/17 09:03 Dose: 200 mls/hr Lacosamide (Vimpat) 150 mg PO BID [facility] Last Admin: 02/03/17 09:04 Dose: 150 mg Omeprazole (Prilosec Cap*) 20 mg PO 0600 [facility] Last Admin: 02/03/17 09:04 Dose: 20 mg Polyethylene Glycol/Electrolytes (Miralax*) 17 gm PO DAILY [facility] Last Admin: 02/03/17:04 Dose: 17 gm Thyroid (Thyroid Tab*) 60 mg PO BID [facility] Last Admin: 02/03/17:04 Dose: 60 mg - Description Background: During periods of arousal and then drowsiness, the background frequently consisted of high amplitude, sharp wave activity in the 2 to 3 Hz range with superimposed faster frequency activity. At times, this activity showed a clear lag from anterior to posterior, or vice versa, and was consistent with triphasic waves. This activity was noted diffusely, often with shifting predominance between the hemispheres. The waking background briefly showed identifiable organization with reduced but discernible anterior-posterior voltage and frequency gradients. There was a slow posterior dominant rhythm of 6 Hertz, which was symmetrical. Anteriorly, there was the expected pattern of lower voltage and more irregular theta and beta rhythms. The sleep background was denoted by loss of muscle artifact and a predominance of low to medium voltage delta and theta activity. However, the sleep background was not appropriately organized and no well-developed spindles nor vertex waves were seen. Deeper stages of sleep and REM sleep were not observed. Intericatal Epileptiform Activity: There were frequent, high voltage, left temporal sharp and slow wave discharges. These were present during both waking and sleep. These were maximal at T3 but encompassed a broad field within the entire left temporal region. There was also underlying polymorphic delta slowing in this same distribution. Ictal Activity: None - Impression Impression: This is an abnormal long-term monitoring session. There is diffuse background slowing and high voltage, sharply contoured delta activity with triphasic morphology during waking and drowsiness. In addition, there are focal discharges in the left temporal region during waking and sleep. These findings are suggestive of a moderate, non-specific diffuse encephalopathy with superimposed increased epileptic potential in the left temporal region. Triphasic waves are often associated with encephalopathy of a metabolic or toxic etiology. There were no seizures during this recording.
[2017-02-03] MEDS ORDERED: Ondansetron INJ* 2 MG/ML VIAL IV PRN (10:54)
[2017-02-04] MEDS: Clindamycin 300 MG IVPREMIX(* 300 MG/50 ML SDV IV SCH ×2 (02:44→09:17)
--- NOTE | 2017-02-04 03:10 | PN ---
PROGRESS NOTE: DATE OF FOLLOWUP: 02/03/17 OVERNIGHT EVENTS: No acute overnight events. Ms. Bonilla has remained on continuous EEG monitoring. No seizures have been noted during the monitoring period but she does have intermittent discharges from the left temporal region and overall significant encephalopathic pattern, which is consistent with her clinical picture. The patient vomited this morning. MEDICATIONS: 1. Tylenol 650 mg q.4 p.r.n. pain. 2. Clindamycin 300 mg q.6 hours. 3. Heparin 5000 units subcu q.8 hours. 4. Lacosamide 150 mg twice daily. 5. Omeprazole 20 mg daily. 6. Ondansetron 4 mg IV q.4 p.r.n. vomiting. 7. MiraLAX 17 g daily. 8. Thyroid tab 60 mg b.i.d. PHYSICAL EXAM: Vital Signs: Temperature 97, blood pressure 112/53, heart rate 80, oxygen saturation 99% on room air. On examination, Ms. Bonilla was sitting straight up in her ICU bed. She directed her gaze toward the examiner. She was nonverbal. She appeared to weakly try to follow commands such as briefly closing her eyes and weakly protruding her tongue and wiggling toes. Otherwise, her face is symmetric. The pupils are equal, round, and reactive from 3 to 2 mm bilaterally. She tends to gaze towards the left but is able to cross midline and tracking the examiner. Again today, she has pain with passive movement of her upper extremities and does not contract negotiation manager on either side when requested but responds to noxious stimulation everywhere. IMPRESSION AND PLAN: An 86-year-old woman with complex partial seizures admitted with prolonged encephalopathy in the setting of breakthrough seizures. She was admitted on the and has not returned to her baseline mental status since then. Yesterday, her lacosamide dose was increased to 150 mg twice daily given the presence of discharges in the left temporal region noted on routine EEG. However, overnight EEG did not reveal any subclinical seizure activity. She remains encephalopathic and the exact etiology of this prolonged encephalopathy has been thought to be multifactorial, but is unclear and a clearly reversible cause has not been identified at this time. I would continue with the lacosamide 150 mg twice daily. I discussed this with Dr. Becerra over the phone earlier today. Again, it is difficult to fully evaluate the possibility of weakness in the left hand given her current mental status. Dr. Dennis will be covering for the neurology service over the weekend and will receive sign out on the patient. [id number]/[facility] #: [id number] BARBI
[2017-02-04] MEDS: Omeprazole CAP* 20 MG PO SCH (06:04)
[2017-02-04] MEDS: Heparin VIAL(*) 5000 UNITS/ML VIAL (FIVE THOUSAND) SUBCUT SCH ×3 (06:04→23:22)
[2017-02-04 06:24] LABS: Hematocrit 22 % (35-47); Hemoglobin 7.4 g/dl (12.0-16.0); Mean Corpuscular HGB Conc 33 g/dl (31-36); Mean Corpuscular Hemoglobin 36 pg (27-31); Mean Platelet Volume 8 um3 (7.4-10.4); Red Blood Count 2.04 10^6/ul (4.0-5.4); Red Cell Distribution Width 14 % (10.5-15); White Blood Count 3.9 10^3/ul (3.5-10.8)
[2017-02-04 06:35] LABS: Comments Flag Yes; Mean Corpuscular Volume 109 fL (80-97)
[2017-02-04 06:50] LABS: Albumin 2.3 g/dL (3.2-5.2); BUN/Creatinine Ratio 24.1 (8-20); C Reactive Protein 53.74 mg/L (< 5.00); Calcium 8.4 mg/dL (8.6-10.3); EGFR Non-African American 45.9 (>60); Globulin 3.4 g/dL (2-4); Total Bilirubin 0.5 mg/dL (0.2-1.0); Total Protein 5.7 g/dL (6.4-8.9)
[2017-02-04] MEDS: Thyroid TAB* 60 MG PO SCH ×2 (09:17→23:22)
[2017-02-04] MEDS: LACOSAMIDE 150 MG PO SCH ×2 (09:17→23:22)
[2017-02-04] MEDS: Polyethylene Glycol 3350* 17 GM PACKET PO SCH (09:17)
[2017-02-04] MEDS: Acetaminophen TAB* 325 MG PO PRN (09:17)
--- NOTE | 2017-02-04 10:32 | PN ---
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 Has been hosp ever since, seen by [facility]. On LEV in past. Was on VPA, stopped due to toxicity, then on vimpat monotherapy, inc by dr avila from 100 bid to 150 bid for inter ictal left temporal activity on recent continuous EEG monitoring, which otherwise had triphasics and diffuse encephalopathy but no lili seizures (consistent with routine EEGs from earlier in hospitalization). Has remained persistently encephalopathic. Hct 22, plt 90, cr 1.2, na 131, mild LFT inc, tsh ok. 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 On vimpat monotherapy. d/w med attending plan to cont supportive care; likely downgrade from ICU; at this point dispo will likely include at least rehab, possibly higher level of care depending on degree of deconditioning (apparently pretty independent at baseline).
--- NOTE | 2017-02-04 12:29 | RAD ---
INDICATION: Left wrist pain and swelling COMPARISON: Similar radiograph dated January 27, 2017 TECHNIQUE: 2 views left wrist. REPORT: Stable postoperative findings include screw and cerclage wire overlying the distal ulna. The visualized bones are properly aligned and well corticated. Degenerative changes include narrowing and mild bony sclerotic remodeling at the left thumb metacarpal trapezium joint as well as narrowing and sclerotic change at the scapholunate joint. There is narrowing of the radiocarpal joint with mild bony remodeling of the radial articulating surface.There is no acute fracture, dislocation or other focal osseous abnormality. IMPRESSION: Degenerative and postoperative changes of the left wrist similar in appearance to the January 27, 2017 radiograph. If the patient's symptoms persist, follow-up imaging is recommended.
--- NOTE | 2017-02-04 15:59 | PN ---
Progress Note - Progress Note SOAP: Subjective: [] Confusion continues today, she appears to have an expressive aphasia that is new on my exam. Denies pain. She is eating. Acetaminophen (Tylenol Tab*) 650 mg PO Q4HR PRN PRN Reason: PAIN Last Admin: 02/04/17 09:17 Dose: 650 mg Acetaminophen (Tylenol Adult Liq*) 650 mg PO Q4H PRN PRN Reason: PAIN - MODERATE Last Admin: 02/02/17 22:09 Dose: 650 mg Heparin Sodium (Porcine) (Heparin Vial(*)) 5,000 units SUBCUT Q8HR [facility] Last Admin: 02/04/17 06:04 Dose: 5,000 units Heparin Sodium (Porcine) (Heparin Flush Port (Ivad)) 5 ml FLUSH DAILY [facility] PRN Reason: Protocol Last Admin: 02/04/17 09:50 Dose: 5 ml Lacosamide (Vimpat) 150 mg PO BID [facility] Last Admin: 02/04/17 09:17 Dose: 150 mg Omeprazole (Prilosec Cap*) 20 mg PO 0600 [facility] Last Admin: 02/04/17 06:04 Dose: 20 mg Ondansetron HCl (Zofran Inj*) 4 mg IV Q4H PRN PRN Reason: NAUSEA/VOMITING Last Admin: 02/03/17 10:59 Dose: 4 mg Polyethylene Glycol/Electrolytes (Miralax*) 17 gm PO DAILY [facility] Last Admin: 02/04/17 09:17 Dose: 17 gm Thyroid (Thyroid Tab*) 60 mg PO BID [facility] Last Admin: 02/04/17 09:17 Dose: 60 mg Objective: [] Vital Signs Temp Pulse Resp BP Pulse Ox 98.3 F 74 17 131/57 98 02/04/17 07:44 02/04/17 09:00 02/04/17 09:00 02/04/17 09:00 02/04/17 09:00 HEENT - Mucosa moist, no lesions She has bruising on left arm from IV site, no abdominal bruising or LE. CTA RRR S1S2 Abd - no masses, no fluid, good BS Full neuro not done,cognition as above Blood film - mild hyopchromia, small platelets, normal WBC, no evidence of hydrolysis. Assessment: []86 year old with ovarian cancer who has been managed on Avastin alone with symptomatic and serologic response. Stopped following CT scans as will stop therapy and go to hospice for either serologic failure or clinical progression. She is not a candidate for chemotherapy. QOL has been fair, limited by recurrent seizures. Now several weeks with continued confusion and now progressive weakness and deconditioning. She has progressive cytopenias with modest drop on this admission, a progressive macrocytic anemia. Cancer therapy should not sapless blood counts, may contribute to anemia. I suspect decreased blood counts second to drug reaction from her seizure medication. She has normal B12, there is no signs of marrow infiltration on her peripheral smear and CT scan without bone disease. Plan: []1. Case discussed with Dr. Woodward and her daughter, Lola. I do not think the Avastin is causing her delirium. However, she is not a candidate for additional cancer treatment and should transition to hospice. The question is if she will recover for home hospice or need residence or NHP with hospice. Palliative care consult on Monday. 2. Tx 2 U PRBC 3. Will re-check iron studies.
[2017-02-04 21:35] LABS: Lacosamide 9.7 mcg/mL (1.0 - 10.0)
[2017-02-05] MEDS: Heparin VIAL(*) 5000 UNITS/ML VIAL (FIVE THOUSAND) SUBCUT SCH ×2 (06:15→17:03)
[2017-02-05] MEDS: Omeprazole CAP* 20 MG PO SCH (06:15)
[2017-02-05 06:21] LABS: Hematocrit 31 % (35-47); Hemoglobin 10.5 g/dl (12.0-16.0); Mean Corpuscular HGB Conc 34 g/dl (31-36); Mean Corpuscular Hemoglobin 33 pg (27-31); Mean Corpuscular Volume 99 fL (80-97); Mean Platelet Volume 8 um3 (7.4-10.4); Red Blood Count 3.16 10^6/ul (4.0-5.4); Red Cell Distribution Width 22 % (10.5-15); White Blood Count 3.9 10^3/ul (3.5-10.8)
[2017-02-05 06:24] LABS: Comments Flag Yes
[2017-02-05 06:38] LABS: Albumin 2.3 g/dL (3.2-5.2); BUN/Creatinine Ratio 24.5 (8-20); C Reactive Protein 27.68 mg/L (< 5.00); Calcium 8.6 mg/dL (8.6-10.3); EGFR African American 72.3 (>60); EGFR Non-African American 56.2 (>60); Globulin 3.4 g/dL (2-4); Potassium 5.2 mmol/L (3.5-5.0); Total Bilirubin 0.8 mg/dL (0.2-1.0); Total Protein 5.7 g/dL (6.4-8.9)
[2017-02-05] MEDS: Thyroid TAB* 60 MG PO SCH (08:28)
[2017-02-05] MEDS: LACOSAMIDE 150 MG PO SCH (08:28)
[2017-02-05] MEDS: Polyethylene Glycol 3350* 17 GM PACKET PO SCH (08:28)
--- NOTE | 2017-02-05 10:03 | PN ---
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 Has been hosp ever since, seen by [facility] neurologists and [facility], now on vimpat monotherapy 150 bid. Has remained persistently variably encephalopathic without evidence of further seizure activity. Overnight, moved to floors. This am sleepy, no complaints. onc note reviewed with discussion re hospice vs snf/dispo. 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 On vimpat monotherapy. Discussion per primary team and onc re dispo ? hospice.
[2017-02-06] MEDS: Heparin VIAL(*) 5000 UNITS/ML VIAL (FIVE THOUSAND) SUBCUT SCH ×4 (00:21→21:42)
[2017-02-06] MEDS: LACOSAMIDE 150 MG PO SCH ×3 (00:29→21:42)
[2017-02-06] MEDS: Thyroid TAB* 60 MG PO SCH ×3 (00:30→21:42)
[2017-02-06] MEDS: Omeprazole CAP* 20 MG PO SCH (06:07)
--- NOTE | 2017-02-06 08:19 | PN ---
Subjective - Subjective Reason for Note: Progress Note History: I have reviewed her case record from the time of my absence. She is now back in room 416 after a period of EEG telemetry. Her Lacosamide dose in now increased to 150 mg twice daily. She is no longer taking antibacterials. She is more alert and has been eating and drinking sufficient to allow the NG feeding tube to be removed. She is alert this morning and follows around half one step commands. She whispers a few words, but cannot give an account of herself and is not oriented. She denies pain/distress. 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 Thrombocytopenia (Chronic) D69.6 Current Medications: Current Medications Acetaminophen (Tylenol Tab*) 650 mg PO Q4HR PRN PRN Reason: PAIN Last Admin: 02/04/17 09:17 Dose: 650 mg Acetaminophen (Tylenol Adult Liq*) 650 mg PO Q4H PRN PRN Reason: PAIN - MODERATE Last Admin: 02/02/17 22:09 Dose: 650 mg Heparin Sodium (Porcine) (Heparin Vial(*)) 5,000 units SUBCUT Q8HR [facility] Last Admin: 02/06/17 06:07 Dose: 5,000 units Heparin Sodium (Porcine) (Heparin Flush Port (Ivad)) 5 ml FLUSH DAILY [facility] PRN Reason: Protocol Last Admin: 02/05/17 08:29 Dose: 5 ml Lacosamide (Vimpat) 150 mg PO BID [facility] Last Admin: 02/06/17 00:29 Dose: 150 mg Omeprazole (Prilosec Cap*) 20 mg PO 0600 [facility] Last Admin: 02/06/17 06:07 Dose: 20 mg Ondansetron HCl (Zofran Inj*) 4 mg IV Q4H PRN PRN Reason: NAUSEA/VOMITING Last Admin: 02/03/17 10:59 Dose: 4 mg Polyethylene Glycol/Electrolytes (Miralax*) 17 gm PO DAILY [facility] Last Admin: 02/05/17 08:28 Dose: 17 gm Thyroid (Thyroid Tab*) 60 mg PO BID [facility] Last Admin: 02/06/17 00:30 Dose: 60 mg Home Medications: Home Medications Medication Instructions Recorded Confirmed Type Levetiracetam XR TAB(NF) [Keppra 1,000 mg PO BID 09/02/16 01/16/17 History XR TAB(NF)] Thyroid TAB* [Thyroid TAB 60 MG*] 60 mg PO BID 09/02/16 01/16/17 History Omeprazole CAP* [Prilosec CAP* 20 20 mg PO DAILY 10/15/16 01/16/17 History MG] Cholecalciferol [Vitamin D3] 50,000 mg PO WEEKLY 01/16/17 01/16/17 History Divalproex ER TAB(*) [Depakote ER 1,000 mg PO BID 01/16/17 01/16/17 History TAB(*)] Lactulose* 10 mg PO BID PRN 01/16/17 01/16/17 History Ondansetron TAB* [Zofran 4 MG Tab*] 4 mg PO TID PRN 01/16/17 01/16/17 History Pantoprazole TAB (NF) [Protonix 40 mg PO DAILY 01/16/17 01/16/17 History TAB (NF)] Prochlorperazine TAB* [Compazine 10 mg PO QID PRN 01/16/17 01/16/17 History Tab*] Allergies: Allergies Allergy/AdvReac Type Severity Reaction Status Date / Time Azathioprine Allergy Unknown Verified 09/01/16 12:28 Reaction Details Codeine Allergy Unknown Verified 09/01/16 12:28 Reaction Details Corticosteroids Allergy Swelling Verified 09/01/16 12:28 Diltiazem Allergy Unknown Verified 09/01/16 12:28 Reaction Details Levetiracetam Allergy See Comment Verified 09/01/16 12:28 Macrolides and Ketolides Allergy Unknown Verified 09/01/16 12:28 Reaction Details Penicillins Allergy Hives Verified 09/01/16 12:28 Phenytoin [From Dilantin] Allergy Hives Verified 09/01/16 12:28 Sulfa Drugs Allergy Hives Verified 09/01/16 12:28 Tetracyclines & Related Allergy Difficulty Verified 09/01/16 12:28 Breathing/Wheezing Doxycycline AdvReac GI Upset Verified 06/09/16 06:51 Lidocaine AdvReac GI Upset Verified 06/09/16 06:51 Moxifloxacin [From Avelox] AdvReac Diarrhea Verified 06/09/16 06:51 Objective - Vital Signs Vital Signs: Vital Signs 02/05/17 02/05/17 02/06/17 16:09 23:09 00:34 Temperature 98.2 F 97.8 F Pulse Rate 72 71 Respiratory 18 16 14 Rate Blood Pressure 144/62 155/60 (mmHg) O2 Sat by Pulse 97 96 Oximetry 02/06/17 02/06/17 02/06/17 00:41 07:17 08:08 Temperature 97.4 F Pulse Rate 69 Respiratory 14 17 18 Rate Blood Pressure 166/83 (mmHg) O2 Sat by Pulse 97 Oximetry - Intake and Output Intake and Output: Intake & Output 02/03/17 02/04/17 02/05/17 02/06/17 11:59 11:59 11:59 11:59 Intake Total 1469 1122 594 0 Output Total 350 0 0 0 Balance 1119 1122 594 0 Weight 127 lb 6.835 oz Intake: IV Fluids 120 407 50 ABX - CLINDAMYCIN 100 407 Normal Saline 20 50 IVPB 279 PRBC 279 Oral 630 120 115 0 Tube Feeding 599 445 150 Tube Feeding Flush Amount 120 NG Tube Irrigate Amount 150 NGT 150 Output: Urine 0 0 Emesis 350 Tube Feeding Residual 0 0 Amount Wasted Other: Estimated Void Medium Large Large Medium # Bowel Movements 0 0 Estimated Stool Amount Small Small # Voids 1 1 2 2 ADLs: Meal Record Start: 01/16/17 16: 08 Freq: 09,13,18 Status: Complete Created 01/16/17 16:08 [id number] (Rec: 01/16/17 16:08 [id number] ICU-M02) Document 01/16/17 18:00 [id number] (Rec: 01/16/17 18:06 BPS1473 ICU-C16) Document 01/17/17 09:00 QEL9524 (Rec: 01/17/17 09:49 VCI2161 ICU-C10) Document 01/17/17 13:00 OUD3771 (Rec: 01/17/17 13:02 ZGT8637 ICU-C16) Document 01/17/17 18:00 VWZ5663 (Rec: 01/17/17 18:55 NOQ8005 ICU-C16) Document 01/18/17 07:27 TNR0831 (Rec: 01/18/17 07:27 NDK2493 ICU-C20) ADLs: Meal Record Start: 01/18/17 08: 22 Freq: DAILY@0900,1400,1800 Status: Active Created 01/18/17 08:22 [id number] (Rec: 01/18/17 08:22 JBR6227 ICU-C10) Document 01/18/17 08:23 WGQ8917 (Rec: 01/18/17 08:23 EQR3204 ICU-C10) Document 01/18/17 14:00 GYG2248 (Rec: 01/18/17 14:00 PJD3233 ICU-C16) Document 01/18/17 19:00 PJU1577 (Rec: 01/18/17 20:34 DBK1111 ICU-C16) Document 01/19/17 09:00 HFS0426 (Rec: 01/19/17 09:15 UYE1645 ICU-C16) Document 01/19/17 13:27 MDB3334 (Rec: 01/19/17 13:27 FDC3498 MED-C09) Document 01/19/17 18:00 CZT8015 (Rec: 01/19/17 19:02 LJA0854 MED-C11) Document 01/20/17 14:00 OOI2350 (Rec: 01/20/17 14:06 AWI7927 MED-C16) Document 01/20/17 18:00 LMN3708 (Rec: 01/20/17 19:00 CEI9909 MED-C09) Document 01/21/17 09:00 SFO2737 (Rec: 01/21/17 10:47 KTV4780 MED-C09) Document 01/21/17 14:00 KKA8726 (Rec: 01/21/17 14:10 RXI6571 MED-C11) Document 01/22/17 03:48 HPG7800 (Rec: 01/22/17 03:48 VIP0405 MED-C14) Document 01/22/17 09:00 XBO6097 (Rec: 01/22/17 09:45 VQD5207 MED-C11) Document 01/22/17 14:00 ESN1296 (Rec: 01/22/17 14:26 ZEI8751 MED-C09) Document 01/22/17 18:00 AKP8092 (Rec: 01/22/17 18:42 KPU0443 MED-C09) Document 01/23/17 09:00 JLV4946 (Rec: 01/23/17 10:07 LGC4807 MED-C11) Document 01/23/17 12:57 FMS8881 (Rec: 01/23/17 12:57 BQX8935 MED-C11) Document 01/23/17 18:00 NFH0317 (Rec: 01/23/17 19:01 UJJ0656 MED-L07) Document 01/24/17 09:00 XIK2709 (Rec: 01/24/17 11:03 NVM0441 MED-C11) Document 01/24/17 14:00 CVE4170 (Rec: 01/24/17 14:02 OUV9925 MED-C11) Document 01/24/17 18:00 BVD4014 (Rec: 01/24/17 21:48 INT1436 MED-C11) Document 01/25/17 09:00 VFK9845 (Rec: 01/25/17 09:36 JQS2393 MED-C16) Document 01/25/17 18:00 VAI6652 (Rec: 01/25/17 22:44 BQZ6730 MED-C09) Document 01/26/17 09:00 KOO7431 (Rec: 01/26/17 15:24 DTH7710 MED-C11) Document 01/26/17 14:00 RQG9210 (Rec: 01/26/17 15:26 YOO3837 MED-C11) Document 01/26/17 18:00 XTH8040 (Rec: 01/26/17 19:50 TOG9562 MED-C09) Document 01/27/17 09:00 ICV0057 (Rec: 01/27/17 09:33 LIK4720 MED-C11) Document 01/27/17 13:25 LXR1410 (Rec: 01/27/17 13:25 IVA6677 MED-C11) Document 01/27/17 18:00 SQF5511 (Rec: 01/27/17 21:54 QIG7406 MED-C11) Document 01/28/17 09:00 DNT0525 (Rec: 01/28/17 15:28 DRB6325 MED-C09) Document 01/28/17 14:00 MNF1736 (Rec: 01/28/17 15:29 KME3321 MED-C09) Document 01/28/17 18:00 RQO7680 (Rec: 01/28/17 22:17 QPF8656 MED-C09) Document 01/29/17 09:00 YZR8894 (Rec: 01/29/17 11:21 UZA5304 MED-C09) Document 01/29/17 14:00 HAS8913 (Rec: 01/29/17 14:45 RTL6829 MED-C11) Document 01/29/17 18:00 ZDW6077 (Rec: 01/29/17 22:40 SXG2345 MED-C09) Document 01/30/17 09:00 PVV9335 (Rec: 01/30/17 09:27 WVN4772 MED-C11) Document 01/30/17 13:25 CLC1089 (Rec: 01/30/17 13:26 LQM3157 MED-C11) Document 01/30/17 18:00 KOE4434 (Rec: 01/30/17 19:46 BHQ9854 MED-C09) Document 01/31/17 09:00 WAC4583 (Rec: 01/31/17 09:45 SKG7683 MED-C11) Document 01/31/17 14:00 MYO3394 (Rec: 01/31/17 14:35 QSZ8135 MED-C09) Document 01/31/17 18:00 ZVR2152 (Rec: 01/31/17 18:28 QUH8382 MED-C09) Document 02/01/17 09:00 GKT6984 (Rec: 02/01/17 09:05 FKN1100 MED-C09) Document 02/01/17 14:00 UGG5536 (Rec: 02/01/17 14:19 WBM0821 MED-C11) ADLs: Meal Record Start: 02/01/17 22: 47 Freq: DAILY@0900,1400,1800 Status: Complete Created 02/01/17 22:47 TPO9043 (Rec: 02/01/17 22:47 WGU7272 MED-C12) Document 02/02/17 09:00 KXA7277 (Rec: 02/02/17 09:31 WPL5079 MED-C09) ADLs: Meal Record Start: 02/02/17 12: 13 Freq: 09,13,18 Status: Complete Created 02/02/17 12:13 TIK3317 (Rec: 02/02/17 12:13 QNJ6337 ICU-M21) Document 02/02/17 13:00 LVZ9996 (Rec: 02/02/17 13:41 RVE9609 ICU-C07) Document 02/02/17 18:00 ITN9897 (Rec: 02/02/17 18:04 JJZ4377 ICU-C18) Document 02/03/17 10:52 ZDJ3804 (Rec: 02/03/17 10:54 TXE5946 ICU-C19) Document 02/03/17 13:37 GAG5176 (Rec: 02/03/17 13:37 TQB6901 ICU-C19) Document 02/04/17 09:49 XJN1387 (Rec: 02/04/17 09:49 XZI3058 ICU-C18) ADLs: Meal Record Start: 02/02/17 18: 28 Freq: 09,13,18 Status: Active Document 02/02/17 18:28 KYO0124 (Rec: 02/02/17 18:28 LUG1030 ICU-C07) Created 02/02/17 18:28 MSI2028 (Rec: 02/02/17 18:28 GQI1963 ICU-C07) Document 02/03/17 10:52 VSY2935 (Rec: 02/03/17 10:54 EBG3910 ICU-C19) Document 02/03/17 13:37 SLU4480 (Rec: 02/03/17 13:37 USB9410 ICU-C19) Document 02/04/17 09:49 LQM6403 (Rec: 02/04/17 09:49 XJZ1206 ICU-C18) Document 02/04/17 18:00 CKM8702 (Rec: 02/04/17 22:32 RBN6265 MED-C09) Document 02/05/17 09:00 ZWW3799 (Rec: 02/05/17 11:49 UVU3766 MED-C11) Document 02/05/17 18:00 SEF2108 (Rec: 02/05/17 20:31 RAZ7446 MED-C09) Intake and Output Start: 01/16/17 16: 08 Freq: 06,14,22 Status: Complete Created 01/16/17 16:08 XIK4211 (Rec: 01/16/17 16:08 VWE9403 ICU-M02) Document 01/16/17 22:00 IPX5270 (Rec: 01/16/17 22:01 PQH5374 ICU-C20) Document 01/17/17 06:00 GOQ4377 (Rec: 01/17/17 06:29 RDH8341 ICU-M02) Document 01/17/17 11:50 KDE6053 (Rec: 01/17/17 11:51 NKW4316 ICU-C10) Document 01/17/17 14:00 WRQ3823 (Rec: 01/17/17 15:55 EUF0345 ICU-C16) Document 01/17/17 21:30 OIB8397 (Rec: 01/17/17 21:30 CCI9079 ICU-M17) Document 01/18/17 05:31 KOZ1583 (Rec: 01/18/17 05:31 EXW5527 ICU-C14) Intake and Output Start: 01/18/17 08: 22 Freq: DAILY@0600,1400,2200 Status: Active Created 01/18/17 08:22 OSB4178 (Rec: 01/18/17 08:22 BHR9422 ICU-C10) Document 01/18/17 13:57 YMJ5139 (Rec: 01/18/17 13:57 IJT2592 ICU-C16) Document 01/18/17 21:56 ZIF5404 (Rec: 01/18/17 21:57 VNF7125 ICU-C14) Document 01/18/17 22:00 MMW1320 (Rec: 01/18/17 22:15 OVD8811 ICU-C16) Document 01/19/17 06:00 CMP2590 (Rec: 01/19/17 06:04 RVL2064 ICU-C16) Document 01/19/17 08:00 FZH1895 (Rec: 01/19/17 09:28 ZRL3669 ICU-C16) Document 01/19/17 22:00 EDJ8329 (Rec: 01/19/17 22:24 WBL7099 MED-C09) Document 01/20/17 05:19 IDH9971 (Rec: 01/20/17 05:19 GBS1641 MED-C42) Document 01/20/17 14:00 EFR6814 (Rec: 01/20/17 16:07 NZP9254 MED-L07) Document 01/20/17 21:42 HUL3379 (Rec: 01/20/17 21:43 OMW2415 MEDL-C02) Document 01/21/17 03:32 LWG5234 (Rec: 01/21/17 03:32 LUV7153 MED-C42) Document 01/21/17 14:00 DQR9897 (Rec: 01/21/17 14:10 VPU6994 MED-C11) Document 01/21/17 22:00 IBL8352 (Rec: 01/21/17 23:18 TUY7171 MED-C09) Document 01/22/17 06:00 OMN6460 (Rec: 01/22/17 06:34 QRJ6176 MEDL-C02) Document 01/22/17 14:00 REP4579 (Rec: 01/22/17 14:26 QCU1905 MED-C09) Document 01/23/17 04:19 SGS3431 (Rec: 01/23/17 04:19 EDV2647 MEDL-C01) Document 01/23/17 05:24 FVJ3713 (Rec: 01/23/17 05:24 LZJ2427 MED-C26) Document 01/23/17 10:08 FIJ0181 (Rec: 01/23/17 10:09 VPP2848 MED-C11) Document 01/23/17 12:57 MTQ6784 (Rec: 01/23/17 12:57 INW6662 MED-C11) Document 01/23/17 22:00 SWJ5808 (Rec: 01/23/17 22:25 TZY0400 MED-C11) Document 01/24/17 04:50 UNN5033 (Rec: 01/24/17 04:50 HRJ0536 MED-C42) Document 01/24/17 08:58 YWE4156 (Rec: 01/24/17 08:59 NKH0591 MED-C11) Document 01/24/17 18:30 QGH6105 (Rec: 01/24/17 18:30 XED5893 MED-C04) Document 01/25/17 06:00 IQF0411 (Rec: 01/25/17 06:16 WSV4019 MED-C14) Document 01/26/17 06:00 ZGB9698 (Rec: 01/26/17 06:10 BQX2988 MEDL-C02) Document 01/26/17 14:00 IDF9228 (Rec: 01/26/17 15:26 DOO4692 MED-C11) Document 01/26/17 22:00 SLA1243 (Rec: 01/26/17 22:29 UIL9318 MED-C11) Document 01/27/17 06:00 CWK3961 (Rec: 01/27/17 06:30 WMI0146 MED-C09) Document 01/27/17 12:24 MSO0862 (Rec: 01/27/17 12:24 ESS0155 MED-C11) Document 01/27/17 22:00 JLT6965 (Rec: 01/27/17 22:07 MDX8239 MED-C11) Document 01/28/17 06:00 DIL9375 (Rec: 01/28/17 06:26 XQT6769 MED-C42) Document 01/28/17 14:00 VAR4390 (Rec: 01/28/17 15:31 MPX3609 MED-C09) Document 01/28/17 22:00 UNG2394 (Rec: 01/28/17 22:18 ECZ7990 MED-C09) Document 01/29/17 04:55 FOP1544 (Rec: 01/29/17 04:56 POX6221 MED-C42) Document 01/29/17 14:00 RPN1707 (Rec: 01/29/17 14:45 JCP6733 MED-C11) Document 01/29/17 22:00 VUR4459 (Rec: 01/29/17 22:41 NLE7026 MED-C09) Document 01/30/17 05:40 CHC2272 (Rec: 01/30/17 05:40 EBV1819 MED-C11) Document 01/30/17 13:25 BGM0841 (Rec: 01/30/17 13:26 CKP9060 MED-C11) Document 01/30/17 21:51 MMI0425 (Rec: 01/30/17 21:52 RRF8558 MED-C09) Document 01/31/17 05:29 YES2181 (Rec: 01/31/17 05:32 KLT4376 MED-C42) Document 01/31/17 14:00 VUR9926 (Rec: 01/31/17 14:35 CGD8633 MED-C09) Document 01/31/17 21:45 PRC4925 (Rec: 01/31/17 21:45 JUA1995 MED-C09) Document 02/01/17 05:04 COR7200 (Rec: 02/01/17 05:04 BNI1799 MED-C09) Document 02/01/17 10:25 WAV8719 (Rec: 02/01/17 10:25 ZJB6748 MED-C09) Document 02/04/17 22:00 CZH6832 (Rec: 02/04/17 22:33 PJT9500 MED-C09) Document 02/05/17 05:44 OTI6614 (Rec: 02/05/17 05:44 GZY2026 MED-C02) Document 02/05/17 13:25 OTK4243 (Rec: 02/05/17 13:26 EYH2078 MED-C11) Document 02/05/17 22:00 UIV9481 (Rec: 02/05/17 22:39 ULJ8240 MED-C09) Document 02/06/17 05:32 KCA4403 (Rec: 02/06/17 05:32 XMD5790 MED-C02) Intake and Output Start: 02/01/17 22: 47 Freq: DAILY@0600,1400,2200 Status: Complete Created 02/01/17 22:47 QHR5675 (Rec: 02/01/17 22:47 WFX0248 MED-C12) Document 02/02/17 01:02 VVF0703 (Rec: 02/02/17 01:02 CPV9601 MEDL-C01) Document 02/02/17 06:00 PRS1656 (Rec: 02/02/17 06:32 RZC6385 MEDL-C01) Intake and Output Start: 02/02/17 12: 13 Freq: 06,14,22 Status: Complete Created 02/02/17 12:13 WKW5358 (Rec: 02/02/17 12:13 LSK2066 ICU-M21) Document 02/02/17 13:55 VGR8208 (Rec: 02/02/17 13:55 LGO9864 ICU-C07) Document 02/02/17 18:14 DBQ7467 (Rec: 02/02/17 18:14 SZE1468 ICU-C07) Document 02/02/17 18:29 YRQ3574 (Rec: 02/02/17 18:29 REL2703 ICU-C07) Document 02/02/17 22:00 TYH1399 (Rec: 02/02/17 22:03 LUI8788 ICU-M21) Document 02/03/17 04:18 HRC7238 (Rec: 02/03/17 04:18 UJV6425 ICU-C07) Document 02/03/17 05:52 HVE3140 (Rec: 02/03/17 06:18 SAT8149 ICU-C07) Document 02/03/17 10:52 CNE6298 (Rec: 02/03/17 10:54 UHV4374 ICU-C19) Document 02/03/17 14:00 AFW9873 (Rec: 02/03/17 15:05 JDT6979 ICU-C18) Document 02/03/17 22:00 GPC2007 (Rec: 02/03/17 22:06 AIN2303 ICU-C14) Document 02/04/17 04:50 IDN8449 (Rec: 02/04/17 04:50 QZL5442 ICU-C07) - Physical Exam General Physical Exam Comment: Neurological: She closes her eyes to command. Her facial expression is symmetrical and she is moving all limbs. Formal power testing is not possible. Her left hand remains weaker than her right, but she is able to move her fingers (these were flaccid when I last saw her). Skin: The patch of cellulitis on the dorsum of her left hand is completely healed. Musculoskeletal: passive motion of her major joints - much less painful General: No Cyanosis, No Anemia, No Jaundice, No Lymphadenopathy, No Clubbing Lungs and Chest: Yes: Chest Expansion Full, Chest Expansion Symetrica, Percussion Note Resonant, Vessicular Breath Sounds, Other - Anterior chest examined. No: Crackles, Wheezes Heart Rate and Rhythm: Regular JVP: Not Elevated Additional Cardiovascular: Yes: Normal Heart Sounds, Heart Murmur - 3/6 systolic LSE. No: Pedal Edema Abdominal Exam: Yes: Soft, Bowel Sounds Present. No: Distention, Abdominal Mass , Hepatomegaly, Abdominal Tenderness Assessment - Problem List Assessment: Patient Problems Altered mental state (Acute) Anemia (Acute) Cellulitis of left arm (Acute) Pain, joint, multiple sites (Acute) Seizure (Acute) Seizure disorder (Acute) Weakness of left hand (Acute) CAD (coronary artery disease) (Chronic) GERD (gastroesophageal reflux disease) (Chronic) Hypothyroidism (Chronic) Polymyalgia rheumatica (Chronic) Serous adenocarcinoma (Chronic) Thrombocytopenia (Chronic) History of atrial fibrillation (Chronic) Plan: Altered mental state (Acute)Seizure (Acute) Seizure disorder (Acute) She remains encephalopathic, but she is more alert and responsive than when I last saw her. She is not back to baseline and she continues to have problems with speech. She is taking lacosamide 150 mg twice daily. It remains unclear if her neurological status is going to resolve or if she has sustained permanent neurological injury - either toxic or ischemic Anemia (Acute) She has tolerated a transfusion Cellulitis of left arm (Acute) resolved Pain, joint, multiple sites (Acute) mostly resolved Weakness of left hand (Acute) Improving - she is moving her left hand more, but it remains weaker than her right hand, which has normal gript CAD (coronary artery disease) (Chronic) stable GERD (gastroesophageal reflux disease) (Chronic) secondary diagnosis Hypothyroidism (Chronic) secondary diagnosis Polymyalgia rheumatica (Chronic) secondary diagnosis Serous adenocarcinoma (Chronic) I appreciate Dr. Still's detailed evaluation Thrombocytopenia (Chronic) secondary diagnosis History of atrial fibrillation (Chronic) regular pulse. Nutrition: She has a low albumin level, poor intake. Phone call with daughter: Her mother perked up on Monday - her mother doesn' t make sense 50% side. Yesterday she was quiet all day. Not clear if she understands. Dr. Still thinks that she is no longer a candidate for further chemotherapy and she is a candidate for hospice care. She has a hospicare consult pending. She agrees to this plan.
--- NOTE | 2017-02-06 10:05 | PN ---
Progress Note - Progress Note SOAP: Subjective: []Better, confused about why moving around but oriented to my, hospital and in hospital for recurrent seizures. Denies pain. Acetaminophen (Tylenol Tab*) 650 mg PO Q4HR PRN PRN Reason: PAIN Last Admin: 02/04/17 09:17 Dose: 650 mg Acetaminophen (Tylenol Adult Liq*) 650 mg PO Q4H PRN PRN Reason: PAIN - MODERATE Last Admin: 02/02/17 22:09 Dose: 650 mg Heparin Sodium (Porcine) (Heparin Vial(*)) 5,000 units SUBCUT Q8HR [facility] Last Admin: 02/06/17 06:07 Dose: 5,000 units Heparin Sodium (Porcine) (Heparin Flush Port (Ivad)) 5 ml FLUSH DAILY [facility] PRN Reason: Protocol Last Admin: 02/05/17 08:29 Dose: 5 ml Lacosamide (Vimpat) 150 mg PO BID [facility] Last Admin: 02/06/17 00:29 Dose: 150 mg Omeprazole (Prilosec Cap*) 20 mg PO 0600 [facility] Last Admin: 02/06/17 06:07 Dose: 20 mg Ondansetron HCl (Zofran Inj*) 4 mg IV Q4H PRN PRN Reason: NAUSEA/VOMITING Last Admin: 02/03/17 10:59 Dose: 4 mg Polyethylene Glycol/Electrolytes (Miralax*) 17 gm PO DAILY [facility] Last Admin: 02/05/17 08:28 Dose: 17 gm Thyroid (Thyroid Tab*) 60 mg PO BID [facility] Last Admin: 02/06/17 00:30 Dose: 60 mg Objective: [] Vital Signs Temp Pulse Resp BP Pulse Ox 97.4 F 69 18 166/83 97 02/06/17 07:17 02/06/17 07:17 02/06/17 08:08 02/06/17 07:17 02/06/17 07:17 HEENT - Mucosa moist, no lesions She has bruising on left arm from IV site, no abdominal bruising or LE. CTA RRR S1S2 Abd - no masses, no fluid, good BS Full neuro not done,cognition as above Assessment: []86 year old with ovarian cancer who has been managed on Avastin alone with symptomatic and serologic response. She is not a candidate for chemotherapy but has continued on Avastin. QOL has been fair, limited by recurrent seizures. Now several weeks with continued confusion and now progressive weakness and deconditioning. She has progressive cytopenias with modest drop on this admission, a progressive macrocytic anemia. Cancer therapy should not sapless blood counts, may contribute to anemia. I suspect decreased blood counts second to drug reaction from her seizure medication. She has normal B12, there is no signs of marrow infiltration on her peripheral smear and CT scan without bone disease. Plan: 1. Seizures. Mental status improved today from Monday, more oriented. 2. Discussion with daughter on phone over weekend about hospice, home or at residence or via [facility]. She understands prognosis, very difficult to predict but measured in months I suspect. Also, discussed today with Ms. Bonilla and she agreed to no more therapy but I do not think she really understood.
[2017-02-06] MEDS: Polyethylene Glycol 3350* 17 GM PACKET PO SCH (10:38)
--- NOTE | 2017-02-06 21:49 | CONS ---
PALLIATIVE CARE CONSULTATION: DATE OF CONSULTATION: 02/06/17 REASON FOR CONSULTATION: Evaluation for hospice care. HOSPITAL COURSE: This is an 86-year-old female with a past medical history of ovarian caner, on Avastin, also with atrial fibrillation, seizure disorder who presented to the emergency room on 01/16/17 with altered mental status. The patient was admitted at that time of concern for seizure disorder and presenting with postictal presentation. She was admitted and Neurology was consulted and an EEG was ordered. The patient has had 3 EEGs, also a brain MRI. MRI shows atrophy and findings suggestive of mild chronic small vessel ischemic changes, no evidence for acute findings. Neurology has been following along as well as Oncology. Neurology felt that this is a presentation of complex partial seizures with prolonged encephalopathy in the setting of breakthrough seizures. She has had a prolonged hospital course because she has not returned to her baseline mental status since her admission, but has not been clear to the primary caregivers since her admission, the etiology behind her prolonged encephalopathy other than multifactorial. Oncology has been following along as well and has placed a consult for Palliative Care who feels she is not a candidate for chemotherapy for her ovarian cancer and has continued on Avastin. Prior to this admission, her quality of life had been fair, limited by recurrent seizures, but now with prolonged admission with continued confusion, progressive weakness, and deconditioning. She should be evaluated for hospice care and palliative care which she is a candidate for based on her decline of performance status and her terminal diagnosis of ovarian cancer. On my encounter, the patient is pleasantly confused. When I asked if she had any pain, she would say Brittney. When I asked her if she knew where she was, she did say she was in [facility], but any time she was unaware of answering her questions appropriately, she would say [place]. Otherwise, remaining review of system is limited due to her altered mental status. The patient also of note was seen by Surgery for feeding tube placement , which was done by Dr. Saunders. The patient was admitted to the ICU for a brief period, was transferred to the medical floor. She was getting tube feeds that were discontinued on the . Her intake has improved. Unfortunately, I am unable to get in touch with daughter, Lola Bonilla, who appears to be an alternate healthcare proxy. I have tried both of the phone numbers and she is not present in the room, but I will try again. PAST MEDICAL HISTORY: 1. Ovarian cancer, followed by Dr. Still, on Avastin. 2. History of paroxysmal atrial fibrillation. 3. Seizure. 4. Coronary artery disease. 5. Hypothyroidism. 6. GERD. 7. PMR. 8. History of obstructive sleep apnea, not on any treatment. 9. History of CKD. INPATIENT MEDICATIONS: 1. Tylenol 650 mg every 6 hours as needed. 2. Heparin 5000 units subcu t.i.d. 3. Lacosamide tab 150 mg p.o. b.i.d. 4. Omeprazole 20 mg p.o. daily. 5. Zofran 4 mg every 4 hours as needed. 6. MiraLAX 17 mg p.o. daily. 7. Thyroid tab 60 mg p.o. b.i.d. ALLERGIES: AZATHIOPRINE, CODEINE, CORTICOSTEROIDS, DILTIAZEM, KEPPRA, MACROLIDES and KETOLIDES, PENICILLIN, PHENYTOIN, SULFA DRUGS, TETRACYCLINE, DOXYCYCLINE, LIDOCAINE, MOXIFLOXACIN. SOCIAL HISTORY: Prior to this admission, the patient was living alone and per prior notes it appears that she had relatively well quality of life. Her healthcare proxy appears to be her daughter, Lola Bonilla, unable to get in contact with her at this time. She is a nonsmoker. No history of alcohol use. Her MOLST form is a DNR. FAMILY HISTORY: Reviewed and noncontributory. REVIEW OF SYSTEMS: Limited due to patient's altered mental status. PHYSICAL EXAMINATION: Vital Signs: Temperature 97.4, pulse rate 69, respiratory rate 17, oxygen saturation 97% on room air, blood pressure 166/73. General: No acute distress. Resting comfortably in the chair. Listening to music. HEENT: Neck supple. No lymphadenopathy. Pupils are equal and active, anicteric. Oropharynx: Mucous membranes moist. Head normocephalic. Cardiac: Regular rate and rhythm. Soft systolic murmur heard. Respiratory: Diminished breath sounds. No rhonchi or rales. Abdomen: Soft, nontender and nondistended. Extremities: No clubbing, cyanosis, or edema, +1 DPs. Neurologic: Alert and oriented x1. Oriented to place. Gross neurologic exam, the patient with limited ability to follow commands, appears to be significantly deconditioned with generalized weakness. LABORATORY DATA: White count 3.9, hemoglobin 10.5, hematocrit 31, platelets 99. Sodium 134, potassium 5.2, chloride 101, bicarb 30, BUN 23, creatinine 0.94 , alk phos 136, CRP 27, albumin declined down to 2.3. ASSESSMENT: This is an 86-year-old female with ovarian cancer managed on Avastin, not a candidate for chemotherapy who was living alone prior to admission, who was admitted on 01/16/17 with altered mental status, found to have complex partial seizures with breakthrough seizures and prolonged encephalopathy. Despite a prolonged hospital course and extensive workup, the patient's mental status continues to be impaired. The patient is pleasantly confused on my encounter, limited interaction and ability to follow any commands. Dr. Still does not feel that this is due to the Avastin, and felt that she is not a candidate for any additional cancer treatment, should be transitioned to hospice. She is a candidate for hospice with her terminal diagnosis of ovarian cancer and decline in her performance status during this hospitalization. Unfortunately, I have been unable to get in touch with her daughter. I will try again later to see if she comes to see the patient to discuss disposition planning with her and we will have Donna, our social media project manager, as well come speak with her. At this time, the patient seems to be comfortable. I will readdress the MOLST form as the DNR is the only page that is filled out at this time and address additional MOLST form that includes comfort measures, but we will talk to the daughter first. Thank you for this consultation. We will follow along with you. PATIENT TIME: Greater than 60 minutes were spent doing consultation, more than half the time spent in direct patient contact. CC: Dr. Freddy Berrios; Dr. Kristian Still* [id number]/[facility] #: [id number] [facility]
[2017-02-07] MEDS: Omeprazole CAP* 20 MG PO SCH (05:09)
[2017-02-07] MEDS: Heparin VIAL(*) 5000 UNITS/ML VIAL (FIVE THOUSAND) SUBCUT SCH ×3 (05:09→21:32)
[2017-02-07] MEDS: Thyroid TAB* 60 MG PO SCH ×2 (07:52→21:29)
[2017-02-07] MEDS: Polyethylene Glycol 3350* 17 GM PACKET PO SCH (07:52)
[2017-02-07] MEDS: LACOSAMIDE 150 MG PO SCH ×2 (07:52→21:30)
--- NOTE | 2017-02-07 08:43 | PN ---
Subjective - Subjective Reason for Note: Progress Note History: She is less responsive today than yesterday. According to her RN, she brightened up yesterday, but although she could talk she perseverated and was disoriented. 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 Thrombocytopenia (Chronic) D69.6 Current Medications: Current Medications Acetaminophen (Tylenol Tab*) 650 mg PO Q4HR PRN PRN Reason: PAIN Last Admin: 02/04/17 09:17 Dose: 650 mg Acetaminophen (Tylenol Adult Liq*) 650 mg PO Q4H PRN PRN Reason: PAIN - MODERATE Last Admin: 02/02/17 22:09 Dose: 650 mg Heparin Sodium (Porcine) (Heparin Vial(*)) 5,000 units SUBCUT Q8HR [facility] Last Admin: 02/07/17 05:09 Dose: 5,000 units Heparin Sodium (Porcine) (Heparin Flush Port (Ivad)) 5 ml FLUSH DAILY TONYA PRN Reason: Protocol Last Admin: 02/07/17 07:52 Dose: 5 ml Lacosamide (Vimpat) 150 mg PO BID TONYA Last Admin: 02/07/17 07:52 Dose: 150 mg Omeprazole (Prilosec Cap*) 20 mg PO 0600 TONYA Last Admin: 02/07/17 05:09 Dose: 20 mg Ondansetron HCl (Zofran Inj*) 4 mg IV Q4H PRN PRN Reason: NAUSEA/VOMITING Last Admin: 02/03/17 10:59 Dose: 4 mg Polyethylene Glycol/Electrolytes (Miralax*) 17 gm PO DAILY TONYA Last Admin: 02/07/17 07:52 Dose: 17 gm Thyroid (Thyroid Tab*) 60 mg PO BID TONYA Last Admin: 02/07/17 07:52 Dose: 60 mg Home Medications: Home Medications Medication Instructions Recorded Confirmed Type Levetiracetam XR TAB(NF) [Keppra 1,000 mg PO BID 09/02/16 01/16/17 History XR TAB(NF)] Thyroid TAB* [Thyroid TAB 60 MG*] 60 mg PO BID 09/02/16 01/16/17 History Omeprazole CAP* [Prilosec CAP* 20 20 mg PO DAILY 10/15/16 01/16/17 History MG] Cholecalciferol [Vitamin D3] 50,000 mg PO WEEKLY 01/16/17 01/16/17 History Divalproex ER TAB(*) [Depakote ER 1,000 mg PO BID 01/16/17 01/16/17 History TAB(*)] Lactulose* 10 mg PO BID PRN 01/16/17 01/16/17 History Ondansetron TAB* [Zofran 4 MG Tab*] 4 mg PO TID PRN 01/16/17 01/16/17 History Pantoprazole TAB (NF) [Protonix 40 mg PO DAILY 01/16/17 01/16/17 History TAB (NF)] Prochlorperazine TAB* [Compazine 10 mg PO QID PRN 01/16/17 01/16/17 History Tab*] Allergies: Allergies Allergy/AdvReac Type Severity Reaction Status Date / Time Azathioprine Allergy Unknown Verified 09/01/16 12:28 Reaction Details Codeine Allergy Unknown Verified 09/01/16 12:28 Reaction Details Corticosteroids Allergy Swelling Verified 09/01/16 12:28 Diltiazem Allergy Unknown Verified 09/01/16 12:28 Reaction Details Levetiracetam Allergy See Comment Verified 09/01/16 12:28 Macrolides and Ketolides Allergy Unknown Verified 09/01/16 12:28 Reaction Details Penicillins Allergy Hives Verified 09/01/16 12:28 Phenytoin [From Dilantin] Allergy Hives Verified 09/01/16 12:28 Sulfa Drugs Allergy Hives Verified 09/01/16 12:28 Tetracyclines & Related Allergy Difficulty Verified 09/01/16 12:28 Breathing/Wheezing Doxycycline AdvReac GI Upset Verified 06/09/16 06:51 Lidocaine AdvReac GI Upset Verified 06/09/16 06:51 Moxifloxacin [From Avelox] AdvReac Diarrhea Verified 06/09/16 06:51 Objective - Vital Signs Vital Signs: Vital Signs 02/06/17 02/06/17 02/07/17 15:42 23:00 04:44 Temperature 97.1 F 97.9 F Pulse Rate 71 70 Respiratory 16 16 16 Rate Blood Pressure 147/65 146/61 (mmHg) O2 Sat by Pulse 98 98 97 Oximetry 02/07/17 07:58 Temperature 97.1 F Pulse Rate 60 Respiratory 15 Rate Blood Pressure 124/63 (mmHg) O2 Sat by Pulse 97 Oximetry - Intake and Output Intake and Output: Intake & Output 02/04/17 02/05/17 02/06/17 02/07/17 11:59 11:59 11:59 11:59 Intake Total 1122 594 230 520 Output Total 0 0 0 Balance 1122 594 230 520 Weight 127 lb 6.835 oz Intake: IV Fluids 407 50 ABX - CLINDAMYCIN 407 Normal Saline 50 IVPB 279 PRBC 279 Oral 120 115 230 520 Tube Feeding 445 150 NG Tube Irrigate Amount 150 NGT 150 Output: Urine 0 0 Tube Feeding Residual 0 0 Amount Wasted Other: Estimated Void Large Large Medium Medium # Bowel Movements 0 0 1 Estimated Stool Amount Small Small Medium # Voids 1 2 2 1 ADLs: Meal Record Start: 01/16/17 16: 08 Freq: 09,13,18 Status: Complete Created 01/16/17 16:08 [id number] (Rec: 01/16/17 16:08 [id number] ICU-M02) Document 01/16/17 18:00 YSI9818 (Rec: 01/16/17 18:06 HNZ4637 ICU-C16) Document 01/17/17 09:00 DKM2654 (Rec: 01/17/17 09:49 YLV0015 ICU-C10) Document 01/17/17 13:00 PLC5396 (Rec: 01/17/17 13:02 JLB1102 ICU-C16) Document 01/17/17 18:00 SQO8894 (Rec: 01/17/17 18:55 YWE2585 ICU-C16) Document 01/18/17 07:27 JPK7107 (Rec: 01/18/17 07:27 YWW8233 ICU-C20) ADLs: Meal Record Start: 01/18/17 08: 22 Freq: DAILY@0900,1400,1800 Status: Active Created 01/18/17 08:22 ROU9009 (Rec: 01/18/17 08:22 QXL5360 ICU-C10) Document 01/18/17 08:23 KTN2546 (Rec: 01/18/17 08:23 OZF1533 ICU-C10) Document 01/18/17 14:00 MZM8147 (Rec: 01/18/17 14:00 WBM2300 ICU-C16) Document 01/18/17 19:00 EMB0310 (Rec: 01/18/17 20:34 OXB2677 ICU-C16) Document 01/19/17 09:00 KQO4345 (Rec: 01/19/17 09:15 CSM2061 ICU-C16) Document 01/19/17 13:27 XWF1583 (Rec: 01/19/17 13:27 EIU0602 MED-C09) Document 01/19/17 18:00 BVF9641 (Rec: 01/19/17 19:02 TXB0843 MED-C11) Document 01/20/17 14:00 VNH1160 (Rec: 01/20/17 14:06 PCE4239 MED-C16) Document 01/20/17 18:00 YWQ7738 (Rec: 01/20/17 19:00 MHQ1029 MED-C09) Document 01/21/17 09:00 NOS7572 (Rec: 01/21/17 10:47 LLT0059 MED-C09) Document 01/21/17 14:00 YFQ3917 (Rec: 01/21/17 14:10 FEJ4487 MED-C11) Document 01/22/17 03:48 RUV1017 (Rec: 01/22/17 03:48 SSF7549 MED-C14) Document 01/22/17 09:00 CXE7123 (Rec: 01/22/17 09:45 SJL0509 MED-C11) Document 01/22/17 14:00 SQT3036 (Rec: 01/22/17 14:26 ZED9956 MED-C09) Document 01/22/17 18:00 HAZ3926 (Rec: 01/22/17 18:42 EXW4907 MED-C09) Document 01/23/17 09:00 OQG9632 (Rec: 01/23/17 10:07 CIT9829 MED-C11) Document 01/23/17 12:57 XAO0961 (Rec: 01/23/17 12:57 XEG6836 MED-C11) Document 01/23/17 18:00 FGM7683 (Rec: 01/23/17 19:01 DCN9507 MED-L07) Document 01/24/17 09:00 OBV7992 (Rec: 01/24/17 11:03 IPP2524 MED-C11) Document 01/24/17 14:00 FBL4287 (Rec: 01/24/17 14:02 NJZ0211 MED-C11) Document 01/24/17 18:00 CEY5841 (Rec: 01/24/17 21:48 RAG3233 MED-C11) Document 01/25/17 09:00 BWM5679 (Rec: 01/25/17 09:36 WVV5471 MED-C16) Document 01/25/17 18:00 VML0066 (Rec: 01/25/17 22:44 BER6141 MED-C09) Document 01/26/17 09:00 PXE1844 (Rec: 01/26/17 15:24 EWZ1840 MED-C11) Document 01/26/17 14:00 AEQ6852 (Rec: 01/26/17 15:26 QJW4838 MED-C11) Document 01/26/17 18:00 XRE3493 (Rec: 01/26/17 19:50 LWP5907 MED-C09) Document 01/27/17 09:00 GZY2969 (Rec: 01/27/17 09:33 LCY0376 MED-C11) Document 01/27/17 13:25 HCD5957 (Rec: 01/27/17 13:25 DSR9157 MED-C11) Document 01/27/17 18:00 HGL3670 (Rec: 01/27/17 21:54 ENR6768 MED-C11) Document 01/28/17 09:00 DQF6334 (Rec: 01/28/17 15:28 AEH3226 MED-C09) Document 01/28/17 14:00 RLV3893 (Rec: 01/28/17 15:29 QBI3378 MED-C09) Document 01/28/17 18:00 DRJ6850 (Rec: 01/28/17 22:17 UBI7517 MED-C09) Document 01/29/17 09:00 YXP4886 (Rec: 01/29/17 11:21 ZZG9708 MED-C09) Document 01/29/17 14:00 LIF1195 (Rec: 01/29/17 14:45 KVO4976 MED-C11) Document 01/29/17 18:00 HMU2513 (Rec: 01/29/17 22:40 GVD7251 MED-C09) Document 01/30/17 09:00 SNS4038 (Rec: 01/30/17 09:27 FDG5798 MED-C11) Document 01/30/17 13:25 AOM5107 (Rec: 01/30/17 13:26 OPR3323 MED-C11) Document 01/30/17 18:00 XFX1243 (Rec: 01/30/17 19:46 VZL4483 MED-C09) Document 01/31/17 09:00 FBD3437 (Rec: 01/31/17 09:45 FMW8559 MED-C11) Document 01/31/17 14:00 JNT4236 (Rec: 01/31/17 14:35 MWG8634 MED-C09) Document 01/31/17 18:00 SFH4637 (Rec: 01/31/17 18:28 CLF2110 MED-C09) Document 02/01/17 09:00 UMJ5907 (Rec: 02/01/17 09:05 MGV4946 MED-C09) Document 02/01/17 14:00 CQD5258 (Rec: 02/01/17 14:19 XID5980 MED-C11) ADLs: Meal Record Start: 02/01/17 22: 47 Freq: DAILY@0900,1400,1800 Status: Complete Created 02/01/17 22:47 AFL5894 (Rec: 02/01/17 22:47 AFE7660 MED-C12) Document 02/02/17 09:00 RQK5677 (Rec: 02/02/17 09:31 IHK4753 MED-C09) ADLs: Meal Record Start: 02/02/17 12: 13 Freq: 09,13,18 Status: Complete Created 02/02/17 12:13 OAY0492 (Rec: 02/02/17 12:13 LOS4695 ICU-M21) Document 02/02/17 13:00 OSO5456 (Rec: 02/02/17 13:41 EAF7637 ICU-C07) Document 02/02/17 18:00 MTW0000 (Rec: 02/02/17 18:04 AEL2757 ICU-C18) Document 02/03/17 10:52 YHQ8324 (Rec: 02/03/17 10:54 ZEY2214 ICU-C19) Document 02/03/17 13:37 VMC9984 (Rec: 02/03/17 13:37 YUX3222 ICU-C19) Document 02/04/17 09:49 MVO0382 (Rec: 02/04/17 09:49 KYD6943 ICU-C18) ADLs: Meal Record Start: 02/02/17 18: 28 Freq: 09,13,18 Status: Active Document 02/02/17 18:28 UCG8390 (Rec: 02/02/17 18:28 TUZ2671 ICU-C07) Created 02/02/17 18:28 MVW8168 (Rec: 02/02/17 18:28 NWQ6544 ICU-C07) Document 02/03/17 10:52 XNA1111 (Rec: 02/03/17 10:54 PLJ7803 ICU-C19) Document 02/03/17 13:37 GXK4300 (Rec: 02/03/17 13:37 LRR3831 ICU-C19) Document 02/04/17 09:49 SZQ8024 (Rec: 02/04/17 09:49 ZVQ1421 ICU-C18) Document 02/04/17 18:00 WKQ1633 (Rec: 02/04/17 22:32 FKZ4693 MED-C09) Document 02/05/17 09:00 HUL3690 (Rec: 02/05/17 11:49 GAV9971 MED-C11) Document 02/05/17 18:00 OPL8752 (Rec: 02/05/17 20:31 TRG2643 MED-C09) Document 02/06/17 09:00 JOZ5931 (Rec: 02/06/17 15:21 ADW1176 MED-C11) Document 02/06/17 13:00 ZUR0338 (Rec: 02/06/17 15:22 ZXM9841 MED-C11) Document 03/27/17 18:00 ZBU1275 (Rec: 02/06/17 18:26 YOU4916 MED-C11) Intake and Output Start: 01/16/17 16: 08 Freq: 06,14,22 Status: Complete Created 01/16/17 16:08 UXN7812 (Rec: 01/16/17 16:08 JMX2407 ICU-M02) Document 01/16/17 22:00 VHH5654 (Rec: 01/16/17 22:01 YFV2350 ICU-C20) Document 01/17/17 06:00 RNT7909 (Rec: 01/17/17 06:29 YNP2809 ICU-M02) Document 01/17/17 11:50 ARG5825 (Rec: 01/17/17 11:51 TYF3208 ICU-C10) Document 01/17/17 14:00 IAE8446 (Rec: 01/17/17 15:55 VTU5964 ICU-C16) Document 01/17/17 21:30 MDF2270 (Rec: 01/17/17 21:30 YHA1557 ICU-M17) Document 01/18/17 05:31 XFT3530 (Rec: 01/18/17 05:31 BMY8253 ICU-C14) Intake and Output Start: 01/18/17 08: 22 Freq: DAILY@0600,1400,2200 Status: Active Created 01/18/17 08:22 CMT6258 (Rec: 01/18/17 08:22 SWV7395 ICU-C10) Document 01/18/17 13:57 XOR2273 (Rec: 01/18/17 13:57 UVY3421 ICU-C16) Document 01/18/17 21:56 EWJ8647 (Rec: 01/18/17 21:57 APL8933 ICU-C14) Document 01/18/17 22:00 MZW0012 (Rec: 01/18/17 22:15 BHP4679 ICU-C16) Document 01/19/17 06:00 BWV2269 (Rec: 01/19/17 06:04 TMZ3424 ICU-C16) Document 01/19/17 08:00 ERZ1453 (Rec: 01/19/17 09:28 CRU5450 ICU-C16) Document 01/19/17 22:00 MWL5929 (Rec: 01/19/17 22:24 AYH5010 MED-C09) Document 01/20/17 05:19 WZL4062 (Rec: 01/20/17 05:19 PIO4135 MED-C42) Document 01/20/17 14:00 HAE2089 (Rec: 01/20/17 16:07 GMS7231 MED-L07) Document 01/20/17 21:42 SAI2400 (Rec: 01/20/17 21:43 MYP1342 MEDL-C02) Document 01/21/17 03:32 PHG1110 (Rec: 01/21/17 03:32 EII7195 MED-C42) Document 01/21/17 14:00 YFQ7874 (Rec: 01/21/17 14:10 ZMO5727 MED-C11) Document 01/21/17 22:00 JOG7685 (Rec: 01/21/17 23:18 ELI6998 MED-C09) Document 01/22/17 06:00 PKR6411 (Rec: 01/22/17 06:34 OHR3115 MEDL-C02) Document 01/22/17 14:00 UQB3780 (Rec: 01/22/17 14:26 HKH2636 MED-C09) Document 01/23/17 04:19 BFZ7713 (Rec: 01/23/17 04:19 ZZD1135 MEDL-C01) Document 01/23/17 05:24 XJM6117 (Rec: 01/23/17 05:24 WDN6510 MED-C26) Document 01/23/17 10:08 BWW3924 (Rec: 01/23/17 10:09 TSL6767 MED-C11) Document 01/23/17 12:57 MJU7134 (Rec: 01/23/17 12:57 KGW7473 MED-C11) Document 01/23/17 22:00 HIB6731 (Rec: 01/23/17 22:25 NIZ8470 MED-C11) Document 01/24/17 04:50 HLL4997 (Rec: 01/24/17 04:50 VDS9645 MED-C42) Document 01/24/17 08:58 HDT7065 (Rec: 01/24/17 08:59 BCB9004 MED-C11) Document 01/24/17 18:30 CMY6730 (Rec: 01/24/17 18:30 EMP6045 MED-C04) Document 01/25/17 06:00 HLZ0595 (Rec: 01/25/17 06:16 DBV9745 MED-C14) Document 01/26/17 06:00 NEH3450 (Rec: 01/26/17 06:10 SDA3060 MEDL-C02) Document 01/26/17 14:00 KXD8301 (Rec: 01/26/17 15:26 VBT0447 MED-C11) Document 01/26/17 22:00 BRD8287 (Rec: 01/26/17 22:29 MBA5905 MED-C11) Document 01/27/17 06:00 BCK4502 (Rec: 01/27/17 06:30 WPD4629 MED-C09) Document 01/27/17 12:24 XIL9606 (Rec: 01/27/17 12:24 OTC4991 MED-C11) Document 01/27/17 22:00 EWK3338 (Rec: 01/27/17 22:07 FBB3590 MED-C11) Document 01/28/17 06:00 JAF5115 (Rec: 01/28/17 06:26 HIM6393 MED-C42) Document 01/28/17 14:00 HIE3043 (Rec: 01/28/17 15:31 LLA7891 MED-C09) Document 01/28/17 22:00 VSZ9137 (Rec: 01/28/17 22:18 EIY7933 MED-C09) Document 01/29/17 04:55 YPJ9545 (Rec: 01/29/17 04:56 ONC3515 MED-C42) Document 01/29/17 14:00 YAZ7781 (Rec: 01/29/17 14:45 NGJ3829 MED-C11) Document 01/29/17 22:00 EUK2130 (Rec: 01/29/17 22:41 AUT1879 MED-C09) Document 01/30/17 05:40 ZQB6643 (Rec: 01/30/17 05:40 MAZ8228 MED-C11) Document 01/30/17 13:25 ZEC6367 (Rec: 01/30/17 13:26 TFI8029 MED-C11) Document 01/30/17 21:51 YGO7958 (Rec: 01/30/17 21:52 XJE5480 MED-C09) Document 01/31/17 05:29 ZVC7048 (Rec: 01/31/17 05:32 GNJ1002 MED-C42) Document 01/31/17 14:00 GPS2130 (Rec: 01/31/17 14:35 GTK0276 MED-C09) Document 01/31/17 21:45 FSL5505 (Rec: 01/31/17 21:45 SLA7224 MED-C09) Document 02/01/17 05:04 FDR6087 (Rec: 02/01/17 05:04 UUE1587 MED-C09) Document 02/01/17 10:25 PJI4859 (Rec: 02/01/17 10:25 XJK2088 MED-C09) Document 02/04/17 22:00 WVU0546 (Rec: 02/04/17 22:33 HYZ3626 MED-C09) Document 02/05/17 05:44 BAL4246 (Rec: 02/05/17 05:44 NGL4462 MED-C02) Document 02/05/17 13:25 BPK4421 (Rec: 02/05/17 13:26 VEG7128 MED-C11) Document 02/05/17 22:00 PVO9949 (Rec: 02/05/17 22:39 BYB3519 MED-C09) Document 02/06/17 05:32 KQR7238 (Rec: 02/06/17 05:32 CTT8087 MED-C02) Document 02/06/17 14:00 QDA2976 (Rec: 02/06/17 15:23 FPF9208 MED-C11) Document 02/06/17 22:00 YWA0351 (Rec: 02/06/17 22:12 HMA7493 MED-C14) Document 02/07/17 04:52 EKT1345 (Rec: 02/07/17 04:52 TGD7748 MEDL-C01) Intake and Output Start: 02/01/17 22: 47 Freq: DAILY@0600,1400,2200 Status: Complete Created 02/01/17 22:47 JGS1901 (Rec: 02/01/17 22:47 LZI2368 MED-C12) Document 02/02/17 01:02 LJS9707 (Rec: 02/02/17 01:02 GYZ6593 MEDL-C01) Document 02/02/17 06:00 FFG6093 (Rec: 02/02/17 06:32 CDI1357 MEDL-C01) Intake and Output Start: 02/02/17 12: 13 Freq: 06,14,22 Status: Complete Created 02/02/17 12:13 WGL5347 (Rec: 02/02/17 12:13 GMJ8468 ICU-M21) Document 02/02/17 13:55 EJN8264 (Rec: 02/02/17 13:55 ZQC3328 ICU-C07) Document 02/02/17 18:14 OTT6045 (Rec: 02/02/17 18:14 ZAL4595 ICU-C07) Document 02/02/17 18:29 TWQ6766 (Rec: 02/02/17 18:29 DQR5370 ICU-C07) Document 02/02/17 22:00 DBJ8974 (Rec: 02/02/17 22:03 IQE6104 ICU-M21) Document 02/03/17 04:18 AVL1541 (Rec: 02/03/17 04:18 QBE3465 ICU-C07) Document 02/03/17 05:52 UCF0076 (Rec: 02/03/17 06:18 TWX9445 ICU-C07) Document 02/03/17 10:52 ZVO6679 (Rec: 02/03/17 10:54 EXX4296 ICU-C19) Document 02/03/17 14:00 VFG3346 (Rec: 02/03/17 15:05 XMY0629 ICU-C18) Document 02/03/17 22:00 RKN3189 (Rec: 02/03/17 22:06 KTP9449 ICU-C14) Document 02/04/17 04:50 VPP7776 (Rec: 02/04/17 04:50 MRK8328 ICU-C07) - Physical Exam General Physical Exam Comment: She is alert, but not attending to me today. She is not following commands. She whispered one phrase, but is not oriented. She did not move her limbs to command, but moves her fingers/toes. General: No Cyanosis, No Anemia, No Jaundice, No Clubbing Skin: Normal: Rash Lungs and Chest: Yes: Chest Expansion Full, Chest Expansion Symetrica, Percussion Note Resonant, Vessicular Breath Sounds. No: Crackles, Wheezes Heart Rate and Rhythm: Regular JVP: Not Elevated Additional Cardiovascular: Yes: Normal Heart Sounds, Heart Murmur. No: Pedal Edema Abdominal Exam: Yes: Soft, Bowel Sounds Present. No: Distention, Abdominal Tenderness Assessment - Problem List Assessment: Patient Problems Altered mental state (Acute) Anemia (Acute) Cellulitis of left arm (Acute) Pain, joint, multiple sites (Acute) Seizure (Acute) Seizure disorder (Acute) Weakness of left hand (Acute) CAD (coronary artery disease) (Chronic) GERD (gastroesophageal reflux disease) (Chronic) Hypothyroidism (Chronic) Polymyalgia rheumatica (Chronic) Serous adenocarcinoma (Chronic) Thrombocytopenia (Chronic) History of atrial fibrillation (Chronic) Plan: Altered mental state (Acute) Seizure (Acute) Seizure disorder (Acute) She has a fluctuating level of alertness, but she is not returning to normal consciousness even when she is at her most alert. This is looking increasingly like a fixed deficit. 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 I would have expected more recovery by now from a toxic encephalopathy. She appears not to be having status epilepticus. She is failing to thrive. I reviewed the palliative care consult by Dr. Mitchell. I agree with her conclusions. I think [facility] or [facility]. Anemia (Acute) I have not rechecked her H and H since her transfusion Cellulitis of left arm (Acute) resolved Pain, joint, multiple sites (Acute) resolved Weakness of left hand (Acute) Improving CAD (coronary artery disease) (Chronic) secondary diagnosis GERD (gastroesophageal reflux disease) (Chronic) secondary diagnosis Hypothyroidism (Chronic) secondary diagnosis Polymyalgia rheumatica (Chronic) secondary diagnosis Serous adenocarcinoma (Chronic) see Dr. Still's note Thrombocytopenia (Chronic) secondary diagnosis History of atrial fibrillation (Chronic) Phone call to Larisa Bonilla. I read to her the assessment from Dr. Mitchell, for [facility]. Brittney Bonilla is failing to thrive - eating and drinking very little. Her mental state is fluctuating. She said to her daughter "I have had a blessed life" - preparing to let go. I discussed alternatives. Larisa does not think that home could be arranged for 24/7 hospicecare. She agrees that SNF or hosp[facility]are residents are the best possibilities. I have updated the [facility] form
[2017-02-08] MEDS: Omeprazole CAP* 20 MG PO SCH (06:25)
[2017-02-08] MEDS: Heparin VIAL(*) 5000 UNITS/ML VIAL (FIVE THOUSAND) SUBCUT SCH (06:29)
[2017-02-08 08:03] VITALS: BP 135/67
[2017-02-08] MEDS: LACOSAMIDE 150 MG PO SCH (10:06)
[2017-02-08] MEDS: Thyroid TAB* 60 MG PO SCH (10:06)
[2017-02-08] MEDS: Polyethylene Glycol 3350* 17 GM PACKET PO SCH (10:06)
--- NOTE | 2017-02-08 11:42 | DS ---
DISCHARGE SUMMARY: DATE OF ADMISSION: 01/16/17. DATE OF DISCHARGE: 02/08/17. DISCHARGE DIAGNOSIS: 1. Seizure. 2. Prolonged postictal phase. 3. Failure to thrive. 4. Encephalopathy. 5. Cellulitis dorsum left wrist COMORBIDITIES: 1. Thrombocytopenia 2. Anemia. 3. Peritoneal ovarian carcinomatosis. SECONDARY DIAGNOSES: 1. Coronary artery disease. 2. Remote history of atrial fibrillation 3. Gastroesophageal reflux disease. 4. Primary hypothyroidism. 5. Remote history of polymyalgia rheumatica. HISTORY: Brittney Bonilla is an 86-year-old right handed white female. Her presentation is provided by Reagan Sow, nurse practitioner in his admitting history and physical, which is part of the electronic record. In short, she has being driven by her daughter to [place] and became unaware. By the time she arrived at the hospital, she needed to be lifted out of the car. She was in status epilepticus, was seen by the neurologist, who gave her some Keppra. She had been taking and titrating off Keppra to Depakote. PHYSICAL EXAMINATION: On presentation, she was unresponsive with withdrawal to pain only, nonverbal. Blood pressure 134/69, pulse 106, respirations 26, O2 saturation 97%, temperature 98.7. Eyes were open, nonverbal, grimace to pain. INITIAL INVESTIGATIONS: White count 5.4, hemoglobin 12.3, hematocrit 37, platelet count 39. INR 0.88, APTT 28.2. Arterial blood gases: pH 7.27, PCO2 of 51, bicarbonate 21. Sodium 134, potassium 5.9, chloride 101, bicarbonate 29, BUN 33, creatinine 1.29 , glucose 108, lactate 208, calcium 9.4, bilirubin 0.6. AST 22. ALT 13, alkaline phosphatase 84. Troponin I is 0.0. Valproic acid level 75 mcg per mL to the reference range 50 to 100. INITIAL IMPRESSION: Seizure, either postictal or status partial epilepticus. She was managed in conjunction with Neurology. CONSULTATIONS: She was initially seen by Dr. Cy Dennis. His consultation is part of the electronic medical record. His impression is likely left hemispheric chronic seizure disorder, suggested an EEG and wants to maintain her on Depakote. She was seen repeatedly by multiple neurologists during hospital stay and their notes are part of the electronic medical record. She was also seen during the hospital stay by Dr. Still, whose consultation is also part of the electronic medical record. In short, he felt given her status in which she was failing to thrive that she was no longer a candidate for Avastin for her ovarian cancer and he also did not think that the Avastin was responsible for chronic encephalopathy. He noted the low platelets and hemoglobin and initiated a blood transfusion. INVESTIGATIONS: Imaging initially on 01/16/17, she had a brain CT scan, showed no acute pathology. On 01/16/17, she had a chest x-ray, which showed signs of COPD. On 01/25/17, she had a MRI of brain, which showed atrophy ad findings suggestive of chronic small vessel ischemic disease, but no other acute changes. On 01/27, she had a left wrist x-ray, as she sustained a fall in the hospital. There was no evidence of fracture. She had a chest x-ray on with a feeding tube was in place. She had a second wrist x-ray on the , again degenerative changes. EKG at presentation showed a normal sinus rhythm at 110, ID [id number], QTc of 432, QRS of 13, no ST-T changes. HOSPITAL COURSE: Seizures/encephalopathy. She initially started to improve after her seizure. At presentation, Neurology suggested initially that we increase the dose of Depakote rather than change her to a new anti-seizure medication on the basis that even though the level was at mid therapeutic range with insufficient presentation. She was ambulating and I was planning to discharge her 01/22/17, however, she was found on that date to be unconscious and incontinent. She appeared to have had another seizure. At that time, her valproic acid levels were 138 mcg/mL in the toxic range, the neurologists also considered the possibility of a toxic encephalopathy from the divalproex. She was seen by Neurology, who changed her over to initially lacosamide initially 100 mg twice daily. Remainder of hospitalization, she was encephalopathic, not responding to commands, barely verbal. This was the fluctuating course. Initially, it was thought that she was postictal or possibly had a toxic encephalopathy from the Depakote. However, she was failing to thrive. She had a period of time when we gave her feeding via an NG tube. She was then transferred back to ICU for EEG, telemetry on the orders Dr. Vane Benson. There was no evidence of active seizure and was returned to the regular medical floor. She was barely eating or drinking enough and her daughter, Larisa was in town. She was not oriented or responding to her. She had an infection of her left wrist. I treated this with IV cefazolin. She had a drug reaction with arthritis. Her cellulitis cleared up. Her arthritis cleared up after cessation of cefazolin. On the penultimate day in the hospital, she remained encephalopathic, would not follow simple commands, would not move arms or legs to command, was unable to answer any questions. On the day of discharge, she woke up. She was bright. Her eyes were open. She was looking at me. She was communicative. She followed all single step commands. She appeared to understand her situation. This was a huge clinical change. She was seen by hospice care on the day before discharge and they felt she was an appropriate placement for hospice care services. A bed was found at [facility]. PHYSICAL EXAMINATION: On the day of discharge, she is alert, following commands , she is vocal, she is no longer perseverating in her speech. She is pale. She has no cyanosis, jaundice, clubbing or adenopathy. Vital signs: Temperature 97.4, pulse 67, respiratory rate 14, oxygen saturation 98% on room air, blood pressure 135/67. Cardiovascular System: Pulse regular, normal character and volume. Venous pressure not elevated. Heart sounds are normal with a soft systolic murmur in the left sternal edge. No pedal edema. Respiratory System: Chest expansion full and symmetrical. Percussion had resonant breath sounds, vesicular. No crackles or wheezes in the anterior chest. Abdomen: No distention, masses, tenderness or organomegaly. Bowel sounds are present. Nervous System: She has got conjugate eye movements. No nystagmus or ophthalmoplegia. She is wide awake. Speech is soft, but normal. Cranial nerves II through XII are intact. Arms and legs, she is very weak, but no focal deficits. In terms of power, her tone is normal. Skin is normal. INVESTIGATIONS: 02/05/17, CMP was normal aside from a potassium of 5.2, alkaline phosphatase of 136, CRP was 27.68, albumin was 2.3, globulin 3.4. Her CA 125 was 22.8 and on 01/30/17, her TSH was 0.51. CBC, 02/05/17, white count 3.9, hemoglobin 10.5, hematocrit 31, platelets 99. ASSESSMENT AND PLAN: 1. Seizure disorder. This patient presented with a seizure. Has had two very prolonged postictal phases. The second one after the second breakthrough seizure of she appeared to be failing to thrive and we wondered if she had developed a fixed deficit of unknown cause. It is possible that this was contributed to by a prolonged toxic encephalopathy to Depakote, which took a long time to leave her brain. However, on the day of discharge , she appeared to be awake and alert and no longer in delirium. This may mean that she has the potential for rehabilitation and may not require hospice services in the acute phase, though it is possible that she may once again develop an encephalopathy. We will follow this carefully at [facility]. She is now on lacosamide 150 mg twice daily, which she appears to be tolerating. 2. Ovarian carcinoma. She has been receiving Avastin therapy for this and this has been discontinued. This will limit her prognosis, though she has no signs of recurrence. We will decide about future treatments with the patient when she is fully aware of the circumstances. 3. Thrombocytopenia. This is improving and was probably secondary to Depakote treatment. 4. Anemia. This may well be due to her nutritional status. She had a transfusion and with better nutrition, this may recover. 5. Poor nutrition. She has not eaten or drunk much since 01/16/17. She will need actively feeding at [facility] facility. 6. Coronary artery disease, inactive. 7. Hypertension, inactive. 8. Hypothyroidism, treated. 9. Left wrist cellulitis resolved. I have been in daily communication with her daughter, Larisa, who has been her healthcare proxy and is aware of the entire situation. She accepted her mother has limited prognosis owing to a cancer and until today appeared to be failing to thrive and may well have succumbed to her encephalopathy/new fixed neurological deficit. Today, the prognosis does not look so bad, as she appears to be much more alert and oriented. I will be her attending physician at [facility]. I suggested that she needs a CBC and CMP after a week plus a lacosamide drug level. DISCHARGE MEDICATIONS: 1. Lacosamide 150 mg twice daily. 2. Thyroid extract, [place] thyroid 60 mg twice daily. 3. Omeprazole 20 mg daily 4. Prochlorperazine 10 mg orally as needed for nausea or Zofran equally 4 mg 3 times a day as needed. 5. Levetiracetam discontinued. I will reconcile her medications again when she is at [facility]. CC: [facility]; Oskar Swan MD* [id number]/[facility] #: [id number] MTDD
== END 2017-02-08 12:55 | DRG 100 ==
LOC: ED 13:05 → OBSVTOIN 14:26 → MEDTELE 14:26 → ICU 14:26 → UNDOADMOB 14:26 → MED 01-19 08:36 → ICU 02-02 12:10 → MED 02-04 11:06
PROVIDERS: ADMIT Internal Medicine; ATTEND Internal Medicine
PROC: 4A10X4Z Monitoring of Central Nervous Electrical Activity, External Approach (ICD-10-PCS; 2017-01-17)
PROC: 0DH67UZ Insertion of Feeding Device into Stomach, Via Natural or Artificial Opening (ICD-10-PCS; principal; 2017-02-01)
PROC: 30233N1 Transfusion of Nonautologous Red Blood Cells into Peripheral Vein, Percutaneous Approach (ICD-10-PCS; 2017-02-04)
DX: G40.909 Epilepsy, unspecified, not intractable, without status epilepticus (principal); G92 Toxic encephalopathy; J90 Pleural effusion, not elsewhere classified; R18.8 Other ascites; C78.6 Secondary malignant neoplasm of retroperitoneum and peritoneum; E87.5 Hyperkalemia; D69.6 Thrombocytopenia, unspecified; C56.9 Malignant neoplasm of unspecified ovary; L03.114 Cellulitis of left upper limb; I48.91 Unspecified atrial fibrillation; R62.7 Adult failure to thrive; Z66 Do not resuscitate; E03.9 Hypothyroidism, unspecified; I25.10 Atherosclerotic heart disease of native coronary artery without angina pectoris; K21.9 Gastro-esophageal reflux disease without esophagitis; M35.3 Polymyalgia rheumatica; T42.6X5A Adverse effect of other antiepileptic and sedative-hypnotic drugs, initial encounter; R50.9 Fever, unspecified; G47.33 Obstructive sleep apnea (adult) (pediatric); N18.9 Chronic kidney disease, unspecified; D53.9 Nutritional anemia, unspecified; M13.89 Other specified arthritis, multiple sites; T36.1X5A Adverse effect of cephalosporins and other beta-lactam antibiotics, initial encounter; Z88.5 Allergy status to narcotic agent; Z88.0 Allergy status to penicillin; Z88.2 Allergy status to sulfonamides; Z88.8 Allergy status to other drugs, medicaments and biological substances; Z88.1 Allergy status to other antibiotic agents; Z95.5 Presence of coronary angioplasty implant and graft; Z86.73 Personal history of transient ischemic attack (TIA), and cerebral infarction without residual deficits; Z80.1 Family history of malignant neoplasm of trachea, bronchus and lung
CPT/HCPCS: 36415; 36600; 70450; 70551; 71010; 80048; 80053; 80061; 80164; 80177; 80299; 81003; 82140; 82330; 82803; 83605; 84134; 84443; 84484; 85025; 85027; 85045; 85610; 85730; 86140; 86304; 86431; 86850; 86900; 86901; 86922; 87040; 87086; 87502; 87899; 93005; 94760; 95813; 95816; 95819; 95951; 99232; 99233; A9270-GY; J0133; J0360; J0610; J0690; J0696; J1630; J1642; J1644; J2060; J2405; J2560; J3370; P9040